=== PATIENT | female | born 1960 | race Caucasian/White ===

== ENCOUNTER 2016-12-19 18:27 | Inpatient (IN) | payer OTHER, MEDICARE ==
[~2016-12-19] VITALS: Ht 170.2 cm; Wt 77.1 kg
[~2016-12-19 18:27] MED LIST: ARIP15TA3 PO; BUPR150T15 PO; CRESTOR10 MG PO; DICL75TA PO; DULO60CA6 PO; GINK60CA7 PO; HYDR-2758 PO; IBUP200C9 PO; LAMO150T3 PO; OMEG300C PO; OMEP40CA5 PO; OXYC-327 PO; RABE20TA18 PO
[2016-12-19] MEDS ORDERED: IV NORMAL SALINE 1000ML BAG 1,000 ML IV ONE ×2 (19:00→21:00)
[2016-12-19 19:04] LABS: BASO # 0.1 x10^3/uL (0.0-0.2); BASO % 1 % (0-3); EOS % 0 % (0-3); HEMOGLOBIN 17.1 g/dL (12.0-15.5); LYMPH # 1.6 x10^3/uL (1.0-4.8); LYMPH % 8 % (24-48); MEAN CORPUSCULAR HEMOGLOBIN 32 pg (25-35); MEAN CORPUSCULAR HGB CONC 34 g/dL (31-37); MEAN CORPUSCULAR VOLUME 94 fL (79-100); MONO % 6 % (0-9); NEUT % 86 % (31-73); PLATELET COUNT 287 x10^3/uL (140-400); RED BLOOD COUNT 5.43 x10^6/uL (3.50-5.40); RED CELL DISTRIBUTION WIDTH 14.2 % (11.5-14.5); WHITE BLOOD COUNT 19.8 x10^3/uL (4.0-11.0)
[2016-12-19] MEDS: HYDROmorphone 2 MG/ML VIAL IV PRN (19:07)
[2016-12-19 19:15] LABS: BILIRUBIN,URINE NEGATIVE (NEG); GLUCOSE,URINE 100 mg/dL (NEG); NITRITE,URINE NEGATIVE (NEG); PROTEIN,URINE 100 mg/dL (NEG-TRACE); UROBILINOGEN,URINE 0.2 mg/dL (0.2 mg/dL)
[2016-12-19] MEDS ORDERED: ONDANSETRON PF 4 MG/2 ML VIAL. IV ONE (19:15)
--- NOTE | 2016-12-19 19:19 | PHYS DOC ---
Past Medical History Past Medical History: Cancer, Diabetes-Type II, Other Additional Past Medical Histor: left breast ca Past Surgical History: Cholecystectomy, Hysterectomy, Other Additional Past Surgical Histo: L mastectomy Alcohol Use: Rarely Drug Use: None Adult General Chief Complaint Chief Complaint: ABDOMINAL PAIN HPI HPI 56-year-old female presenting the emergency department today with epigastric abdominal pain for the past 48 hours. She has had 2 episodes of vomiting associated with this. She describes her vomitus is stomach contents. It is not bilious or bloody. She reports having hard stools over the past few days. She describes the pain is moderate to severe intermittent and without alleviating factors. It is nonradiating. She denies fevers or chills. Review of systems is negative for chest pain diarrhea shortness of breath fevers chills. All other review of systems is negative unless otherwise noted in history of present illness. Pertinent physical exam findings: Abdomen is soft and mildly tender generally without a focus. Negative McBurney's point. Negative Hyde sign. Otherwise unremarkable. ED course: 48-year-old female presenting to the emergency department with epigastric abdominal pain. Vital signs showed mild tachycardia likely secondary to pain. Otherwise her blood pressure was elevated as well. Blood work obtained along with CT of the abdomen pelvis. IV fluids and nausea medication were given. Pain medication given as well. Potassium came back low at 2.9. I did not have a previous EKG to compare to. EKG reviewed shows left bundle branch pattern unable to assess for EKG changes given no previous. I give the patient IV potassium and oral potassium and admitted her for telemetry monitoring. CT abdomen pelvis showed no acute pathology. Blood work showed leukocytosis. Nonspecific test. The patient was then admitted to Dr. Chi for further evaluation workup and care. Review of Systems Review of Systems SEE ABOVE. Current Medications Current Medications Current Medications Medications (Trade) Dose Ordered Sig/Julieta Start Time Stop Time Status Last Admin Dose Admin Hydromorphone HCl (Dilaudid) 0.5 mg PRN Q1HR PRN 12/19/16 19:00 12/19/16 19:07 0.5 MG Info (Do NOT chart on this entry -- for MONITORING) 1 each PRN DAILY PRN 12/19/16 20:00 12/21/16 19:59 Iohexol (Omnipaque 300 Mg/ml) 75 ml 1X ONCE 12/19/16 20:30 12/19/16 20:31 DC 12/19/16 20:20 75 ML Morphine Sulfate 2 mg PRN Q2HR PRN 12/19/16 21:00 12/20/16 20:59 Ondansetron HCl (Zofran) 4 mg PRN Q8HRS PRN 12/19/16 21:00 12/20/16 20:59 Potassium Chloride 100 ml @ 100 mls/hr Q1H 12/19/16 20:00 12/19/16 21:59 12/19/16 20:30 100 MLS/HR Sodium Chloride 1,000 ml @ 100 mls/hr 1X ONCE 12/19/16 21:00 12/20/16 06:59 12/19/16 20:48 100 MLS/HR Allergies Allergies Allergies Coded Allergies Type Severity Reaction Last Updated Verified Sulfa (Sulfonamide Antibiotics) Allergy Intermediate Hives 12/19/16 Yes adhesive Allergy Intermediate itch 07/02/14 Yes Physical Exam Physical Exam Constitutional: Well developed, well nourished, no acute distress, non-toxic appearance. [] HENT: Normocephalic, atraumatic, bilateral external ears normal, oropharynx moist, no oral exudates, nose normal. [] Eyes: PERRLA, EOMI, conjunctiva normal, no discharge. [] Neck: Normal range of motion, no tenderness, supple, no stridor. [] Cardiovascular:Heart rate regular rhythm, no murmur [] Lungs & Thorax: Bilateral breath sounds clear to auscultation [] Abdomen: see above Skin: Warm, dry, no erythema, no rash. [] Back: No tenderness, no CVA tenderness. [] Extremities: No tenderness, no cyanosis, no clubbing, ROM intact, no edema. [] Neurologic: Alert and oriented X 3, normal motor function, normal sensory function, no focal deficits noted. [] Psychologic: Affect normal, judgement normal, mood normal. [] Current Patient Data Vital Signs Vital Signs Date Time Temp Pulse Resp B/P (MAP) Pulse Ox O2 Delivery O2 Flow Rate FiO2 12/19/16 20:56 80 19 127/73 (91) 98 Nasal Cannula 2.0 12/19/16 18:44 97.9 97.9 Lab Values Laboratory Tests Test 12/19/16 18:46 12/19/16 18:53 12/19/16 19:00 White Blood Count 19.8 x10^3/uL (4.0-11.0) H Red Blood Count 5.43 x10^6/uL (3.50-5.40) H Hemoglobin 17.1 g/dL (12.0-15.5) H Hematocrit 51.0 % (36.0-47.0) H Mean Corpuscular Volume 94 fL (79-100) Mean Corpuscular Hemoglobin 32 pg (25-35) Mean Corpuscular Hemoglobin Concent 34 g/dL (31-37) Red Cell Distribution Width 14.2 % (11.5-14.5) Platelet Count 287 x10^3/uL (140-400) Neutrophils (%) (Auto) 86 % (31-73) H Lymphocytes (%) (Auto) 8 % (24-48) L Monocytes (%) (Auto) 6 % (0-9) Eosinophils (%) (Auto) 0 % (0-3) Basophils (%) (Auto) 1 % (0-3) Neutrophils # (Auto) 16.9 x10^3uL (1.8-7.7) H Lymphocytes # (Auto) 1.6 x10^3/uL (1.0-4.8) Monocytes # (Auto) 1.1 x10^3/uL (0.0-1.1) Eosinophils # (Auto) 0.0 x10^3/uL (0.0-0.7) Basophils # (Auto) 0.1 x10^3/uL (0.0-0.2) Segmented Neutrophils % 83 % (35-66) H Band Neutrophils % 2 % (0-9) Lymphocytes % 7 % (24-48) L Monocytes % 7 % (0-10) Basophils % 1 % (0-3) Toxic Granulation Slight Platelet Estimate Adequate (ADEQUATE) Sodium Level 136 mmol/L (136-145) Potassium Level 2.9 mmol/L (3.5-5.1) *L Chloride Level 96 mmol/L (98-107) L Carbon Dioxide Level 24 mmol/L (21-32) Anion Gap 16 (6-14) H Blood Urea Nitrogen 10 mg/dL (7-20) Creatinine 0.7 mg/dL (0.6-1.0) Estimated GFR (Cockcroft-Gault) 85.9 BUN/Creatinine Ratio 14 (6-20) Glucose Level 188 mg/dL (70-99) H Calcium Level 11.6 mg/dL (8.5-10.1) H Total Bilirubin 0.8 mg/dL (0.2-1.0) Aspartate Amino Transferase (AST) 35 U/L (15-37) Alanine Aminotransferase (ALT) 38 U/L (14-59) Alkaline Phosphatase 156 U/L (46-116) H Total Protein 8.9 g/dL (6.4-8.2) H Albumin 4.7 g/dL (3.4-5.0) Albumin/Globulin Ratio 1.1 (1.0-1.7) Lipase 102 U/L (73-393) Urine Collection Type Unknown Urine Color Straw Urine Clarity Clear Urine pH 8.0 Urine Specific Elmo 1.010 Urine Protein 100 mg/dL (NEG-TRACE) Urine Glucose (UA) 100 mg/dL (NEG) Urine Ketones (Stick) Negative mg/dL (NEG) Urine Blood Negative (NEG) Urine Nitrite Negative (NEG) Urine Bilirubin Negative (NEG) Urine Urobilinogen Dipstick 0.2 mg/dL (0.2 mg/dL) Urine Leukocyte Esterase Negative (NEG) Urine RBC 1-2 /HPF (0-2) Urine WBC 0 /HPF (0-4) Urine Squamous Epithelial Cells Few /LPF Urine Bacteria 0 /HPF (0-FEW) Urine Mucus Slight /LPF Urine Opiates Screen Neg (NEG) Urine Methadone Screen Neg (NEG) Urine Barbiturates Neg (NEG) Urine Phencyclidine Screen Neg (NEG) Urine Amphetamine/Methamphetamine Neg (NEG) Urine Benzodiazepines Screen Neg (NEG) Urine Cocaine Screen Neg (NEG) Urine Cannabinoids Screen Pos (NEG) Urine Ethyl Alcohol Neg (NEG) Laboratory Tests 12/19/16 18:46 Laboratory Tests 12/19/16 18:46 EKG EKG EKG shows left bundle branch block. Sinus rhythm with mild tachycardia. Otherwise unremarkable. [] Radiology/Procedures Radiology/Procedures [] Course & Med Decision Making Course & Med Decision Making Pertinent Labs and Imaging studies reviewed. (See chart for details) [] Dragon Disclaimer Dragon Disclaimer This electronic medical record was generated, in whole or in part, using a voice recognition dictation system. Departure Departure Impression: Primary Impression: Epigastric abdominal pain Additional Impressions: Hypokalemia Leukocytosis Referrals: RUTH NOVA MD (PCP) Patient Instructions: Abdominal Pain Additional Instructions: Thank you for allowing us to participate in your care today. Followup with your primary care physician in 3 days if your symptoms do not improve. Call your Primary Doctor tomorrow and inform them of your visit today. If you do not have a primary care provider you can ask for a list of our primary care providers. Return to the emergency department you have any new or concerning findings. This should be evaluated by the primary care physician and any necessary consulting services for continued management within a few days after discharge. Return to emergency room if you have any new or concerning symptoms including but not limited to fever, chills, nausea, vomiting, intractable pain, any new rashes, chest pain, shortness of air, uncontrolled bleeding, difficulty breathing, and/or vision loss. Problem Qualifiers SREEKANTH GARCIA MD Dec 19, 2016 19:19
[2016-12-19 19:21] LABS: BACTERIA,URINE 0 /HPF (0-FEW); SQUAMOUS EPITHELIAL CELL,UR FEW /LPF; WBC,URINE 0 /HPF (0-4)
[2016-12-19 19:26] LABS: BARBITURATES NEG (NEG); BENZODIAZEPINES NEG (NEG); CANNABINOIDS POS (NEG); COCAINE NEG (NEG); METHADONE NEG (NEG); OPIATES NEG (NEG); PHENCYCLIDINE NEG (NEG)
[2016-12-19 19:26] LABS: ALBUMIN 4.7 g/dL (3.4-5.0); ALBUMIN/GLOBULIN RATIO 1.1 (1.0-1.7); CALCIUM 11.6 mg/dL (8.5-10.1); CREATININE 0.7 mg/dL (0.6-1.0); GFR 85.9; TOTAL BILIRUBIN 0.8 mg/dL (0.2-1.0); TOTAL PROTEIN 8.9 g/dL (6.4-8.2)
[2016-12-19 19:29] LABS: % BASOS 1 % (0-3)
[2016-12-19 19:30] LABS: PLT ESTIMATE ADEQUATE (ADEQUATE); TOXIC GRANULATION SLIGHT
[2016-12-19 19:34] LABS: POTASSIUM 2.9 mmol/L (3.5-5.1)
[2016-12-19] MEDS ORDERED: CONTRAST GIVEN MC PRN (20:00)
[2016-12-19] MEDS ORDERED: IOHEXOL 300 MG/ML 75 ML VIAL IV ONE (20:30)
[2016-12-19] MEDS: POTASSIUM CHLORIDE 10MEQ 100 ML IV SCH ×2 (20:30→21:44)
--- NOTE | 2016-12-19 20:42 | RAD ---
CT scan of the abdomen and pelvis with contrast 12/19/2016 CLINICAL HISTORY: Abdominal pain with elevated white blood count. TECHNIQUE: After the intravenous administration 75 cc Omnipaque 300, contiguous, 5 mm axial sections were obtained through the abdomen and pelvis. FINDINGS: Images through the lung bases demonstrate minimal dependent subsegmental atelectasis bilaterally. The liver, spleen, pancreas, adrenal glands and left kidney are within normal limits. A 7 mm rounded low-attenuation lesion is seen involving the lower pole of the right kidney. This likely represents a cyst. Mild to moderate scattered atherosclerotic plaque formation seen within the abdominal aorta. The abdominal aorta tapers normally. Surgical clips within the gallbladder fossa consistent with cholecystectomy. No free fluid or free air is seen within the abdomen. There is no evidence of bowel obstruction. The appendix is not visualized. No inflammatory changes are seen surrounding the cecum. Images through the pelvis demonstrates the urinary bladder distended with urine. The patient appears to be post hysterectomy. No adnexal mass is seen. No free fluid is noted. Degenerative changes are seen involving the lumbar spine and both hips. IMPRESSION: No acute abnormality is seen. Electronically signed by: Theodore Dias MD (12/19/2016 8:39 PM)
[2016-12-19] MEDS ORDERED: ONDANSETRON PF 4 MG/2 ML VIAL. IV PRN (21:00)
[2016-12-19 23:00] VITALS: BP 137/79
[2016-12-19] MEDS ORDERED: DULO30CA2 PO (23:07)
[2016-12-19] MEDS ORDERED: ARIP10TA9 PO (23:07)
[2016-12-19] MEDS ORDERED: LAMO200T PO (23:09)
[2016-12-19] MEDS ORDERED: ARIP20TA10 PO (23:09)
[2016-12-19] MEDS: MORPHINE SULFATE 2 MG/ML DISP.SYRIN. IV PRN (23:27)
--- NOTE | 2016-12-20 01:06 | ACF ---
Admission Forms Criteria ABDOMINAL PAIN Clinical Indications for Admission to Inpatient Care (Place 'X' for any and all applicable criteria): Admission is indicated for ANY ONE of the following(1)(2)(3)(4)(5): [X]I. Inpatient admission required rather than observation care (Also use Abdominal Pain: Observation Care, as appropriate) because of ANY ONE of the following: [X]a) Severe pain requiring acute inpatient management [ ]b) Identification of etiology/finding that requires inpatient care (eg, aortic dissection, free air) [ ]c) Absent bowel sounds with complete ileus(6) [ ]d) Suspected toxic megacolon [ ]e) Severe electrolyte abnormalities requiring inpatient care [ ]f) High fever or infection requiring inpatient admission as indicated by ANY ONE of following(7)(8): [ ] i) Appropriate outpatient or observational care antimicrobial treatment unavailable, not effective, or not feasible [ ] ii) Documented bacteremia [ ] iii) Temperature > 104.9 degrees F (oral) [ ] iv) T >103.1 F (oral) or < 96.8 F(rectal) that does not respond to all emergency treatment measures [ ]g) Signs of intestinal obstruction [B] [ ]h) Hemodynamic instability [ ]i) IV fluid to replace significant ongoing losses (greater than 3 L/m2 per day) (12)(13) [ ]j) Percutaneous or open drainage (eg, abscess, biliary tract ) procedures [ ]k) Parenteral nutrition regimen that must be implemented on inpatient basis [ ]l) Other condition,treatment or monitoring requiring inpatient admission. [ ]II. Peritoneal signs present [ ]III. Surgery needed that cannot be performed on an ambulatory basis. [ ]IV. Evaluation requires patient to not eat or drink for extended period ( eg, more than 24 hours). [ ]V. Contraindications and/or Inappropriate clinical situations for Observational Care in patients with abdominal pain, when ANY ONE of the following is required: [ ]a) Thorough evaluation is required to prevent catastrophic events due to delays in diagnosing (e.g.Mesenteric ischemia) 1,3 [ ]b) Patient with severe pathology or with chronic symptoms unlikely to improve in the ED stay (3) [ ]. General contraindications and/or Inappropriate clinical situations for Observational Care in patients with abdominal pain, when ANY ONE of the following is required: [ ]a) Prediction of prolongation of LOS based on ANY ONE of the following may be considered as a contraindication for observational care 2, 3, 4, 5, 6, 7, 8, 9, 10, 11 [ ]i) Age > 65 yrs. [ ]ii) Patient arriving by ambulance [ ]iii) Patient with high acuity [ ]iv) Patient requiring vital sign monitoring [ ]v) Patient on IV medication [ ]b) Systolic blood pressures 180mmHg 3,12 [ ]c) Patient with altered mental status including delirium and other alteration of consciousness, (3) [ ]d) Patient whose discharge disposition will be to a correction home or rehabilitation home should not be managed in Emergency Department Observation Unit. CMS rule requires 3 days hospital stay before such placement.3,13 [ ]e) Patient with failure to thrive due to broad array of etiologies 3,16,17 [ ]f) Inability to ambulate 3,14 Extended stay beyond goal length of stay may be needed for(2)(3): [ ]a) Persistent abdominal pain with suspected intra-abdominal process [ ]b) Diagnosed condition requiring continued stay (e.g., pancreatitis, complicated diverticulitis) [ ]c) Surgery (e.g., colectomy) The original [facility] content created by [employer] has been revised. The portions of the content which have been revised are identified through the use of italic text or in bold, and [facility] has neither reviewed nor approved the modified material.All other unmodified content is copyright [employer]. Please see references footnoted in the original [facility] edition 2016 Admission Criteria Met?: Yes PAULINA CARRINGTON Dec 20, 2016 01:06
[2016-12-20] MEDS: MORPHINE SULFATE 2 MG/ML DISP.SYRIN. IV PRN ×6 (01:59→23:44)
[2016-12-20 03:06] VITALS: BP 176/102
[2016-12-20 05:03] LABS: BASO # 0.2 x10^3/uL (0.0-0.2); BASO % 1 % (0-3); EOS % 0 % (0-3); HEMATOCRIT 48.9 % (36.0-47.0); HEMOGLOBIN 16.2 g/dL (12.0-15.5); LYMPH # 2.4 x10^3/uL (1.0-4.8); LYMPH % 10 % (24-48); MEAN CORPUSCULAR HEMOGLOBIN 31 pg (25-35); MEAN CORPUSCULAR HGB CONC 33 g/dL (31-37); MEAN CORPUSCULAR VOLUME 94 fL (79-100); MONO % 11 % (0-9); NEUT % 78 % (31-73); PLATELET COUNT 268 x10^3/uL (140-400); RED BLOOD COUNT 5.18 x10^6/uL (3.50-5.40); RED CELL DISTRIBUTION WIDTH 14.3 % (11.5-14.5); WHITE BLOOD COUNT 24.5 x10^3/uL (4.0-11.0)
[2016-12-20 05:37] LABS: CALCIUM 10.5 mg/dL (8.5-10.1); CREATININE 0.5 mg/dL (0.6-1.0); GFR 126.7; POTASSIUM 3.5 mmol/L (3.5-5.1)
[2016-12-20 07:00] VITALS: BP 166/108
[2016-12-20] MEDS: PANTOPRAZOLE 40 MG TABLET.DR. PO SCH (09:08)
[2016-12-20] MEDS: POTASSIUM CHLORIDE 40 MEQ in IV 1/2 NORMAL SALINE 1,000 ML IV SCH ×2 (10:27→19:59)
--- NOTE | 2016-12-20 10:46 | PDOC2 ---
GI CONSULT Reason For Consult: Probable gastritis HPI: HPI: 56 y/o female who reports intermittent periumbilical pain for 5-6 days, more constant for 2 days. Induced vomiting, unsure if pain relief. H/o constipation improved w/ Miralax PRN, but has been out of town and not taking. Has been stooling w/ straining. Takes hydrocodone PRN for arthritis, also Excedrin. H/o GERD not completely controlled w/ Aciphex BID. EGD and colonoscopy w/ Dr. Eduardo in 07/2016: EGD w/ mild reflux (confirmed pathologically ), mild gastritis (no H. pylori), normal duodenum (no sprue), internal hemorrhoids, and excessive looping in the descending colon. CT as below, unrevealing. PMH: PMH: breast cancer s/p rad/chemo and left mastectomy, DM, GERD, fibromyalgia, depression, HLD, ANNE-MARIE, OA, hysterectomy, , cholecystectomy FH: Family History: Cancer (breast, colon), DM, Hypertension Social History: Smoke: Quit ALCOHOL: rare Drugs: Marijuana ROS: GEN: Denies fevers, chills, sweats HEENT: Denies blurred vision, sore throat CV: Denies chest pain RESP: Denies shortness of air, cough GI: Per HPI : Denies hematuria, dysuria ENDO: Denies weight changes NEURO: Denies confusion, dizziness MSK: +arthritis SKIN: Denies jaundice, pruritus Vitals: Vitals: Vital Signs Date Time Temp Pulse Resp B/P (MAP) Pulse Ox O2 Delivery O2 Flow Rate FiO2 12/20/16 09:45 Nasal Cannula 2.0 12/20/16 07:00 98.9 99 20 166/108 (127) 96 98.9 Labs: Labs: Laboratory Tests Test 12/19/16 18:46 12/19/16 18:53 12/19/16 19:00 12/20/16 04:50 White Blood Count 19.8 x10^3/uL (4.0-11.0) 24.5 x10^3/uL (4.0-11.0) Red Blood Count 5.43 x10^6/uL (3.50-5.40) 5.18 x10^6/uL (3.50-5.40) Hemoglobin 17.1 g/dL (12.0-15.5) 16.2 g/dL (12.0-15.5) Hematocrit 51.0 % (36.0-47.0) 48.9 % (36.0-47.0) Mean Corpuscular Volume 94 fL (79-100) 94 fL (79-100) Mean Corpuscular Hemoglobin 32 pg (25-35) 31 pg (25-35) Mean Corpuscular Hemoglobin Concent 34 g/dL (31-37) 33 g/dL (31-37) Red Cell Distribution Width 14.2 % (11.5-14.5) 14.3 % (11.5-14.5) Platelet Count 287 x10^3/uL (140-400) 268 x10^3/uL (140-400) Neutrophils (%) (Auto) 86 % (31-73) 78 % (31-73) Lymphocytes (%) (Auto) 8 % (24-48) 10 % (24-48) Monocytes (%) (Auto) 6 % (0-9) 11 % (0-9) Eosinophils (%) (Auto) 0 % (0-3) 0 % (0-3) Basophils (%) (Auto) 1 % (0-3) 1 % (0-3) Neutrophils # (Auto) 16.9 x10^3uL (1.8-7.7) 19.2 x10^3uL (1.8-7.7) Lymphocytes # (Auto) 1.6 x10^3/uL (1.0-4.8) 2.4 x10^3/uL (1.0-4.8) Monocytes # (Auto) 1.1 x10^3/uL (0.0-1.1) 2.7 x10^3/uL (0.0-1.1) Eosinophils # (Auto) 0.0 x10^3/uL (0.0-0.7) 0.0 x10^3/uL (0.0-0.7) Basophils # (Auto) 0.1 x10^3/uL (0.0-0.2) 0.2 x10^3/uL (0.0-0.2) Segmented Neutrophils % 83 % (35-66) Band Neutrophils % 2 % (0-9) Lymphocytes % 7 % (24-48) Monocytes % 7 % (0-10) Basophils % 1 % (0-3) Toxic Granulation Slight Platelet Estimate Adequate (ADEQUATE) Sodium Level 136 mmol/L (136-145) 140 mmol/L (136-145) Potassium Level 2.9 mmol/L (3.5-5.1) 3.5 mmol/L (3.5-5.1) Chloride Level 96 mmol/L (98-107) 102 mmol/L (98-107) Carbon Dioxide Level 24 mmol/L (21-32) 28 mmol/L (21-32) Anion Gap 16 (6-14) 10 (6-14) Blood Urea Nitrogen 10 mg/dL (7-20) 8 mg/dL (7-20) Creatinine 0.7 mg/dL (0.6-1.0) 0.5 mg/dL (0.6-1.0) Estimated GFR (Cockcroft-Gault) 85.9 126.7 BUN/Creatinine Ratio 14 (6-20) Glucose Level 188 mg/dL (70-99) 142 mg/dL (70-99) Calcium Level 11.6 mg/dL (8.5-10.1) 10.5 mg/dL (8.5-10.1) Total Bilirubin 0.8 mg/dL (0.2-1.0) Aspartate Amino Transf (AST/SGOT) 35 U/L (15-37) Alanine Aminotransferase (ALT/SGPT) 38 U/L (14-59) Alkaline Phosphatase 156 U/L (46-116) Total Protein 8.9 g/dL (6.4-8.2) Albumin 4.7 g/dL (3.4-5.0) Albumin/Globulin Ratio 1.1 (1.0-1.7) Lipase 102 U/L (73-393) Urine Collection Type Unknown Urine Color Straw Urine Clarity Clear Urine pH 8.0 Urine Specific Leland 1.010 Urine Protein 100 mg/dL (NEG-TRACE) Urine Glucose (UA) 100 mg/dL (NEG) Urine Ketones (Stick) Negative mg/dL (NEG) Urine Blood Negative (NEG) Urine Nitrite Negative (NEG) Urine Bilirubin Negative (NEG) Urine Urobilinogen Dipstick 0.2 mg/dL (0.2 mg/dL) Urine Leukocyte Esterase Negative (NEG) Urine RBC 1-2 /HPF (0-2) Urine WBC 0 /HPF (0-4) Urine Squamous Epithelial Cells Few /LPF Urine Bacteria 0 /HPF (0-FEW) Urine Mucus Slight /LPF Urine Opiates Screen Neg (NEG) Urine Methadone Screen Neg (NEG) Urine Barbiturates Neg (NEG) Urine Phencyclidine Screen Neg (NEG) Urine Amphetamine/Methamphetamine Neg (NEG) Urine Benzodiazepines Screen Neg (NEG) Urine Cocaine Screen Neg (NEG) Urine Cannabinoids Screen Pos (NEG) Urine Ethyl Alcohol Neg (NEG) Allergies: Coded Allergies: Sulfa (Sulfonamide Antibiotics) (Verified Allergy, Intermediate, Hives, ) adhesive (Verified Allergy, Intermediate, itch, 07/02/14) Medications: Current Medications Medications (Trade) Dose Ordered Sig/Julieta Route PRN Reason Start Time Stop Time Status Last Admin Dose Admin Hydromorphone HCl (Dilaudid) 0.5 mg PRN Q1HR PRN IV SEVERE PAIN 12/19/16 19:00 12/19/16 19:07 Ondansetron HCl (Zofran) 4 mg 1X ONCE IV 12/19/16 19:15 12/19/16 19:16 DC 12/19/16 19:06 Sodium Chloride 1,000 ml @ 1,000 mls/hr 1X ONCE IV 12/19/16 19:00 12/19/16 19:59 DC 12/19/16 19:07 Potassium Chloride 100 ml @ 100 mls/hr Q1H IV 12/19/16 20:00 12/19/16 21:59 DC 12/19/16 21:44 Iohexol (Omnipaque 300 Mg/ml) 75 ml 1X ONCE IV 12/19/16 20:30 12/19/16 20:31 DC 12/19/16 20:20 Sodium Chloride 1,000 ml @ 100 mls/hr 1X ONCE IV 12/19/16 21:00 12/20/16 06:59 DC 12/19/16 20:48 Ondansetron HCl (Zofran) 4 mg PRN Q8HRS PRN IV NAUSEA/VOMITING 12/19/16 21:00 12/20/16 20:59 12/19/16 23:31 Morphine Sulfate 2 mg PRN Q2HR PRN IV SEVERE PAIN 12/19/16 21:00 12/20/16 20:59 12/20/16 09:10 Pantoprazole Sodium (Protonix) 40 mg DAILYAC PO 12/20/16 09:30 12/20/16 09:08 Potassium Chloride 40 meq/ Sodium Chloride 1,020 ml @ 125 mls/hr Q8H10M IV 12/20/16 09:30 12/20/16 10:27 Imaging: Imaging: CT A/P w/ IV contrast IMPRESSION: No acute abnormality is seen. PE: GEN: NAD HEENT: Atraumatic, PERRL LUNGS: CTAB HEART: tachy ABD: NABS, S/ND, periumbilical soreness EXTREMITY: No edema SKIN: No rashes, no jaundice NEURO/PSYCH: A & O 3 A/P: A/P: Periumbilical pain -onset 5-6 days ago, no precipitating events -at first intermittent, worse w/ eating, now constant -CT unremarkable Constipation -intermittent, takes Miralax PRN -has been straining -colonoscopy 07/2016 GERD -breakthrough symptoms despite Aciphex BID -last EGD 07/2016 -Excedrin use QD Leukocytosis, hypokalemia -- D/w Dr. Rahman. Try Amitiza for ?opioid-induced constipation and check GES. Consider CTA r/o mesenteric ischemia and/or SBS later. AYAKA NOGUEIRA Dec 20, 2016 10:46
[2016-12-20 10:50] VITALS: BP 154/105
[2016-12-20] MEDS: POLYETHYLENE GLYCOL 3350 17 GM PACKET. PO SCH (12:06)
[2016-12-20] MEDS: HYDROmorphone 2 MG/ML VIAL IV PRN (14:51)
[2016-12-20 15:00] VITALS: BP 171/108
[2016-12-20] MEDS: LUBIPROSTONE 8 MCG CAPSULE PO SCH (16:59)
[2016-12-20 19:00] VITALS: BP 113/78
[2016-12-20] MEDS ORDERED: ONDANSETRON PF 4 MG/2 ML VIAL. IV PRN (19:45)
--- NOTE | 2016-12-20 21:50 | HP ---
ADMIT DATE: CHIEF COMPLAINT AND HISTORY OF PRESENT ILLNESS: This is a 56-year-old white female, who is well known to me with followup in the office. The patient was seen in the Emergency Room on the evening of admission with severe abdominal pain. This was primarily epigastric in nature, which has been going on for 4 days prior to this and was primarily worse with eating. This was suggestive of gastritis or gastric ulcer, but it got unbearable on the evening of admission. She had a negative CT of abdomen and pelvis, found to be hypokalemic with a potassium of 2.9. She had a left bundle-branch block on her EKG and was admitted for the hypokalemia as well as further workup of the abdominal pain. PAST MEDICAL HISTORY: Remarkable for prior left breast cancer with prior mastectomy that is more of a remote history. She has had a prior cholecystectomy and hysterectomy. Has adult-onset diabetes. MEDICATIONS: Brought with the patient, listed on the computer, and have been addressed. ALLERGIES: SHE IS ALLERGIC TO SULFA AND ADHESIVES. SOCIAL HISTORY: She is a smoker, recreationally drinks, and does not abuse drugs. FAMILY HISTORY: Noncontributory. REVIEW OF SYSTEMS: As mentioned above. Denies ____ hematemesis, melena, hematochezia etc. PHYSICAL EXAMINATION: GENERAL: She is a well-developed and well-nourished white female, in no acute distress. VITAL SIGNS: Stable. She is afebrile. HEAD, EYES, EARS, NOSE, AND THROAT: Unremarkable. NECK: Supple without bruit or thyromegaly. CHEST: Clear to auscultation and percussion. HEART: Regular rate and rhythm without S3, S4, or murmur. ABDOMEN: Reveals marked epigastric tenderness. EXTREMITIES: Without cyanosis, clubbing, or edema. NEUROLOGIC: She is intact. IMPRESSION: 1. Epigastric pain, likely again related to gastritis or gastric ulcer by history. 2. Hypokalemia. 3. Other problems listed as above. PLAN: The patient has been admitted. Potassium will be replaced. PPI has been started. GI has been consulted, and the patient will be monitored, managed, and treated appropriately. RUTH NOVA MD DR: DENG/kely JOB#: [id number] / [id number]
[2016-12-20 23:00] VITALS: BP 175/106
[2016-12-21] MEDS: HYDROmorphone 2 MG/ML VIAL IV PRN (01:19)
[2016-12-21 03:00] VITALS: BP 100/67
[2016-12-21] MEDS: POTASSIUM CHLORIDE 40 MEQ in IV 1/2 NORMAL SALINE 1,000 ML IV SCH ×3 (04:18→17:30)
[2016-12-21] MEDS: MORPHINE SULFATE 2 MG/ML DISP.SYRIN. IV PRN ×2 (04:21→06:39)
[2016-12-21 07:00] VITALS: BP 146/78
[2016-12-21 07:04] LABS: BASO # 0.1 x10^3/uL (0.0-0.2); BASO % 1 % (0-3); EOS % 0 % (0-3); HEMATOCRIT 49.5 % (36.0-47.0); HEMOGLOBIN 16.1 g/dL (12.0-15.5); LYMPH # 3.1 x10^3/uL (1.0-4.8); LYMPH % 17 % (24-48); MEAN CORPUSCULAR HEMOGLOBIN 31 pg (25-35); MEAN CORPUSCULAR HGB CONC 33 g/dL (31-37); MEAN CORPUSCULAR VOLUME 97 fL (79-100); MONO % 13 % (0-9); NEUT % 69 % (31-73); PLATELET COUNT 269 x10^3/uL (140-400); RED BLOOD COUNT 5.12 x10^6/uL (3.50-5.40); RED CELL DISTRIBUTION WIDTH 14.4 % (11.5-14.5); WHITE BLOOD COUNT 17.9 x10^3/uL (4.0-11.0)
[2016-12-21 07:11] LABS: CALCIUM 9.7 mg/dL (8.5-10.1); CREATININE 0.5 mg/dL (0.6-1.0); GFR 126.7; POTASSIUM 3.9 mmol/L (3.5-5.1)
--- NOTE | 2016-12-21 08:33 | PDOC ---
GENERAL General: vss and afebrile. awake and alert and very uncomfortable. will ask GI what could have for pain till GET completed. K+ up to 3.9 and wbc decreasing. otherwise same. Problems: VITAL SIGNS Vital Signs: Vital Signs Date Time Temp Pulse Resp B/P (MAP) Pulse Ox O2 Delivery O2 Flow Rate FiO2 12/21/16 06:39 16 95 Nasal Cannula 2.0 12/21/16 03:00 98.5 96 100/67 (78) 98.5 I & O I & O Intake and Output 12/21/16 07:00 Intake Total 2280 ml Output Total 500 ml Balance 1780 ml Intake Oral 240 ml IV Total 2040 ml Output Urine Total 500 ml # Voids 4 ALLERGIES Allergies: Allergies Coded Allergies Type Severity Reaction Last Updated Verified Sulfa (Sulfonamide Antibiotics) Allergy Intermediate Hives 12/19/16 Yes adhesive Allergy Intermediate itch 07/02/14 Yes MEDS Medications: Current Medications Medications (Trade) Dose Ordered Sig/Julieta Start Time Stop Time Status Last Admin Dose Admin Hydromorphone HCl (Dilaudid) 0.5 mg PRN Q1HR PRN 12/19/16 19:00 12/21/16 01:19 DC 12/21/16 01:19 0.5 MG Info (Do NOT chart on this entry -- for MONITORING) 1 each PRN DAILY PRN 12/19/16 20:00 12/21/16 19:59 Iohexol (Omnipaque 300 Mg/ml) 75 ml 1X ONCE 12/19/16 20:30 12/19/16 20:31 DC 12/19/16 20:20 75 ML Lubiprostone (Amitiza) 8 mcg BIDWMEALS 12/20/16 17:00 12/20/16 16:59 8 MCG Morphine Sulfate 2 mg PRN Q2HR PRN 12/20/16 19:45 12/21/16 06:39 2 MG Ondansetron HCl (Zofran) 4 mg PRN Q6HRS PRN 12/20/16 19:45 Pantoprazole Sodium (Protonix) 40 mg DAILYAC 12/20/16 09:30 12/20/16 09:08 40 MG Polyethylene Glycol (miraLAX PACKET) 17 gm DAILY 12/20/16 12:00 12/20/16 12:06 17 GM Potassium Chloride 40 meq/ Sodium Chloride 1,020 ml @ 125 mls/hr Q8H10M 12/20/16 09:30 12/21/16 04:18 125 MLS/HR Potassium Chloride 100 ml @ 100 mls/hr Q1H 12/19/16 20:00 12/19/16 21:59 DC 12/19/16 21:44 100 MLS/HR Sodium Chloride 1,000 ml @ 100 mls/hr 1X ONCE 12/19/16 21:00 12/20/16 06:59 DC 12/19/16 20:48 100 MLS/HR LAB Lab: Laboratory Tests Test 12/21/16 05:15 White Blood Count 17.9 x10^3/uL (4.0-11.0) Red Blood Count 5.12 x10^6/uL (3.50-5.40) Hemoglobin 16.1 g/dL (12.0-15.5) Hematocrit 49.5 % (36.0-47.0) Mean Corpuscular Volume 97 fL (79-100) Mean Corpuscular Hemoglobin 31 pg (25-35) Mean Corpuscular Hemoglobin Concent 33 g/dL (31-37) Red Cell Distribution Width 14.4 % (11.5-14.5) Platelet Count 269 x10^3/uL (140-400) Neutrophils (%) (Auto) 69 % (31-73) Lymphocytes (%) (Auto) 17 % (24-48) Monocytes (%) (Auto) 13 % (0-9) Eosinophils (%) (Auto) 0 % (0-3) Basophils (%) (Auto) 1 % (0-3) Neutrophils # (Auto) 12.3 x10^3uL (1.8-7.7) Lymphocytes # (Auto) 3.1 x10^3/uL (1.0-4.8) Monocytes # (Auto) 2.4 x10^3/uL (0.0-1.1) Eosinophils # (Auto) 0.1 x10^3/uL (0.0-0.7) Basophils # (Auto) 0.1 x10^3/uL (0.0-0.2) Sodium Level 141 mmol/L (136-145) Potassium Level 3.9 mmol/L (3.5-5.1) Chloride Level 105 mmol/L (98-107) Carbon Dioxide Level 26 mmol/L (21-32) Anion Gap 10 (6-14) Blood Urea Nitrogen 8 mg/dL (7-20) Creatinine 0.5 mg/dL (0.6-1.0) Estimated GFR (Cockcroft-Gault) 126.7 Glucose Level 118 mg/dL (70-99) Calcium Level 9.7 mg/dL (8.5-10.1) RUTH NOVA MD Dec 21, 2016 08:33
[2016-12-21] MEDS: fentaNYL PF VIAL 100 MCG/2 ML VIAL IV PRN ×5 (10:06→22:20)
[2016-12-21 11:00] VITALS: BP 173/117
--- NOTE | 2016-12-21 13:58 | PDOC ---
Subjective: Subjective: Wants to drink. Still has pain. No BM. Objective: Objective: Per RN - ongoing pain. Vital Signs: Vital Signs Date Time Temp Pulse Resp B/P (MAP) Pulse Ox O2 Delivery O2 Flow Rate FiO2 12/21/16 12:54 96 Room Air 12/21/16 11:30 2.0 12/21/16 07:00 98.6 72 20 146/78 (100) 98.6 Labs: Laboratory Tests Test 12/21/16 05:15 White Blood Count 17.9 x10^3/uL Red Blood Count 5.12 x10^6/uL Hemoglobin 16.1 g/dL Hematocrit 49.5 % Mean Corpuscular Volume 97 fL Mean Corpuscular Hemoglobin 31 pg Mean Corpuscular Hemoglobin Concent 33 g/dL Red Cell Distribution Width 14.4 % Platelet Count 269 x10^3/uL Neutrophils (%) (Auto) 69 % Lymphocytes (%) (Auto) 17 % Monocytes (%) (Auto) 13 % Eosinophils (%) (Auto) 0 % Basophils (%) (Auto) 1 % Neutrophils # (Auto) 12.3 x10^3uL Lymphocytes # (Auto) 3.1 x10^3/uL Monocytes # (Auto) 2.4 x10^3/uL Eosinophils # (Auto) 0.1 x10^3/uL Basophils # (Auto) 0.1 x10^3/uL Sodium Level 141 mmol/L Potassium Level 3.9 mmol/L Chloride Level 105 mmol/L Carbon Dioxide Level 26 mmol/L Anion Gap 10 Blood Urea Nitrogen 8 mg/dL Creatinine 0.5 mg/dL Estimated GFR (Cockcroft-Gault) 126.7 Glucose Level 118 mg/dL Calcium Level 9.7 mg/dL Imaging: GES 12/21/16 PENDING PE: GEN: NAD LUNGS: CTAB HEART: RRR ABD: BS quiet, periumbilical pain NEURO/PSYCH: A & O 3 A/P: Periumbilical pain -CT unremarkable but note mild to moderate scattered atherosclerotic plaque in abd aorta -GES report pending - images look okay to me Constipation -persists despite Miralax + Amitiza 8mcg BID -colonoscopy 07/2016 w/ excessive looping GERD -on Aciphex BID, also Excedrin QD -last EGD 07/2016 Leukocytosis -- Resume clears. Pain continues. Hasn't had many doses of Amitiza/Miralax but asks for enema - will order. If GES normal, ?CTA next - will d/w Dr. Rahman. AYAKA NOGUEIRA Dec 21, 2016 13:58
--- NOTE | 2016-12-21 13:59 | RAD ---
Examination: Gastric Emptying Scintigraphy: Radiopharmaceutical: 2.0 mCi Tc-99m sulfur colloid mixed with solid meal History: Abdominal pain, nausea, vomiting. Findings: A routine solid-phase gastric emptying scintigraphy examination was performed. Anterior abdominal images were obtained at after ingestion of the standardized radiolabeled solid meal. Time/activity closer performed. The gastric emptying is 49% in 60 minutes with a T half of 64 minutes. Impression: Normal gastric emptying.
[2016-12-21] MEDS ORDERED: SODIUM PHOSPHATES 19/7GM 133 ML ENEMA. PR ONE (14:00)
[2016-12-21] MEDS: POLYETHYLENE GLYCOL 3350 17 GM PACKET. PO SCH (14:07)
[2016-12-21] MEDS: LUBIPROSTONE 8 MCG CAPSULE PO SCH ×2 (14:07→16:42)
[2016-12-21] MEDS: PANTOPRAZOLE 40 MG TABLET.DR. PO SCH ×2 (14:08→16:42)
[2016-12-21 15:00] VITALS: BP 110/66
[2016-12-21 19:25] VITALS: BP 94/57
[2016-12-21 23:25] VITALS: BP 142/94
[2016-12-22] MEDS: fentaNYL PF VIAL 100 MCG/2 ML VIAL IV PRN ×3 (00:38→06:05)
[2016-12-22] MEDS: POTASSIUM CHLORIDE 40 MEQ in IV 1/2 NORMAL SALINE 1,000 ML IV SCH ×2 (02:03→13:49)
[2016-12-22 03:00] VITALS: BP 140/91
[2016-12-22 07:00] VITALS: BP 177/102
[2016-12-22] MEDS: MORPHINE SULFATE 2 MG/ML DISP.SYRIN. IV PRN ×7 (08:09→22:48)
[2016-12-22] MEDS ORDERED: IOHEXOL 350 MG/ML 100 ML VIAL. IV ONE (09:15)
[2016-12-22] MEDS ORDERED: CONTRAST GIVEN MC PRN (09:15)
[2016-12-22] MEDS: PANTOPRAZOLE 40 MG TABLET.DR. PO SCH ×2 (10:09→18:11)
[2016-12-22] MEDS: LUBIPROSTONE 8 MCG CAPSULE PO SCH ×2 (10:09→18:11)
[2016-12-22] MEDS: POLYETHYLENE GLYCOL 3350 17 GM PACKET. PO SCH (10:10)
[2016-12-22 10:44] VITALS: BP 173/102
--- NOTE | 2016-12-22 13:30 | RAD ---
CTA of the abdomen and pelvis with contrast, 12/22/2016: History: Abdominal pain, mesenteric ischemia Multidetector CT imaging was performed following an IV bolus injection of iodinated contrast material. Multiplanar reconstructions were then produced as well as 3-D volume rendered reconstructions of the aorta and its major branches. There are mild scattered atherosclerotic plaques in the abdominal aorta, iliac and common femoral arteries. There is no evidence of high-grade stenosis or aneurysm. The origins of the celiac and superior mesenteric arteries from the aortic arch are widely patent. There are single bilateral renal arteries with only mild calcific plaquing at the left renal artery origin. A small patent inferior mesenteric artery is identified. Since the study of 12/19/2016, a large area of abnormal density has developed in the right upper quadrant centered in the region of the gallbladder fossa and second portion of the duodenum, extending inferiorly in the anterior pararenal space. This material is of mixed low and high density suggesting a component of hemorrhage. It surrounds the second portion of the duodenum and abuts the pancreatic head. It also abuts the hepatic flexure of the colon. The common duct in the pancreatic head is unremarkable. The pancreatic body and tail show no abnormality. No definite free air is seen in the retroperitoneum. The bowel loops are not dilated. Proximal gastric mural thickening is probably due to lack of distention. A component of gastritis cannot be excluded. No free air is identified in the abdomen or pelvis. There is a trace amount of free fluid in the right paracolic gutter and pelvis. IMPRESSION: 1. Mild aortoiliac atherosclerosis. 2. No evidence of celiac or superior mesenteric artery stenosis. 3. New large area of abnormal density in the right upper quadrant centered in the proximal duodenal and subhepatic region, most compatible with hemorrhage, of uncertain origin. Has there been recent intervention in this region? Complex fluid secondary to focal pancreatitis or a biloma are less likely possibilities. Note: The findings were called to the patient's nurse on the floor at 1:25 PM on 12/22/2016. PQRS Compliance Statement: One or more of the following individualized dose reduction techniques were utilized for this examination: 1. Automated exposure control 2. Adjustment of the mA and/or kV according to patient size 3. Use of iterative reconstruction technique
--- NOTE | 2016-12-22 13:48 | PDOC ---
Subjective: Subjective: Feels better after shower but still has pain. Worse after eating. Only passed small amount of stool after enema yesterday. Objective: Vital Signs: Vital Signs Date Time Temp Pulse Resp B/P (MAP) Pulse Ox O2 Delivery O2 Flow Rate FiO2 12/22/16 11:54 98 Room Air 2.0 12/22/16 10:44 97.9 97 20 173/102 (125) 97.9 Imaging: CTA A/P 12/22/16 IMPRESSION: 1. Mild aortoiliac atherosclerosis. 2. No evidence of celiac or superior mesenteric artery stenosis. 3. New large area of abnormal density in the right upper quadrant centered in the proximal duodenal and subhepatic region, most compatible with hemorrhage, of uncertain origin. Has there been recent intervention in this region? Complex fluid secondary to focal pancreatitis or a biloma are less likely possibilities. PE: GEN: NAD, up to chair LUNGS: CTAB HEART: RRR ABD: epigastric to RUQ discomfort NEURO/PSYCH: A & O 3 A/P: Periumbilical pain -CT unremarkable except atherosclerotic plaque -GES WNL -CTA as above Constipation -persists despite Miralax + Amitiza 8mcg BID + Fleet's enema -colonoscopy 07/2016 w/ excessive looping GERD -on Aciphex BID, also Excedrin QD -last EGD 07/2016 Leukocytosis -- Reviewed w/ Dr. Rahman. MRI liver today. Called radiology - order for MRI abd w/ and w/o. AYAKA NOGUEIRA Dec 22, 2016 13:48
[2016-12-22 15:00] VITALS: BP 195/113
--- NOTE | 2016-12-22 15:25 | PDOC ---
GENERAL General: vss and afebrile. awake and alert and ongoing abdominal pain. GET ok. for cta abdomen today per GI. plans to follow. hypokalemia corrected. Problems: VITAL SIGNS Vital Signs: Vital Signs Date Time Temp Pulse Resp B/P (MAP) Pulse Ox O2 Delivery O2 Flow Rate FiO2 12/22/16 14:42 98 Room Air 2.0 12/22/16 10:44 97.9 97 20 173/102 (125) 97.9 I & O I & O Intake and Output 12/22/16 07:00 Intake Total 1060 ml Balance 1060 ml Intake Oral 1060 ml # Voids 7 ALLERGIES Allergies: Allergies Coded Allergies Type Severity Reaction Last Updated Verified Sulfa (Sulfonamide Antibiotics) Allergy Intermediate Hives 12/19/16 Yes adhesive Allergy Intermediate itch 07/02/14 Yes MEDS Medications: Current Medications Medications (Trade) Dose Ordered Sig/Julieta Start Time Stop Time Status Last Admin Dose Admin Fentanyl Citrate (Fentanyl 2ml Vial) 50 mcg PRN Q2HR PRN 12/21/16 08:45 12/22/16 06:05 50 MCG Hydromorphone HCl (Dilaudid) 0.5 mg PRN Q1HR PRN 12/19/16 19:00 12/21/16 01:19 DC 12/21/16 01:19 0.5 MG Info (Do NOT chart on this entry -- for MONITORING) 1 each PRN DAILY PRN 12/22/16 09:15 12/24/16 09:14 Iohexol (Omnipaque 300 Mg/ml) 75 ml 1X ONCE 12/19/16 20:30 12/19/16 20:31 DC 12/19/16 20:20 75 ML Iohexol (Omnipaque 350 Mg/ml) 90 ml 1X ONCE 12/22/16 09:15 12/22/16 09:16 DC 12/22/16 09:28 90 ML Lorazepam (Ativan) 1 mg 1X ONCE 12/22/16 15:15 12/22/16 15:16 DC Lubiprostone (Amitiza) 8 mcg BIDWMEALS 12/20/16 17:00 12/22/16 10:09 8 MCG Morphine Sulfate 2 mg PRN Q2HR PRN 12/20/16 19:45 12/22/16 13:49 2 MG Ondansetron HCl (Zofran) 4 mg PRN Q6HRS PRN 12/20/16 19:45 Pantoprazole Sodium (Protonix) 40 mg BIDAC 12/21/16 16:30 12/22/16 10:09 40 MG Polyethylene Glycol (miraLAX PACKET) 17 gm DAILY 12/20/16 12:00 12/22/16 10:10 17 GM Potassium Chloride 40 meq/ Sodium Chloride 1,020 ml @ 125 mls/hr Q8H10M 12/20/16 09:30 12/22/16 13:49 125 MLS/HR Potassium Chloride 100 ml @ 100 mls/hr Q1H 12/19/16 20:00 12/19/16 21:59 DC 12/19/16 21:44 100 MLS/HR Sodium Monofluorophosphate (Fleet Adult) 133 ml 1X ONCE 12/21/16 14:00 12/21/16 14:01 DC 12/21/16 14:07 133 ML Sodium Chloride 1,000 ml @ 100 mls/hr 1X ONCE 12/19/16 21:00 12/20/16 06:59 DC 12/19/16 20:48 100 MLS/HR RUTH NOVA MD Dec 22, 2016 15:25
--- NOTE | 2016-12-22 17:43 | PDOC ---
SURGICAL PROGRESS NOTE Subjective 56 yo F with RUQ pain CT c/w hematoma agree with MRI consider angio Thanks for consult! [id number] Vital Signs Vital Signs Date Time Temp Pulse Resp B/P (MAP) Pulse Ox O2 Delivery O2 Flow Rate FiO2 12/22/16 15:00 97.9 97 20 195/113 (140) 99 Room Air 97.9 12/22/16 14:42 2.0 I&O Intake and Output 12/22/16 07:00 Intake Total 1060 ml Balance 1060 ml Intake Oral 1060 ml # Voids 7 Labs Laboratory Tests Test 12/21/16 05:15 White Blood Count 17.9 x10^3/uL (4.0-11.0) Red Blood Count 5.12 x10^6/uL (3.50-5.40) Hemoglobin 16.1 g/dL (12.0-15.5) Hematocrit 49.5 % (36.0-47.0) Mean Corpuscular Volume 97 fL (79-100) Mean Corpuscular Hemoglobin 31 pg (25-35) Mean Corpuscular Hemoglobin Concent 33 g/dL (31-37) Red Cell Distribution Width 14.4 % (11.5-14.5) Platelet Count 269 x10^3/uL (140-400) Neutrophils (%) (Auto) 69 % (31-73) Lymphocytes (%) (Auto) 17 % (24-48) Monocytes (%) (Auto) 13 % (0-9) Eosinophils (%) (Auto) 0 % (0-3) Basophils (%) (Auto) 1 % (0-3) Neutrophils # (Auto) 12.3 x10^3uL (1.8-7.7) Lymphocytes # (Auto) 3.1 x10^3/uL (1.0-4.8) Monocytes # (Auto) 2.4 x10^3/uL (0.0-1.1) Eosinophils # (Auto) 0.1 x10^3/uL (0.0-0.7) Basophils # (Auto) 0.1 x10^3/uL (0.0-0.2) Sodium Level 141 mmol/L (136-145) Potassium Level 3.9 mmol/L (3.5-5.1) Chloride Level 105 mmol/L (98-107) Carbon Dioxide Level 26 mmol/L (21-32) Anion Gap 10 (6-14) Blood Urea Nitrogen 8 mg/dL (7-20) Creatinine 0.5 mg/dL (0.6-1.0) Estimated GFR (Cockcroft-Gault) 126.7 Glucose Level 118 mg/dL (70-99) Calcium Level 9.7 mg/dL (8.5-10.1) Problem List Problems Medical Problems: (1) Epigastric abdominal pain Status: Acute (2) Hypokalemia Status: Acute (3) Leukocytosis Status: Acute Problems: DAMI HAMLIN MD Dec 22, 2016 17:43
[2016-12-22] MEDS ORDERED: GADOBUTROL 7.5 MMOL/7.5 ML VIAL IV ONE (18:45)
[2016-12-22 19:00] VITALS: BP 90/73
[2016-12-22 23:00] VITALS: BP 117/83
[2016-12-23] MEDS: MORPHINE SULFATE 2 MG/ML DISP.SYRIN. IV PRN ×6 (01:15→21:39)
[2016-12-23] MEDS: POTASSIUM CHLORIDE 40 MEQ in IV 1/2 NORMAL SALINE 1,000 ML IV SCH ×4 (01:17→19:10)
[2016-12-23 03:00] VITALS: BP 107/71
[2016-12-23 03:50] LABS: BASO # 0.1 x10^3/uL (0.0-0.2); BASO % 1 % (0-3); EOS % 2 % (0-3); HEMATOCRIT 33.9 % (36.0-47.0); HEMOGLOBIN 11.5 g/dL (12.0-15.5); LYMPH # 3.4 x10^3/uL (1.0-4.8); LYMPH % 28 % (24-48); MEAN CORPUSCULAR HEMOGLOBIN 32 pg (25-35); MEAN CORPUSCULAR HGB CONC 34 g/dL (31-37); MEAN CORPUSCULAR VOLUME 94 fL (79-100); MONO % 12 % (0-9); NEUT % 57 % (31-73); PLATELET COUNT 204 x10^3/uL (140-400); RED BLOOD COUNT 3.62 x10^6/uL (3.50-5.40); RED CELL DISTRIBUTION WIDTH 13.7 % (11.5-14.5); WHITE BLOOD COUNT 12.4 x10^3/uL (4.0-11.0)
[2016-12-23 04:17] LABS: ALBUMIN 2.9 g/dL (3.4-5.0); ALBUMIN/GLOBULIN RATIO 0.9 (1.0-1.7); CREATININE 0.4 mg/dL (0.6-1.0); GFR 163.9; POTASSIUM 3.8 mmol/L (3.5-5.1); TOTAL BILIRUBIN 0.5 mg/dL (0.2-1.0)
[2016-12-23 07:00] VITALS: BP 125/91
[2016-12-23] MEDS: PANTOPRAZOLE 40 MG TABLET.DR. PO SCH ×2 (07:30→16:23)
[2016-12-23] MEDS: POLYETHYLENE GLYCOL 3350 17 GM PACKET. PO SCH (07:49)
[2016-12-23] MEDS: LUBIPROSTONE 8 MCG CAPSULE PO SCH ×2 (07:49→16:23)
--- NOTE | 2016-12-23 08:58 | RAD ---
MR of the abdomen with gadolinium, 12/22/2016: History: Abnormal right upper quadrant opacity on CT, abdominal pain Imaging was performed in axial and coronal planes utilizing a variety of imaging sequences including T2 weighted, fat suppressed T2 weighted and opposed phase gradient echo sequences. Fat suppressed T1 weighted dynamic images were also obtained following IV injection of 7.5 cc of the Gadavist contrast agent. The study is correlated with the CT exam of earlier in the day. No hepatic mass is identified. The gallbladder is surgically absent. There is a heterogeneous process of mixed signal intensities in the right upper quadrant centered in the subhepatic region and surrounding the proximal duodenum, as also delineated on the earlier CT exam. No postcontrast enhancement is seen within this process. The appearance again suggests hemorrhage. This process appears to be unchanged in size since earlier in the day. No underlying duodenal or pancreatic mass is seen. The bile ducts are unremarkable for the postcholecystectomy state. The pancreatic duct is unremarkable. The spleen shows no abnormality. There is a small cyst posteriorly in the right kidney. The kidneys are otherwise unremarkable. IMPRESSION: Unchanged heterogeneous right subhepatic process most compatible with hemorrhage, of uncertain origin.
--- NOTE | 2016-12-23 09:54 | PDOC ---
Subjective: Subjective: Pain "not bad" right now. Asks for ice chips and pain meds. Objective: Vital Signs: Vital Signs Date Time Temp Pulse Resp B/P (MAP) Pulse Ox O2 Delivery O2 Flow Rate FiO2 12/23/16 09:42 20 99 Room Air 12/23/16 07:00 97.7 87 125/91 (102) 97.7 12/23/16 05:18 2.0 Labs: Laboratory Tests Test 12/23/16 03:22 12/23/16 08:40 White Blood Count 12.4 x10^3/uL Red Blood Count 3.62 x10^6/uL Hemoglobin 11.5 g/dL Hematocrit 33.9 % Mean Corpuscular Volume 94 fL Mean Corpuscular Hemoglobin 32 pg Mean Corpuscular Hemoglobin Concent 34 g/dL Red Cell Distribution Width 13.7 % Platelet Count 204 x10^3/uL Neutrophils (%) (Auto) 57 % Lymphocytes (%) (Auto) 28 % Monocytes (%) (Auto) 12 % Eosinophils (%) (Auto) 2 % Basophils (%) (Auto) 1 % Neutrophils # (Auto) 7.0 x10^3uL Lymphocytes # (Auto) 3.4 x10^3/uL Monocytes # (Auto) 1.5 x10^3/uL Eosinophils # (Auto) 0.3 x10^3/uL Basophils # (Auto) 0.1 x10^3/uL Sodium Level 140 mmol/L Potassium Level 3.8 mmol/L Chloride Level 106 mmol/L Carbon Dioxide Level 26 mmol/L Anion Gap 8 Blood Urea Nitrogen 6 mg/dL Creatinine 0.4 mg/dL Estimated GFR (Cockcroft-Gault) 163.9 BUN/Creatinine Ratio 15 Glucose Level 106 mg/dL Calcium Level 9.0 mg/dL Total Bilirubin 0.5 mg/dL Aspartate Amino Transf (AST/SGOT) 23 U/L Alanine Aminotransferase (ALT/SGPT) 22 U/L Alkaline Phosphatase 92 U/L Total Protein 6.0 g/dL Albumin 2.9 g/dL Albumin/Globulin Ratio 0.9 Prothrombin Time 13.0 SEC Prothromb Time International Ratio 1.0 Imaging: MRI 12/22/16 IMPRESSION: Unchanged heterogeneous right subhepatic process most compatible with hemorrhage, of uncertain origin. PE: GEN: NAD LUNGS: CTAB anteriorly HEART: RRR ABD: RUQ/epigastric tenderness NEURO/PSYCH: drowsy A/P: Upper abd pain -CT unremarkable except atherosclerotic plaque -GES WNL -CTA w/ new RUQ density c/w hemorrhage -MRI as above Constipation -persists despite Miralax + Amitiza 8mcg BID + Fleet's enema -colonoscopy 07/2016 w/ excessive looping GERD -on Aciphex BID, also Excedrin QD -last EGD 07/2016 Leukocytosis - improved -- Reviewed w/ Dr. Rahman. EGD this afternoon. Keep NPO. D/w RN, called to GI lab. AYAKA NOGUEIRA Dec 23, 2016 09:54
--- NOTE | 2016-12-23 10:25 | PDOC ---
MAGNOLIA RICE FINANCIAL DEVELOPER 12/23/16 1025: SURGICAL PROGRESS NOTE Subjective epigastric ruq pain-mild right now nausea at times Vital Signs Vital Signs Date Time Temp Pulse Resp B/P (MAP) Pulse Ox O2 Delivery O2 Flow Rate FiO2 12/23/16 09:42 20 99 Room Air 12/23/16 07:00 97.7 87 125/91 (102) 97.7 12/23/16 05:18 2.0 I&O Intake and Output 12/23/16 07:00 Intake Total 1050 ml Output Total 300 ml Balance 750 ml Intake Oral 1050 ml Output Urine Total 300 ml # Voids 8 General: Alert, Oriented X3, Cooperative, No acute distress Abdomen: Soft, Other (epigastric,RUQ pain ) Labs Laboratory Tests Test 12/23/16 03:22 12/23/16 08:40 White Blood Count 12.4 x10^3/uL (4.0-11.0) Red Blood Count 3.62 x10^6/uL (3.50-5.40) Hemoglobin 11.5 g/dL (12.0-15.5) Hematocrit 33.9 % (36.0-47.0) Mean Corpuscular Volume 94 fL (79-100) Mean Corpuscular Hemoglobin 32 pg (25-35) Mean Corpuscular Hemoglobin Concent 34 g/dL (31-37) Red Cell Distribution Width 13.7 % (11.5-14.5) Platelet Count 204 x10^3/uL (140-400) Neutrophils (%) (Auto) 57 % (31-73) Lymphocytes (%) (Auto) 28 % (24-48) Monocytes (%) (Auto) 12 % (0-9) Eosinophils (%) (Auto) 2 % (0-3) Basophils (%) (Auto) 1 % (0-3) Neutrophils # (Auto) 7.0 x10^3uL (1.8-7.7) Lymphocytes # (Auto) 3.4 x10^3/uL (1.0-4.8) Monocytes # (Auto) 1.5 x10^3/uL (0.0-1.1) Eosinophils # (Auto) 0.3 x10^3/uL (0.0-0.7) Basophils # (Auto) 0.1 x10^3/uL (0.0-0.2) Sodium Level 140 mmol/L (136-145) Potassium Level 3.8 mmol/L (3.5-5.1) Chloride Level 106 mmol/L (98-107) Carbon Dioxide Level 26 mmol/L (21-32) Anion Gap 8 (6-14) Blood Urea Nitrogen 6 mg/dL (7-20) Creatinine 0.4 mg/dL (0.6-1.0) Estimated GFR (Cockcroft-Gault) 163.9 BUN/Creatinine Ratio 15 (6-20) Glucose Level 106 mg/dL (70-99) Calcium Level 9.0 mg/dL (8.5-10.1) Total Bilirubin 0.5 mg/dL (0.2-1.0) Aspartate Amino Transf (AST/SGOT) 23 U/L (15-37) Alanine Aminotransferase (ALT/SGPT) 22 U/L (14-59) Alkaline Phosphatase 92 U/L (46-116) Total Protein 6.0 g/dL (6.4-8.2) Albumin 2.9 g/dL (3.4-5.0) Albumin/Globulin Ratio 0.9 (1.0-1.7) Prothrombin Time 13.0 SEC (11.7-14.0) Prothromb Time International Ratio 1.0 (0.8-1.1) Laboratory Tests Test 12/23/16 03:22 12/23/16 08:40 White Blood Count 12.4 x10^3/uL (4.0-11.0) Red Blood Count 3.62 x10^6/uL (3.50-5.40) Hemoglobin 11.5 g/dL (12.0-15.5) Hematocrit 33.9 % (36.0-47.0) Mean Corpuscular Volume 94 fL (79-100) Mean Corpuscular Hemoglobin 32 pg (25-35) Mean Corpuscular Hemoglobin Concent 34 g/dL (31-37) Red Cell Distribution Width 13.7 % (11.5-14.5) Platelet Count 204 x10^3/uL (140-400) Neutrophils (%) (Auto) 57 % (31-73) Lymphocytes (%) (Auto) 28 % (24-48) Monocytes (%) (Auto) 12 % (0-9) Eosinophils (%) (Auto) 2 % (0-3) Basophils (%) (Auto) 1 % (0-3) Neutrophils # (Auto) 7.0 x10^3uL (1.8-7.7) Lymphocytes # (Auto) 3.4 x10^3/uL (1.0-4.8) Monocytes # (Auto) 1.5 x10^3/uL (0.0-1.1) Eosinophils # (Auto) 0.3 x10^3/uL (0.0-0.7) Basophils # (Auto) 0.1 x10^3/uL (0.0-0.2) Sodium Level 140 mmol/L (136-145) Potassium Level 3.8 mmol/L (3.5-5.1) Chloride Level 106 mmol/L (98-107) Carbon Dioxide Level 26 mmol/L (21-32) Anion Gap 8 (6-14) Blood Urea Nitrogen 6 mg/dL (7-20) Creatinine 0.4 mg/dL (0.6-1.0) Estimated GFR (Cockcroft-Gault) 163.9 BUN/Creatinine Ratio 15 (6-20) Glucose Level 106 mg/dL (70-99) Calcium Level 9.0 mg/dL (8.5-10.1) Total Bilirubin 0.5 mg/dL (0.2-1.0) Aspartate Amino Transf (AST/SGOT) 23 U/L (15-37) Alanine Aminotransferase (ALT/SGPT) 22 U/L (14-59) Alkaline Phosphatase 92 U/L (46-116) Total Protein 6.0 g/dL (6.4-8.2) Albumin 2.9 g/dL (3.4-5.0) Albumin/Globulin Ratio 0.9 (1.0-1.7) Prothrombin Time 13.0 SEC (11.7-14.0) Prothromb Time International Ratio 1.0 (0.8-1.1) Problem List Problems Medical Problems: (1) Epigastric abdominal pain Status: Acute (2) Hypokalemia Status: Acute (3) Leukocytosis Status: Acute Assessment/Plan hematoma, hemorrhage plans for EGD today IR consulted to consider angio Problems: DAMI HAMLIN MD 12/23/16 1134: SURGICAL PROGRESS NOTE Assessment/Plan Pt seen and examined. Agree with Ms. Rice's note Pt feels minimally better MRI c/w hematoma d/w IR, no vessel to obviously embolize agree with W/u per GI including EGD Problems: MAGNOLIA RICE APRN Dec 23, 2016 10:25 DAMI HAMLIN MD Dec 23, 2016 11:34
[2016-12-23 11:00] VITALS: BP 148/83
[2016-12-23] MEDS ORDERED: PROPOFOL 20 ML IV ONE (12:14)
[2016-12-23] MEDS ORDERED: LIDOCAINE 2% PF Vial for OR 5 ML VIAL. ONE (12:14)
--- NOTE | 2016-12-23 12:49 | PDOC4 ---
Operative Note Operative Note EGD Meds propofol per anesthesia Pre-op dx acute blood loss anemia/abnl imaging studies Post-op dx non-erosive gastritis no visible hematoma/ulcer/mass Plan await surgery/ir input regarding aspiration/evacuation of fluid collection/ hematoma versus angiography SHEKHAR SWANSON MD Dec 23, 2016 12:49
[2016-12-23] MEDS: fentaNYL PF VIAL 100 MCG/2 ML VIAL IV PRN (13:48)
[2016-12-23 15:05] VITALS: BP 167/110
--- NOTE | 2016-12-23 17:41 | CONS ---
DATE OF CONSULTATION: 12/22/2016 REFERRING PHYSICIANS: Dr. Ruth Gordon, Dr. Sreekanth Garcia, Dr. Otis Max, and Dr. Shekhar Rahman. Thank you for the consult. CHIEF COMPLAINT: Right upper quadrant abdominal pain. DIAGNOSIS: Right upper quadrant hematoma. HISTORY OF PRESENT ILLNESS: This is a 56-year-old female who has had some periumbilical right-sided abdominal pain for the last few days, which has gotten worse through the past few days. She has had some constipation prior to this and had been straining with stools, history of reflux treated with PPI, and an EGD and colonoscopy in July of this year. She was admitted to the hospital for evaluation. Initial CT scan was unrevealing. However, a CT scan earlier today demonstrated gallbladder fossa and hematoma concerning for ongoing bleeding. She was seen in her hospital room. She appears to be completely stable. She is afebrile. Vital signs are within normal limits. She does have the pain and otherwise reports some mild nausea. ALLERGIES: SHE HAS AN ALLERGY TO SULFA. MEDICATIONS: Home medications include Abilify, aripiprazole, Cymbalta, pain medicine, Lamictal, and Crestor. PAST MEDICAL AND SURGICAL HISTORY: Left mastectomy and drain placement for breast cancer by Dr. Jcae Rangel at [facility] several years ago, previous hysterectomy, cholecystectomy was performed by Dr. Delong in 2013, diabetes, anxiety, and depression. SOCIAL HISTORY: Quit tobacco recently. FAMILY HISTORY: Noncontributory. REVIEW OF SYSTEMS: All systems were reviewed and are negative except for HPI. PHYSICAL EXAMINATION: GENERAL: Well-developed, well-nourished, female in no obvious distress. She is afebrile. VITAL SIGNS: Within normal limits. HEENT: Normocephalic, atraumatic, anicteric sclerae. Extraocular motions are intact. Oropharynx is clear. No mucosal lesions. Mucosa is moist. NECK: Supple. Trachea is midline. LUNGS: Bilateral chest excursion. No chest wall tenderness to palpation. ABDOMEN: Soft, nondistended. There is mild tenderness to palpation of right upper quadrant. No areas of ecchymosis or other abnormality, well-healed surgical scars. EXTREMITIES: No clubbing, cyanosis, or edema. LABORATORY DATA: Yesterday demonstrated white blood cell count 17.9, hemoglobin 16.1. Potassium had been low on presentation. Alkaline phosphatase had been elevated at 156. Bilirubin is normal. Calcium had been significantly elevated on presentation at 11.6. Toxicology was positive for cannabinoids. CT scan of her abdomen and pelvis demonstrates mild atherosclerosis. No evidence of mesenteric artery stenosis. New large area of an abnormal density in the right upper quadrant, gallbladder fossa concerning for hemorrhage, complex fluids secondary to focal pancreatitis are possibilities. Gastric emptying test was unremarkable. Previous CT on 12/19/2016 had been unremarkable. IMPRESSION AND RECOMMENDATIONS: A 56-year-old female with right upper quadrant fluid collection and possible hematoma. I agree with the liver MRI. I would also consider angiogram of this area as well. I will follow along for possible intervention. Thank you for allowing me participation in the care of this pleasant patient. DAMI HAMLIN MD DR: CHAZ/kely JOB#: [id number] / [id number] ecc APPL, RUTH GARCIA, SREEKANTH RAHMAN, SHEKHAR MAX, OTIS AYALA
[2016-12-23 19:00] VITALS: BP 146/88
--- NOTE | 2016-12-23 21:18 | PDOC ---
GENERAL General: blood pressures variable. feels better this am. MRI with hemorrhage as was seen on ct but no indication as to why. egd without abnormalities. Hb has dropped precipitously to 11.5 since last cbc. will follow cbc and await surgical and GI suggestions as to management. Problems: VITAL SIGNS Vital Signs: Vital Signs Date Time Temp Pulse Resp B/P (MAP) Pulse Ox O2 Delivery O2 Flow Rate FiO2 12/23/16 19:40 Room Air 12/23/16 19:29 16 98 12/23/16 19:00 98.7 109 146/88 (107) 98.7 12/23/16 12:18 2.0 I & O I & O Intake and Output 12/23/16 07:00 Intake Total 1050 ml Output Total 300 ml Balance 750 ml Intake Oral 1050 ml Output Urine Total 300 ml # Voids 8 ALLERGIES Allergies: Allergies Coded Allergies Type Severity Reaction Last Updated Verified Sulfa (Sulfonamide Antibiotics) Allergy Intermediate Hives 12/23/16 Yes adhesive Allergy Intermediate itch 12/23/16 Yes MEDS Medications: Current Medications Medications (Trade) Dose Ordered Sig/Julieta Start Time Stop Time Status Last Admin Dose Admin Fentanyl Citrate (Fentanyl 2ml Vial) 50 mcg PRN Q2HR PRN 12/21/16 08:45 12/23/16 13:48 50 MCG Gadobutrol (Gadavist) 7.5 mmol 1X ONCE 12/22/16 18:45 12/22/16 18:46 DC Hydromorphone HCl (Dilaudid) 0.5 mg PRN Q1HR PRN 12/19/16 19:00 12/21/16 01:19 DC 12/21/16 01:19 0.5 MG Info (Do NOT chart on this entry -- for MONITORING) 1 each PRN DAILY PRN 12/22/16 09:15 12/24/16 09:14 Iohexol (Omnipaque 300 Mg/ml) 75 ml 1X ONCE 12/19/16 20:30 12/19/16 20:31 DC 12/19/16 20:20 75 ML Iohexol (Omnipaque 350 Mg/ml) 90 ml 1X ONCE 12/22/16 09:15 12/22/16 09:16 DC 12/22/16 09:28 90 ML Lidocaine HCl (Lidocaine Pf 2% Vial) 5 ml STK-MED ONCE 12/23/16 12:14 12/23/16 12:15 DC Lorazepam (Ativan) 1 mg 1X ONCE 12/22/16 15:15 12/22/16 15:16 DC 12/22/16 18:47 1 MG Lubiprostone (Amitiza) 8 mcg BIDWMEALS 12/20/16 17:00 12/23/16 16:23 8 MCG Morphine Sulfate 2 mg PRN Q2HR PRN 12/20/16 19:45 12/23/16 19:29 2 MG Ondansetron HCl (Zofran) 4 mg PRN Q6HRS PRN 12/20/16 19:45 Pantoprazole Sodium (Protonix) 40 mg BIDAC 12/21/16 16:30 12/23/16 16:23 40 MG Polyethylene Glycol (miraLAX PACKET) 17 gm DAILY 12/20/16 12:00 12/22/16 10:10 17 GM Potassium Chloride 40 meq/ Sodium Chloride 1,020 ml @ 125 mls/hr Q8H10M 12/20/16 09:30 12/23/16 13:48 125 MLS/HR Potassium Chloride 100 ml @ 100 mls/hr Q1H 12/19/16 20:00 12/19/16 21:59 DC 12/19/16 21:44 100 MLS/HR Propofol 20 ml @ As Directed STK-MED ONCE 12/23/16 12:14 12/23/16 12:15 DC Sodium Monofluorophosphate (Fleet Adult) 133 ml 1X ONCE 12/21/16 14:00 12/21/16 14:01 DC 12/21/16 14:07 133 ML Sodium Chloride 1,000 ml @ 100 mls/hr 1X ONCE 12/19/16 21:00 12/20/16 06:59 DC 12/19/16 20:48 100 MLS/HR LAB Lab: Laboratory Tests Test 12/23/16 03:22 12/23/16 08:40 White Blood Count 12.4 x10^3/uL (4.0-11.0) Red Blood Count 3.62 x10^6/uL (3.50-5.40) Hemoglobin 11.5 g/dL (12.0-15.5) Hematocrit 33.9 % (36.0-47.0) Mean Corpuscular Volume 94 fL (79-100) Mean Corpuscular Hemoglobin 32 pg (25-35) Mean Corpuscular Hemoglobin Concent 34 g/dL (31-37) Red Cell Distribution Width 13.7 % (11.5-14.5) Platelet Count 204 x10^3/uL (140-400) Neutrophils (%) (Auto) 57 % (31-73) Lymphocytes (%) (Auto) 28 % (24-48) Monocytes (%) (Auto) 12 % (0-9) Eosinophils (%) (Auto) 2 % (0-3) Basophils (%) (Auto) 1 % (0-3) Neutrophils # (Auto) 7.0 x10^3uL (1.8-7.7) Lymphocytes # (Auto) 3.4 x10^3/uL (1.0-4.8) Monocytes # (Auto) 1.5 x10^3/uL (0.0-1.1) Eosinophils # (Auto) 0.3 x10^3/uL (0.0-0.7) Basophils # (Auto) 0.1 x10^3/uL (0.0-0.2) Sodium Level 140 mmol/L (136-145) Potassium Level 3.8 mmol/L (3.5-5.1) Chloride Level 106 mmol/L (98-107) Carbon Dioxide Level 26 mmol/L (21-32) Anion Gap 8 (6-14) Blood Urea Nitrogen 6 mg/dL (7-20) Creatinine 0.4 mg/dL (0.6-1.0) Estimated GFR (Cockcroft-Gault) 163.9 BUN/Creatinine Ratio 15 (6-20) Glucose Level 106 mg/dL (70-99) Calcium Level 9.0 mg/dL (8.5-10.1) Total Bilirubin 0.5 mg/dL (0.2-1.0) Aspartate Amino Transf (AST/SGOT) 23 U/L (15-37) Alanine Aminotransferase (ALT/SGPT) 22 U/L (14-59) Alkaline Phosphatase 92 U/L (46-116) Total Protein 6.0 g/dL (6.4-8.2) Albumin 2.9 g/dL (3.4-5.0) Albumin/Globulin Ratio 0.9 (1.0-1.7) Prothrombin Time 13.0 SEC (11.7-14.0) Prothromb Time International Ratio 1.0 (0.8-1.1) RUTH NOVA MD Dec 23, 2016 21:18
[2016-12-23 22:50] VITALS: BP 142/99
[2016-12-24] MEDS: MORPHINE SULFATE 2 MG/ML DISP.SYRIN. IV PRN ×3 (01:37→06:42)
[2016-12-24] MEDS: POTASSIUM CHLORIDE 40 MEQ in IV 1/2 NORMAL SALINE 1,000 ML IV SCH (01:37)
[2016-12-24 02:39] VITALS: BP 133/89
[2016-12-24 05:46] LABS: BASO # 0.1 x10^3/uL (0.0-0.2); BASO % 1 % (0-3); EOS % 1 % (0-3); HEMATOCRIT 40.2 % (36.0-47.0); HEMOGLOBIN 13.7 g/dL (12.0-15.5); LYMPH # 2.4 x10^3/uL (1.0-4.8); LYMPH % 16 % (24-48); MEAN CORPUSCULAR HEMOGLOBIN 32 pg (25-35); MEAN CORPUSCULAR HGB CONC 34 g/dL (31-37); MEAN CORPUSCULAR VOLUME 94 fL (79-100); MONO % 8 % (0-9); NEUT % 74 % (31-73); PLATELET COUNT 222 x10^3/uL (140-400); RED BLOOD COUNT 4.29 x10^6/uL (3.50-5.40); RED CELL DISTRIBUTION WIDTH 13.7 % (11.5-14.5); WHITE BLOOD COUNT 14.8 x10^3/uL (4.0-11.0)
[2016-12-24 07:00] VITALS: BP 109/67
--- NOTE | 2016-12-24 07:28 | PDOC ---
Provider Note Provider Note IR Note: Asked to consider angio with possible embolization---thank you. Karina is 56 YO female with large RUQ hematoma, of uncertain etiology. Afebrile with VSS. Pain relatively mild now. Hematoma stable in size over 10 hrs between CTA and MRI. No active bleeding seen at CTA. Hgb 13.7. INR 1.0. Plts 222. CTA is more sensitive than catheter angiography for detection of active bleeding. Therefore I would defer arteriogram for now. Should the patient demonstrate clinical signs of recurrent bleeding, then recommend repeat CTA--- if bleeding vessel is demonstrated, then angio/embo could be performed, with a specific target vessel in mind. Thanks again---call for questions. ANNA WILL MD Dec 24, 2016 07:28
[2016-12-24] MEDS: PANTOPRAZOLE 40 MG TABLET.DR. PO SCH (07:32)
[2016-12-24] MEDS: LUBIPROSTONE 8 MCG CAPSULE PO SCH (08:50)
[2016-12-24] MEDS: POLYETHYLENE GLYCOL 3350 17 GM PACKET. PO SCH (08:50)
--- NOTE | 2016-12-24 08:53 | PDOC ---
GENERAL General: see discharge summary. Problems: VITAL SIGNS Vital Signs: Vital Signs Date Time Temp Pulse Resp B/P (MAP) Pulse Ox O2 Delivery O2 Flow Rate FiO2 12/24/16 07:12 16 94 Room Air 12/24/16 07:00 97.9 90 109/67 (81) 97.9 12/23/16 12:18 2.0 I & O I & O Intake and Output 12/24/16 07:00 Intake Total 1940 ml Balance 1940 ml Intake Oral 1940 ml # Voids 3 ALLERGIES Allergies: Allergies Coded Allergies Type Severity Reaction Last Updated Verified Sulfa (Sulfonamide Antibiotics) Allergy Intermediate Hives 12/23/16 Yes adhesive Allergy Intermediate itch 12/23/16 Yes MEDS Medications: Current Medications Medications (Trade) Dose Ordered Sig/Julieta Start Time Stop Time Status Last Admin Dose Admin Fentanyl Citrate (Fentanyl 2ml Vial) 50 mcg PRN Q2HR PRN 12/21/16 08:45 12/23/16 13:48 50 MCG Gadobutrol (Gadavist) 7.5 mmol 1X ONCE 12/22/16 18:45 12/22/16 18:46 DC Hydromorphone HCl (Dilaudid) 0.5 mg PRN Q1HR PRN 12/19/16 19:00 12/21/16 01:19 DC 12/21/16 01:19 0.5 MG Info (Do NOT chart on this entry -- for MONITORING) 1 each PRN DAILY PRN 12/22/16 09:15 12/24/16 09:14 Iohexol (Omnipaque 300 Mg/ml) 75 ml 1X ONCE 12/19/16 20:30 12/19/16 20:31 DC 12/19/16 20:20 75 ML Iohexol (Omnipaque 350 Mg/ml) 90 ml 1X ONCE 12/22/16 09:15 12/22/16 09:16 DC 12/22/16 09:28 90 ML Lidocaine HCl (Lidocaine Pf 2% Vial) 5 ml STK-MED ONCE 12/23/16 12:14 12/23/16 12:15 DC Lorazepam (Ativan) 1 mg 1X ONCE 12/22/16 15:15 12/22/16 15:16 DC 12/22/16 18:47 1 MG Lubiprostone (Amitiza) 8 mcg BIDWMEALS 12/20/16 17:00 12/24/16 08:50 8 MCG Morphine Sulfate 2 mg PRN Q2HR PRN 12/20/16 19:45 12/24/16 06:42 2 MG Ondansetron HCl (Zofran) 4 mg PRN Q6HRS PRN 12/20/16 19:45 Pantoprazole Sodium (Protonix) 40 mg BIDAC 12/21/16 16:30 12/24/16 07:32 40 MG Polyethylene Glycol (miraLAX PACKET) 17 gm DAILY 12/20/16 12:00 12/24/16 08:50 17 GM Potassium Chloride 40 meq/ Sodium Chloride 1,020 ml @ 125 mls/hr Q8H10M 12/20/16 09:30 12/24/16 01:37 125 MLS/HR Potassium Chloride 100 ml @ 100 mls/hr Q1H 12/19/16 20:00 12/19/16 21:59 DC 12/19/16 21:44 100 MLS/HR Propofol 20 ml @ As Directed STK-MED ONCE 12/23/16 12:14 12/23/16 12:15 DC Sodium Monofluorophosphate (Fleet Adult) 133 ml 1X ONCE 12/21/16 14:00 12/21/16 14:01 DC 12/21/16 14:07 133 ML Sodium Chloride 1,000 ml @ 100 mls/hr 1X ONCE 12/19/16 21:00 12/20/16 06:59 DC 12/19/16 20:48 100 MLS/HR LAB Lab: Laboratory Tests Test 12/24/16 01:33 12/24/16 05:00 Glucose (Fingerstick) 87 mg/dL (70-99) White Blood Count 14.8 x10^3/uL (4.0-11.0) Red Blood Count 4.29 x10^6/uL (3.50-5.40) Hemoglobin 13.7 g/dL (12.0-15.5) Hematocrit 40.2 % (36.0-47.0) Mean Corpuscular Volume 94 fL (79-100) Mean Corpuscular Hemoglobin 32 pg (25-35) Mean Corpuscular Hemoglobin Concent 34 g/dL (31-37) Red Cell Distribution Width 13.7 % (11.5-14.5) Platelet Count 222 x10^3/uL (140-400) Neutrophils (%) (Auto) 74 % (31-73) Lymphocytes (%) (Auto) 16 % (24-48) Monocytes (%) (Auto) 8 % (0-9) Eosinophils (%) (Auto) 1 % (0-3) Basophils (%) (Auto) 1 % (0-3) Neutrophils # (Auto) 10.9 x10^3uL (1.8-7.7) Lymphocytes # (Auto) 2.4 x10^3/uL (1.0-4.8) Monocytes # (Auto) 1.2 x10^3/uL (0.0-1.1) Eosinophils # (Auto) 0.2 x10^3/uL (0.0-0.7) Basophils # (Auto) 0.1 x10^3/uL (0.0-0.2) RUTH NOVA MD Dec 24, 2016 08:53
--- NOTE | 2016-12-24 09:16 | PDOC ---
SURGICAL PROGRESS NOTE Subjective tolerating regular diet some continued epigastric/umbilical pain no stools Vital Signs Vital Signs Date Time Temp Pulse Resp B/P (MAP) Pulse Ox O2 Delivery O2 Flow Rate FiO2 12/24/16 07:12 16 94 Room Air 12/24/16 07:00 97.9 90 109/67 (81) 97.9 12/23/16 12:18 2.0 I&O Intake and Output 12/24/16 06:59 Intake Total 1940 ml Balance 1940 ml Intake Oral 1940 ml # Voids 3 General: Alert, Oriented X3, Cooperative, No acute distress Abdomen: Soft, Other (epigastric, umbilical tenderness ) Labs Laboratory Tests Test 12/23/16 03:22 12/23/16 08:40 12/24/16 01:33 12/24/16 05:00 White Blood Count 12.4 x10^3/uL (4.0-11.0) 14.8 x10^3/uL (4.0-11.0) Red Blood Count 3.62 x10^6/uL (3.50-5.40) 4.29 x10^6/uL (3.50-5.40) Hemoglobin 11.5 g/dL (12.0-15.5) 13.7 g/dL (12.0-15.5) Hematocrit 33.9 % (36.0-47.0) 40.2 % (36.0-47.0) Mean Corpuscular Volume 94 fL (79-100) 94 fL (79-100) Mean Corpuscular Hemoglobin 32 pg (25-35) 32 pg (25-35) Mean Corpuscular Hemoglobin Concent 34 g/dL (31-37) 34 g/dL (31-37) Red Cell Distribution Width 13.7 % (11.5-14.5) 13.7 % (11.5-14.5) Platelet Count 204 x10^3/uL (140-400) 222 x10^3/uL (140-400) Neutrophils (%) (Auto) 57 % (31-73) 74 % (31-73) Lymphocytes (%) (Auto) 28 % (24-48) 16 % (24-48) Monocytes (%) (Auto) 12 % (0-9) 8 % (0-9) Eosinophils (%) (Auto) 2 % (0-3) 1 % (0-3) Basophils (%) (Auto) 1 % (0-3) 1 % (0-3) Neutrophils # (Auto) 7.0 x10^3uL (1.8-7.7) 10.9 x10^3uL (1.8-7.7) Lymphocytes # (Auto) 3.4 x10^3/uL (1.0-4.8) 2.4 x10^3/uL (1.0-4.8) Monocytes # (Auto) 1.5 x10^3/uL (0.0-1.1) 1.2 x10^3/uL (0.0-1.1) Eosinophils # (Auto) 0.3 x10^3/uL (0.0-0.7) 0.2 x10^3/uL (0.0-0.7) Basophils # (Auto) 0.1 x10^3/uL (0.0-0.2) 0.1 x10^3/uL (0.0-0.2) Sodium Level 140 mmol/L (136-145) Potassium Level 3.8 mmol/L (3.5-5.1) Chloride Level 106 mmol/L (98-107) Carbon Dioxide Level 26 mmol/L (21-32) Anion Gap 8 (6-14) Blood Urea Nitrogen 6 mg/dL (7-20) Creatinine 0.4 mg/dL (0.6-1.0) Estimated GFR (Cockcroft-Gault) 163.9 BUN/Creatinine Ratio 15 (6-20) Glucose Level 106 mg/dL (70-99) Calcium Level 9.0 mg/dL (8.5-10.1) Total Bilirubin 0.5 mg/dL (0.2-1.0) Aspartate Amino Transf (AST/SGOT) 23 U/L (15-37) Alanine Aminotransferase (ALT/SGPT) 22 U/L (14-59) Alkaline Phosphatase 92 U/L (46-116) Total Protein 6.0 g/dL (6.4-8.2) Albumin 2.9 g/dL (3.4-5.0) Albumin/Globulin Ratio 0.9 (1.0-1.7) Prothrombin Time 13.0 SEC (11.7-14.0) Prothromb Time International Ratio 1.0 (0.8-1.1) Glucose (Fingerstick) 87 mg/dL (70-99) Laboratory Tests Test 12/24/16 01:33 12/24/16 05:00 Glucose (Fingerstick) 87 mg/dL (70-99) White Blood Count 14.8 x10^3/uL (4.0-11.0) Red Blood Count 4.29 x10^6/uL (3.50-5.40) Hemoglobin 13.7 g/dL (12.0-15.5) Hematocrit 40.2 % (36.0-47.0) Mean Corpuscular Volume 94 fL (79-100) Mean Corpuscular Hemoglobin 32 pg (25-35) Mean Corpuscular Hemoglobin Concent 34 g/dL (31-37) Red Cell Distribution Width 13.7 % (11.5-14.5) Platelet Count 222 x10^3/uL (140-400) Neutrophils (%) (Auto) 74 % (31-73) Lymphocytes (%) (Auto) 16 % (24-48) Monocytes (%) (Auto) 8 % (0-9) Eosinophils (%) (Auto) 1 % (0-3) Basophils (%) (Auto) 1 % (0-3) Neutrophils # (Auto) 10.9 x10^3uL (1.8-7.7) Lymphocytes # (Auto) 2.4 x10^3/uL (1.0-4.8) Monocytes # (Auto) 1.2 x10^3/uL (0.0-1.1) Eosinophils # (Auto) 0.2 x10^3/uL (0.0-0.7) Basophils # (Auto) 0.1 x10^3/uL (0.0-0.2) Problem List Problems Medical Problems: (1) Epigastric abdominal pain Status: Acute (2) Hypokalemia Status: Acute (3) Leukocytosis Status: Acute Assessment/Plan hgb 13.7 today IR note reviewed will review with Dr Delong, however no surgical plans at this time Problems: MAGNOLIA RIEC APRN Dec 24, 2016 09:16
== END 2016-12-24 10:53 | disposition home or self-care (01) | DRG 392 ==
LOC: ER 18:27 → 5 SOUTH 21:00 → OBSVTOIN 12-20 17:17
PROVIDERS: ADMIT Family Medicine; ATTEND Family Medicine
PROC: 0DJ08ZZ Inspection of Upper Intestinal Tract, Via Natural or Artificial Opening Endoscopic (ICD-10-PCS; principal; 2016-12-23 14:00)
DX: K29.70 Gastritis, unspecified, without bleeding (principal); K59.03 Drug induced constipation; T40.2X5A Adverse effect of other opioids, initial encounter; F41.9 Anxiety disorder, unspecified; Z85.3 Personal history of malignant neoplasm of breast; Z90.12 Acquired absence of left breast and nipple; E11.9 Type 2 diabetes mellitus without complications; E78.5 Hyperlipidemia, unspecified; E87.6 Hypokalemia; F17.200 Nicotine dependence, unspecified, uncomplicated; F32.9 Major depressive disorder, single episode, unspecified; G47.33 Obstructive sleep apnea (adult) (pediatric); I70.8 Atherosclerosis of other arteries; K21.9 Gastro-esophageal reflux disease without esophagitis; M19.90 Unspecified osteoarthritis, unspecified site; M79.7 Fibromyalgia; Z80.3 Family history of malignant neoplasm of breast; Z82.49 Family history of ischemic heart disease and other diseases of the circulatory system; Z83.3 Family history of diabetes mellitus; Z90.10 Acquired absence of unspecified breast and nipple; Z90.49 Acquired absence of other specified parts of digestive tract; Z90.710 Acquired absence of both cervix and uterus; Z88.2 Allergy status to sulfonamides
CPT/HCPCS: 36415; 74174; 74177; 74183; 78264; 80048; 80053; 81001; 82962; 83690; 85007; 85027; 85610; A9541; G0378; G0379; G0481; J1170; J2060; J2270; J2405; J2704; J3010; J3480; J7030; Q9967

== ENCOUNTER 2017-04-04 14:19 | Inpatient (IN) | payer OTHER, MEDICARE ==
[~2017-04-04] VITALS: Ht 170.2 cm; Wt 74.0 kg
[~2017-04-04 14:19] MED LIST changes: +ARIP10TA9 PO; +ARIP20TA10 PO; +DULO30CA2 PO; +GINK30CA PO; -GINK60CA7 PO; +LAMO200T2 PO
[2017-04-04] MEDS ORDERED: HEPARIN for ARTERIAL LINE 0 ML ONE (15:10)
[2017-04-04] MEDS ORDERED: LIDOCAINE 2% 20 ML VIAL. ONE (15:10)
[2017-04-04] MEDS ORDERED: ASPIRIN 325 MG TABLET PO ONE (15:15)
[2017-04-04] MEDS ORDERED: ONDANSETRON PF 4 MG/2 ML VIAL. IV ONE ×3 (15:15→23:00)
[2017-04-04 15:16] LABS: CALCIUM 10.4 mg/dL (8.5-10.1); CREATININE 0.6 mg/dL (0.6-1.0); GFR 102.7; POTASSIUM 3.7 mmol/L (3.5-5.1)
[2017-04-04 15:22] LABS: ALBUMIN 4.4 g/dL (3.4-5.0); ALBUMIN/GLOBULIN RATIO 1.1 (1.0-1.7); TOTAL BILIRUBIN 0.5 mg/dL (0.2-1.0); TOTAL PROTEIN 8.3 g/dL (6.4-8.2)
[2017-04-04 15:25] LABS: BASO # 0.2 x10^3/uL (0.0-0.2); BASO % 1 % (0-3); EOS % 0 % (0-3); HEMATOCRIT 46.1 % (36.0-47.0); HEMOGLOBIN 15.6 g/dL (12.0-15.5); LYMPH % 10 % (24-48); MEAN CORPUSCULAR HEMOGLOBIN 30 pg (25-35); MEAN CORPUSCULAR HGB CONC 34 g/dL (31-37); MEAN CORPUSCULAR VOLUME 88 fL (79-100); MONO % 3 % (0-9); NEUT % 85 % (31-73); PLATELET COUNT 336 x10^3/uL (140-400); RED BLOOD COUNT 5.22 x10^6/uL (3.50-5.40); WHITE BLOOD COUNT 19.9 x10^3/uL (4.0-11.0)
[2017-04-04] MEDS: MORPHINE SULFATE 4 MG/ML DISP.SYRIN. IV/SQ PRN ×4 (15:28→18:46)
--- NOTE | 2017-04-04 15:29 | PHYS DOC ---
Past Medical History Past Medical History: Cancer, Diabetes-Type II, Other Additional Past Medical Histor: left breast ca Past Surgical History: Cholecystectomy, Hysterectomy, Other Additional Past Surgical Histo: L mastectomy Additional Information: 1 ppd Alcohol Use: Occasionally Drug Use: Marijuana Adult General Chief Complaint Chief Complaint: ABDOMINAL PAIN HPI HPI Patient is a 56 year old female who presents with abdominal pain. Patient reports onset of pain about 6 hours ago this morning. She states pain is epigastric, associated with nausea. Denies fevers or chills, vomiting, hematemesis, diarrhea, constipation, hematochezia or melena, dysuria or hematuria. Denies chest pain or shortness of breath. She had previous history of similar pain and no cause was identified. She denies history of CAD or cardiac stents. She has diabetes and is a current everyday smoker. Denies history of hypertension. History of , cholecystectomy, hysterectomy. PCP is Dr. Gordon. Review of Systems Review of Systems Constitutional: Denies fever or chills Eyes: Denies change in visual acuity HENT: Denies nasal congestion or sore throat Respiratory: Denies cough or shortness of breath Cardiovascular: Denies chest pain or edema GI: Reports abdominal pain, nausea, denies vomiting, bloody stools or diarrhea : Denies dysuria or hematuria Musculoskeletal: Denies back pain or joint pain Integument: Denies rash or skin lesions Neurologic: Denies headache, focal weakness or sensory changes Current Medications Current Medications Current Medications Medications (Trade) Dose Ordered Sig/Julieta Start Time Stop Time Status Last Admin Dose Admin Aspirin (Gentry Aspirin) 325 mg 1X ONCE 04/04/17 15:15 04/04/17 15:16 DC 04/04/17 15:30 325 MG Heparin Sodium/ Sodium Chloride 0 ml @ As Directed STK-MED ONCE 04/04/17 15:10 04/04/17 15:11 DC Hydralazine HCl (Apresoline) 10 mg PRN Q4HRS PRN 04/04/17 17:15 Info (Do NOT chart on this entry -- for MONITORING) 1 each PRN DAILY PRN 04/04/17 15:30 04/06/17 15:29 Iohexol (Omnipaque 300 Mg/ml) 75 ml 1X ONCE 04/04/17 15:30 04/04/17 15:31 DC 04/04/17 15:39 75 ML Lidocaine HCl 20 ml STK-MED ONCE 04/04/17 15:10 04/04/17 15:11 DC Morphine Sulfate 4 mg PRN Q15MIN PRN 04/04/17 15:15 04/05/17 15:14 04/04/17 16:35 4 MG Ondansetron HCl (Zofran) 4 mg 1X ONCE 04/04/17 15:15 04/04/17 15:16 DC 04/04/17 15:27 4 MG Sodium Chloride 1,000 ml @ 2,190 mls/hr Q28M 04/04/17 17:11 04/04/17 18:11 04/04/17 17:49 2,190 MLS/HR Allergies Allergies Allergies Coded Allergies Type Severity Reaction Last Updated Verified Sulfa (Sulfonamide Antibiotics) Allergy Intermediate Hives 12/23/16 Yes adhesive Allergy Intermediate itch 12/23/16 Yes Physical Exam Physical Exam Constitutional: Well developed, well nourished, appears to be in pain, non- toxic appearance. HENT: Normocephalic, atraumatic, bilateral external ears normal, oropharynx moist, nose normal. Eyes: PERRLA, EOMI, conjunctiva normal, no discharge. Neck: supple, no stridor. Cardiovascular: RRR, no murmurs, no edema. Lungs & Thorax: LCTAB, no wheezing, no respiratory distress. no reproducible tenderness with palpation over anterior chest wall. Abdomen: soft, epigastric tenderness with rebound tenderness & guarding, no masses or pulsatile masses, nondistended. Skin: Warm, dry, no erythema, no rash. Back: No CVA tenderness. Extremities: No tenderness, no edema. distal pulses palpable in bilateral lower extremities. Neurologic: Alert and oriented X 3, no focal deficits noted. Psychologic: Affect normal, judgement normal, mood normal. Current Patient Data Vital Signs Vital Signs Date Time Temp Pulse Resp B/P (MAP) Pulse Ox O2 Delivery O2 Flow Rate FiO2 04/04/17 17:51 108 24 193/106 (135) 89 Nasal Cannula 2.0 04/04/17 14:40 97.5 97.5 Lab Values Laboratory Tests Test 04/04/17 15:00 White Blood Count 19.9 x10^3/uL (4.0-11.0) H Red Blood Count 5.22 x10^6/uL (3.50-5.40) Hemoglobin 15.6 g/dL (12.0-15.5) H Hematocrit 46.1 % (36.0-47.0) Mean Corpuscular Volume 88 fL (79-100) Mean Corpuscular Hemoglobin 30 pg (25-35) Mean Corpuscular Hemoglobin Concent 34 g/dL (31-37) Red Cell Distribution Width 15.0 % (11.5-14.5) H Platelet Count 336 x10^3/uL (140-400) Neutrophils (%) (Auto) 85 % (31-73) H Lymphocytes (%) (Auto) 10 % (24-48) L Monocytes (%) (Auto) 3 % (0-9) Eosinophils (%) (Auto) 0 % (0-3) Basophils (%) (Auto) 1 % (0-3) Neutrophils # (Auto) 17.0 x10^3uL (1.8-7.7) H Lymphocytes # (Auto) 2.0 x10^3/uL (1.0-4.8) Monocytes # (Auto) 0.7 x10^3/uL (0.0-1.1) Eosinophils # (Auto) 0.0 x10^3/uL (0.0-0.7) Basophils # (Auto) 0.2 x10^3/uL (0.0-0.2) Platelet Estimate Pending Sodium Level 133 mmol/L (136-145) L Potassium Level 3.7 mmol/L (3.5-5.1) Chloride Level 97 mmol/L (98-107) L Carbon Dioxide Level 21 mmol/L (21-32) Anion Gap 15 (6-14) H Blood Urea Nitrogen 7 mg/dL (7-20) Creatinine 0.6 mg/dL (0.6-1.0) Estimated GFR (Cockcroft-Gault) 102.7 BUN/Creatinine Ratio 12 (6-20) Glucose Level 170 mg/dL (70-99) H Calcium Level 10.4 mg/dL (8.5-10.1) H Total Bilirubin 0.5 mg/dL (0.2-1.0) Aspartate Amino Transferase (AST) 24 U/L (15-37) Alanine Aminotransferase (ALT) 25 U/L (14-59) Alkaline Phosphatase 167 U/L (46-116) H Troponin I Quantitative 0.031 ng/mL (0.000-0.055) Total Protein 8.3 g/dL (6.4-8.2) H Albumin 4.4 g/dL (3.4-5.0) Albumin/Globulin Ratio 1.1 (1.0-1.7) Lipase 124 U/L (73-393) Laboratory Tests 04/04/17 15:00 Laboratory Tests 04/04/17 15:00 EKG EKG interpreted by me: NSR rate 89, LBBB which appears to be new, LVH, no ectopy.[] Radiology/Procedures Radiology/Procedures PROCEDURE: CT ABD PELV W/ IV CONTRST ONLY CT of the abdomen and pelvis with contrast, 04/04/2017: History: Lower abdominal pain with nausea and vomiting Multidetector CT imaging was performed following an IV bolus injection of iodinated contrast material. No oral contrast material was administered for this exam. The gallbladder is surgically absent. Mild prominence of the common bile duct is compatible with the postcholecystectomy state. No hepatic abnormality is seen. The pancreas is unremarkable. The spleen is of normal size. There is a small low-density lesion in the posterior aspect of the right kidney compatible with a cyst. The kidneys are otherwise unremarkable. There are moderate scattered aortoiliac calcific plaques. No abdominal or pelvic adenopathy is seen. The uterus is surgically absent. The bowel loops are not dilated. The appendix is not visualized. No pericecal inflammatory change is evident. No free air or significant free fluid is evident in the abdomen or pelvis. IMPRESSION: No acute abdominal or pelvic abnormality is detected. PQRS Compliance Statement: One or more of the following individualized dose reduction techniques were utilized for this examination: 1. Automated exposure control 2. Adjustment of the mA and/or kV according to patient size 3. Use of iterative reconstruction technique DICTATED and SIGNED BY: JESSIE WATTERS MD DATE: 04/04/171629 [] Course & Med Decision Making Course & Med Decision Making Pertinent Labs and Imaging studies reviewed. (See chart for details) The patient visits with abdominal pain. EKG was concerning for new left bundle branch block with abdominal pain in a diabetic female. Paged as STEMI. Dr. Hood quickly came to the bedside to evaluate the patient, canceled STEMI activation. Recommends managing her blood pressure and they will follow along. Gave pain medication, fluids, antiemetics. Obtained labs, EKG, CT of the abdomen and pelvis. No acute finding was identified to explain her symptoms but she continued to have pain, mild tachycardia, leukocytosis. We'll obtain blood cultures and lactic acid, administered fluids per sepsis protocol, continue to manage pain. UA pending at time of admission, anticipate she may have UTI but will hold off antibiotics until we have a result. Will notify Dr. Gordon. Recommended admission to the hospital for further evaluation and treatment. She agrees with plan of care. Discussed with Dr. Gordon agrees to admit to inpatient status. Consults to Dr. Hood of cardiology & Dr. Rahman of GI. The patient is admitted in stable condition. [] Dragon Disclaimer Dragon Disclaimer This electronic medical record was generated, in whole or in part, using a voice recognition dictation system. Departure Departure Impression: Primary Impression: Abdominal pain Additional Impressions: Left bundle branch block Accelerated hypertension Systemic inflammatory response syndrome Disposition: ADMITTED INPATIENT Admitting Physician: Shaheed Gordon Condition: GUARDED Problem Qualifiers JOHNNA ARCE MD Apr 04, 2017 15:29
[2017-04-04] MEDS ORDERED: IOHEXOL 300 MG/ML 75 ML VIAL IV ONE (15:30)
[2017-04-04] MEDS ORDERED: CONTRAST GIVEN MC PRN (15:30)
--- NOTE | 2017-04-04 15:36 | EKG ---
[facility] [address] [place] [address] Test Date: 2017-04-04 Test Time: 14:54:26 Pat Name: LEYLA GONSALES Department: Room: Gender: F Dial Marker: : 1960 Requested By: ARTIE ASCENCIO Order Number: [id number] Reading MD: Arthur Hood Measurements Intervals [place] Rate: 89 P: -57 [place]: 122 QRS: -22 QRSD: 144 T: 114 QT: 404 QTc: 493 Interpretive Statements SR LBBB Electronically Signed On 04-26-2017 14:30:44 CDT by Arthur Hood
--- NOTE | 2017-04-04 16:42 | RAD ---
CT of the abdomen and pelvis with contrast, 04/04/2017: History: Lower abdominal pain with nausea and vomiting Multidetector CT imaging was performed following an IV bolus injection of iodinated contrast material. No oral contrast material was administered for this exam. The gallbladder is surgically absent. Mild prominence of the common bile duct is compatible with the postcholecystectomy state. No hepatic abnormality is seen. The pancreas is unremarkable. The spleen is of normal size. There is a small low-density lesion in the posterior aspect of the right kidney compatible with a cyst. The kidneys are otherwise unremarkable. There are moderate scattered aortoiliac calcific plaques. No abdominal or pelvic adenopathy is seen. The uterus is surgically absent. The bowel loops are not dilated. The appendix is not visualized. No pericecal inflammatory change is evident. No free air or significant free fluid is evident in the abdomen or pelvis. IMPRESSION: No acute abdominal or pelvic abnormality is detected. PQRS Compliance Statement: One or more of the following individualized dose reduction techniques were utilized for this examination: 1. Automated exposure control 2. Adjustment of the mA and/or kV according to patient size 3. Use of iterative reconstruction technique
[2017-04-04] MEDS ORDERED: hydrALAZINE 20 MG/ML VIAL. IVP PRN (17:15)
[2017-04-04] MEDS: IV NORMAL SALINE 1000ML BAG 1,000 ML IV SCH ×4 (17:39→19:25)
[2017-04-04] MEDS ORDERED: ONDANSETRON PF 4 MG/2 ML VIAL. IV PRN (18:00)
[2017-04-04 18:27] LABS: BILIRUBIN,URINE NEGATIVE (NEG); GLUCOSE,URINE 100 mg/dL (NEG); NITRITE,URINE NEGATIVE (NEG); PROTEIN,URINE >=300 mg/dL (NEG-TRACE); UROBILINOGEN,URINE 0.2 mg/dL (0.2 mg/dL)
[2017-04-04 18:48] LABS: BACTERIA,URINE 0 /HPF (0-FEW); RBC,URINE 0 /HPF (0-2); SQUAMOUS EPITHELIAL CELL,UR OCC /LPF; WBC,URINE OCC /HPF (0-4)
[2017-04-04 20:24] LABS: % BASOS 2 % (0-3); PLT ESTIMATE ADEQUATE (ADEQUATE)
[2017-04-04] MEDS: MORPHINE SULFATE 4 MG/ML DISP.SYRIN. IV PRN ×2 (21:25→23:33)
[2017-04-04] MEDS ORDERED: AZITHROMYCIN 500 MG in IV NORMAL SALINE 250ML 250 ML IV ONE (21:30)
[2017-04-04 21:50] VITALS: BP 118/60
[2017-04-04 23:22] VITALS: BP 113/64
[2017-04-05] VITALS (17 sets, daily range): BP systolic 90–160; BP diastolic 54–115
[2017-04-05] MEDS: IV NORMAL SALINE 1000ML BAG 1,000 ML IV SCH ×2 (03:52→09:53)
[2017-04-05] MEDS ORDERED: INFLUENZA VAX SCREEN BY RX. MC PRN (05:00)
[2017-04-05 06:20] LABS: BASO # 0.1 x10^3/uL (0.0-0.2); BASO % 1 % (0-3); EOS % 0 % (0-3); HEMATOCRIT 43.7 % (36.0-47.0); HEMOGLOBIN 14.5 g/dL (12.0-15.5); LYMPH # 2.9 x10^3/uL (1.0-4.8); LYMPH % 19 % (24-48); MEAN CORPUSCULAR HEMOGLOBIN 29 pg (25-35); MEAN CORPUSCULAR HGB CONC 33 g/dL (31-37); MEAN CORPUSCULAR VOLUME 89 fL (79-100); MONO % 10 % (0-9); NEUT % 71 % (31-73); PLATELET COUNT 295 x10^3/uL (140-400); RED BLOOD COUNT 4.93 x10^6/uL (3.50-5.40); RED CELL DISTRIBUTION WIDTH 15.2 % (11.5-14.5); WHITE BLOOD COUNT 15.3 x10^3/uL (4.0-11.0)
[2017-04-05 06:42] LABS: CREATININE 0.4 mg/dL (0.6-1.0); GFR 163.9; POTASSIUM 3.4 mmol/L (3.5-5.1)
--- NOTE | 2017-04-05 07:35 | RAD ---
Portable chest, 04/04/2017: History: Abdominal pain, elevated white blood cell count Comparison is made to a study from 09/01/2001 and. The heart size is normal. There appears to be minimal parenchymal scarring. No pulmonary consolidation is seen. There is no evidence of pleural fluid. IMPRESSION: No acute cardiopulmonary abnormality is detected.
--- NOTE | 2017-04-05 08:32 | EKG ---
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
[2017-04-05] MEDS ORDERED: HYDROcodone/APAP 5/325MG 1 TAB TABLET PO PRN (08:45)
[2017-04-05] MEDS ORDERED: ARIPIPRAZOLE 20 MG PO SCH (09:00)
[2017-04-05] MEDS ORDERED: FLU VACC QS2017-18 (36MOS+)/PF 0.5 ML SYRINGE. VAX IM ONE (09:00)
[2017-04-05 09:23] LABS: MAGNESIUM 1.7 mg/dL (1.8-2.4)
[2017-04-05 09:39] LABS: CHOLESTEROL/HDL RATIO 3.9
--- NOTE | 2017-04-05 09:42 | PDOC2 ---
ADILENE NEWSOME MATERIALS INSPECTOR 04/05/17 0942: CARDIAC CONSULT DATE OF CONSULT Date of Consult DATE: 04/05/17 TIME: 09:05 REASON FOR CONSULT Reason for Consult: LBBB, HTN REFERRING PHYSICIAN Referring Physician: Helena SOURCE Source: Chart review, Patient HISTORY OF PRESENT ILLNESS HISTORY OF PRESENT ILLNESS This is a pleasant 56 yo female admitted for complains of abdominal pain. She has significant w/u in 12/2016 per GI. Pt reports today of abdominal pain with nausea but no vomiting in the last week. Positive for indigestion and positive for HEADLEY. Denies CP but has occasional palpitations. Denies any dizziness or any arm or jaw pain. Newly diagnosed DM2, positive for tobaccoism, HLP and new HTN. PAST MEDICAL HISTORY Cardiovascular: Hyperlipidemia, Other (LBBB) Pulmonary: No pertinent hx CENTRAL NERVOUS SYSTEM: Periperal neuropathy GI: GERD, Irritable bowel disease Heme/Onc: Cancer (breast >20 yrs ago with chemo) Hepatobiliary: Other (liver lesion) Psych: Anxiety, Bipolar, Depression Musculoskeletal: Osteoarthritis Rheumatologic: No pertinent hx Infectious disease: No pertinent hx ENT: No pertinent hx Renal/: No pertinent hx Endocrine: Diabetes (2) Dermatology: No pertinent hx PAST SURGICAL HISTORY Past Surgical History: Cholecystectomy, , Hysterectomy, Other (breast reconstruction; lumpectomy) FAMILY HISTORY Family History noncontributory to CV SOCIAL HISTORY Smoke: <1 pack per day (>30 yrs) ALCOHOL: occassional Drugs: Marijuana Lives: with Family CURRENT MEDICATIONS CURRENT MEDICATIONS Current Medications Medications (Trade) Dose Ordered Sig/Julieta Route PRN Reason Start Time Stop Time Status Last Admin Dose Admin Aspirin (Gentry Aspirin) 325 mg 1X ONCE PO 04/04/17 15:15 04/04/17 15:16 DC 04/04/17 15:30 Ondansetron HCl (Zofran) 4 mg 1X ONCE IV 04/04/17 15:15 04/04/17 15:16 DC 04/04/17 15:27 Morphine Sulfate 4 mg PRN Q15MIN PRN IV/SQ PAIN GREATER THAN 3/10 04/04/17 15:15 04/05/17 15:14 04/04/17 18:46 Iohexol (Omnipaque 300 Mg/ml) 75 ml 1X ONCE IV 04/04/17 15:30 04/04/17 15:31 DC 04/04/17 15:39 Hydralazine HCl (Apresoline) 10 mg PRN Q4HRS PRN IVP ELEVATED BP, SEE COMMENTS 04/04/17 17:15 04/04/17 17:55 Sodium Chloride 1,000 ml @ 2,190 mls/hr Q28M IV 04/04/17 17:11 04/04/17 18:14 DC 04/04/17 17:49 Morphine Sulfate 2 mg PRN Q2HR PRN IV PAIN 04/04/17 18:00 04/05/17 17:59 04/04/17 23:33 Sodium Chloride 1,000 ml @ 125 mls/hr Q8H IV 04/04/17 17:53 04/05/17 17:52 04/05/17 03:52 Ondansetron HCl (Zofran) 4 mg 1X ONCE IV 04/04/17 19:00 04/04/17 19:02 DC 04/04/17 19:25 Ceftriaxone Sodium 50 ml @ 100 mls/hr 1X ONCE IV 04/04/17 21:30 04/04/17 21:59 DC 04/04/17 22:56 Azithromycin 500 mg/Sodium Chloride 250 ml @ 250 mls/hr 1X ONCE IV 04/04/17 21:30 04/04/17 22:29 DC 04/04/17 22:56 Ondansetron HCl (Zofran) 4 mg 1X ONCE IV 04/04/17 23:00 04/04/17 23:01 DC 04/04/17 22:59 ALLERGIES ALLERGIES: Coded Allergies: Sulfa (Sulfonamide Antibiotics) (Verified Allergy, Intermediate, Hives, ) adhesive (Verified Allergy, Intermediate, itch, 12/23/16) ROS Review of System 14 point ROS evaluated with pertinent positives noted per HPI ALLERGY AND IMMUNOLOGY: No: Post Nasal Drip PHYSICAL EXAM General: Alert, Oriented X3, Cooperative, No acute distress HEENT: Atraumatic, Mucous membr. moist/pink Lungs: Other (diminished bases) Heart: Regular rate (SR/ST LBBB), Normal S1, Normal S2, Other (3/6 systolic murmur to LLS border; S3) Abdomen: Other (diffuse abd tenderness) Extremities: No cyanosis, No edema Skin: No breakdown, No significant lesion Neuro: Normal speech, Sensation intact Psych/Mental Status: Mental status NL, Mood NL MUSCULOSKELETAL: Osteoarthritic changes both hands VITALS VITALS Vital Signs Date Time Temp Pulse Resp B/P (MAP) Pulse Ox O2 Delivery O2 Flow Rate FiO2 04/05/17 02:45 98.6 106 22 130/72 (91) 97 Nasal Cannula 1.0 98.6 LABS Lab: Laboratory Tests Test 04/04/17 15:00 04/04/17 15:54 04/04/17 18:15 04/04/17 23:55 White Blood Count 19.9 x10^3/uL (4.0-11.0) Red Blood Count 5.22 x10^6/uL (3.50-5.40) Hemoglobin 15.6 g/dL (12.0-15.5) Hematocrit 46.1 % (36.0-47.0) Mean Corpuscular Volume 88 fL (79-100) Mean Corpuscular Hemoglobin 30 pg (25-35) Mean Corpuscular Hemoglobin Concent 34 g/dL (31-37) Red Cell Distribution Width 15.0 % (11.5-14.5) Platelet Count 336 x10^3/uL (140-400) Neutrophils (%) (Auto) 85 % (31-73) Lymphocytes (%) (Auto) 10 % (24-48) Monocytes (%) (Auto) 3 % (0-9) Eosinophils (%) (Auto) 0 % (0-3) Basophils (%) (Auto) 1 % (0-3) Neutrophils # (Auto) 17.0 x10^3uL (1.8-7.7) Lymphocytes # (Auto) 2.0 x10^3/uL (1.0-4.8) Monocytes # (Auto) 0.7 x10^3/uL (0.0-1.1) Eosinophils # (Auto) 0.0 x10^3/uL (0.0-0.7) Basophils # (Auto) 0.2 x10^3/uL (0.0-0.2) Segmented Neutrophils % 78 % (35-66) Lymphocytes % 17 % (24-48) Monocytes % 3 % (0-10) Basophils % 2 % (0-3) Platelet Estimate Adequate (ADEQUATE) Sodium Level 133 mmol/L (136-145) Potassium Level 3.7 mmol/L (3.5-5.1) Chloride Level 97 mmol/L (98-107) Carbon Dioxide Level 21 mmol/L (21-32) Anion Gap 15 (6-14) Blood Urea Nitrogen 7 mg/dL (7-20) Creatinine 0.6 mg/dL (0.6-1.0) Estimated GFR (Cockcroft-Gault) 102.7 BUN/Creatinine Ratio 12 (6-20) Glucose Level 170 mg/dL (70-99) Calcium Level 10.4 mg/dL (8.5-10.1) Total Bilirubin 0.5 mg/dL (0.2-1.0) Aspartate Amino Transf (AST/SGOT) 24 U/L (15-37) Alanine Aminotransferase (ALT/SGPT) 25 U/L (14-59) Alkaline Phosphatase 167 U/L (46-116) Troponin I Quantitative 0.031 ng/mL (0.000-0.055) 1.163 ng/mL (0.000-0.055) Total Protein 8.3 g/dL (6.4-8.2) Albumin 4.4 g/dL (3.4-5.0) Albumin/Globulin Ratio 1.1 (1.0-1.7) Lipase 124 U/L (73-393) Urine Color Yellow Urine Clarity Clear Urine pH 7.0 Urine Specific [place] >=1.030 Urine Protein >=300 mg/dL (NEG-TRACE) Urine Glucose (UA) 100 mg/dL (NEG) Urine Ketones (Stick) 40 mg/dL (NEG) Urine Blood Trace (NEG) Urine Nitrite Negative (NEG) Urine Bilirubin Negative (NEG) Urine Urobilinogen Dipstick 0.2 mg/dL (0.2 mg/dL) Urine Leukocyte Esterase Negative (NEG) Urine RBC 0 /HPF (0-2) Urine WBC Occ /HPF (0-4) Urine Squamous Epithelial Cells Occ /LPF Urine Bacteria 0 /HPF (0-FEW) Urine Hyaline Casts Occasional /HPF Urine Mucus Slight /LPF Lactic Acid Level 1.8 mmol/L (0.4-2.0) 1.5 mmol/L (0.4-2.0) Test 04/05/17 05:53 04/05/17 06:00 04/05/17 08:06 Troponin I Quantitative 1.072 ng/mL (0.000-0.055) White Blood Count 15.3 x10^3/uL (4.0-11.0) Red Blood Count 4.93 x10^6/uL (3.50-5.40) Hemoglobin 14.5 g/dL (12.0-15.5) Hematocrit 43.7 % (36.0-47.0) Mean Corpuscular Volume 89 fL (79-100) Mean Corpuscular Hemoglobin 29 pg (25-35) Mean Corpuscular Hemoglobin Concent 33 g/dL (31-37) Red Cell Distribution Width 15.2 % (11.5-14.5) Platelet Count 295 x10^3/uL (140-400) Neutrophils (%) (Auto) 71 % (31-73) Lymphocytes (%) (Auto) 19 % (24-48) Monocytes (%) (Auto) 10 % (0-9) Eosinophils (%) (Auto) 0 % (0-3) Basophils (%) (Auto) 1 % (0-3) Neutrophils # (Auto) 10.8 x10^3uL (1.8-7.7) Lymphocytes # (Auto) 2.9 x10^3/uL (1.0-4.8) Monocytes # (Auto) 1.5 x10^3/uL (0.0-1.1) Eosinophils # (Auto) 0.0 x10^3/uL (0.0-0.7) Basophils # (Auto) 0.1 x10^3/uL (0.0-0.2) Sodium Level 140 mmol/L (136-145) Potassium Level 3.4 mmol/L (3.5-5.1) Chloride Level 106 mmol/L (98-107) Carbon Dioxide Level 25 mmol/L (21-32) Anion Gap 9 (6-14) Blood Urea Nitrogen 6 mg/dL (7-20) Creatinine 0.4 mg/dL (0.6-1.0) Estimated GFR (Cockcroft-Gault) 163.9 Glucose Level 105 mg/dL (70-99) Calcium Level 9.0 mg/dL (8.5-10.1) Glucose (Fingerstick) 121 mg/dL (70-99) ASSESSMENT/PLAN ASSESSMENT/PLAN 1. Abdominal pain: GI following 2. NSTEMI: Troponin peaked at 1.1 with chronic LBBB, initially noted on 12/2016, no cardiac w/u at that time. 3. Accelerated HTN: newly diagnosed. Better now. Off cardene 4. HLP 5. Tobaccoism 6. DM2: unmedicated 7. PAD aortoiliac atherosclerosis via past CTA. No claudication symptoms. 8. Marijuana use Recommendations 1. TTE, Mg, lipid panel 2. Abdominal pain possible atypical presentation of ischemic process with associated nausea and HEADLEY. Discussed risks and benefits of LHC and agreeable to proceed. 3. Previous liver lesion possible hematoma on 12/2016 but none noted on f/u CT this time. Discussed with GI. 4. Continue with secondary prevention. 5. Smoking cessation and abstinence to marijuana 6. Replace K, ASA. Will reeval BP regimen needs after LHC. Labetalol PRN Problems: GABE MARSHALL MD 04/05/17 1710: CARDIAC CONSULT ALLERGIES ALLERGIES: Coded Allergies: Sulfa (Sulfonamide Antibiotics) (Verified Allergy, Intermediate, Hives, ) adhesive (Verified Allergy, Intermediate, itch, 12/23/16) ASSESSMENT/PLAN ASSESSMENT/PLAN Late entry for 04/04/2017. Pt. seen and examined. Agree with above NPnote. LHC did not show significant disease. Supportive care. Problems: ADILENE NEWSOME APRN Apr 05, 2017 09:42 GABE MARSHALL MD Apr 05, 2017 17:10
[2017-04-05] MEDS: METOCLOPRAMIDE HCL 10 MG/2 ML VIAL. IV PRN (09:43)
[2017-04-05] MEDS: MORPHINE SULFATE 4 MG/ML DISP.SYRIN. IV PRN ×3 (09:44→20:47)
[2017-04-05] MEDS ORDERED: LABETALOL 20 MG/4 ML DISP.SYRIN. IVP PRN (09:45)
[2017-04-05] MEDS ORDERED: HEPARIN 25,000UTS/500ML PREMIX 500 ML IV PRN ×2 (10:00→10:30)
[2017-04-05] MEDS ORDERED: HEPARIN for IV BOLUS 10,000 UNIT/10 ML VIAL. IV PRN ×2 (10:00→10:30)
[2017-04-05] MEDS ORDERED: IOHEXOL 300 MG/ML 100ML VIAL. ONE (10:14)
[2017-04-05] MEDS ORDERED: LIDOCAINE 2% 20 ML VIAL. ONE (10:14)
[2017-04-05] MEDS ORDERED: HEPARIN for ARTERIAL LINE 1,500 ML ONE (10:14)
[2017-04-05] MEDS ORDERED: MAGNESIUM SULFATE 2GM 50 ML IV ONE (10:30)
--- NOTE | 2017-04-05 10:54 | CARD ---
APPROVED REPORT EXAM: Two-dimensional and M-mode echocardiogram with Doppler and color Doppler. Other Information Quality : Good INDICATION Left Bundle Branch Block, Elevated Troponin 2D DIMENSIONS RVDd3.0 (2.9-3.5cm)Left Atrium(2D)3.2 (1.6-4.0cm) IVSd1.3 (0.7-1.1cm)Aortic Root(2D)2.9 (2.0-3.7cm) LVDd4.0 (3.9-5.9cm)LVOT Diameter1.8 (1.8-2.4cm) PWd1.2 (0.7-1.1cm)LVDs2.9 (2.5-4.0cm) FS (%) 27.8 %SV38.7 ml LVEF(%)54.4 (>50%) Aortic Valve AoV Peak Misael.151.6cm/sAoV VTI22.2cm AO Peak GR.9.2mmHgLVOT VTI 24.62cm AO Mean GR.5mmHgAVA (VTI)2.90cm2 AI P 1/2 Xhtb816vf Mitral Valve MV E Wogqhtrx442.1cm/sMV DECEL ZXDC565iq MV A Kumzxpuh902.4cm/sE/A Ratio0.9 TDI Lateral E' P. V10.04cm/sMedial E' P. V6.89cm/s E/Lateral E'10.6E/Medial E'15.4 Tricuspid Valve TR P. Tledgpbg657rh/sRAP XHFZUOBM8slBu TR Peak Gr.56lbIgDDFP56dcZl Pulmonary Vein S1 Ejtttaeo96.4cm/sS2 Gxwjmkbt02.11cm/s D2 Ergyfgmf01.1cm/s LEFT VENTRICLE The left ventricle is normal size. There is mild concentric left ventricular hypertrophy. Left ventri cathy systolic function is mildly reduced. LVEF 40-45%. There is moderate hypokinesis in the inferosept al and inferior dawkins. The abdirahman-septal motion is consistent with conduction defect. Transmitral Dop pler flow pattern is Grade I-abnormal relaxation pattern. RIGHT VENTRICLE The right ventricle is normal size. The right ventricular systolic function is normal. ATRIA The left atrium size is normal. The right atrium size is normal. The interatrial septum is intact wit h no evidence for an atrial septal defect or patent foramen ovale as noted on 2-D or Doppler imaging. AORTIC VALVE The aortic valve is calcified but opens well. Doppler and Color Flow revealed mild aortic regurgitati on. There is no significant aortic valvular stenosis. MITRAL VALVE The mitral valve is calcified but opens well. There is no evidence of mitral valve prolapse. There is no mitral valve stenosis. Doppler and Color-flow revealed trace mitral regurgitation. TRICUSPID VALVE The tricuspid valve is normal in structure and function. Doppler and Color Flow revealed trace tricus pid regurgitation. The PA pressure was estimated at 36 mmHg. There is no tricuspid valve stenosis. PULMONIC VALVE Doppler and Color Flow revealed no pulmonic valvular regurgitation. There is no pulmonic valvular irina nosis. GREAT VESSELS The aortic root is normal in size. The ascending aorta is normal in size. The IVC is normal in size a nd collapses >50% with inspiration. PERICARDIAL EFFUSION There is no evidence of significant pericardial effusion. Critical Notification Critical Value: No <Conclusion> There is moderate hypokinesis in the inferoseptal and inferior dawkins. The abdirahman-septal motion is con sistent with conduction defect. Doppler and Color Flow revealed mild aortic regurgitation. Left ventricle systolic function is mildly reduced. LVEF 40-45%.
--- NOTE | 2017-04-05 11:14 | PDOC2 ---
GI CONSULT Reason For Consult: Abd pain HPI: HPI: 56 y/o female previously evaluated by GI in 12/2016. At that time had periumbilical pain w/ vomiting. Initial CT was unrevealing, follow-up CTA showed large area of abnormal density in the RUQ c/w hemorrhage of uncertain origin, confirmed w/ MR abd. Underwent EGD showing non-erosive gastritis w/o ulcer, hematoma, or mass. Surgery and IR followed; arteriogram was discussed but not pursued. Additional GI history: EGD and colonoscopy w/ Dr. Eduardo 07/2016: mild reflux (confirmed w/ path), mild gastritis (no H. pylori), normal duodenum (no sprue), internal hemorrhoids, excessive loping in descending colon. Normal GES this year. On Aciphex BID for GERD. Intermittent constipation improved w/ Miralax PRN. S/p cholecystectomy. Fibromyalgia w/ PRN use of hydrocodone and Excedrin but does use marijuana daily for pain. On this occasion admitted w/ similar periumbilical pain which began 04/03/17 w/o precipitating events. Hasn't had pain like this since discharged in December. Associated w/ nausea. Last BM was normal yesterday. Some SOA and anxiety. No vomiting/hematemesis, hematochezia, melena. This time noted w/ LBBB and elevated troponin w/ elevated BP. CT A/P unrevealing. PMH: PMH: breast cancer s/p radiation/chemo and left mastectomy, DM, GERD, fibromyalgia, depression, HLD, ANNE-MARIE, OA, hysterectomy, , cholecystectomy FH: Family History: Cancer (breast, colon), DM, Hypertension Social History: Smoke: <1 pack per day (>30 yrs) ALCOHOL: occassional Drugs: Marijuana (daily) ROS: GEN: Denies fevers, chills, sweats HEENT: Denies blurred vision, sore throat CV: +palpitations RESP: +SOA GI: Per HPI : Denies hematuria, dysuria ENDO: Denies weight changes NEURO: Denies confusion, dizziness MSK: +fibromyalgia SKIN: Denies jaundice, pruritus Vitals: Vitals: Vital Signs Date Time Temp Pulse Resp B/P (MAP) Pulse Ox O2 Delivery O2 Flow Rate FiO2 04/05/17 10:14 16 93 1.0 04/05/17 09:44 Room Air 04/05/17 07:00 97.9 100 144/99 (114) 97.9 Labs: Labs: Laboratory Tests Test 04/04/17 15:00 04/04/17 15:54 04/04/17 18:15 04/04/17 23:55 White Blood Count 19.9 x10^3/uL (4.0-11.0) Red Blood Count 5.22 x10^6/uL (3.50-5.40) Hemoglobin 15.6 g/dL (12.0-15.5) Hematocrit 46.1 % (36.0-47.0) Mean Corpuscular Volume 88 fL (79-100) Mean Corpuscular Hemoglobin 30 pg (25-35) Mean Corpuscular Hemoglobin Concent 34 g/dL (31-37) Red Cell Distribution Width 15.0 % (11.5-14.5) Platelet Count 336 x10^3/uL (140-400) Neutrophils (%) (Auto) 85 % (31-73) Lymphocytes (%) (Auto) 10 % (24-48) Monocytes (%) (Auto) 3 % (0-9) Eosinophils (%) (Auto) 0 % (0-3) Basophils (%) (Auto) 1 % (0-3) Neutrophils # (Auto) 17.0 x10^3uL (1.8-7.7) Lymphocytes # (Auto) 2.0 x10^3/uL (1.0-4.8) Monocytes # (Auto) 0.7 x10^3/uL (0.0-1.1) Eosinophils # (Auto) 0.0 x10^3/uL (0.0-0.7) Basophils # (Auto) 0.2 x10^3/uL (0.0-0.2) Segmented Neutrophils % 78 % (35-66) Lymphocytes % 17 % (24-48) Monocytes % 3 % (0-10) Basophils % 2 % (0-3) Platelet Estimate Adequate (ADEQUATE) Sodium Level 133 mmol/L (136-145) Potassium Level 3.7 mmol/L (3.5-5.1) Chloride Level 97 mmol/L (98-107) Carbon Dioxide Level 21 mmol/L (21-32) Anion Gap 15 (6-14) Blood Urea Nitrogen 7 mg/dL (7-20) Creatinine 0.6 mg/dL (0.6-1.0) Estimated GFR (Cockcroft-Gault) 102.7 BUN/Creatinine Ratio 12 (6-20) Glucose Level 170 mg/dL (70-99) Calcium Level 10.4 mg/dL (8.5-10.1) Total Bilirubin 0.5 mg/dL (0.2-1.0) Aspartate Amino Transf (AST/SGOT) 24 U/L (15-37) Alanine Aminotransferase (ALT/SGPT) 25 U/L (14-59) Alkaline Phosphatase 167 U/L (46-116) Troponin I Quantitative 0.031 ng/mL (0.000-0.055) 1.163 ng/mL (0.000-0.055) Total Protein 8.3 g/dL (6.4-8.2) Albumin 4.4 g/dL (3.4-5.0) Albumin/Globulin Ratio 1.1 (1.0-1.7) Lipase 124 U/L (73-393) Urine Color Yellow Urine Clarity Clear Urine pH 7.0 Urine Specific [place] >=1.030 Urine Protein >=300 mg/dL (NEG-TRACE) Urine Glucose (UA) 100 mg/dL (NEG) Urine Ketones (Stick) 40 mg/dL (NEG) Urine Blood Trace (NEG) Urine Nitrite Negative (NEG) Urine Bilirubin Negative (NEG) Urine Urobilinogen Dipstick 0.2 mg/dL (0.2 mg/dL) Urine Leukocyte Esterase Negative (NEG) Urine RBC 0 /HPF (0-2) Urine WBC Occ /HPF (0-4) Urine Squamous Epithelial Cells Occ /LPF Urine Bacteria 0 /HPF (0-FEW) Urine Hyaline Casts Occasional /HPF Urine Mucus Slight /LPF Lactic Acid Level 1.8 mmol/L (0.4-2.0) 1.5 mmol/L (0.4-2.0) Test 04/05/17 05:53 04/05/17 06:00 04/05/17 08:06 Magnesium Level 1.7 mg/dL (1.8-2.4) Troponin I Quantitative 1.072 ng/mL (0.000-0.055) Triglycerides Level 105 mg/dL (0-150) Cholesterol Level 186 mg/dL (0-200) LDL Cholesterol, Calculated 117 mg/dL (0-100) VLDL Cholesterol, Calculated 21 mg/dL (0-40) Non-HDL Cholesterol Calculated 138 mg/dL (0-129) HDL Cholesterol 48 mg/dL (40-60) Cholesterol/HDL Ratio 3.9 White Blood Count 15.3 x10^3/uL (4.0-11.0) Red Blood Count 4.93 x10^6/uL (3.50-5.40) Hemoglobin 14.5 g/dL (12.0-15.5) Hematocrit 43.7 % (36.0-47.0) Mean Corpuscular Volume 89 fL (79-100) Mean Corpuscular Hemoglobin 29 pg (25-35) Mean Corpuscular Hemoglobin Concent 33 g/dL (31-37) Red Cell Distribution Width 15.2 % (11.5-14.5) Platelet Count 295 x10^3/uL (140-400) Neutrophils (%) (Auto) 71 % (31-73) Lymphocytes (%) (Auto) 19 % (24-48) Monocytes (%) (Auto) 10 % (0-9) Eosinophils (%) (Auto) 0 % (0-3) Basophils (%) (Auto) 1 % (0-3) Neutrophils # (Auto) 10.8 x10^3uL (1.8-7.7) Lymphocytes # (Auto) 2.9 x10^3/uL (1.0-4.8) Monocytes # (Auto) 1.5 x10^3/uL (0.0-1.1) Eosinophils # (Auto) 0.0 x10^3/uL (0.0-0.7) Basophils # (Auto) 0.1 x10^3/uL (0.0-0.2) Sodium Level 140 mmol/L (136-145) Potassium Level 3.4 mmol/L (3.5-5.1) Chloride Level 106 mmol/L (98-107) Carbon Dioxide Level 25 mmol/L (21-32) Anion Gap 9 (6-14) Blood Urea Nitrogen 6 mg/dL (7-20) Creatinine 0.4 mg/dL (0.6-1.0) Estimated GFR (Cockcroft-Gault) 163.9 Glucose Level 105 mg/dL (70-99) Calcium Level 9.0 mg/dL (8.5-10.1) Glucose (Fingerstick) 121 mg/dL (70-99) Allergies: Coded Allergies: Sulfa (Sulfonamide Antibiotics) (Verified Allergy, Intermediate, Hives, ) adhesive (Verified Allergy, Intermediate, itch, 12/23/16) Medications: Current Medications Medications (Trade) Dose Ordered Sig/Julieta Route PRN Reason Start Time Stop Time Status Last Admin Dose Admin Aspirin (Gentry Aspirin) 325 mg 1X ONCE PO 04/04/17 15:15 04/04/17 15:16 DC 04/04/17 15:30 Ondansetron HCl (Zofran) 4 mg 1X ONCE IV 04/04/17 15:15 04/04/17 15:16 DC 04/04/17 15:27 Morphine Sulfate 4 mg PRN Q15MIN PRN IV/SQ PAIN GREATER THAN 3/10 04/04/17 15:15 04/05/17 10:27 DC 04/04/17 18:46 Iohexol (Omnipaque 300 Mg/ml) 75 ml 1X ONCE IV 04/04/17 15:30 04/04/17 15:31 DC 04/04/17 15:39 Hydralazine HCl (Apresoline) 10 mg PRN Q4HRS PRN IVP ELEVATED BP, SEE COMMENTS 04/04/17 17:15 04/04/17 17:55 Sodium Chloride 1,000 ml @ 2,190 mls/hr Q28M IV 04/04/17 17:11 04/04/17 18:14 DC 04/04/17 17:49 Morphine Sulfate 2 mg PRN Q2HR PRN IV PAIN 04/04/17 18:00 04/05/17 10:27 DC 04/05/17 09:44 Sodium Chloride 1,000 ml @ 125 mls/hr Q8H IV 04/04/17 17:53 04/05/17 17:52 04/05/17 03:52 Ondansetron HCl (Zofran) 4 mg 1X ONCE IV 04/04/17 19:00 04/04/17 19:02 DC 04/04/17 19:25 Ceftriaxone Sodium 50 ml @ 100 mls/hr 1X ONCE IV 04/04/17 21:30 04/04/17 21:59 DC 04/04/17 22:56 Azithromycin 500 mg/Sodium Chloride 250 ml @ 250 mls/hr 1X ONCE IV 04/04/17 21:30 04/04/17 22:29 DC 04/04/17 22:56 Ondansetron HCl (Zofran) 4 mg 1X ONCE IV 04/04/17 23:00 04/04/17 23:01 DC 04/04/17 22:59 Metoclopramide HCl (Reglan) 10 mg PRN Q6HRS PRN IV NAUSEA/VOMITING 04/05/17 01:00 04/05/17 09:43 Heparin Sodium/ Dextrose 500 ml @ 0 mls/hr CONT PRN IV SEE I/O RECORD 04/05/17 10:00 04/05/17 10:20 Heparin Sodium (Porcine) (Heparin Sodium) 1,850 unit PRN Q6HRS PRN IV FOR UFH LEVEL LESS THAN 0.2 04/05/17 10:00 04/05/17 10:17 Imaging: Imaging: CT A/P The gallbladder is surgically absent. Mild prominence of the common bile duct is compatible with the postcholecystectomy state. No hepatic abnormality is seen. The pancreas is unremarkable. The spleen is of normal size. There is a small low-density lesion in the posterior aspect of the right kidney compatible with a cyst. The kidneys are otherwise unremarkable. There are moderate scattered aortoiliac calcific plaques. No abdominal or pelvic adenopathy is seen. The uterus is surgically absent. The bowel loops are not dilated. The appendix is not visualized. No pericecal inflammatory change is evident. No free air or significant free fluid is evident in the abdomen or pelvis. IMPRESSION: No acute abdominal or pelvic abnormality is detected. CXR IMPRESSION: No acute cardiopulmonary abnormality is detected. PE: GEN: looks uncomfortable HEENT: Atraumatic, PERRL LUNGS: clear HEART: tachycardic ABD: BS+, quite tender - periumbilical area to RUQ EXTREMITY: No edema SKIN: No rashes, no jaundice NEURO/PSYCH: A & O 3 A/P: A/P: Abd pain, nausea -recurrent, previous workup in December revealed RUQ hematoma w/o clear etiology -EGDs and colonoscopy this year, normal GES, s/p cholecystectomy -GERD on PPI BID, constipation controlled w/ Miralax PRN NSTEMI, HTN -per cardiology -- D/w Dr. Rahman. Continue per cardiology. Will ask hematology to see consider h/o RUQ hematoma in December (?need for anti- platelet therapy) - no suggestion of this on CT this admission. AYAKA NOGUEIRA Apr 05, 2017 11:14
[2017-04-05] MEDS ORDERED: MIDAZOLAM HCL/PF 2 MG/2 ML VIAL. ONE (11:38)
[2017-04-05] MEDS ORDERED: fentaNYL PF VIAL 100 MCG/2 ML VIAL ONE (11:38)
[2017-04-05] MEDS ORDERED: NITROGLYCERIN 200 MCG/2 ML SYRINGE FOR CATH/VASC LAB. ONE (11:48)
[2017-04-05] MEDS ORDERED: VERAPAMIL 5 MG/2 ML VIAL. ONE (11:48)
--- NOTE | 2017-04-05 11:51 | PDOC ---
MODERATE SEDATION ASSESSMENT RISKS/ALTERNATIVES Risks/Alternatives Risks and alternatives of this type of sedation and procedure discussed with: RISK/ALTERNATIVES: Patient H & P ON CHART H & P H & P on chart and reviewed for co-morbid conditions and appropriate labs. H&P ON CHART: Yes STATUS PREG STATUS ASSESSED: N/A MEDS/ALLERGIES REVIEWED Meds/Allergies Reviewed Medications and Allergies including time and route of recently administered narcotics and sedatives. MEDS/ALLERGIES REVIEWED: Yes ASA RATING ASA RATING: III AIRWAY ASSESSMENT Airway Assessment Airway patency, oral function limitations, presence of caps, crowns, dentures, partials, and ability to extend neck assessed. AIRWAY ASSESSMENT: Yes MALLAMPATI SCORE MALLAMPATI SCORE: II PRE-SEDATION ASSESSMENT PRE-SEDATION ASSESSMENT: Yes GABE MARSHALL MD Apr 05, 2017 11:51
[2017-04-05] MEDS ORDERED: fentaNYL PF VIAL 100 MCG/2 ML VIAL IV ONE (12:15)
[2017-04-05] MEDS ORDERED: LIDOCAINE 2% 20 ML VIAL. IJ ONE (12:15)
[2017-04-05] MEDS ORDERED: IOHEXOL 300 MG/ML 100ML VIAL. IART ONE (12:15)
[2017-04-05] MEDS ORDERED: MIDAZOLAM HCL/PF 2 MG/2 ML VIAL. IV ONE (12:15)
[2017-04-05] MEDS ORDERED: NITROGLYCERIN 200 MCG/2 ML SYRINGE FOR CATH/VASC LAB. IART ONE (12:15)
[2017-04-05] MEDS ORDERED: ONDANSETRON PF 4 MG/2 ML VIAL. IV ONE (12:15)
[2017-04-05] MEDS ORDERED: VERAPAMIL 5 MG/2 ML VIAL. IART ONE (12:15)
[2017-04-05] MEDS ORDERED: HEPARIN for IV BOLUS 10,000 UNIT/10 ML VIAL. IART ONE (12:15)
--- NOTE | 2017-04-05 13:10 | PDOC2 ---
CONSULT Date of Consult Date of Consult DATE: 04/05/17 TIME: 13:03 Reason for Consult Reason for Consult: previous hematoma, RUQ Pain Referring Physician Referring Physician: Dr Rahman Identification/Chief Complaint Chief Complaint abdominal pain Problems: Source Source: Chart review, Patient History of Present Illness Reason for Visit: Pt seen in December for a finding of RUQ hematoma, unknown etiology, which resolved without intervention. She underwent a cholecystectomy in [address] Delong. Returned with RUQ pain. Associated nausea. Noted to have LLB, elevated troponin on admission Ct did not show any re-demonstration of hematoma Past Medical History Cardiovascular: Hyperlipidemia, Other (LBBB) Pulmonary: No pertinent hx CENTRAL NERVOUS SYSTEM: Periperal neuropathy GI: GERD, Irritable bowel disease Heme/Onc: Cancer (breast >20 yrs ago with chemo) Hepatobiliary: Other (liver lesion) Psych: Anxiety, Bipolar, Depression Musculoskeletal: Osteoarthritis Rheumatologic: No pertinent hx Infectious disease: No pertinent hx ENT: No pertinent hx Renal/: No pertinent hx Endocrine: Diabetes (2) Dermatology: No pertinent hx Past Surgical History Past Surgical History: Cholecystectomy, , Hysterectomy, Other (breast reconstruction; lumpectomy) Family History Family History: Other Social History <1 pack per day (>30 yrs) ALCOHOL: occassional Drugs: Marijuana (daily) Lives: with Family Current Problem List Problem List Problems Medical Problems: (1) Abdominal pain Status: Acute (2) Accelerated hypertension Status: Acute (3) Left bundle branch block Status: Acute (4) Systemic inflammatory response syndrome Status: Acute Current Medications Current Medications Current Medications Heparin Sodium/ Sodium Chloride 0 ml @ As Directed STK-MED ONCE .ROUTE ; Start 04/04/17 at 15:10; Stop 04/04/17 at 15:11; Status DC Lidocaine HCl 20 ml STK-MED ONCE .ROUTE ; Start 04/04/17 at 15:10; Stop at 15:11; Status DC Aspirin ([place] Aspirin) 325 mg 1X ONCE PO Last administered on 04/04/17 15:30 ; Start 04/04/17 at 15:15; Stop 04/04/17 at 15:16; Status DC Ondansetron HCl (Zofran) 4 mg 1X ONCE IV Last administered on 04/04/17 15:27 ; Start 04/04/17 at 15:15; Stop 04/04/17 at 15:16; Status DC Morphine Sulfate 4 mg PRN Q15MIN PRN IV/SQ PAIN GREATER THAN 3/10 Last administered on 04/04/17 18:46; Start 04/04/17 at 15:15; Stop 04/05/17 at 10:27 ; Status DC Iohexol (Omnipaque 300 Mg/ml) 75 ml 1X ONCE IV Last administered on 04/04/17 15:39; Start 04/04/17 at 15:30; Stop 04/04/17 at 15:31; Status DC Info (Do NOT chart on this entry -- for MONITORING) 1 each PRN DAILY PRN MC SEE COMMENTS; Start 04/04/17 at 15:30; Stop 04/06/17 at 15:29 Hydralazine HCl (Apresoline) 10 mg PRN Q4HRS PRN IVP ELEVATED BP, SEE COMMENTS Last administered on 04/04/17 17:55; Start 04/04/17 at 17:15 Sodium Chloride 1,000 ml @ 2,190 mls/hr Q28M IV Last administered on 17:49; Start 04/04/17 at 17:11; Stop 04/04/17 at 18:14; Status DC Ondansetron HCl (Zofran) 4 mg PRN Q8HRS PRN IV NAUSEA/VOMITING; Start 04/04/17 at 18:00; Stop 04/05/17 at 17:59 Morphine Sulfate 2 mg PRN Q2HR PRN IV PAIN Last administered on 04/05/17 09:44 ; Start 04/04/17 at 18:00; Stop 04/05/17 at 10:27; Status DC Sodium Chloride 1,000 ml @ 125 mls/hr Q8H IV Last administered on 04/05/17 03 :52; Start 04/04/17 at 17:53; Stop 04/05/17 at 17:52 Nicardipine HCl 50 mg/Sodium Chloride 270 ml @ 0 mls/hr CONT PRN IV SEE I/O RECORD; Start 04/04/17 at 19:00 Ondansetron HCl (Zofran) 4 mg 1X ONCE IV Last administered on 04/04/17 19:25 ; Start 04/04/17 at 19:00; Stop 04/04/17 at 19:02; Status DC Ceftriaxone Sodium 50 ml @ 100 mls/hr 1X ONCE IV Last administered on 22:56; Start 04/04/17 at 21:30; Stop 04/04/17 at 21:59; Status DC Azithromycin 500 mg/Sodium Chloride 250 ml @ 250 mls/hr 1X ONCE IV Last administered on 04/04/17 22:56; Start 04/04/17 at 21:30; Stop 04/04/17 at 22:29 ; Status DC Ondansetron HCl (Zofran) 4 mg 1X ONCE IV Last administered on 04/04/17 22:59 ; Start 04/04/17 at 23:00; Stop 04/04/17 at 23:01; Status DC Ondansetron HCl (Zofran) 4 mg PRN Q4HRS PRN IV NAUSEA/VOMITING; Start 04/04/17 at 22:30 Morphine Sulfate 4 mg PRN Q2HR PRN IV SEVERE PAIN; Start 04/05/17 at 00:45 Metoclopramide HCl (Reglan) 10 mg PRN Q6HRS PRN IV NAUSEA/VOMITING Last administered on 04/05/17 09:43; Start 04/05/17 at 01:00 Influenza Virus Vaccine Quadrival (Fluarix Quad [id number] Syringe) 0.5 ml ONCE ONCE VAX IM ; Start 04/05/17 at 09:00; Stop 04/05/17 at 09:01; Status DC Info (Do NOT chart on this placeholder) 1 each PRN 1X PRN MC SEE COMMENTS; Start 04/05/17 at 05:00; Status UNV Duloxetine HCl (Cymbalta) 120 mg DAILY PO ; Start 04/05/17 at 09:00 Acetaminophen/ Hydrocodone Bitart (Lortab 5/325) 1 tab PRN Q6HRS PRN PO PAIN; Start 04/05/17 at 08:45 Non-Formulary Medication 20 mg BID PO ; Start 04/05/17 at 09:00; Stop 04/05/17 at 09:22; Status DC Aripiprazole (Abilify) 10 mg QHS PO ; Start 04/05/17 at 21:00 Lamotrigine (LaMICtal) 300 mg QHS PO ; Start 04/05/17 at 21:00 Non-Formulary Medication 2 tab HS PO ; Start 04/05/17 at 21:00; Stop 04/05/17 at 21:00; Status DC Fish Oil (Fish Oil) 1,000 mg BID PO ; Start 04/05/17 at 10:00 Atorvastatin Calcium (Lipitor) 40 mg QHS PO ; Start 04/05/17 at 21:00; Stop 04/05/17 at 21:00; Status DC Labetalol HCl (Normodyne) 20 mg PRN Q2HR PRN IVP HYPERTENSION, SEE COMMENTS; Start 04/05/17 at 09:45 Heparin Sodium/ Dextrose 500 ml @ 0 mls/hr CONT PRN IV SEE I/O RECORD Last administered on 04/05/17t 10:20; Start 04/05/17 at 10:00 Heparin Sodium (Porcine) (Heparin Sodium) 1,850 unit PRN Q6HRS PRN IV FOR UFH LEVEL LESS THAN 0.2 Last administered on 04/05/17t 10:17; Start 04/05/17 at 10: 00 Heparin Sodium/ Sodium Chloride 1,500 ml @ As Directed STK-MED ONCE .ROUTE ; Start 04/05/17 at 10:14; Stop 04/05/17 at 10:15; Status DC Lidocaine HCl 20 ml STK-MED ONCE .ROUTE ; Start 04/05/17 at 10:14; Stop at 10:15; Status DC Iohexol (Omnipaque 300 Mg/ml) 100 ml STK-MED ONCE .ROUTE ; Start 04/05/17 at 10: 14; Stop 04/05/17 at 10:15; Status DC Heparin Sodium/ Dextrose 500 ml @ 0 mls/hr CONT PRN IV SEE I/O RECORD; Start 04/05/17 at 10:30; Status UNV Heparin Sodium (Porcine) (Heparin Sodium) 1,850 unit PRN Q6HRS PRN IV FOR UFH LEVEL LESS THAN 0.2; Start 04/05/17 at 10:30; Status UNV Magnesium Sulfate/ Dextrose 50 ml @ 25 mls/hr 1X ONCE IV ; Start 04/05/17 at 10 :30; Stop 04/05/17 at 12:29; Status DC Atorvastatin Calcium (Lipitor) 40 mg QHS PO ; Start 04/05/17 at 21:00 Famotidine (Pepcid) 20 mg BID IVP ; Start 04/05/17 at 11:00 Fentanyl Citrate (Fentanyl 2ml Vial) 100 mcg STK-MED ONCE .ROUTE ; Start at 11:38; Stop 04/05/17 at 11:39; Status DC Midazolam HCl (Versed) 2 mg STK-MED ONCE .ROUTE ; Start 04/05/17 at 11:38; Stop 04/05/17 at 11:39; Status DC Verapamil HCl (Verapamil) 5 mg STK-MED ONCE .ROUTE ; Start 04/05/17 at 11:48; Stop 04/05/17 at 11:49; Status DC Nitroglycerin (Nitroglycerin) 200 mcg STK-MED ONCE .ROUTE ; Start 04/05/17 at 11 :48; Stop 04/05/17 at 11:49; Status DC Nitroglycerin (Nitroglycerin) 200 mcg 1X ONCE IART Last administered on 12:16; Start 04/05/17 at 12:15; Stop 04/05/17 at 12:16; Status DC Verapamil HCl (Verapamil) 2.5 mg 1X ONCE IART Last administered on 04/05/17 12:19; Start 04/05/17 at 12:15; Stop 04/05/17 at 12:16; Status DC Heparin Sodium (Porcine) (Heparin Sodium) 2,500 unit 1X ONCE IART Last administered on 04/05/17 12:19; Start 04/05/17 at 12:15; Stop 04/05/17 at 12:16 ; Status DC Heparin Sodium/ Sodium Chloride 1,000 unit 1X ONCE IART Last administered on 04/05/17 12:16; Start 04/05/17 at 12:15; Stop 04/05/17 at 12:16; Status DC Midazolam HCl (Versed) 2 mg 1X ONCE IV Last administered on 04/05/17 12:17; Start 04/05/17 at 12:15; Stop 04/05/17 at 12:16; Status DC Fentanyl Citrate (Fentanyl 2ml Vial) 50 mcg 1X ONCE IV Last administered on 12:18; Start 04/05/17 at 12:15; Stop 04/05/17 at 12:16; Status DC Iohexol (Omnipaque 300 Mg/ml) 130 ml 1X ONCE IART Last administered on 12:18; Start 04/05/17 at 12:15; Stop 04/05/17 at 12:16; Status DC Lidocaine HCl 2 ml 1X ONCE IJ Last administered on 04/05/17 12:16; Start 04/05/17 at 12:15; Stop 04/05/17 at 12:16; Status DC Ondansetron HCl (Zofran) 4 mg 1X ONCE IV Last administered on 04/05/17 12:18 ; Start 04/05/17 at 12:15; Stop 04/05/17 at 12:16; Status DC Active Scripts Active Reported Aripiprazole 20 Mg Tablet 20 Mg PO BID Lamotrigine 200 Mg Tablet 300 Mg PO HS Abilify (Aripiprazole) 10 Mg Tablet 10 Mg PO DAILY Cymbalta (Duloxetine Hcl) 30 Mg Capsule.dr 120 Mg PO DAILY Hydrocodone-Apap 5-325 (Hydrocodone Bit/Acetaminophen) 1 Each Tablet 1 Tab PO PRN Q6HRS PRN Fish Oil ([place]-3 Fatty Acids) 300 Mg Capsule 0 PO BID Lamictal (Lamotrigine) 150 Mg Tablet 2 Tab PO HS Crestor (Rosuvastatin Calcium) 10 Mg Tablet 10 Mg PO HS Allergies Allergies: Coded Allergies: Sulfa (Sulfonamide Antibiotics) (Verified Allergy, Intermediate, Hives, ) adhesive (Verified Allergy, Intermediate, itch, 12/23/16) ROS General: No: Chills, Other (fevers) PSYCHOLOGICAL ROS: YES: Anxiety, No: Depression Eyes: No Blurry vision, No Loss of vision HEENT: No: Heacaches, Sore Throat Hematological and Lymphatic: YES: Bleeding Problems, No: Blood Clots Respiratory: YES: Shortness of breath, No: Cough Cardiovascular: yes Palpitations, No Chest Pain Gastrointestinal: Yes Other (see hpi) Genitourinary: No Dysuria, No Retention Musculoskeletal: Yes Joint Pain, Yes Muscle Pain Neurological: No Impaired Coord/balance, No Numbness/Tingling Skin: No Pruritus, No Rash Physical Exam General: Alert, Oriented X3, Cooperative, No acute distress HEENT: PERRLA, Mucous membr. moist/pink Lungs: Clear to auscultation, Normal air movement Heart: Regular rate, Normal S1, Normal S2, No murmurs Abdomen: Soft, Other (mild tenderness to RUQ, no guarding or rebound ) Extremities: No clubbing, No cyanosis Skin: No rashes, No breakdown Neuro: Normal speech, Sensation intact Psych/Mental Status: Mental status NL, Mood NL MUSCULOSKELETAL: No deformity, No swelling Vitals VITALS Vital Signs Date Time Temp Pulse Resp B/P (MAP) Pulse Ox O2 Delivery O2 Flow Rate FiO2 04/05/17 12:20 86 14 95 Nasal Cannula 2.0 04/05/17 11:00 98.5 124/91 (102) 98.5 Labs Labs Laboratory Tests Test 04/04/17 15:00 04/04/17 15:54 04/04/17 18:15 04/04/17 23:55 White Blood Count 19.9 x10^3/uL (4.0-11.0) Red Blood Count 5.22 x10^6/uL (3.50-5.40) Hemoglobin 15.6 g/dL (12.0-15.5) Hematocrit 46.1 % (36.0-47.0) Mean Corpuscular Volume 88 fL (79-100) Mean Corpuscular Hemoglobin 30 pg (25-35) Mean Corpuscular Hemoglobin Concent 34 g/dL (31-37) Red Cell Distribution Width 15.0 % (11.5-14.5) Platelet Count 336 x10^3/uL (140-400) Neutrophils (%) (Auto) 85 % (31-73) Lymphocytes (%) (Auto) 10 % (24-48) Monocytes (%) (Auto) 3 % (0-9) Eosinophils (%) (Auto) 0 % (0-3) Basophils (%) (Auto) 1 % (0-3) Neutrophils # (Auto) 17.0 x10^3uL (1.8-7.7) Lymphocytes # (Auto) 2.0 x10^3/uL (1.0-4.8) Monocytes # (Auto) 0.7 x10^3/uL (0.0-1.1) Eosinophils # (Auto) 0.0 x10^3/uL (0.0-0.7) Basophils # (Auto) 0.2 x10^3/uL (0.0-0.2) Segmented Neutrophils % 78 % (35-66) Lymphocytes % 17 % (24-48) Monocytes % 3 % (0-10) Basophils % 2 % (0-3) Platelet Estimate Adequate (ADEQUATE) Sodium Level 133 mmol/L (136-145) Potassium Level 3.7 mmol/L (3.5-5.1) Chloride Level 97 mmol/L (98-107) Carbon Dioxide Level 21 mmol/L (21-32) Anion Gap 15 (6-14) Blood Urea Nitrogen 7 mg/dL (7-20) Creatinine 0.6 mg/dL (0.6-1.0) Estimated GFR (Cockcroft-Gault) 102.7 BUN/Creatinine Ratio 12 (6-20) Glucose Level 170 mg/dL (70-99) Calcium Level 10.4 mg/dL (8.5-10.1) Total Bilirubin 0.5 mg/dL (0.2-1.0) Aspartate Amino Transf (AST/SGOT) 24 U/L (15-37) Alanine Aminotransferase (ALT/SGPT) 25 U/L (14-59) Alkaline Phosphatase 167 U/L (46-116) Troponin I Quantitative 0.031 ng/mL (0.000-0.055) 1.163 ng/mL (0.000-0.055) Total Protein 8.3 g/dL (6.4-8.2) Albumin 4.4 g/dL (3.4-5.0) Albumin/Globulin Ratio 1.1 (1.0-1.7) Lipase 124 U/L (73-393) Urine Color Yellow Urine Clarity Clear Urine pH 7.0 Urine Specific [place] >=1.030 Urine Protein >=300 mg/dL (NEG-TRACE) Urine Glucose (UA) 100 mg/dL (NEG) Urine Ketones (Stick) 40 mg/dL (NEG) Urine Blood Trace (NEG) Urine Nitrite Negative (NEG) Urine Bilirubin Negative (NEG) Urine Urobilinogen Dipstick 0.2 mg/dL (0.2 mg/dL) Urine Leukocyte Esterase Negative (NEG) Urine RBC 0 /HPF (0-2) Urine WBC Occ /HPF (0-4) Urine Squamous Epithelial Cells Occ /LPF Urine Bacteria 0 /HPF (0-FEW) Urine Hyaline Casts Occasional /HPF Urine Mucus Slight /LPF Lactic Acid Level 1.8 mmol/L (0.4-2.0) 1.5 mmol/L (0.4-2.0) Test 04/05/17 05:53 04/05/17 06:00 04/05/17 08:06 04/05/17 11:05 Magnesium Level 1.7 mg/dL (1.8-2.4) Troponin I Quantitative 1.072 ng/mL (0.000-0.055) Triglycerides Level 105 mg/dL (0-150) Cholesterol Level 186 mg/dL (0-200) LDL Cholesterol, Calculated 117 mg/dL (0-100) VLDL Cholesterol, Calculated 21 mg/dL (0-40) Non-HDL Cholesterol Calculated 138 mg/dL (0-129) HDL Cholesterol 48 mg/dL (40-60) Cholesterol/HDL Ratio 3.9 White Blood Count 15.3 x10^3/uL (4.0-11.0) Red Blood Count 4.93 x10^6/uL (3.50-5.40) Hemoglobin 14.5 g/dL (12.0-15.5) Hematocrit 43.7 % (36.0-47.0) Mean Corpuscular Volume 89 fL (79-100) Mean Corpuscular Hemoglobin 29 pg (25-35) Mean Corpuscular Hemoglobin Concent 33 g/dL (31-37) Red Cell Distribution Width 15.2 % (11.5-14.5) Platelet Count 295 x10^3/uL (140-400) Neutrophils (%) (Auto) 71 % (31-73) Lymphocytes (%) (Auto) 19 % (24-48) Monocytes (%) (Auto) 10 % (0-9) Eosinophils (%) (Auto) 0 % (0-3) Basophils (%) (Auto) 1 % (0-3) Neutrophils # (Auto) 10.8 x10^3uL (1.8-7.7) Lymphocytes # (Auto) 2.9 x10^3/uL (1.0-4.8) Monocytes # (Auto) 1.5 x10^3/uL (0.0-1.1) Eosinophils # (Auto) 0.0 x10^3/uL (0.0-0.7) Basophils # (Auto) 0.1 x10^3/uL (0.0-0.2) Sodium Level 140 mmol/L (136-145) Potassium Level 3.4 mmol/L (3.5-5.1) Chloride Level 106 mmol/L (98-107) Carbon Dioxide Level 25 mmol/L (21-32) Anion Gap 9 (6-14) Blood Urea Nitrogen 6 mg/dL (7-20) Creatinine 0.4 mg/dL (0.6-1.0) Estimated GFR (Cockcroft-Gault) 163.9 Glucose Level 105 mg/dL (70-99) Calcium Level 9.0 mg/dL (8.5-10.1) Glucose (Fingerstick) 121 mg/dL (70-99) 131 mg/dL (70-99) Laboratory Tests Test 04/04/17 15:00 04/04/17 15:54 04/04/17 18:15 04/04/17 23:55 White Blood Count 19.9 x10^3/uL (4.0-11.0) Red Blood Count 5.22 x10^6/uL (3.50-5.40) Hemoglobin 15.6 g/dL (12.0-15.5) Hematocrit 46.1 % (36.0-47.0) Mean Corpuscular Volume 88 fL (79-100) Mean Corpuscular Hemoglobin 30 pg (25-35) Mean Corpuscular Hemoglobin Concent 34 g/dL (31-37) Red Cell Distribution Width 15.0 % (11.5-14.5) Platelet Count 336 x10^3/uL (140-400) Neutrophils (%) (Auto) 85 % (31-73) Lymphocytes (%) (Auto) 10 % (24-48) Monocytes (%) (Auto) 3 % (0-9) Eosinophils (%) (Auto) 0 % (0-3) Basophils (%) (Auto) 1 % (0-3) Neutrophils # (Auto) 17.0 x10^3uL (1.8-7.7) Lymphocytes # (Auto) 2.0 x10^3/uL (1.0-4.8) Monocytes # (Auto) 0.7 x10^3/uL (0.0-1.1) Eosinophils # (Auto) 0.0 x10^3/uL (0.0-0.7) Basophils # (Auto) 0.2 x10^3/uL (0.0-0.2) Segmented Neutrophils % 78 % (35-66) Lymphocytes % 17 % (24-48) Monocytes % 3 % (0-10) Basophils % 2 % (0-3) Platelet Estimate Adequate (ADEQUATE) Sodium Level 133 mmol/L (136-145) Potassium Level 3.7 mmol/L (3.5-5.1) Chloride Level 97 mmol/L (98-107) Carbon Dioxide Level 21 mmol/L (21-32) Anion Gap 15 (6-14) Blood Urea Nitrogen 7 mg/dL (7-20) Creatinine 0.6 mg/dL (0.6-1.0) Estimated GFR (Cockcroft-Gault) 102.7 BUN/Creatinine Ratio 12 (6-20) Glucose Level 170 mg/dL (70-99) Calcium Level 10.4 mg/dL (8.5-10.1) Total Bilirubin 0.5 mg/dL (0.2-1.0) Aspartate Amino Transf (AST/SGOT) 24 U/L (15-37) Alanine Aminotransferase (ALT/SGPT) 25 U/L (14-59) Alkaline Phosphatase 167 U/L (46-116) Troponin I Quantitative 0.031 ng/mL (0.000-0.055) 1.163 ng/mL (0.000-0.055) Total Protein 8.3 g/dL (6.4-8.2) Albumin 4.4 g/dL (3.4-5.0) Albumin/Globulin Ratio 1.1 (1.0-1.7) Lipase 124 U/L (73-393) Urine Color Yellow Urine Clarity Clear Urine pH 7.0 Urine Specific [place] >=1.030 Urine Protein >=300 mg/dL (NEG-TRACE) Urine Glucose (UA) 100 mg/dL (NEG) Urine Ketones (Stick) 40 mg/dL (NEG) Urine Blood Trace (NEG) Urine Nitrite Negative (NEG) Urine Bilirubin Negative (NEG) Urine Urobilinogen Dipstick 0.2 mg/dL (0.2 mg/dL) Urine Leukocyte Esterase Negative (NEG) Urine RBC 0 /HPF (0-2) Urine WBC Occ /HPF (0-4) Urine Squamous Epithelial Cells Occ /LPF Urine Bacteria 0 /HPF (0-FEW) Urine Hyaline Casts Occasional /HPF Urine Mucus Slight /LPF Lactic Acid Level 1.8 mmol/L (0.4-2.0) 1.5 mmol/L (0.4-2.0) Test 04/05/17 05:53 04/05/17 06:00 04/05/17 08:06 04/05/17 11:05 Magnesium Level 1.7 mg/dL (1.8-2.4) Troponin I Quantitative 1.072 ng/mL (0.000-0.055) Triglycerides Level 105 mg/dL (0-150) Cholesterol Level 186 mg/dL (0-200) LDL Cholesterol, Calculated 117 mg/dL (0-100) VLDL Cholesterol, Calculated 21 mg/dL (0-40) Non-HDL Cholesterol Calculated 138 mg/dL (0-129) HDL Cholesterol 48 mg/dL (40-60) Cholesterol/HDL Ratio 3.9 White Blood Count 15.3 x10^3/uL (4.0-11.0) Red Blood Count 4.93 x10^6/uL (3.50-5.40) Hemoglobin 14.5 g/dL (12.0-15.5) Hematocrit 43.7 % (36.0-47.0) Mean Corpuscular Volume 89 fL (79-100) Mean Corpuscular Hemoglobin 29 pg (25-35) Mean Corpuscular Hemoglobin Concent 33 g/dL (31-37) Red Cell Distribution Width 15.2 % (11.5-14.5) Platelet Count 295 x10^3/uL (140-400) Neutrophils (%) (Auto) 71 % (31-73) Lymphocytes (%) (Auto) 19 % (24-48) Monocytes (%) (Auto) 10 % (0-9) Eosinophils (%) (Auto) 0 % (0-3) Basophils (%) (Auto) 1 % (0-3) Neutrophils # (Auto) 10.8 x10^3uL (1.8-7.7) Lymphocytes # (Auto) 2.9 x10^3/uL (1.0-4.8) Monocytes # (Auto) 1.5 x10^3/uL (0.0-1.1) Eosinophils # (Auto) 0.0 x10^3/uL (0.0-0.7) Basophils # (Auto) 0.1 x10^3/uL (0.0-0.2) Sodium Level 140 mmol/L (136-145) Potassium Level 3.4 mmol/L (3.5-5.1) Chloride Level 106 mmol/L (98-107) Carbon Dioxide Level 25 mmol/L (21-32) Anion Gap 9 (6-14) Blood Urea Nitrogen 6 mg/dL (7-20) Creatinine 0.4 mg/dL (0.6-1.0) Estimated GFR (Cockcroft-Gault) 163.9 Glucose Level 105 mg/dL (70-99) Calcium Level 9.0 mg/dL (8.5-10.1) Glucose (Fingerstick) 121 mg/dL (70-99) 131 mg/dL (70-99) Assessment/Plan Assessment/Plan RUQ pain, previous RUQ hematoma--no signs of reoccurrence elevated troponin, LLB--cardiology following has a consult pending to heme No surgical needs, will review with MAGNOLIA Hernandez APRN Apr 05, 2017 13:10
[2017-04-05] MEDS: ONDANSETRON PF 4 MG/2 ML VIAL. IV PRN ×2 (13:23→20:47)
[2017-04-05] MEDS: FAMOTIDINE 20 MG/2 ML VIAL IVP SCH ×2 (13:23→20:47)
[2017-04-05] MEDS: OMEGA-3 FATTY ACIDS/FISH OIL 1,000 MG CAPSULE. PO SCH ×2 (13:33→21:00)
[2017-04-05] MEDS: DULoxetine HCL 30 MG CAPSULE.DR PO SCH (13:33)
--- NOTE | 2017-04-05 13:41 | CARD ---
APPROVED REPORT Procedure(s) performed: Right transradial approach Left Heart Catheterization, Coronary angiography, Left ventriculography Aortogram Moderate Sedation: 26 Minutes HISTORY : The patient is a 56 year-old female with a history of . INDICATION The indication(s) include : unstable angina , non-STEMI , abnormal ECG, arrhythmia. PROCEDURE NARRATIVE The patient was brought electively to the cardiac catheterization lab. A timeout was performed confi rming the patient's name, date of , procedure, and site of procedure. All necessary personnel w ere wearing the appropriate protective equipment and radiation monitor devices. After explaining the risks and benefits of the procedure and alternatives, informed consent was obtained. (See nursing no norberto for medications administered). The right wrist was sterilely prepped and draped in the usual fas hion. The right wrist was infiltrated with 1 mL of 2% lidocaine for subcutaneous anesthesia. A 6 Fr ench Terumo glide sheath was inserted into the right radial artery without difficulty. Right and lef t coronary angiography was performed using a 6Fr TIG 4.0 catheter. Left ventricular end diastolic pr essure was obtained with a pigtail catheter and pullback was performed after left ventriculography. Finally, an aortogram was performed. All catheter exchanges and advancements were performed over a gu idewire. At case completion the right radial sheath was removed and a Terumo radial band was applied with 13 ml of air. The patient tolerated the procedure well and there were no immediate complicatio ns. HEMODYNAMICS: LVEDP 18 mm Hg No gradient on LV to aortic pullback. LEFT VENTRICULOGRAM: EF 55% Anterobasal: Normal. Anterolateral: Normal Apical: Normal Diaphragmatic: Normal Posterobasal: Normal *No significant mitral regurgitation. AORTOGRAM: Dilated ascending aorta and root without significant aortic insufficiency. CORONARY ANGIOGRAPHY: LM is a very short caliber vessel as there are near separate ostial of the LAD and LCx. Within the li mitations of the study, no clear ostial stenosis is noted. LAD is a large caliber vessel with an ostial eccentric 20% stenosis. There is a proximal 40% stenosis . The remainder of the vessel has mild luminal irregularities. D1 is a moderate caliber vessel with normal angiographic apeparance. LCx is a moderate to large caliber dominant vessel with a mid 30% stenosis. OM1 is a moderate caliber vessel with normal angiographic appearance. LPL1 is a moderate caliber vessel with mild luminal irregularities. LPDA is a moderate caliber vessel with normal angiographic appearance. RCA is a small caliber non-dominant vessel with a mid 50% stenosis at the origin of a small acute mar ginal branch. Conclusion 1. No evidence of significant coronary artery disease to account for elevated biomarkers. 2. Normal LV function. EF >55% 3. Mild dilated ascending aorta, consider dedicated CT scan on an outpt basis if persistent chest david n. Recommendations Aggressive Medical Therapy
[2017-04-05] MEDS: PANTOPRAZOLE 40 MG TABLET.DR. PO SCH (17:06)
--- NOTE | 2017-04-05 17:37 | PDOC ---
Provider Note Provider Note Hem-Onc consult: 1. h/o hematoma - unlikely to have a bleeding disorder based on history. I will von willebrand factor. 2. Leukocytosis-eval for myeloproliferative disorder See dictation [id number] MARAH FAJARDO MD Apr 05, 2017 17:37
--- NOTE | 2017-04-05 20:42 | PDOC ---
GENERAL General: see H&P. Problems: VITAL SIGNS Vital Signs: Vital Signs Date Time Temp Pulse Resp B/P (MAP) Pulse Ox O2 Delivery O2 Flow Rate FiO2 04/05/17 18:00 Room Air 04/05/17 16:45 92 160/106 (124) 96 04/05/17 15:00 98.4 20 98.4 04/05/17 13:53 2.0 I & O I & O Intake and Output 04/06/17 07:00 Intake Total 950 ml Output Total 700 ml Balance 250 ml Intake Oral 550 ml IV Total 400 ml Output Urine Total 700 ml ALLERGIES Allergies: Allergies Coded Allergies Type Severity Reaction Last Updated Verified Sulfa (Sulfonamide Antibiotics) Allergy Intermediate Hives 12/23/16 Yes adhesive Allergy Intermediate itch 12/23/16 Yes MEDS Medications: Current Medications Medications (Trade) Dose Ordered Sig/Julieta Start Time Stop Time Status Last Admin Dose Admin Acetaminophen/ Hydrocodone Bitart (Lortab 5/325) 1 tab PRN Q6HRS PRN 04/05/17 08:45 04/05/17 17:06 1 TAB Aripiprazole (Abilify) 10 mg QHS 04/05/17 21:00 Aspirin (Gentry Aspirin) 325 mg 1X ONCE 04/04/17 15:15 04/04/17 15:16 DC 04/04/17 15:30 325 MG Atorvastatin Calcium (Lipitor) 40 mg QHS 04/05/17 21:00 Azithromycin 500 mg/Sodium Chloride 250 ml @ 250 mls/hr 1X ONCE 04/04/17 21:30 04/04/17 22:29 DC 04/04/17 22:56 250 MLS/HR Ceftriaxone Sodium 50 ml @ 100 mls/hr 1X ONCE 04/04/17 21:30 04/04/17 21:59 DC 04/04/17 22:56 100 MLS/HR Duloxetine HCl (Cymbalta) 120 mg DAILY 04/05/17 09:00 Famotidine (Pepcid) 20 mg BID 04/05/17 11:00 04/05/17 13:23 20 MG Fentanyl Citrate (Fentanyl 2ml Vial) 50 mcg 1X ONCE 04/05/17 12:15 04/05/17 12:16 DC 04/05/17 12:18 50 MCG Fish Oil (Fish Oil) 1,000 mg BID 04/05/17 10:00 Heparin Sodium (Porcine) (Heparin Sodium) 2,500 unit 1X ONCE 04/05/17 12:15 04/05/17 12:16 DC 04/05/17 12:19 2,500 UNIT Heparin Sodium/ Dextrose 500 ml @ 0 mls/hr CONT PRN 04/05/17 10:30 UNV Heparin Sodium/ Sodium Chloride 1,000 unit 1X ONCE 04/05/17 12:15 04/05/17 12:16 DC 04/05/17 12:16 1,000 UNIT Hydralazine HCl (Apresoline) 10 mg PRN Q4HRS PRN 04/04/17 17:15 04/04/17 17:55 10 MG Influenza Virus Vaccine Quadrival (Fluarix Quad [id number] Syringe) 0.5 ml ONCE ONCE 04/05/17 09:00 04/05/17 09:01 DC Info (Do NOT chart on this entry -- for MONITORING) 1 each PRN DAILY PRN 04/04/17 15:30 04/06/17 15:29 Info (Do NOT chart on this placeholder) 1 each PRN 1X PRN 04/05/17 05:00 UNV Iohexol (Omnipaque 300 Mg/ml) 130 ml 1X ONCE 04/05/17 12:15 04/05/17 12:16 DC 04/05/17 12:18 130 ML Labetalol HCl (Normodyne) 20 mg PRN Q2HR PRN 04/05/17 09:45 Lamotrigine (LaMICtal) 300 mg QHS 04/05/17 21:00 Lidocaine HCl 2 ml 1X ONCE 04/05/17 12:15 04/05/17 12:16 DC 04/05/17 12:16 2 ML Magnesium Sulfate/ Dextrose 50 ml @ 25 mls/hr 1X ONCE 04/05/17 10:30 04/05/17 12:29 DC 04/05/17 13:34 25 MLS/HR Metoclopramide HCl (Reglan) 10 mg PRN Q6HRS PRN 04/05/17 01:00 04/05/17 09:43 10 MG Midazolam HCl (Versed) 2 mg 1X ONCE 04/05/17 12:15 04/05/17 12:16 DC 04/05/17 12:17 2 MG Morphine Sulfate 4 mg PRN Q2HR PRN 04/05/17 00:45 04/05/17 13:23 4 MG Nicardipine HCl 50 mg/Sodium Chloride 270 ml @ 0 mls/hr CONT PRN 04/04/17 19:00 Nitroglycerin (Nitroglycerin) 200 mcg 1X ONCE 04/05/17 12:15 04/05/17 12:16 DC 04/05/17 12:16 200 MCG Non-Formulary Medication 2 tab HS 04/05/17 21:00 04/05/17 21:00 DC Ondansetron HCl (Zofran) 4 mg 1X ONCE 04/05/17 12:15 04/05/17 12:16 DC 04/05/17 12:18 4 MG Pantoprazole Sodium (Protonix) 40 mg BIDAC 04/05/17 16:30 04/05/17 17:06 40 MG Sodium Chloride 1,000 ml @ 125 mls/hr Q8H 04/04/17 17:53 04/05/17 17:52 DC 04/05/17 03:52 125 MLS/HR Verapamil HCl (Verapamil) 2.5 mg 1X ONCE 04/05/17 12:15 04/05/17 12:16 DC 04/05/17 12:19 2.5 MG LAB Lab: Laboratory Tests Test 04/04/17 23:55 04/05/17 05:53 04/05/17 06:00 04/05/17 08:06 Lactic Acid Level 1.5 mmol/L (0.4-2.0) Troponin I Quantitative 1.163 ng/mL (0.000-0.055) 1.072 ng/mL (0.000-0.055) Magnesium Level 1.7 mg/dL (1.8-2.4) Triglycerides Level 105 mg/dL (0-150) Cholesterol Level 186 mg/dL (0-200) LDL Cholesterol, Calculated 117 mg/dL (0-100) VLDL Cholesterol, Calculated 21 mg/dL (0-40) Non-HDL Cholesterol Calculated 138 mg/dL (0-129) HDL Cholesterol 48 mg/dL (40-60) Cholesterol/HDL Ratio 3.9 White Blood Count 15.3 x10^3/uL (4.0-11.0) Red Blood Count 4.93 x10^6/uL (3.50-5.40) Hemoglobin 14.5 g/dL (12.0-15.5) Hematocrit 43.7 % (36.0-47.0) Mean Corpuscular Volume 89 fL (79-100) Mean Corpuscular Hemoglobin 29 pg (25-35) Mean Corpuscular Hemoglobin Concent 33 g/dL (31-37) Red Cell Distribution Width 15.2 % (11.5-14.5) Platelet Count 295 x10^3/uL (140-400) Neutrophils (%) (Auto) 71 % (31-73) Lymphocytes (%) (Auto) 19 % (24-48) Monocytes (%) (Auto) 10 % (0-9) Eosinophils (%) (Auto) 0 % (0-3) Basophils (%) (Auto) 1 % (0-3) Neutrophils # (Auto) 10.8 x10^3uL (1.8-7.7) Lymphocytes # (Auto) 2.9 x10^3/uL (1.0-4.8) Monocytes # (Auto) 1.5 x10^3/uL (0.0-1.1) Eosinophils # (Auto) 0.0 x10^3/uL (0.0-0.7) Basophils # (Auto) 0.1 x10^3/uL (0.0-0.2) Sodium Level 140 mmol/L (136-145) Potassium Level 3.4 mmol/L (3.5-5.1) Chloride Level 106 mmol/L (98-107) Carbon Dioxide Level 25 mmol/L (21-32) Anion Gap 9 (6-14) Blood Urea Nitrogen 6 mg/dL (7-20) Creatinine 0.4 mg/dL (0.6-1.0) Estimated GFR (Cockcroft-Gault) 163.9 Glucose Level 105 mg/dL (70-99) Calcium Level 9.0 mg/dL (8.5-10.1) Glucose (Fingerstick) 121 mg/dL (70-99) Test 04/05/17 11:05 04/05/17 16:13 Glucose (Fingerstick) 131 mg/dL (70-99) 118 mg/dL (70-99) RUTH NOVA MD Apr 05, 2017 20:42
[2017-04-05] MEDS ORDERED: ATORVASTATIN CALCIUM 40 MG TABLET. PO SCH (21:00)
[2017-04-05] MEDS ORDERED: LAMOTRIGINE PO SCH (21:00)
[2017-04-05] MEDS: ATORVASTATIN CALCIUM 40 MG TABLET. PO SCH (22:05)
[2017-04-05] MEDS: ARIPiprazole 5 MG TABLET PO SCH (22:05)
[2017-04-05] MEDS: lamoTRIgine 100 MG TABLET. PO SCH (22:05)
--- NOTE | 2017-04-05 23:15 | CONS ---
DATE OF CONSULTATION: 04/05/2017 REQUESTING PHYSICIAN: Ruth Godron MD. REASON FOR CONSULTATION: Evaluate for bleeding disorder in a patient with spontaneous abdominal hematoma. HISTORY OF PRESENT ILLNESS: The patient is a 56-year-old female who was admitted to [facility] in 12/2016 for right upper quadrant hematoma of unknown etiology, which resolved without any intervention. She had a CT scan of the abdomen and pelvis on 12/19/2016, which did not reveal any acute abnormality. CT angiogram of the abdomen and pelvis on 12/22/2016 revealed right upper quadrant abnormal density most compatible with hemorrhage. She had an MRI of the abdomen on 12/22/2016 which revealed right subhepatic density compatible with hemorrhage. She was admitted to [facility] on 04/04/2017 for complaints of abdominal pain. It was an acute onset of abdominal pain, mostly in the epigastric region with associated nausea. No fevers or chills. No hematemesis, melena, hematochezia. No hemoptysis or hematuria. No chest pain, no shortness of breath. She underwent a CT scan of the abdomen and pelvis on 04/04/2017 that did not reveal any acute abdominal or pelvic abnormality. I was asked to see the patient for evaluation for a possible hematologic disorder because of the history of spontaneous hemorrhage in 12/2016. PAST MEDICAL HISTORY: Breast cancer, status post left mastectomy, radiation and chemotherapy at the age of 28 in 1994. Diabetes mellitus, GERD, fibromyalgia, depression, hyperlipidemia, obstructive sleep apnea, osteoarthritis, hysterectomy with unilateral oophorectomy per patient, section x 3, cholecystectomy in 2013. FAMILY HISTORY: Positive for breast cancer and stomach cancer, diabetes, and hypertension. SOCIAL HISTORY: She smokes less than 1 pack of cigarettes per day. She drinks alcohol occasionally, but no heavy use. She also uses marijuana. REVIEW OF SYSTEMS: A 12-point review of system was performed. Pertinent positives are mentioned in the history of present illness. Rest of the system review is negative. PHYSICAL EXAMINATION: GENERAL APPEARANCE: The patient is a 56-year-old female who is in no acute cardiorespiratory distress. VITAL SIGNS: Blood pressure 141/108, temperature 98.4. HEENT: Head atraumatic, normocephalic. Eyes: No icterus. NECK: Supple. CHEST: Bilaterally symmetrical. HEART: S1, S2 normal. ABDOMEN: Soft, mild tenderness. No hepatosplenomegaly. CENTRAL NERVOUS SYSTEM: No focal neurological deficits. LYMPHATICS: No lymphadenopathy. SKIN: No rashes. PSYCHOLOGIC: Mood and affect are appropriate. MUSCULOSKELETAL: No joint effusions. LABORATORY DATA: WBC of 15.3, hemoglobin 14.5, platelet count 295, neutrophils 10.8. Sodium 140, potassium 3.4, creatinine 0.4, calcium 9.0. Review of the prior records indicates that her PT and INR were normal on 12/23/2016 at the time of the hematoma. Her platelet counts were also normal. IMPRESSION AND PLAN: 1. Hematoma in the right upper quadrant, diagnosed in 12/2016. This was a spontaneous hematoma without any history of intervention or trauma. Her PT, INR and platelet counts were all normal. She has had a history of multiple surgeries in the past with no evidence of bleeding. She also has had a dental extraction in the past with no bleeding events. There is no history of the nosebleeds or gum bleeding. No history of hematemesis, melena, or hematochezia. No hemoptysis or hematuria. Hence based on her history, it is unlikely that she has a primary bleeding disorder. However, since the etiology of the spontaneous hematoma was unclear, I will go ahead and screen for von Willebrand disease. I discussed in detail with the patient and she understands and agrees with the plan. 2. Breast cancer at the age of 28. There is also a family history of breast cancer. There is no clinical evidence of recurrence. I have advised genetic consultation at [facility] [place] to evaluate for genetic mutations. 3. Abdominal pain. Appreciate GI and surgical consultation. 4. Leukocytosis, likely reactive. Review of the old records indicates that she has chronic leukocytosis since 06/2014. At this point, she does not have any active infections and despite that she has persistent leukocytosis. In 06/2014, her WBC count was 20.8. On 12/20/2016, it was 24.5. On 04/04/2017, it is 19.9. The leukocytosis in December can be attributable to history of hematoma; however, the persistent chronic leukocytosis would need further investigation. The differential counting reveals elevated neutrophils and elevated monocytes. There is also evidence of 2% bands and 3% atypical lymphocytes. With these abnormal findings, I would recommend a bone marrow aspiration and biopsy to further evaluate if she has a primary bone marrow disorder. MARAH FAJARDO MD DR: DIYA/kely JOB#: [id number] / [id number] RUTH Umana MDD
--- NOTE | 2017-04-06 00:07 | HP ---
ADMIT DATE: 04/04/2017 CHIEF COMPLAINT AND HISTORY OF PRESENT ILLNESS: This 56-year-old white female who is well known to me from followup in the office. She presented to Emergency Room with abdominal pain, starting on the morning of admission. It was described as primarily epigastric in nature and constant with occasional spasms and cramping that made it much worse at those times. There was some nausea with it, however no vomiting. She denied fevers, chills, sweats, change in bowel, hematemesis, hematochezia, melena or any changes in her urine. She denied any chest discomfort with it or any breathing difficulties. She feels like it is similar to admission last year for subhepatic fluid collection, felt to be consistent with spontaneous hemorrhage and hematoma that has since resolved and CT scanning on admission shows no acute abnormalities in the abdomen. She was found in addition to have an elevated troponin in the Emergency Room of 1, was admitted to the hospital with cardiac as well as GI and surgical consultation. PAST MEDICAL HISTORY: Remarkable for diabetes type 2. She has a history of breast cancer that is remote, being over 20 years ago. PAST SURGICAL HISTORY: Cholecystectomy, left mastectomy, hysterectomy and . SOCIAL HISTORY: She is a smoker 1 pack per day. Uses marijuana. Rarely drinks. . Lives at home with her . Does not abuse any other substances. FAMILY HISTORY: Noncontributory. REVIEW OF SYSTEMS: That is mentioned above. MEDICATIONS: Brought with the patient, listed on the computer and have been addressed. ALLERGIES: SHE IS ALLERGIC TO SULFA AND ADHESIVES. PHYSICAL EXAMINATION: GENERAL: She is well-developed and well-nourished white female who is uncomfortable. VITAL SIGNS: Stable. She is afebrile. Blood pressures are initially quite high, but likely associated with severe pain. HEAD, EYES, EARS, NOSE AND THROAT: Unremarkable. There is no icterus. NECK: Supple without bruit or thyromegaly. CHEST: Clear to auscultation and percussion. ABDOMEN: Soft with epigastric tenderness. No rebound present. No organomegaly or masses appreciated. EXTREMITIES: Without cyanosis, clubbing or edema. NEUROLOGIC: She is intact. LABORATORY DATA: Initial lab is remarkable for leukocytosis with left shift with white count of 19,900. Her blood sugar is 170. Initial EKG shows normal sinus rate with left bundle branch block, which appears to be new. CAT scanning of the abdomen and pelvis showed no significant processes. IMPRESSION: 1. Abdominal pain with history as noted above. 2. Elevated troponin. 3. Left bundle branch block. 4. Accelerated hypertension. 5. Leukocytosis. PLAN: The patient has been admitted. Multiple consultations have been done as noted above. Pain will be controlled. The patient has been given single dose of Rocephin and Zithromax. The patient will be monitored, managed and treated appropriately. RUTH NOVA MD DR: DENG/kely JOB#: [id number] / [id number]
[2017-04-06] MEDS: MORPHINE SULFATE 4 MG/ML DISP.SYRIN. IV PRN ×6 (01:51→19:56)
[2017-04-06] MEDS: ONDANSETRON PF 4 MG/2 ML VIAL. IV PRN ×2 (01:51→19:56)
[2017-04-06 02:51] VITALS: BP 114/58
[2017-04-06] MEDS: METOCLOPRAMIDE HCL 10 MG/2 ML VIAL. IV PRN ×2 (04:33→21:43)
[2017-04-06 06:53] LABS: BASO # 0.2 x10^3/uL (0.0-0.2); BASO % 1 % (0-3); EOS % 1 % (0-3); HEMOGLOBIN 13.8 g/dL (12.0-15.5); LYMPH # 3.2 x10^3/uL (1.0-4.8); LYMPH % 23 % (24-48); MEAN CORPUSCULAR HEMOGLOBIN 29 pg (25-35); MEAN CORPUSCULAR HGB CONC 32 g/dL (31-37); MEAN CORPUSCULAR VOLUME 90 fL (79-100); MONO % 12 % (0-9); NEUT % 63 % (31-73); PLATELET COUNT 273 x10^3/uL (140-400); RED BLOOD COUNT 4.77 x10^6/uL (3.50-5.40); RED CELL DISTRIBUTION WIDTH 15.1 % (11.5-14.5); WHITE BLOOD COUNT 13.9 x10^3/uL (4.0-11.0)
[2017-04-06 07:00] VITALS: BP 134/79
[2017-04-06] MEDS: PANTOPRAZOLE 40 MG TABLET.DR. PO SCH ×2 (07:30→17:33)
[2017-04-06] MEDS: FAMOTIDINE 20 MG/2 ML VIAL IVP SCH ×2 (08:12→21:43)
--- NOTE | 2017-04-06 08:25 | PDOC ---
GENERAL General: vss and afebrile. blood pressure high and times and low at times, likely related to pain which is ongoing with upper abdominal pain on exam continuing. chest clear and heart regular. wbc decreasing. heart cath negative. not sure what causing abdominal pain. small bowel series today. otherwise same. Problems: VITAL SIGNS Vital Signs: Vital Signs Date Time Temp Pulse Resp B/P (MAP) Pulse Ox O2 Delivery O2 Flow Rate FiO2 04/06/17 08:11 100 Nasal Cannula 04/06/17 05:03 20 04/06/17 02:51 98.6 80 114/58 (76) 98.6 04/05/17 20:00 2.0 ALLERGIES Allergies: Allergies Coded Allergies Type Severity Reaction Last Updated Verified Sulfa (Sulfonamide Antibiotics) Allergy Intermediate Hives 12/23/16 Yes adhesive Allergy Intermediate itch 12/23/16 Yes MEDS Medications: Current Medications Medications (Trade) Dose Ordered Sig/Julieta Start Time Stop Time Status Last Admin Dose Admin Acetaminophen/ Hydrocodone Bitart (Lortab 5/325) 1 tab PRN Q6HRS PRN 04/05/17 08:45 04/05/17 17:06 1 TAB Aripiprazole (Abilify) 10 mg QHS 04/05/17 21:00 04/05/17 22:05 10 MG Aspirin (Gentry Aspirin) 325 mg 1X ONCE 04/04/17 15:15 04/04/17 15:16 DC 04/04/17 15:30 325 MG Atorvastatin Calcium (Lipitor) 40 mg QHS 04/05/17 21:00 04/05/17 22:05 40 MG Azithromycin 500 mg/Sodium Chloride 250 ml @ 250 mls/hr 1X ONCE 04/04/17 21:30 04/04/17 22:29 DC 04/04/17 22:56 250 MLS/HR Ceftriaxone Sodium 50 ml @ 100 mls/hr 1X ONCE 04/04/17 21:30 04/04/17 21:59 DC 04/04/17 22:56 100 MLS/HR Duloxetine HCl (Cymbalta) 120 mg DAILY 04/05/17 09:00 Famotidine (Pepcid) 20 mg BID 04/05/17 11:00 04/06/17 08:12 20 MG Fentanyl Citrate (Fentanyl 2ml Vial) 50 mcg 1X ONCE 04/05/17 12:15 04/05/17 12:16 DC 04/05/17 12:18 50 MCG Fish Oil (Fish Oil) 1,000 mg BID 04/05/17 10:00 Heparin Sodium (Porcine) (Heparin Sodium) 2,500 unit 1X ONCE 04/05/17 12:15 04/05/17 12:16 DC 04/05/17 12:19 2,500 UNIT Heparin Sodium/ Dextrose 500 ml @ 0 mls/hr CONT PRN 04/05/17 10:30 UNV Heparin Sodium/ Sodium Chloride 1,000 unit 1X ONCE 04/05/17 12:15 04/05/17 12:16 DC 04/05/17 12:16 1,000 UNIT Hydralazine HCl (Apresoline) 10 mg PRN Q4HRS PRN 04/04/17 17:15 04/04/17 17:55 10 MG Influenza Virus Vaccine Quadrival (Fluarix Quad [id number] Syringe) 0.5 ml ONCE ONCE 04/05/17 09:00 04/05/17 09:01 DC Info (Do NOT chart on this entry -- for MONITORING) 1 each PRN DAILY PRN 04/04/17 15:30 04/06/17 15:29 Info (Do NOT chart on this placeholder) 1 each PRN 1X PRN 04/05/17 05:00 UNV Iohexol (Omnipaque 300 Mg/ml) 130 ml 1X ONCE 04/05/17 12:15 04/05/17 12:16 DC 04/05/17 12:18 130 ML Labetalol HCl (Normodyne) 20 mg PRN Q2HR PRN 04/05/17 09:45 Lamotrigine (LaMICtal) 300 mg QHS 04/05/17 21:00 04/05/17 22:05 300 MG Lidocaine HCl 2 ml 1X ONCE 04/05/17 12:15 04/05/17 12:16 DC 04/05/17 12:16 2 ML Magnesium Sulfate/ Dextrose 50 ml @ 25 mls/hr 1X ONCE 04/05/17 10:30 04/05/17 12:29 DC 04/05/17 13:34 25 MLS/HR Metoclopramide HCl (Reglan) 10 mg PRN Q6HRS PRN 04/05/17 01:00 04/06/17 04:33 10 MG Midazolam HCl (Versed) 2 mg 1X ONCE 04/05/17 12:15 04/05/17 12:16 DC 04/05/17 12:17 2 MG Morphine Sulfate 4 mg PRN Q2HR PRN 04/05/17 00:45 04/06/17 08:11 4 MG Nicardipine HCl 50 mg/Sodium Chloride 270 ml @ 0 mls/hr CONT PRN 04/04/17 19:00 Nitroglycerin (Nitroglycerin) 200 mcg 1X ONCE 04/05/17 12:15 04/05/17 12:16 DC 04/05/17 12:16 200 MCG Non-Formulary Medication 2 tab HS 04/05/17 21:00 04/05/17 21:00 DC Ondansetron HCl (Zofran) 4 mg 1X ONCE 04/05/17 12:15 04/05/17 12:16 DC 04/05/17 12:18 4 MG Pantoprazole Sodium (Protonix) 40 mg BIDAC 04/05/17 16:30 04/05/17 17:06 40 MG Sodium Chloride 1,000 ml @ 125 mls/hr Q8H 04/04/17 17:53 04/05/17 17:52 DC 04/05/17 03:52 125 MLS/HR Verapamil HCl (Verapamil) 2.5 mg 1X ONCE 04/05/17 12:15 04/05/17 12:16 DC 04/05/17 12:19 2.5 MG LAB Lab: Laboratory Tests Test 04/05/17 11:05 04/05/17 16:13 04/05/17 20:52 04/06/17 05:40 Glucose (Fingerstick) 131 mg/dL (70-99) 118 mg/dL (70-99) 139 mg/dL (70-99) White Blood Count 13.9 x10^3/uL (4.0-11.0) Red Blood Count 4.77 x10^6/uL (3.50-5.40) Hemoglobin 13.8 g/dL (12.0-15.5) Hematocrit 43.0 % (36.0-47.0) Mean Corpuscular Volume 90 fL (79-100) Mean Corpuscular Hemoglobin 29 pg (25-35) Mean Corpuscular Hemoglobin Concent 32 g/dL (31-37) Red Cell Distribution Width 15.1 % (11.5-14.5) Platelet Count 273 x10^3/uL (140-400) Neutrophils (%) (Auto) 63 % (31-73) Lymphocytes (%) (Auto) 23 % (24-48) Monocytes (%) (Auto) 12 % (0-9) Eosinophils (%) (Auto) 1 % (0-3) Basophils (%) (Auto) 1 % (0-3) Neutrophils # (Auto) 8.8 x10^3uL (1.8-7.7) Lymphocytes # (Auto) 3.2 x10^3/uL (1.0-4.8) Monocytes # (Auto) 1.6 x10^3/uL (0.0-1.1) Eosinophils # (Auto) 0.1 x10^3/uL (0.0-0.7) Basophils # (Auto) 0.2 x10^3/uL (0.0-0.2) Prothrombin Time 13.0 SEC (11.7-14.0) Prothromb Time International Ratio 1.0 (0.8-1.1) Activated Partial Thromboplast Time 30 SEC (24-38) RUTH NOVA MD Apr 06, 2017 08:25
[2017-04-06] MEDS ORDERED: LIDOCAINE 1% / SOD BICARB 8.4% 20 ML VIAL. IJ ONE (08:44)
[2017-04-06] MEDS: OMEGA-3 FATTY ACIDS/FISH OIL 1,000 MG CAPSULE. PO SCH ×2 (09:00→21:00)
[2017-04-06] MEDS: DULoxetine HCL 30 MG CAPSULE.DR PO SCH (09:00)
[2017-04-06] MEDS ORDERED: BARIUM SULFATE 60% 355 ML SUSP PO ONE (09:30)
--- NOTE | 2017-04-06 09:43 | PDOC ---
PROGRESS NOTES Subjective Subjective HPI - h/o hematoma ROS - has abd pain Objective Objective Vital Signs Date Time Temp Pulse Resp B/P (MAP) Pulse Ox O2 Delivery O2 Flow Rate FiO2 04/06/17 08:11 100 Nasal Cannula 04/06/17 07:00 97.9 88 18 134/79 (97) 0.5 97.9 Physical Exam Heart: Normal S1, Normal S2 General: Alert, Oriented X3 Lungs: Clear to auscultation Neuro: Normal speech Psych/Mental Status: Mental status NL Assessment Assessment Problems Medical Problems: (1) Abdominal pain Status: Acute (2) Accelerated hypertension Status: Acute (3) Left bundle branch block Status: Acute (4) Systemic inflammatory response syndrome Status: Acute IMPRESSION AND PLAN: 1. Hematoma in the right upper quadrant, diagnosed in 12/2016. This was a spontaneous hematoma without any history of intervention or trauma. Her PT, INR and platelet counts were all normal. She has had a history of multiple surgeries in the past with no evidence of bleeding. She also has had a dental extraction in the past with no bleeding events. There is no history of the nosebleeds or gum bleeding. No history of hematemesis, melena, or hematochezia. No hemoptysis or hematuria. Hence based on her history, it is unlikely that she has a primary bleeding disorder. However, since the etiology of the spontaneous hematoma was unclear, I will go ahead and screen for von Willebrand disease. I d/w RN 2. Breast cancer at the age of 28. There is also a family history of breast cancer. There is no clinical evidence of recurrence. I have advised genetic consultation at [facility] to evaluate for genetic mutations. 3. Abdominal pain. Appreciate GI and surgical consultation. 4. Leukocytosis, likely reactive. Review of the old records indicates that she has chronic leukocytosis since 06/2014. At this point, she does not have any active infections and despite that she has persistent leukocytosis. In 06/2014, her WBC count was 20.8. On 12/20/2016, it was 24.5. On 04/04/2017, it is 19.9. The leukocytosis in December can be attributable to history of hematoma; I will defer bone marrow aspiration and biopsy as WBC improved to 13.9 on 04/06/17 Comment Review of Relevant I have reviewed the following items rena (where applicable) has been applied. Labs Laboratory Tests Test 04/04/17 15:00 04/04/17 15:54 04/04/17 18:15 04/04/17 23:55 White Blood Count 19.9 x10^3/uL (4.0-11.0) Red Blood Count 5.22 x10^6/uL (3.50-5.40) Hemoglobin 15.6 g/dL (12.0-15.5) Hematocrit 46.1 % (36.0-47.0) Mean Corpuscular Volume 88 fL (79-100) Mean Corpuscular Hemoglobin 30 pg (25-35) Mean Corpuscular Hemoglobin Concent 34 g/dL (31-37) Red Cell Distribution Width 15.0 % (11.5-14.5) Platelet Count 336 x10^3/uL (140-400) Neutrophils (%) (Auto) 85 % (31-73) Lymphocytes (%) (Auto) 10 % (24-48) Monocytes (%) (Auto) 3 % (0-9) Eosinophils (%) (Auto) 0 % (0-3) Basophils (%) (Auto) 1 % (0-3) Neutrophils # (Auto) 17.0 x10^3uL (1.8-7.7) Lymphocytes # (Auto) 2.0 x10^3/uL (1.0-4.8) Monocytes # (Auto) 0.7 x10^3/uL (0.0-1.1) Eosinophils # (Auto) 0.0 x10^3/uL (0.0-0.7) Basophils # (Auto) 0.2 x10^3/uL (0.0-0.2) Segmented Neutrophils % 78 % (35-66) Lymphocytes % 17 % (24-48) Monocytes % 3 % (0-10) Basophils % 2 % (0-3) Platelet Estimate Adequate (ADEQUATE) Sodium Level 133 mmol/L (136-145) Potassium Level 3.7 mmol/L (3.5-5.1) Chloride Level 97 mmol/L (98-107) Carbon Dioxide Level 21 mmol/L (21-32) Anion Gap 15 (6-14) Blood Urea Nitrogen 7 mg/dL (7-20) Creatinine 0.6 mg/dL (0.6-1.0) Estimated GFR (Cockcroft-Gault) 102.7 BUN/Creatinine Ratio 12 (6-20) Glucose Level 170 mg/dL (70-99) Calcium Level 10.4 mg/dL (8.5-10.1) Total Bilirubin 0.5 mg/dL (0.2-1.0) Aspartate Amino Transf (AST/SGOT) 24 U/L (15-37) Alanine Aminotransferase (ALT/SGPT) 25 U/L (14-59) Alkaline Phosphatase 167 U/L (46-116) Troponin I Quantitative 0.031 ng/mL (0.000-0.055) 1.163 ng/mL (0.000-0.055) Total Protein 8.3 g/dL (6.4-8.2) Albumin 4.4 g/dL (3.4-5.0) Albumin/Globulin Ratio 1.1 (1.0-1.7) Lipase 124 U/L (73-393) Urine Color Yellow Urine Clarity Clear Urine pH 7.0 Urine Specific [place] >=1.030 Urine Protein >=300 mg/dL (NEG-TRACE) Urine Glucose (UA) 100 mg/dL (NEG) Urine Ketones (Stick) 40 mg/dL (NEG) Urine Blood Trace (NEG) Urine Nitrite Negative (NEG) Urine Bilirubin Negative (NEG) Urine Urobilinogen Dipstick 0.2 mg/dL (0.2 mg/dL) Urine Leukocyte Esterase Negative (NEG) Urine RBC 0 /HPF (0-2) Urine WBC Occ /HPF (0-4) Urine Squamous Epithelial Cells Occ /LPF Urine Bacteria 0 /HPF (0-FEW) Urine Hyaline Casts Occasional /HPF Urine Mucus Slight /LPF Lactic Acid Level 1.8 mmol/L (0.4-2.0) 1.5 mmol/L (0.4-2.0) Test 04/05/17 05:53 04/05/17 06:00 04/05/17 08:06 04/05/17 11:05 Magnesium Level 1.7 mg/dL (1.8-2.4) Troponin I Quantitative 1.072 ng/mL (0.000-0.055) Triglycerides Level 105 mg/dL (0-150) Cholesterol Level 186 mg/dL (0-200) LDL Cholesterol, Calculated 117 mg/dL (0-100) VLDL Cholesterol, Calculated 21 mg/dL (0-40) Non-HDL Cholesterol Calculated 138 mg/dL (0-129) HDL Cholesterol 48 mg/dL (40-60) Cholesterol/HDL Ratio 3.9 White Blood Count 15.3 x10^3/uL (4.0-11.0) Red Blood Count 4.93 x10^6/uL (3.50-5.40) Hemoglobin 14.5 g/dL (12.0-15.5) Hematocrit 43.7 % (36.0-47.0) Mean Corpuscular Volume 89 fL (79-100) Mean Corpuscular Hemoglobin 29 pg (25-35) Mean Corpuscular Hemoglobin Concent 33 g/dL (31-37) Red Cell Distribution Width 15.2 % (11.5-14.5) Platelet Count 295 x10^3/uL (140-400) Neutrophils (%) (Auto) 71 % (31-73) Lymphocytes (%) (Auto) 19 % (24-48) Monocytes (%) (Auto) 10 % (0-9) Eosinophils (%) (Auto) 0 % (0-3) Basophils (%) (Auto) 1 % (0-3) Neutrophils # (Auto) 10.8 x10^3uL (1.8-7.7) Lymphocytes # (Auto) 2.9 x10^3/uL (1.0-4.8) Monocytes # (Auto) 1.5 x10^3/uL (0.0-1.1) Eosinophils # (Auto) 0.0 x10^3/uL (0.0-0.7) Basophils # (Auto) 0.1 x10^3/uL (0.0-0.2) Sodium Level 140 mmol/L (136-145) Potassium Level 3.4 mmol/L (3.5-5.1) Chloride Level 106 mmol/L (98-107) Carbon Dioxide Level 25 mmol/L (21-32) Anion Gap 9 (6-14) Blood Urea Nitrogen 6 mg/dL (7-20) Creatinine 0.4 mg/dL (0.6-1.0) Estimated GFR (Cockcroft-Gault) 163.9 Glucose Level 105 mg/dL (70-99) Hemoglobin A1c 5.7 % (4.8-5.6) Calcium Level 9.0 mg/dL (8.5-10.1) Glucose (Fingerstick) 121 mg/dL (70-99) 131 mg/dL (70-99) Test 04/05/17 16:13 04/05/17 20:52 04/06/17 05:40 04/06/17 08:06 Glucose (Fingerstick) 118 mg/dL (70-99) 139 mg/dL (70-99) 106 mg/dL (70-99) White Blood Count 13.9 x10^3/uL (4.0-11.0) Red Blood Count 4.77 x10^6/uL (3.50-5.40) Hemoglobin 13.8 g/dL (12.0-15.5) Hematocrit 43.0 % (36.0-47.0) Mean Corpuscular Volume 90 fL (79-100) Mean Corpuscular Hemoglobin 29 pg (25-35) Mean Corpuscular Hemoglobin Concent 32 g/dL (31-37) Red Cell Distribution Width 15.1 % (11.5-14.5) Platelet Count 273 x10^3/uL (140-400) Neutrophils (%) (Auto) 63 % (31-73) Lymphocytes (%) (Auto) 23 % (24-48) Monocytes (%) (Auto) 12 % (0-9) Eosinophils (%) (Auto) 1 % (0-3) Basophils (%) (Auto) 1 % (0-3) Neutrophils # (Auto) 8.8 x10^3uL (1.8-7.7) Lymphocytes # (Auto) 3.2 x10^3/uL (1.0-4.8) Monocytes # (Auto) 1.6 x10^3/uL (0.0-1.1) Eosinophils # (Auto) 0.1 x10^3/uL (0.0-0.7) Basophils # (Auto) 0.2 x10^3/uL (0.0-0.2) Prothrombin Time 13.0 SEC (11.7-14.0) Prothromb Time International Ratio 1.0 (0.8-1.1) Activated Partial Thromboplast Time 30 SEC (24-38) Laboratory Tests Test 04/05/17 11:05 04/05/17 16:13 04/05/17 20:52 04/06/17 05:40 Glucose (Fingerstick) 131 mg/dL (70-99) 118 mg/dL (70-99) 139 mg/dL (70-99) White Blood Count 13.9 x10^3/uL (4.0-11.0) Red Blood Count 4.77 x10^6/uL (3.50-5.40) Hemoglobin 13.8 g/dL (12.0-15.5) Hematocrit 43.0 % (36.0-47.0) Mean Corpuscular Volume 90 fL (79-100) Mean Corpuscular Hemoglobin 29 pg (25-35) Mean Corpuscular Hemoglobin Concent 32 g/dL (31-37) Red Cell Distribution Width 15.1 % (11.5-14.5) Platelet Count 273 x10^3/uL (140-400) Neutrophils (%) (Auto) 63 % (31-73) Lymphocytes (%) (Auto) 23 % (24-48) Monocytes (%) (Auto) 12 % (0-9) Eosinophils (%) (Auto) 1 % (0-3) Basophils (%) (Auto) 1 % (0-3) Neutrophils # (Auto) 8.8 x10^3uL (1.8-7.7) Lymphocytes # (Auto) 3.2 x10^3/uL (1.0-4.8) Monocytes # (Auto) 1.6 x10^3/uL (0.0-1.1) Eosinophils # (Auto) 0.1 x10^3/uL (0.0-0.7) Basophils # (Auto) 0.2 x10^3/uL (0.0-0.2) Prothrombin Time 13.0 SEC (11.7-14.0) Prothromb Time International Ratio 1.0 (0.8-1.1) Activated Partial Thromboplast Time 30 SEC (24-38) Test 04/06/17 08:06 Glucose (Fingerstick) 106 mg/dL (70-99) Microbiology 04/04/17 Blood Culture - Preliminary, Resulted NO GROWTH AFTER 1 DAY Medications Current Medications Heparin Sodium/ Sodium Chloride 0 ml @ As Directed STK-MED ONCE .ROUTE ; Start 04/04/17 at 15:10; Stop 04/04/17 at 15:11; Status DC Lidocaine HCl 20 ml STK-MED ONCE .ROUTE ; Start 04/04/17 at 15:10; Stop at 15:11; Status DC Aspirin ([place] Aspirin) 325 mg 1X ONCE PO Last administered on 04/04/17 15:30 ; Start 04/04/17 at 15:15; Stop 04/04/17 at 15:16; Status DC Ondansetron HCl (Zofran) 4 mg 1X ONCE IV Last administered on 04/04/17 15:27 ; Start 04/04/17 at 15:15; Stop 04/04/17 at 15:16; Status DC Morphine Sulfate 4 mg PRN Q15MIN PRN IV/SQ PAIN GREATER THAN 3/10 Last administered on 04/04/17 18:46; Start 04/04/17 at 15:15; Stop 04/05/17 at 10:27 ; Status DC Iohexol (Omnipaque 300 Mg/ml) 75 ml 1X ONCE IV Last administered on 04/04/17 15:39; Start 04/04/17 at 15:30; Stop 04/04/17 at 15:31; Status DC Info (Do NOT chart on this entry -- for MONITORING) 1 each PRN DAILY PRN MC SEE COMMENTS; Start 04/04/17 at 15:30; Stop 04/06/17 at 15:29 Hydralazine HCl (Apresoline) 10 mg PRN Q4HRS PRN IVP ELEVATED BP, SEE COMMENTS Last administered on 04/04/17 17:55; Start 04/04/17 at 17:15 Sodium Chloride 1,000 ml @ 2,190 mls/hr Q28M IV Last administered on 17:49; Start 04/04/17 at 17:11; Stop 04/04/17 at 18:14; Status DC Ondansetron HCl (Zofran) 4 mg PRN Q8HRS PRN IV NAUSEA/VOMITING; Start 04/04/17 at 18:00; Stop 04/05/17 at 16:06; Status DC Morphine Sulfate 2 mg PRN Q2HR PRN IV PAIN Last administered on 04/05/17 09:44 ; Start 04/04/17 at 18:00; Stop 04/05/17 at 10:27; Status DC Sodium Chloride 1,000 ml @ 125 mls/hr Q8H IV Last administered on 04/05/17 03 :52; Start 04/04/17 at 17:53; Stop 04/05/17 at 17:52; Status DC Nicardipine HCl 50 mg/Sodium Chloride 270 ml @ 0 mls/hr CONT PRN IV SEE I/O RECORD; Start 04/04/17 at 19:00 Ondansetron HCl (Zofran) 4 mg 1X ONCE IV Last administered on 04/04/17 19:25 ; Start 04/04/17 at 19:00; Stop 04/04/17 at 19:02; Status DC Ceftriaxone Sodium 50 ml @ 100 mls/hr 1X ONCE IV Last administered on 22:56; Start 04/04/17 at 21:30; Stop 04/04/17 at 21:59; Status DC Azithromycin 500 mg/Sodium Chloride 250 ml @ 250 mls/hr 1X ONCE IV Last administered on 04/04/17 22:56; Start 04/04/17 at 21:30; Stop 04/04/17 at 22:29 ; Status DC Ondansetron HCl (Zofran) 4 mg 1X ONCE IV Last administered on 04/04/17 22:59 ; Start 04/04/17 at 23:00; Stop 04/04/17 at 23:01; Status DC Ondansetron HCl (Zofran) 4 mg PRN Q4HRS PRN IV NAUSEA/VOMITING Last administered on 04/06/17 01:51; Start 04/04/17 at 22:30 Morphine Sulfate 4 mg PRN Q2HR PRN IV SEVERE PAIN Last administered on 08:11; Start 04/05/17 at 00:45 Metoclopramide HCl (Reglan) 10 mg PRN Q6HRS PRN IV NAUSEA/VOMITING Last administered on 04/06/17 04:33; Start 04/05/17 at 01:00 Influenza Virus Vaccine Quadrival (Fluarix Quad [id number] Syringe) 0.5 ml ONCE ONCE VAX IM ; Start 04/05/17 at 09:00; Stop 04/05/17 at 09:01; Status DC Info (Do NOT chart on this placeholder) 1 each PRN 1X PRN MC SEE COMMENTS; Start 04/05/17 at 05:00; Status UNV Duloxetine HCl (Cymbalta) 120 mg DAILY PO ; Start 04/05/17 at 09:00 Acetaminophen/ Hydrocodone Bitart (Lortab 5/325) 1 tab PRN Q6HRS PRN PO PAIN Last administered on 04/05/17 17:06; Start 04/05/17 at 08:45 Non-Formulary Medication 20 mg BID PO ; Start 04/05/17 at 09:00; Stop 04/05/17 at 09:22; Status DC Aripiprazole (Abilify) 10 mg QHS PO Last administered on 04/05/17 22:05; Start 04/05/17 at 21:00 Lamotrigine (LaMICtal) 300 mg QHS PO Last administered on 04/05/17 22:05; Start 04/05/17 at 21:00 Non-Formulary Medication 2 tab HS PO ; Start 04/05/17 at 21:00; Stop 04/05/17 at 21:00; Status DC Fish Oil (Fish Oil) 1,000 mg BID PO ; Start 04/05/17 at 10:00 Atorvastatin Calcium (Lipitor) 40 mg QHS PO ; Start 04/05/17 at 21:00; Stop 04/05/17 at 21:00; Status DC Labetalol HCl (Normodyne) 20 mg PRN Q2HR PRN IVP HYPERTENSION, SEE COMMENTS; Start 04/05/17 at 09:45 Heparin Sodium/ Dextrose 500 ml @ 0 mls/hr CONT PRN IV SEE I/O RECORD Last administered on 04/05/17 10:20; Start 04/05/17 at 10:00 Heparin Sodium (Porcine) (Heparin Sodium) 1,850 unit PRN Q6HRS PRN IV FOR UFH LEVEL LESS THAN 0.2 Last administered on 04/05/17 10:17; Start 04/05/17 at 10: 00 Heparin Sodium/ Sodium Chloride 1,500 ml @ As Directed STK-MED ONCE .ROUTE ; Start 04/05/17 at 10:14; Stop 04/05/17 at 10:15; Status DC Lidocaine HCl 20 ml STK-MED ONCE .ROUTE ; Start 04/05/17 at 10:14; Stop at 10:15; Status DC Iohexol (Omnipaque 300 Mg/ml) 100 ml STK-MED ONCE .ROUTE ; Start 04/05/17 at 10: 14; Stop 04/05/17 at 10:15; Status DC Heparin Sodium/ Dextrose 500 ml @ 0 mls/hr CONT PRN IV SEE I/O RECORD; Start 04/05/17 at 10:30; Status UNV Heparin Sodium (Porcine) (Heparin Sodium) 1,850 unit PRN Q6HRS PRN IV FOR UFH LEVEL LESS THAN 0.2; Start 04/05/17 at 10:30; Status UNV Magnesium Sulfate/ Dextrose 50 ml @ 25 mls/hr 1X ONCE IV Last administered on 04/05/17 13:34; Start 04/05/17 at 10:30; Stop 04/05/17 at 12:29; Status DC Atorvastatin Calcium (Lipitor) 40 mg QHS PO Last administered on 04/05/17 22: 05; Start 04/05/17 at 21:00 Famotidine (Pepcid) 20 mg BID IVP Last administered on 04/06/17 08:12; Start 04/05/17 at 11:00 Fentanyl Citrate (Fentanyl 2ml Vial) 100 mcg STK-MED ONCE .ROUTE ; Start at 11:38; Stop 04/05/17 at 11:39; Status DC Midazolam HCl (Versed) 2 mg STK-MED ONCE .ROUTE ; Start 04/05/17 at 11:38; Stop 04/05/17 at 11:39; Status DC Verapamil HCl (Verapamil) 5 mg STK-MED ONCE .ROUTE ; Start 04/05/17 at 11:48; Stop 04/05/17 at 11:49; Status DC Nitroglycerin (Nitroglycerin) 200 mcg STK-MED ONCE .ROUTE ; Start 04/05/17 at 11 :48; Stop 04/05/17 at 11:49; Status DC Nitroglycerin (Nitroglycerin) 200 mcg 1X ONCE IART Last administered on 12:16; Start 04/05/17 at 12:15; Stop 04/05/17 at 12:16; Status DC Verapamil HCl (Verapamil) 2.5 mg 1X ONCE IART Last administered on 04/05/17 12:19; Start 04/05/17 at 12:15; Stop 04/05/17 at 12:16; Status DC Heparin Sodium (Porcine) (Heparin Sodium) 2,500 unit 1X ONCE IART Last administered on 04/05/17 12:19; Start 04/05/17 at 12:15; Stop 04/05/17 at 12:16 ; Status DC Heparin Sodium/ Sodium Chloride 1,000 unit 1X ONCE IART Last administered on 04/05/17 12:16; Start 04/05/17 at 12:15; Stop 04/05/17 at 12:16; Status DC Midazolam HCl (Versed) 2 mg 1X ONCE IV Last administered on 04/05/17 12:17; Start 04/05/17 at 12:15; Stop 04/05/17 at 12:16; Status DC Fentanyl Citrate (Fentanyl 2ml Vial) 50 mcg 1X ONCE IV Last administered on 12:18; Start 04/05/17 at 12:15; Stop 04/05/17 at 12:16; Status DC Iohexol (Omnipaque 300 Mg/ml) 130 ml 1X ONCE IART Last administered on 12:18; Start 04/05/17 at 12:15; Stop 04/05/17 at 12:16; Status DC Lidocaine HCl 2 ml 1X ONCE IJ Last administered on 04/05/17 12:16; Start 04/05/17 at 12:15; Stop 04/05/17 at 12:16; Status DC Ondansetron HCl (Zofran) 4 mg 1X ONCE IV Last administered on 04/05/17 12:18 ; Start 04/05/17 at 12:15; Stop 04/05/17 at 12:16; Status DC Pantoprazole Sodium (Protonix) 40 mg BIDAC PO Last administered on 04/05/17 17 :06; Start 04/05/17 at 16:30 Lidocaine/Sodium Bicarbonate (Buffered Lidocaine 1%) 20 ml STK-MED ONCE IJ ; Start 04/06/17 at 08:44; Stop 04/06/17 at 08:45; Status DC Barium Sulfate (Liquid E-Z Paque) 710 ml 1X ONCE PO ; Start 04/06/17 at 09:30; Stop 04/06/17 at 09:31; Status DC Active Scripts Active Reported Aripiprazole 20 Mg Tablet 20 Mg PO BID Lamotrigine 200 Mg Tablet 300 Mg PO HS Abilify (Aripiprazole) 10 Mg Tablet 10 Mg PO DAILY Cymbalta (Duloxetine Hcl) 30 Mg Capsule.dr 120 Mg PO DAILY Hydrocodone-Apap 5-325 (Hydrocodone Bit/Acetaminophen) 1 Each Tablet 1 Tab PO PRN Q6HRS PRN Fish Oil ([place]-3 Fatty Acids) 300 Mg Capsule 0 PO BID Lamictal (Lamotrigine) 150 Mg Tablet 2 Tab PO HS Crestor (Rosuvastatin Calcium) 10 Mg Tablet 10 Mg PO HS Vitals/I & O Vital Sign - Last 24 Hours 04/05/17 04/05/17 04/05/17 04/05/17 09:44 10:14 11:00 12:18 Temp 98.5 98.5 Pulse 102 Resp 16 20 18 B/P (MAP) 124/91 (102) Pulse Ox 93 92 95 O2 Delivery Room Air Room Air Nasal Cannula O2 Flow Rate 1.0 2.0 04/05/17 04/05/17 04/05/17 04/05/17 12:19 12:20 12:45 13:00 Pulse 84 86 85 89 Resp 14 B/P (MAP) 104/71 (82) 98/54 (69) Pulse Ox 95 93 96 O2 Delivery Nasal Cannula Room Air Room Air O2 Flow Rate 2.0 04/05/17 04/05/17 04/05/17 04/05/17 13:15 13:23 13:30 13:45 Pulse 96 109 101 B/P (MAP) 142/100 (114) 132/61 (84) 141/107 (118) Pulse Ox 96 95 93 92 O2 Delivery Room Air Room Air Room Air Room Air 04/05/17 04/05/17 04/05/17 04/05/17 13:53 14:15 14:45 15:00 Temp 98.4 98.4 Pulse 104 106 102 Resp 20 B/P (MAP) 149/104 (119) 136/101 (113) 141/108 (119) Pulse Ox 90 91 89 90 O2 Delivery Nasal Cannula Room Air Room Air Room Air O2 Flow Rate 2.0 04/05/17 04/05/17 04/05/17 04/05/17 16:00 16:45 17:06 18:00 Pulse 81 92 B/P (MAP) 90/61 (71) 160/106 (124) Pulse Ox 94 96 O2 Delivery Room Air Room Air Room Air Room Air 04/05/17 04/05/17 04/05/17 04/05/17 19:25 20:00 20:47 23:15 Temp 98.4 98.5 98.4 98.5 Pulse 108 100 Resp 20 20 20 B/P (MAP) 153/115 (128) 138/85 (102) Pulse Ox 93 94 O2 Delivery Room Air Nasal Cannula Room Air O2 Flow Rate 2.0 04/06/17 04/06/17 04/06/17 04/06/17 01:51 02:51 04:33 05:03 Temp 98.6 98.6 Pulse 80 Resp 20 20 22 20 B/P (MAP) 114/58 (76) Pulse Ox 100 O2 Delivery Room Air 04/06/17 04/06/17 07:00 08:11 Temp 97.9 97.9 Pulse 88 Resp 18 B/P (MAP) 134/79 (97) Pulse Ox 95 100 O2 Delivery Nasal Cannula Nasal Cannula O2 Flow Rate 0.5 MARAH FAJARDO MD Apr 06, 2017 09:43
--- NOTE | 2017-04-06 10:53 | PDOC ---
Objective: Objective: Out of room for SBS. Per RN - abd pain, had morphine, trying to drink water. Vital Signs: Vital Signs Date Time Temp Pulse Resp B/P (MAP) Pulse Ox O2 Delivery O2 Flow Rate FiO2 04/06/17 08:11 100 Nasal Cannula 04/06/17 08:00 2.0 04/06/17 07:00 97.9 88 18 134/79 (97) 97.9 Labs: Laboratory Tests Test 04/05/17 11:05 04/05/17 16:13 04/05/17 20:52 04/06/17 08:06 Glucose (Fingerstick) 131 mg/dL (70-99) 118 mg/dL (70-99) 139 mg/dL (70-99) 106 mg/dL (70-99) Imaging: SBS 04/06/17 PENDING Cardiac cath 04/05/17 Conclusion 1. No evidence of significant coronary artery disease to account for elevated biomarkers. 2. Normal LV function. EF >55% 3. Mild dilated ascending aorta, consider dedicated CT scan on an outpt basis if persistent chest pain. Recommendations Aggressive Medical Therapy PE: no exam A/P: Recurrent abd pain, nausea -EGDs and colonoscopy this year, normal GES, s/p cholecystectomy -GERD on PPI BID, constipation controlled w/ Miralax PRN -cardiac cath as above, medical therapy H/o RUQ hematoma (12/2016 on CTA and MRI- no evidence on CT this admission) -Dr. Kraft following, checking von Willebrand factor, holding on bone marrow biopsy w/ improving leukocytosis -- Out of room, will follow-up on SBS. SARA-AYAKA OLIVERA Apr 06, 2017 10:53
--- NOTE | 2017-04-06 14:27 | PDOC ---
CARDIO Progress Notes Date and Time Date of Service 04/06/2017 Time of Evaluation 1400 Subjective Subjective: No Chest Pain, No shortness of breath, No Palpitations, Other ( complians abdominal pain) Vitals Vitals Vital Signs Date Time Temp Pulse Resp B/P (MAP) Pulse Ox O2 Delivery O2 Flow Rate FiO2 04/06/17 14:00 100 Nasal Cannula 04/06/17 08:00 2.0 04/06/17 07:00 97.9 88 18 134/79 (97) 97.9 Weight Weight [ ] Laboratory Labs Laboratory Tests Test 04/05/17 16:13 04/05/17 20:52 04/06/17 05:40 04/06/17 08:06 Glucose (Fingerstick) 118 mg/dL (70-99) 139 mg/dL (70-99) 106 mg/dL (70-99) White Blood Count 13.9 x10^3/uL (4.0-11.0) Red Blood Count 4.77 x10^6/uL (3.50-5.40) Hemoglobin 13.8 g/dL (12.0-15.5) Hematocrit 43.0 % (36.0-47.0) Mean Corpuscular Volume 90 fL (79-100) Mean Corpuscular Hemoglobin 29 pg (25-35) Mean Corpuscular Hemoglobin Concent 32 g/dL (31-37) Red Cell Distribution Width 15.1 % (11.5-14.5) Platelet Count 273 x10^3/uL (140-400) Neutrophils (%) (Auto) 63 % (31-73) Lymphocytes (%) (Auto) 23 % (24-48) Monocytes (%) (Auto) 12 % (0-9) Eosinophils (%) (Auto) 1 % (0-3) Basophils (%) (Auto) 1 % (0-3) Neutrophils # (Auto) 8.8 x10^3uL (1.8-7.7) Lymphocytes # (Auto) 3.2 x10^3/uL (1.0-4.8) Monocytes # (Auto) 1.6 x10^3/uL (0.0-1.1) Eosinophils # (Auto) 0.1 x10^3/uL (0.0-0.7) Basophils # (Auto) 0.2 x10^3/uL (0.0-0.2) Prothrombin Time 13.0 SEC (11.7-14.0) Prothromb Time International Ratio 1.0 (0.8-1.1) Activated Partial Thromboplast Time 30 SEC (24-38) Microbiology Micro Microbiology 04/04/17 Blood Culture - Preliminary, Resulted NO GROWTH AFTER 1 DAY Physical Exam HEENT: Neck Supple W Full Motion Chest: Symmetric LUNGS: Clear to Auscultation Heart: S1S2, RRR (sinus tach) Abdomen: Soft N/T Extremities: No Calf Tenderness Neurology: alert, oriented, follow commands Other Exams right wrist arteriotomy site intact, no redness, neurovascular status intact. Assessment Assessment 1. Abdominal pain: GI following with prior liver hematoma of uncertain etiology. General surgery and Hemonc also following. 2. NSTEMI: S/P LHC noted with nonobstructive CAD. No definitive evidence of coronary culprits. Likely demand mediated with noted uncontrolled HTN 3. Accelerated HTN: New. BP better with current regimen 4. Chronic LBBB: presently HR at 110-120 sinus tach likely reactive to abdominal pain post small bowel series 5. Tobaccoism 6. DM2: pre DM level A1C at 5.7 7. PAD aortoiliac atherosclerosis via past CTA. No claudication symptoms. 8. Marijuana use 9. HLP 10. Mild dilated ascending aorta: monitor as outpt. Recommendations 1. Continue with secondary prevention measures once PO allowed. 2. If no objection at this time per other consultants, she would need to be on ECASA. 3. EF 40-45% but LHC showed better EF of 55%. Start on low dose toprol XL. Recommend starting on lisinopril tomorrow if BP trends are adequate. 4. Encourage smoking cessation and abstinence to marijuana 5. F/U in office in 4 weeks. ADILENE NEWSOME ELECTROMECHANICAL TECHNICIAN Apr 06, 2017 14:27
[2017-04-06 15:00] VITALS: BP 154/96
[2017-04-06 15:00] LABS: CALCIUM 9.3 mg/dL (8.5-10.1); CREATININE 0.5 mg/dL (0.6-1.0); GFR 126.7; MAGNESIUM 1.9 mg/dL (1.8-2.4); POTASSIUM 3.4 mmol/L (3.5-5.1)
[2017-04-06] MEDS: METOPROLOL SUCC 24HR ER 25 MG TAB.ER.24H. PO SCH (15:12)
[2017-04-06] MEDS ORDERED: POTASSIUM CHLORIDE 20 MEQ TABLET.ER. PO ONE (16:00)
[2017-04-06] MEDS ORDERED: MAGNESIUM SULFATE 2GM 50 ML IV ONE (16:00)
--- NOTE | 2017-04-06 17:02 | RAD ---
Small bowel follow-through Indication: Recurrent abdominal pain. Technique: Small bowel follow-through with thin barium with 1.2 minutes of fluoroscopy time. Comparison: None Findings: The spot images demonstrate no evidence of bowel obstruction. Right upper quadrant clips noted suggesting cholecystectomy. Stomach show no filling defects. Significantly delayed transit time was seen to the colon. Terminal ileum is visualized and show no evidence of stricture. Impression: 1. No bowel obstruction. No evidence of stricture or fistula. 2. Significantly prolonged transit time to the colon.
[2017-04-06 19:35] VITALS: BP 160/104
[2017-04-06] MEDS: ARIPiprazole 5 MG TABLET PO SCH (22:28)
[2017-04-06] MEDS: lamoTRIgine 100 MG TABLET. PO SCH (22:29)
[2017-04-06] MEDS: ATORVASTATIN CALCIUM 40 MG TABLET. PO SCH (22:29)
[2017-04-06] MEDS: IV NORMAL SALINE 1000ML BAG 1,000 ML IV SCH (22:29)
[2017-04-06 23:35] VITALS: BP 147/84
[2017-04-07] VITALS (7 sets, daily range): BP systolic 89–163; BP diastolic 55–92
[2017-04-07] MEDS: ONDANSETRON PF 4 MG/2 ML VIAL. IV PRN ×2 (04:20→09:08)
[2017-04-07] MEDS: MORPHINE SULFATE 4 MG/ML DISP.SYRIN. IV PRN ×5 (04:21→19:17)
[2017-04-07] MEDS: IV NORMAL SALINE 1000ML BAG 1,000 ML IV SCH ×2 (06:00→15:26)
[2017-04-07 06:16] LABS: BASO # 0.2 x10^3/uL (0.0-0.2); BASO % 1 % (0-3); EOS % 1 % (0-3); HEMATOCRIT 41.9 % (36.0-47.0); HEMOGLOBIN 13.4 g/dL (12.0-15.5); LYMPH # 2.5 x10^3/uL (1.0-4.8); LYMPH % 17 % (24-48); MEAN CORPUSCULAR HEMOGLOBIN 29 pg (25-35); MEAN CORPUSCULAR HGB CONC 32 g/dL (31-37); MEAN CORPUSCULAR VOLUME 90 fL (79-100); MONO % 12 % (0-9); NEUT % 68 % (31-73); PLATELET COUNT 265 x10^3/uL (140-400); RED BLOOD COUNT 4.66 x10^6/uL (3.50-5.40); RED CELL DISTRIBUTION WIDTH 15.6 % (11.5-14.5); WHITE BLOOD COUNT 14.7 x10^3/uL (4.0-11.0)
[2017-04-07] MEDS: PANTOPRAZOLE 40 MG TABLET.DR. PO SCH ×2 (07:30→16:30)
[2017-04-07] MEDS: OMEGA-3 FATTY ACIDS/FISH OIL 1,000 MG CAPSULE. PO SCH ×2 (09:00→20:43)
[2017-04-07] MEDS: DULoxetine HCL 30 MG CAPSULE.DR PO SCH (09:00)
[2017-04-07] MEDS: METOPROLOL SUCC 24HR ER 25 MG TAB.ER.24H. PO SCH (09:00)
[2017-04-07] MEDS: FAMOTIDINE 20 MG/2 ML VIAL IVP SCH ×2 (09:07→20:43)
--- NOTE | 2017-04-07 09:11 | PDOC ---
PROGRESS NOTES Subjective Subjective c/c - f/u of h/o hematoma, no recurrence Objective Objective Vital Signs Date Time Temp Pulse Resp B/P (MAP) Pulse Ox O2 Delivery O2 Flow Rate FiO2 04/07/17 07:00 98.7 78 19 132/77 (95) 97 Room Air 98.7 04/07/17 03:35 1.0 Intake and Output 04/08/17 07:00 Output Total 600 ml Balance -600 ml Output Urine Total 600 ml Physical Exam General: Alert, No acute distress Psych/Mental Status: Mental status NL Assessment Assessment Problems Medical Problems: (1) Abdominal pain Status: Acute (2) Accelerated hypertension Status: Acute (3) Left bundle branch block Status: Acute (4) Systemic inflammatory response syndrome Status: Acute IMPRESSION AND PLAN: 1. Hematoma in the right upper quadrant, diagnosed in 12/2016. This was a spontaneous hematoma without any history of intervention or trauma. Her PT, INR and platelet counts were all normal. She has had a history of multiple surgeries in the past with no evidence of bleeding. She also has had a dental extraction in the past with no bleeding events. There is no history of the nosebleeds or gum bleeding. No history of hematemesis, melena, or hematochezia. No hemoptysis or hematuria. Hence based on her history, it is unlikely that she has a primary bleeding disorder. However, since the etiology of the spontaneous hematoma was unclear, I ordered screening for von Willebrand disease. Results pending. I d/w RN. I d/w DR Gordon. 2. Breast cancer at the age of 28. There is also a family history of breast cancer. There is no clinical evidence of recurrence. I have advised genetic consultation at [facility] to evaluate for genetic mutations. 3. Abdominal pain. Appreciate GI and surgical consultation. 4. Leukocytosis, likely reactive. Review of the old records indicates that she has chronic leukocytosis since 06/2014. At this point, she does not have any active infections and despite that she has persistent leukocytosis. In 06/2014, her WBC count was 20.8. On 12/20/2016, it was 24.5. On 04/04/2017, it is 19.9. The leukocytosis in December can be attributable to history of hematoma; I will defer bone marrow aspiration and biopsy as WBC improved to 13.9 on 04/06/17. Worse at 14.7 on 04/07/17. Plan bone marrow bx if WBC worsens to >16. Comment Review of Relevant I have reviewed the following items rena (where applicable) has been applied. Labs Laboratory Tests Test 04/05/17 11:05 04/05/17 16:13 04/05/17 20:52 04/06/17 05:40 Glucose (Fingerstick) 131 mg/dL (70-99) 118 mg/dL (70-99) 139 mg/dL (70-99) White Blood Count 13.9 x10^3/uL (4.0-11.0) Red Blood Count 4.77 x10^6/uL (3.50-5.40) Hemoglobin 13.8 g/dL (12.0-15.5) Hematocrit 43.0 % (36.0-47.0) Mean Corpuscular Volume 90 fL (79-100) Mean Corpuscular Hemoglobin 29 pg (25-35) Mean Corpuscular Hemoglobin Concent 32 g/dL (31-37) Red Cell Distribution Width 15.1 % (11.5-14.5) Platelet Count 273 x10^3/uL (140-400) Neutrophils (%) (Auto) 63 % (31-73) Lymphocytes (%) (Auto) 23 % (24-48) Monocytes (%) (Auto) 12 % (0-9) Eosinophils (%) (Auto) 1 % (0-3) Basophils (%) (Auto) 1 % (0-3) Neutrophils # (Auto) 8.8 x10^3uL (1.8-7.7) Lymphocytes # (Auto) 3.2 x10^3/uL (1.0-4.8) Monocytes # (Auto) 1.6 x10^3/uL (0.0-1.1) Eosinophils # (Auto) 0.1 x10^3/uL (0.0-0.7) Basophils # (Auto) 0.2 x10^3/uL (0.0-0.2) Prothrombin Time 13.0 SEC (11.7-14.0) Prothromb Time International Ratio 1.0 (0.8-1.1) Activated Partial Thromboplast Time 30 SEC (24-38) Sodium Level 140 mmol/L (136-145) Potassium Level 3.4 mmol/L (3.5-5.1) Chloride Level 104 mmol/L (98-107) Carbon Dioxide Level 26 mmol/L (21-32) Anion Gap 10 (6-14) Blood Urea Nitrogen 4 mg/dL (7-20) Creatinine 0.5 mg/dL (0.6-1.0) Estimated GFR (Cockcroft-Gault) 126.7 Glucose Level 128 mg/dL (70-99) Calcium Level 9.3 mg/dL (8.5-10.1) Magnesium Level 1.9 mg/dL (1.8-2.4) Test 04/06/17 08:06 04/06/17 16:29 04/06/17 21:06 04/07/17 05:40 Glucose (Fingerstick) 106 mg/dL (70-99) 122 mg/dL (70-99) 110 mg/dL (70-99) White Blood Count 14.7 x10^3/uL (4.0-11.0) Red Blood Count 4.66 x10^6/uL (3.50-5.40) Hemoglobin 13.4 g/dL (12.0-15.5) Hematocrit 41.9 % (36.0-47.0) Mean Corpuscular Volume 90 fL (79-100) Mean Corpuscular Hemoglobin 29 pg (25-35) Mean Corpuscular Hemoglobin Concent 32 g/dL (31-37) Red Cell Distribution Width 15.6 % (11.5-14.5) Platelet Count 265 x10^3/uL (140-400) Neutrophils (%) (Auto) 68 % (31-73) Lymphocytes (%) (Auto) 17 % (24-48) Monocytes (%) (Auto) 12 % (0-9) Eosinophils (%) (Auto) 1 % (0-3) Basophils (%) (Auto) 1 % (0-3) Neutrophils # (Auto) 10.0 x10^3uL (1.8-7.7) Lymphocytes # (Auto) 2.5 x10^3/uL (1.0-4.8) Monocytes # (Auto) 1.8 x10^3/uL (0.0-1.1) Eosinophils # (Auto) 0.2 x10^3/uL (0.0-0.7) Basophils # (Auto) 0.2 x10^3/uL (0.0-0.2) Test 04/07/17 08:04 Glucose (Fingerstick) 112 mg/dL (70-99) Laboratory Tests Test 04/06/17 16:29 04/06/17 21:06 04/07/17 05:40 04/07/17 08:04 Glucose (Fingerstick) 122 mg/dL (70-99) 110 mg/dL (70-99) 112 mg/dL (70-99) White Blood Count 14.7 x10^3/uL (4.0-11.0) Red Blood Count 4.66 x10^6/uL (3.50-5.40) Hemoglobin 13.4 g/dL (12.0-15.5) Hematocrit 41.9 % (36.0-47.0) Mean Corpuscular Volume 90 fL (79-100) Mean Corpuscular Hemoglobin 29 pg (25-35) Mean Corpuscular Hemoglobin Concent 32 g/dL (31-37) Red Cell Distribution Width 15.6 % (11.5-14.5) Platelet Count 265 x10^3/uL (140-400) Neutrophils (%) (Auto) 68 % (31-73) Lymphocytes (%) (Auto) 17 % (24-48) Monocytes (%) (Auto) 12 % (0-9) Eosinophils (%) (Auto) 1 % (0-3) Basophils (%) (Auto) 1 % (0-3) Neutrophils # (Auto) 10.0 x10^3uL (1.8-7.7) Lymphocytes # (Auto) 2.5 x10^3/uL (1.0-4.8) Monocytes # (Auto) 1.8 x10^3/uL (0.0-1.1) Eosinophils # (Auto) 0.2 x10^3/uL (0.0-0.7) Basophils # (Auto) 0.2 x10^3/uL (0.0-0.2) Microbiology 04/04/17 Blood Culture - Preliminary, Resulted NO GROWTH AFTER 2 DAYS Medications Current Medications Heparin Sodium/ Sodium Chloride 0 ml @ As Directed STK-MED ONCE .ROUTE ; Start 04/04/17 at 15:10; Stop 04/04/17 at 15:11; Status DC Lidocaine HCl 20 ml STK-MED ONCE .ROUTE ; Start 04/04/17 at 15:10; Stop at 15:11; Status DC Aspirin (Gentry Aspirin) 325 mg 1X ONCE PO Last administered on 04/04/17 15:30 ; Start 04/04/17 at 15:15; Stop 04/04/17 at 15:16; Status DC Ondansetron HCl (Zofran) 4 mg 1X ONCE IV Last administered on 04/04/17 15:27 ; Start 04/04/17 at 15:15; Stop 04/04/17 at 15:16; Status DC Morphine Sulfate 4 mg PRN Q15MIN PRN IV/SQ PAIN GREATER THAN 3/10 Last administered on 04/04/17 18:46; Start 04/04/17 at 15:15; Stop 04/05/17 at 10:27 ; Status DC Iohexol (Omnipaque 300 Mg/ml) 75 ml 1X ONCE IV Last administered on 04/04/17 15:39; Start 04/04/17 at 15:30; Stop 04/04/17 at 15:31; Status DC Info (Do NOT chart on this entry -- for MONITORING) 1 each PRN DAILY PRN MC SEE COMMENTS; Start 04/04/17 at 15:30; Stop 04/06/17 at 15:29; Status DC Hydralazine HCl (Apresoline) 10 mg PRN Q4HRS PRN IVP ELEVATED BP, SEE COMMENTS Last administered on 04/04/17 17:55; Start 04/04/17 at 17:15 Sodium Chloride 1,000 ml @ 2,190 mls/hr Q28M IV Last administered on 17:49; Start 04/04/17 at 17:11; Stop 04/04/17 at 18:14; Status DC Ondansetron HCl (Zofran) 4 mg PRN Q8HRS PRN IV NAUSEA/VOMITING; Start 04/04/17 at 18:00; Stop 04/05/17 at 16:06; Status DC Morphine Sulfate 2 mg PRN Q2HR PRN IV PAIN Last administered on 04/05/17 09:44 ; Start 04/04/17 at 18:00; Stop 04/05/17 at 10:27; Status DC Sodium Chloride 1,000 ml @ 125 mls/hr Q8H IV Last administered on 04/05/17 03 :52; Start 04/04/17 at 17:53; Stop 04/05/17 at 17:52; Status DC Nicardipine HCl 50 mg/Sodium Chloride 270 ml @ 0 mls/hr CONT PRN IV SEE I/O RECORD; Start 04/04/17 at 19:00 Ondansetron HCl (Zofran) 4 mg 1X ONCE IV Last administered on 04/04/17 19:25 ; Start 04/04/17 at 19:00; Stop 04/04/17 at 19:02; Status DC Ceftriaxone Sodium 50 ml @ 100 mls/hr 1X ONCE IV Last administered on 22:56; Start 04/04/17 at 21:30; Stop 04/04/17 at 21:59; Status DC Azithromycin 500 mg/Sodium Chloride 250 ml @ 250 mls/hr 1X ONCE IV Last administered on 04/04/17 22:56; Start 04/04/17 at 21:30; Stop 04/04/17 at 22:29 ; Status DC Ondansetron HCl (Zofran) 4 mg 1X ONCE IV Last administered on 04/04/17 22:59 ; Start 04/04/17 at 23:00; Stop 04/04/17 at 23:01; Status DC Ondansetron HCl (Zofran) 4 mg PRN Q4HRS PRN IV NAUSEA/VOMITING Last administered on 04/07/17 04:20; Start 04/04/17 at 22:30 Morphine Sulfate 4 mg PRN Q2HR PRN IV SEVERE PAIN Last administered on 04:21; Start 04/05/17 at 00:45 Metoclopramide HCl (Reglan) 10 mg PRN Q6HRS PRN IV NAUSEA/VOMITING Last administered on 04/06/17 21:43; Start 04/05/17 at 01:00 Influenza Virus Vaccine Quadrival (Fluarix Quad [id number] Syringe) 0.5 ml ONCE ONCE VAX IM ; Start 04/05/17 at 09:00; Stop 04/05/17 at 09:01; Status DC Info (Do NOT chart on this placeholder) 1 each PRN 1X PRN MC SEE COMMENTS; Start 04/05/17 at 05:00; Status UNV Duloxetine HCl (Cymbalta) 120 mg DAILY PO ; Start 04/05/17 at 09:00 Acetaminophen/ Hydrocodone Bitart (Lortab 5/325) 1 tab PRN Q6HRS PRN PO PAIN Last administered on 04/05/17 17:06; Start 04/05/17 at 08:45 Non-Formulary Medication 20 mg BID PO ; Start 04/05/17 at 09:00; Stop 04/05/17 at 09:22; Status DC Aripiprazole (Abilify) 10 mg QHS PO Last administered on 04/06/17 22:28; Start 04/05/17 at 21:00 Lamotrigine (LaMICtal) 300 mg QHS PO Last administered on 04/06/17 22:29; Start 04/05/17 at 21:00 Non-Formulary Medication 2 tab HS PO ; Start 04/05/17 at 21:00; Stop 04/05/17 at 21:00; Status DC Fish Oil (Fish Oil) 1,000 mg BID PO ; Start 04/05/17 at 10:00 Atorvastatin Calcium (Lipitor) 40 mg QHS PO ; Start 04/05/17 at 21:00; Stop 04/05/17 at 21:00; Status DC Labetalol HCl (Normodyne) 20 mg PRN Q2HR PRN IVP HYPERTENSION, SEE COMMENTS; Start 04/05/17 at 09:45 Heparin Sodium/ Dextrose 500 ml @ 0 mls/hr CONT PRN IV SEE I/O RECORD Last administered on 04/05/17 10:20; Start 04/05/17 at 10:00; Stop 04/06/17 at 10:27 ; Status DC Heparin Sodium (Porcine) (Heparin Sodium) 1,850 unit PRN Q6HRS PRN IV FOR UFH LEVEL LESS THAN 0.2 Last administered on 04/05/17 10:17; Start 04/05/17 at 10: 00; Stop 04/06/17 at 10:27; Status DC Heparin Sodium/ Sodium Chloride 1,500 ml @ As Directed STK-MED ONCE .ROUTE ; Start 04/05/17 at 10:14; Stop 04/05/17 at 10:15; Status DC Lidocaine HCl 20 ml STK-MED ONCE .ROUTE ; Start 04/05/17 at 10:14; Stop at 10:15; Status DC Iohexol (Omnipaque 300 Mg/ml) 100 ml STK-MED ONCE .ROUTE ; Start 04/05/17 at 10: 14; Stop 04/05/17 at 10:15; Status DC Heparin Sodium/ Dextrose 500 ml @ 0 mls/hr CONT PRN IV SEE I/O RECORD; Start 04/05/17 at 10:30; Status UNV Heparin Sodium (Porcine) (Heparin Sodium) 1,850 unit PRN Q6HRS PRN IV FOR UFH LEVEL LESS THAN 0.2; Start 04/05/17 at 10:30; Status UNV Magnesium Sulfate/ Dextrose 50 ml @ 25 mls/hr 1X ONCE IV Last administered on 04/05/17 13:34; Start 04/05/17 at 10:30; Stop 04/05/17 at 12:29; Status DC Atorvastatin Calcium (Lipitor) 40 mg QHS PO Last administered on 04/06/17 22: 29; Start 04/05/17 at 21:00 Famotidine (Pepcid) 20 mg BID IVP Last administered on 04/06/17 21:43; Start 04/05/17 at 11:00 Fentanyl Citrate (Fentanyl 2ml Vial) 100 mcg STK-MED ONCE .ROUTE ; Start at 11:38; Stop 04/05/17 at 11:39; Status DC Midazolam HCl (Versed) 2 mg STK-MED ONCE .ROUTE ; Start 04/05/17 at 11:38; Stop 04/05/17 at 11:39; Status DC Verapamil HCl (Verapamil) 5 mg STK-MED ONCE .ROUTE ; Start 04/05/17 at 11:48; Stop 04/05/17 at 11:49; Status DC Nitroglycerin (Nitroglycerin) 200 mcg STK-MED ONCE .ROUTE ; Start 04/05/17 at 11 :48; Stop 04/05/17 at 11:49; Status DC Nitroglycerin (Nitroglycerin) 200 mcg 1X ONCE IART Last administered on 12:16; Start 04/05/17 at 12:15; Stop 04/05/17 at 12:16; Status DC Verapamil HCl (Verapamil) 2.5 mg 1X ONCE IART Last administered on 04/05/17 12:19; Start 04/05/17 at 12:15; Stop 04/05/17 at 12:16; Status DC Heparin Sodium (Porcine) (Heparin Sodium) 2,500 unit 1X ONCE IART Last administered on 04/05/17 12:19; Start 04/05/17 at 12:15; Stop 04/05/17 at 12:16 ; Status DC Heparin Sodium/ Sodium Chloride 1,000 unit 1X ONCE IART Last administered on 04/05/17 12:16; Start 04/05/17 at 12:15; Stop 04/05/17 at 12:16; Status DC Midazolam HCl (Versed) 2 mg 1X ONCE IV Last administered on 04/05/17 12:17; Start 04/05/17 at 12:15; Stop 04/05/17 at 12:16; Status DC Fentanyl Citrate (Fentanyl 2ml Vial) 50 mcg 1X ONCE IV Last administered on 12:18; Start 04/05/17 at 12:15; Stop 04/05/17 at 12:16; Status DC Iohexol (Omnipaque 300 Mg/ml) 130 ml 1X ONCE IART Last administered on 12:18; Start 04/05/17 at 12:15; Stop 04/05/17 at 12:16; Status DC Lidocaine HCl 2 ml 1X ONCE IJ Last administered on 04/05/17 12:16; Start 04/05/17 at 12:15; Stop 04/05/17 at 12:16; Status DC Ondansetron HCl (Zofran) 4 mg 1X ONCE IV Last administered on 04/05/17 12:18 ; Start 04/05/17 at 12:15; Stop 04/05/17 at 12:16; Status DC Pantoprazole Sodium (Protonix) 40 mg BIDAC PO Last administered on 04/06/17 17 :33; Start 04/05/17 at 16:30 Lidocaine/Sodium Bicarbonate (Buffered Lidocaine 1%) 20 ml STK-MED ONCE IJ ; Start 04/06/17 at 08:44; Stop 04/06/17 at 08:45; Status DC Barium Sulfate (Liquid E-Z Paque) 710 ml 1X ONCE PO Last administered on 10:10; Start 04/06/17 at 09:30; Stop 04/06/17 at 09:31; Status DC Metoprolol Succinate (Toprol Xl) 25 mg DAILY PO Last administered on 04/06/17 15:12; Start 04/06/17 at 15:00 Magnesium Sulfate/ Dextrose 50 ml @ 25 mls/hr 1X ONCE IV Last administered on 04/06/17 17:35; Start 04/06/17 at 16:00; Stop 04/06/17 at 17:59; Status DC Potassium Chloride (Klor-Con) 20 meq 1X ONCE PO Last administered on 17:34; Start 04/06/17 at 16:00; Stop 04/06/17 at 16:01; Status DC Sodium Chloride 1,000 ml @ 125 mls/hr Q8H IV Last administered on 04/07/17 06 :00; Start 04/06/17 at 22:30 Aspirin (Ecotrin) 81 mg DAILYWBKFT PO ; Start 04/07/17 at 10:00 Active Scripts Active Reported Aripiprazole 20 Mg Tablet 20 Mg PO BID Lamotrigine 200 Mg Tablet 300 Mg PO HS Abilify (Aripiprazole) 10 Mg Tablet 10 Mg PO DAILY Cymbalta (Duloxetine Hcl) 30 Mg Capsule.dr 120 Mg PO DAILY Hydrocodone-Apap 5-325 (Hydrocodone Bit/Acetaminophen) 1 Each Tablet 1 Tab PO PRN Q6HRS PRN Fish Oil ([place]-3 Fatty Acids) 300 Mg Capsule 0 PO BID Lamictal (Lamotrigine) 150 Mg Tablet 2 Tab PO HS Crestor (Rosuvastatin Calcium) 10 Mg Tablet 10 Mg PO HS Vitals/I & O Vital Sign - Last 24 Hours 04/06/17 04/06/17 04/06/17 04/06/17 14:00 15:00 15:12 17:38 Temp 98.8 98.8 Pulse 105 88 Resp 18 B/P (MAP) 154/96 (115) 134/79 Pulse Ox 100 94 94 O2 Delivery Nasal Cannula Nasal Cannula Nasal Cannula O2 Flow Rate 0.5 0.5 04/06/17 04/06/17 04/06/17 04/06/17 18:21 19:35 19:56 20:00 Temp 98.0 98.0 Pulse 84 Resp 18 20 B/P (MAP) 160/104 (122) Pulse Ox 94 96 O2 Delivery Nasal Cannula Room Air Room Air O2 Flow Rate 0.5 04/06/17 04/07/17 04/07/17 04/07/17 23:35 03:35 04:21 04:51 Temp 98.2 98.0 98.2 98.0 Pulse 81 69 Resp 16 18 22 22 B/P (MAP) 147/84 (105) 111/65 (80) Pulse Ox 97 98 O2 Delivery Room Air Nasal Cannula O2 Flow Rate 1.0 04/07/17 07:00 Temp 98.7 98.7 Pulse 78 Resp 19 B/P (MAP) 132/77 (95) Pulse Ox 97 O2 Delivery Room Air Intake and Output 04/07/17 04/07/17 04/08/17 15:00 23:00 07:00 Output Total 600 ml Balance -600 ml MARAH FAJARDO MD Apr 07, 2017 09:11
[2017-04-07] MEDS: ASPIRIN ENTERIC COATED 81 MG TABLET.DR. PO SCH (10:00)
--- NOTE | 2017-04-07 12:57 | PDOC ---
Subjective: Subjective: Without morphine pain 01/10. N/v and pain w/ clears but wants scrambled eggs and grape juice. Coffee sounds good too. Same symptoms as last time - nothing really helped but she was discharged and symptoms eventually resolved. Agreeable to second opinion at as outpt. Objective: Objective: D/w RN - ongoing pain, needing morphine. Emesis w/ clears. Vital Signs: Vital Signs Date Time Temp Pulse Resp B/P (MAP) Pulse Ox O2 Delivery O2 Flow Rate FiO2 04/07/17 12:35 96 Nasal Cannula 04/07/17 11: 98.8 73 18 107/57 (74) 98.8 04/07/17 10:38 2.0 Labs: Laboratory Tests Test 04/06/17 16:29 04/06/17 21:06 04/07/17 05:40 04/07/17 08:04 Glucose (Fingerstick) 122 mg/dL 110 mg/dL 112 mg/dL White Blood Count 14.7 x10^3/uL Red Blood Count 4.66 x10^6/uL Hemoglobin 13.4 g/dL Hematocrit 41.9 % Mean Corpuscular Volume 90 fL Mean Corpuscular Hemoglobin 29 pg Mean Corpuscular Hemoglobin Concent 32 g/dL Red Cell Distribution Width 15.6 % Platelet Count 265 x10^3/uL Neutrophils (%) (Auto) 68 % Lymphocytes (%) (Auto) 17 % Monocytes (%) (Auto) 12 % Eosinophils (%) (Auto) 1 % Basophils (%) (Auto) 1 % Neutrophils # (Auto) 10.0 x10^3uL Lymphocytes # (Auto) 2.5 x10^3/uL Monocytes # (Auto) 1.8 x10^3/uL Eosinophils # (Auto) 0.2 x10^3/uL Basophils # (Auto) 0.2 x10^3/uL Test 04/07/17 11:54 Glucose (Fingerstick) 112 mg/dL Imaging: SBFT 04/06/17 Impression: 1. No bowel obstruction. No evidence of stricture or fistula. 2. Significantly prolonged transit time to the colon. PE: GEN: NAD LUNGS: clear HEART: RRR ABD: BS+, periumbilical tenderness NEURO/PSYCH: A & O 3 A/P: Recurrent abd pain, n/v -EGDs and colonoscopy this year, normal GES, s/p cholecystectomy -GERD on PPI BID, constipation controlled w/ Miralax PRN -s/p cardiac cath, medical therapy -SBS as above, prolonged transit time w/o obstruction H/o RUQ hematoma (12/2016 on CTA and MRI- no evidence on CT this admission) -Dr. Kraft following, checking von Willebrand factor, possible bone marrow biopsy w/ leukocytosis -- She wants to try eating more - scrambled eggs. D/w RN. Manjula to [facility]. Has had extensive GI workup - will check for any additional GI recommendations w / Dr. Rahman. AYAKA NOGUEIRA Apr 07, 2017 12:57
--- NOTE | 2017-04-07 15:02 | PDOC ---
GENERAL General: vss and afebrile. puke bucket in tow as I am seeing. continued epigastric tenderness. chest clear and heart regular. help GI appreciated. ongoing use morphine for pain. small bowel series reported as normal. continue same. Problems: VITAL SIGNS Vital Signs: Vital Signs Date Time Temp Pulse Resp B/P (MAP) Pulse Ox O2 Delivery O2 Flow Rate FiO2 04/07/17 13:36 96 Nasal Cannula 2.0 04/07/17 11:17 98.8 73 18 107/57 (74) 98.8 I & O I & O Intake and Output 04/08/17 06:59 Output Total 700 ml Balance -700 ml Output Urine Total 700 ml ALLERGIES Allergies: Allergies Coded Allergies Type Severity Reaction Last Updated Verified Sulfa (Sulfonamide Antibiotics) Allergy Intermediate Hives 12/23/16 Yes adhesive Allergy Intermediate itch 12/23/16 Yes MEDS Medications: Current Medications Medications (Trade) Dose Ordered Sig/Julieta Start Time Stop Time Status Last Admin Dose Admin Acetaminophen/ Hydrocodone Bitart (Lortab 5/325) 1 tab PRN Q6HRS PRN 04/05/17 08:45 04/05/17 17:06 1 TAB Aripiprazole (Abilify) 10 mg QHS 04/05/17 21:00 04/06/17 22:28 10 MG Aspirin (Gentry Aspirin) 325 mg 1X ONCE 04/04/17 15:15 04/04/17 15:16 DC 04/04/17 15:30 325 MG Aspirin (Ecotrin) 81 mg DAILYWBKFT 04/07/17 10:00 Atorvastatin Calcium (Lipitor) 40 mg QHS 04/05/17 21:00 04/06/17 22:29 40 MG Azithromycin 500 mg/Sodium Chloride 250 ml @ 250 mls/hr 1X ONCE 04/04/17 21:30 04/04/17 22:29 DC 04/04/17 22:56 250 MLS/HR Barium Sulfate (Liquid E-Z Paque) 710 ml 1X ONCE 04/06/17 09:30 04/06/17 09:31 DC 04/06/17 10:10 710 ML Ceftriaxone Sodium 50 ml @ 100 mls/hr 1X ONCE 04/04/17 21:30 04/04/17 21:59 DC 04/04/17 22:56 100 MLS/HR Duloxetine HCl (Cymbalta) 120 mg DAILY 04/05/17 09:00 Famotidine (Pepcid) 20 mg BID 04/05/17 11:00 04/07/17 09:07 20 MG Fentanyl Citrate (Fentanyl 2ml Vial) 50 mcg 1X ONCE 04/05/17 12:15 04/05/17 12:16 DC 04/05/17 12:18 50 MCG Fish Oil (Fish Oil) 1,000 mg BID 04/05/17 10:00 Heparin Sodium (Porcine) (Heparin Sodium) 2,500 unit 1X ONCE 04/05/17 12:15 04/05/17 12:16 DC 04/05/17 12:19 2,500 UNIT Heparin Sodium/ Dextrose 500 ml @ 0 mls/hr CONT PRN 04/05/17 10:30 UNV Heparin Sodium/ Sodium Chloride 1,000 unit 1X ONCE 04/05/17 12:15 04/05/17 12:16 DC 04/05/17 12:16 1,000 UNIT Hydralazine HCl (Apresoline) 10 mg PRN Q4HRS PRN 04/04/17 17:15 04/04/17 17:55 10 MG Influenza Virus Vaccine Quadrival (Fluarix Quad [id number] Syringe) 0.5 ml ONCE ONCE 04/05/17 09:00 04/05/17 09:01 DC Info (Do NOT chart on this entry -- for MONITORING) 1 each PRN DAILY PRN 04/04/17 15:30 04/06/17 15:29 DC Info (Do NOT chart on this placeholder) 1 each PRN 1X PRN 04/05/17 05:00 UNV Iohexol (Omnipaque 300 Mg/ml) 130 ml 1X ONCE 04/05/17 12:15 04/05/17 12:16 DC 04/05/17 12:18 130 ML Labetalol HCl (Normodyne) 20 mg PRN Q2HR PRN 04/05/17 09:45 Lamotrigine (LaMICtal) 300 mg QHS 04/05/17 21:00 04/06/17 22:29 300 MG Lidocaine HCl 2 ml 1X ONCE 04/05/17 12:15 04/05/17 12:16 DC 04/05/17 12:16 2 ML Lidocaine/Sodium Bicarbonate (Buffered Lidocaine 1%) 20 ml STK-MED ONCE 04/06/17 08:44 04/06/17 08:45 DC Magnesium Sulfate/ Dextrose 50 ml @ 25 mls/hr 1X ONCE 04/06/17 16:00 04/06/17 17:59 DC 04/06/17 17:35 25 MLS/HR Metoclopramide HCl (Reglan) 10 mg PRN Q6HRS PRN 04/05/17 01:00 04/06/17 21:43 10 MG Metoprolol Succinate (Toprol Xl) 25 mg DAILY 04/06/17 15:00 04/06/17 15:12 25 MG Midazolam HCl (Versed) 2 mg 1X ONCE 04/05/17 12:15 04/05/17 12:16 DC 04/05/17 12:17 2 MG Morphine Sulfate 4 mg PRN Q2HR PRN 04/05/17 00:45 04/07/17 12:35 4 MG Nicardipine HCl 50 mg/Sodium Chloride 270 ml @ 0 mls/hr CONT PRN 04/04/17 19:00 Nitroglycerin (Nitroglycerin) 200 mcg 1X ONCE 04/05/17 12:15 04/05/17 12:16 DC 04/05/17 12:16 200 MCG Non-Formulary Medication 2 tab HS 04/05/17 21:00 04/05/17 21:00 DC Ondansetron HCl (Zofran) 4 mg 1X ONCE 04/05/17 12:15 04/05/17 12:16 DC 04/05/17 12:18 4 MG Pantoprazole Sodium (Protonix) 40 mg BIDAC 04/05/17 16:30 04/06/17 17:33 40 MG Potassium Chloride (Klor-Con) 20 meq 1X ONCE 04/06/17 16:00 04/06/17 16:01 DC 04/06/17 17:34 20 MEQ Sodium Chloride 1,000 ml @ 125 mls/hr Q8H 04/06/17 22:30 04/07/17 06:00 125 MLS/HR Verapamil HCl (Verapamil) 2.5 mg 1X ONCE 04/05/17 12:15 04/05/17 12:16 DC 04/05/17 12:19 2.5 MG LAB Lab: Laboratory Tests Test 04/06/17 16:29 04/06/17 21:06 04/07/17 05:40 04/07/17 08:04 Glucose (Fingerstick) 122 mg/dL (70-99) 110 mg/dL (70-99) 112 mg/dL (70-99) White Blood Count 14.7 x10^3/uL (4.0-11.0) Red Blood Count 4.66 x10^6/uL (3.50-5.40) Hemoglobin 13.4 g/dL (12.0-15.5) Hematocrit 41.9 % (36.0-47.0) Mean Corpuscular Volume 90 fL (79-100) Mean Corpuscular Hemoglobin 29 pg (25-35) Mean Corpuscular Hemoglobin Concent 32 g/dL (31-37) Red Cell Distribution Width 15.6 % (11.5-14.5) Platelet Count 265 x10^3/uL (140-400) Neutrophils (%) (Auto) 68 % (31-73) Lymphocytes (%) (Auto) 17 % (24-48) Monocytes (%) (Auto) 12 % (0-9) Eosinophils (%) (Auto) 1 % (0-3) Basophils (%) (Auto) 1 % (0-3) Neutrophils # (Auto) 10.0 x10^3uL (1.8-7.7) Lymphocytes # (Auto) 2.5 x10^3/uL (1.0-4.8) Monocytes # (Auto) 1.8 x10^3/uL (0.0-1.1) Eosinophils # (Auto) 0.2 x10^3/uL (0.0-0.7) Basophils # (Auto) 0.2 x10^3/uL (0.0-0.2) Test 04/07/17 11:54 Glucose (Fingerstick) 112 mg/dL (70-99) RUTH NOVA MD Apr 07, 2017 15:02
[2017-04-07] MEDS: ATORVASTATIN CALCIUM 40 MG TABLET. PO SCH (20:43)
[2017-04-07] MEDS: lamoTRIgine 100 MG TABLET. PO SCH (20:43)
[2017-04-07] MEDS: ARIPiprazole 5 MG TABLET PO SCH (20:43)
[2017-04-08] MEDS: IV NORMAL SALINE 1000ML BAG 1,000 ML IV SCH ×2 (00:12→07:45)
[2017-04-08] MEDS: MORPHINE SULFATE 4 MG/ML DISP.SYRIN. IV PRN (02:25)
[2017-04-08 03:35] VITALS: BP 140/77
[2017-04-08 05:43] LABS: HEMATOCRIT 43.1 % (36.0-47.0); HEMOGLOBIN 14.2 g/dL (12.0-15.5); RED BLOOD COUNT 4.8 x10^6/uL (3.50-5.40); RED CELL DISTRIBUTION WIDTH 15.1 % (11.5-14.5); WHITE BLOOD COUNT 10.1 x10^3/uL (4.0-11.0)
[2017-04-08 07:00] VITALS: BP 124/77
[2017-04-08] MEDS: PANTOPRAZOLE 40 MG TABLET.DR. PO SCH (07:45)
[2017-04-08] MEDS: OMEGA-3 FATTY ACIDS/FISH OIL 1,000 MG CAPSULE. PO SCH (07:46)
[2017-04-08] MEDS: FAMOTIDINE 20 MG/2 ML VIAL IVP SCH (09:00)
[2017-04-08] MEDS: DULoxetine HCL 30 MG CAPSULE.DR PO SCH (09:11)
[2017-04-08] MEDS: ASPIRIN ENTERIC COATED 81 MG TABLET.DR. PO SCH (09:11)
[2017-04-08 09:13] VITALS: BP 151/86
[2017-04-08] MEDS: METOPROLOL SUCC 24HR ER 25 MG TAB.ER.24H. PO SCH (09:13)
[2017-04-08] MEDS ORDERED: DOCUSATE SODIUM 100 MG CAPSULE. PO PRN (10:15)
[2017-04-08] MEDS ORDERED: ATOR40TA PO (10:33)
[2017-04-08] MEDS ORDERED: ASPI-482 PO (10:34)
[2017-04-08] MEDS ORDERED: RABE20TA18 PO (10:34)
[2017-04-08] MEDS ORDERED: METO-239 PO (10:35)
--- NOTE | 2017-04-08 10:55 | PDOC ---
Subjective: Subjective: Feeling better - less pain, about 2/10. No n/v, tolerating PO. Wants to DC. Objective: Objective: Note surgical consult - has see Dr. Rider in the past, Faye also saw her earlier this week. Per RN - pt not interested in surgery. Vital Signs: Vital Signs Date Time Temp Pulse Resp B/P (MAP) Pulse Ox O2 Delivery O2 Flow Rate FiO2 04/08/17 09:13 84 151/86 04/08/17 08:00 Room Air 04/08/17 07:00 98.1 16 92 1.5 98.1 Labs: Laboratory Tests Test 04/07/17 11:54 04/07/17 16:56 04/07/17 20:52 04/08/17 05:00 Glucose (Fingerstick) 112 mg/dL 85 mg/dL 159 mg/dL White Blood Count 10.1 x10^3/uL Red Blood Count 4.80 x10^6/uL Hemoglobin 14.2 g/dL Hematocrit 43.1 % Mean Corpuscular Volume 90 fL Mean Corpuscular Hemoglobin 30 pg Mean Corpuscular Hemoglobin Concent 33 g/dL Red Cell Distribution Width 15.1 % Platelet Count 261 x10^3/uL Test 04/08/17 07:20 Glucose (Fingerstick) 103 mg/dL PE: GEN: NAD LUNGS: clear HEART: RRR ABD: much less tender NEURO/PSYCH: A & O 3 A/P: Recurrent abd pain, n/v - better -EGDs and colonoscopy this year, normal GES, s/p cholecystectomy -GERD on PPI BID, constipation controlled w/ Miralax PRN -s/p cardiac cath, medical therapy -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 Kraft following, checking von Willebrand factor, considered bone marrow biopsy w/ leukocytosis (but has resolved) -- Improved. She would like to pursue second opinion @ [facility] - our office will make referral. DC per primary. D/w LLOYD. AYAKA NOGUEIRA Apr 08, 2017 10:55
[2017-04-08] MEDS ORDERED: DIPHTH,PERTUSS(ACELL),TET TOX 0.5 ML DISP.SYRIN. VAX IM ONE (11:00)
--- NOTE | 2017-04-08 11:02 | PDOC ---
PROGRESS NOTES Subjective Subjective c/c - f/u of leukocytosis and h/o hematoma Objective Objective Vital Signs Date Time Temp Pulse Resp B/P (MAP) Pulse Ox O2 Delivery O2 Flow Rate FiO2 04/08/17 09:13 84 151/86 04/08/17 08:00 Room Air 04/08/17 07:00 98.1 16 92 1.5 98.1 Physical Exam Heart: Normal S1, Normal S2 General: Alert, Oriented X3 Lungs: Clear to auscultation Neuro: Normal speech Psych/Mental Status: Mental status NL Assessment Assessment Problems Medical Problems: (1) Abdominal pain Status: Acute (2) Accelerated hypertension Status: Acute (3) Left bundle branch block Status: Acute (4) Systemic inflammatory response syndrome Status: Acute IMPRESSION AND PLAN: 1. Hematoma in the right upper quadrant, diagnosed in 12/2016. This was a spontaneous hematoma without any history of intervention or trauma. Her PT, INR and platelet counts were all normal. She has had a history of multiple surgeries in the past with no evidence of bleeding. She also has had a dental extraction in the past with no bleeding events. There is no history of the nosebleeds or gum bleeding. No history of hematemesis, melena, or hematochezia. No hemoptysis or hematuria. Hence based on her history, it is unlikely that she has a primary bleeding disorder. However, since the etiology of the spontaneous hematoma was unclear, I ordered screening for von Willebrand disease. Results pending. I d/w LLOYD. I d/w DR Gordon. 2. Breast cancer at the age of 28. There is also a family history of breast cancer. There is no clinical evidence of recurrence. I have advised genetic consultation at [facility] to evaluate for genetic mutations. 3. Abdominal pain. Appreciate GI and surgical consultation. 4. Leukocytosis, likely reactive. Review of the old records indicates that she has chronic leukocytosis since 06/2014. At this point, she does not have any active infections and despite that she has persistent leukocytosis. In 06/2014, her WBC count was 20.8. On 12/20/2016, it was 24.5. On 04/04/2017, it is 19.9. The leukocytosis in December can be attributable to history of hematoma; I will defer bone marrow aspiration and biopsy as WBC improved to 13.9 on 04/06/17. Worse at 14.7 on 04/07/17. WBC normal 10.1 on 04/08/17. Plan bone marrow bx if WBC worsens to >16. Comment Review of Relevant I have reviewed the following items rena (where applicable) has been applied. Labs Laboratory Tests Test 04/06/17 16:29 04/06/17 21:06 04/07/17 05:40 04/07/17 08:04 Glucose (Fingerstick) 122 mg/dL (70-99) 110 mg/dL (70-99) 112 mg/dL (70-99) White Blood Count 14.7 x10^3/uL (4.0-11.0) Red Blood Count 4.66 x10^6/uL (3.50-5.40) Hemoglobin 13.4 g/dL (12.0-15.5) Hematocrit 41.9 % (36.0-47.0) Mean Corpuscular Volume 90 fL (79-100) Mean Corpuscular Hemoglobin 29 pg (25-35) Mean Corpuscular Hemoglobin Concent 32 g/dL (31-37) Red Cell Distribution Width 15.6 % (11.5-14.5) Platelet Count 265 x10^3/uL (140-400) Neutrophils (%) (Auto) 68 % (31-73) Lymphocytes (%) (Auto) 17 % (24-48) Monocytes (%) (Auto) 12 % (0-9) Eosinophils (%) (Auto) 1 % (0-3) Basophils (%) (Auto) 1 % (0-3) Neutrophils # (Auto) 10.0 x10^3uL (1.8-7.7) Lymphocytes # (Auto) 2.5 x10^3/uL (1.0-4.8) Monocytes # (Auto) 1.8 x10^3/uL (0.0-1.1) Eosinophils # (Auto) 0.2 x10^3/uL (0.0-0.7) Basophils # (Auto) 0.2 x10^3/uL (0.0-0.2) Test 04/07/17 11:54 04/07/17 16:56 04/07/17 20:52 04/08/17 05:00 Glucose (Fingerstick) 112 mg/dL (70-99) 85 mg/dL (70-99) 159 mg/dL (70-99) White Blood Count 10.1 x10^3/uL (4.0-11.0) Red Blood Count 4.80 x10^6/uL (3.50-5.40) Hemoglobin 14.2 g/dL (12.0-15.5) Hematocrit 43.1 % (36.0-47.0) Mean Corpuscular Volume 90 fL (79-100) Mean Corpuscular Hemoglobin 30 pg (25-35) Mean Corpuscular Hemoglobin Concent 33 g/dL (31-37) Red Cell Distribution Width 15.1 % (11.5-14.5) Platelet Count 261 x10^3/uL (140-400) Test 04/08/17 07:20 Glucose (Fingerstick) 103 mg/dL (70-99) Laboratory Tests Test 04/07/17 11:54 04/07/17 16:56 04/07/17 20:52 04/08/17 05:00 Glucose (Fingerstick) 112 mg/dL (70-99) 85 mg/dL (70-99) 159 mg/dL (70-99) White Blood Count 10.1 x10^3/uL (4.0-11.0) Red Blood Count 4.80 x10^6/uL (3.50-5.40) Hemoglobin 14.2 g/dL (12.0-15.5) Hematocrit 43.1 % (36.0-47.0) Mean Corpuscular Volume 90 fL (79-100) Mean Corpuscular Hemoglobin 30 pg (25-35) Mean Corpuscular Hemoglobin Concent 33 g/dL (31-37) Red Cell Distribution Width 15.1 % (11.5-14.5) Platelet Count 261 x10^3/uL (140-400) Test 04/08/17 07:20 Glucose (Fingerstick) 103 mg/dL (70-99) Microbiology 04/04/17 Blood Culture - Preliminary, Resulted NO GROWTH AFTER 3 DAYS Medications Current Medications Heparin Sodium/ Sodium Chloride 0 ml @ As Directed STK-MED ONCE .ROUTE ; Start 04/04/17 at 15:10; Stop 04/04/17 at 15:11; Status DC Lidocaine HCl 20 ml STK-MED ONCE .ROUTE ; Start 04/04/17 at 15:10; Stop at 15:11; Status DC Aspirin (Gentry Aspirin) 325 mg 1X ONCE PO Last administered on 04/04/17 15:30 ; Start 04/04/17 at 15:15; Stop 04/04/17 at 15:16; Status DC Ondansetron HCl (Zofran) 4 mg 1X ONCE IV Last administered on 04/04/17 15:27 ; Start 04/04/17 at 15:15; Stop 04/04/17 at 15:16; Status DC Morphine Sulfate 4 mg PRN Q15MIN PRN IV/SQ PAIN GREATER THAN 3/10 Last administered on 04/04/17 18:46; Start 04/04/17 at 15:15; Stop 04/05/17 at 10:27 ; Status DC Iohexol (Omnipaque 300 Mg/ml) 75 ml 1X ONCE IV Last administered on 04/04/17 15:39; Start 04/04/17 at 15:30; Stop 04/04/17 at 15:31; Status DC Info (Do NOT chart on this entry -- for MONITORING) 1 each PRN DAILY PRN MC SEE COMMENTS; Start 04/04/17 at 15:30; Stop 04/06/17 at 15:29; Status DC Hydralazine HCl (Apresoline) 10 mg PRN Q4HRS PRN IVP ELEVATED BP, SEE COMMENTS Last administered on 04/04/17 17:55; Start 04/04/17 at 17:15 Sodium Chloride 1,000 ml @ 2,190 mls/hr Q28M IV Last administered on 17:49; Start 04/04/17 at 17:11; Stop 04/04/17 at 18:14; Status DC Ondansetron HCl (Zofran) 4 mg PRN Q8HRS PRN IV NAUSEA/VOMITING; Start 04/04/17 at 18:00; Stop 04/05/17 at 16:06; Status DC Morphine Sulfate 2 mg PRN Q2HR PRN IV PAIN Last administered on 04/05/17 09:44 ; Start 04/04/17 at 18:00; Stop 04/05/17 at 10:27; Status DC Sodium Chloride 1,000 ml @ 125 mls/hr Q8H IV Last administered on 04/05/17 03 :52; Start 04/04/17 at 17:53; Stop 04/05/17 at 17:52; Status DC Nicardipine HCl 50 mg/Sodium Chloride 270 ml @ 0 mls/hr CONT PRN IV SEE I/O RECORD; Start 04/04/17 at 19:00 Ondansetron HCl (Zofran) 4 mg 1X ONCE IV Last administered on 04/04/17 19:25 ; Start 04/04/17 at 19:00; Stop 04/04/17 at 19:02; Status DC Ceftriaxone Sodium 50 ml @ 100 mls/hr 1X ONCE IV Last administered on 22:56; Start 04/04/17 at 21:30; Stop 04/04/17 at 21:59; Status DC Azithromycin 500 mg/Sodium Chloride 250 ml @ 250 mls/hr 1X ONCE IV Last administered on 04/04/17 22:56; Start 04/04/17 at 21:30; Stop 04/04/17 at 22:29 ; Status DC Ondansetron HCl (Zofran) 4 mg 1X ONCE IV Last administered on 04/04/17 22:59 ; Start 04/04/17 at 23:00; Stop 04/04/17 at 23:01; Status DC Ondansetron HCl (Zofran) 4 mg PRN Q4HRS PRN IV NAUSEA/VOMITING Last administered on 04/07/17 09:08; Start 04/04/17 at 22:30 Morphine Sulfate 4 mg PRN Q2HR PRN IV SEVERE PAIN Last administered on 02:25; Start 04/05/17 at 00:45 Metoclopramide HCl (Reglan) 10 mg PRN Q6HRS PRN IV NAUSEA/VOMITING Last administered on 04/06/17 21:43; Start 04/05/17 at 01:00 Influenza Virus Vaccine Quadrival (Fluarix Quad 6090-0864 Syringe) 0.5 ml ONCE ONCE VAX IM ; Start 04/05/17 at 09:00; Stop 04/05/17 at 09:01; Status DC Info (Do NOT chart on this placeholder) 1 each PRN 1X PRN MC SEE COMMENTS; Start 04/05/17 at 05:00; Status UNV Duloxetine HCl (Cymbalta) 120 mg DAILY PO Last administered on 04/08/17 09:11 ; Start 04/05/17 at 09:00 Acetaminophen/ Hydrocodone Bitart (Lortab 5/325) 1 tab PRN Q6HRS PRN PO PAIN Last administered on 04/05/17 17:06; Start 04/05/17 at 08:45 Non-Formulary Medication 20 mg BID PO ; Start 04/05/17 at 09:00; Stop 04/05/17 at 09:22; Status DC Aripiprazole (Abilify) 10 mg QHS PO Last administered on 04/07/17 20:43; Start 04/05/17 at 21:00 Lamotrigine (LaMICtal) 300 mg QHS PO Last administered on 04/07/17 20:43; Start 04/05/17 at 21:00 Non-Formulary Medication 2 tab HS PO ; Start 04/05/17 at 21:00; Stop 04/05/17 at 21:00; Status DC Fish Oil (Fish Oil) 1,000 mg BID PO ; Start 04/05/17 at 10:00 Atorvastatin Calcium (Lipitor) 40 mg QHS PO ; Start 04/05/17 at 21:00; Stop 04/05/17 at 21:00; Status DC Labetalol HCl (Normodyne) 20 mg PRN Q2HR PRN IVP HYPERTENSION, SEE COMMENTS; Start 04/05/17 at 09:45 Heparin Sodium/ Dextrose 500 ml @ 0 mls/hr CONT PRN IV SEE I/O RECORD Last administered on 04/05/17 10:20; Start 04/05/17 at 10:00; Stop 04/06/17 at 10:27 ; Status DC Heparin Sodium (Porcine) (Heparin Sodium) 1,850 unit PRN Q6HRS PRN IV FOR UFH LEVEL LESS THAN 0.2 Last administered on 04/05/17 10:17; Start 04/05/17 at 10: 00; Stop 04/06/17 at 10:27; Status DC Heparin Sodium/ Sodium Chloride 1,500 ml @ As Directed STK-MED ONCE .ROUTE ; Start 04/05/17 at 10:14; Stop 04/05/17 at 10:15; Status DC Lidocaine HCl 20 ml STK-MED ONCE .ROUTE ; Start 04/05/17 at 10:14; Stop at 10:15; Status DC Iohexol (Omnipaque 300 Mg/ml) 100 ml STK-MED ONCE .ROUTE ; Start 04/05/17 at 10: 14; Stop 04/05/17 at 10:15; Status DC Heparin Sodium/ Dextrose 500 ml @ 0 mls/hr CONT PRN IV SEE I/O RECORD; Start 04/05/17 at 10:30; Status UNV Heparin Sodium (Porcine) (Heparin Sodium) 1,850 unit PRN Q6HRS PRN IV FOR UFH LEVEL LESS THAN 0.2; Start 04/05/17 at 10:30; Status UNV Magnesium Sulfate/ Dextrose 50 ml @ 25 mls/hr 1X ONCE IV Last administered on 04/05/17 13:34; Start 04/05/17 at 10:30; Stop 04/05/17 at 12:29; Status DC Atorvastatin Calcium (Lipitor) 40 mg QHS PO Last administered on 04/07/17 20: 43; Start 04/05/17 at 21:00 Famotidine (Pepcid) 20 mg BID IVP Last administered on 04/07/17 20:43; Start 04/05/17 at 11:00 Fentanyl Citrate (Fentanyl 2ml Vial) 100 mcg STK-MED ONCE .ROUTE ; Start at 11:38; Stop 04/05/17 at 11:39; Status DC Midazolam HCl (Versed) 2 mg STK-MED ONCE .ROUTE ; Start 04/05/17 at 11:38; Stop 04/05/17 at 11:39; Status DC Verapamil HCl (Verapamil) 5 mg STK-MED ONCE .ROUTE ; Start 04/05/17 at 11:48; Stop 04/05/17 at 11:49; Status DC Nitroglycerin (Nitroglycerin) 200 mcg STK-MED ONCE .ROUTE ; Start 04/05/17 at 11 :48; Stop 04/05/17 at 11:49; Status DC Nitroglycerin (Nitroglycerin) 200 mcg 1X ONCE IART Last administered on 12:16; Start 04/05/17 at 12:15; Stop 04/05/17 at 12:16; Status DC Verapamil HCl (Verapamil) 2.5 mg 1X ONCE IART Last administered on 04/05/17 12:19; Start 04/05/17 at 12:15; Stop 04/05/17 at 12:16; Status DC Heparin Sodium (Porcine) (Heparin Sodium) 2,500 unit 1X ONCE IART Last administered on 04/05/17 12:19; Start 04/05/17 at 12:15; Stop 04/05/17 at 12:16 ; Status DC Heparin Sodium/ Sodium Chloride 1,000 unit 1X ONCE IART Last administered on 04/05/17 12:16; Start 04/05/17 at 12:15; Stop 04/05/17 at 12:16; Status DC Midazolam HCl (Versed) 2 mg 1X ONCE IV Last administered on 04/05/17 12:17; Start 04/05/17 at 12:15; Stop 04/05/17 at 12:16; Status DC Fentanyl Citrate (Fentanyl 2ml Vial) 50 mcg 1X ONCE IV Last administered on 12:18; Start 04/05/17 at 12:15; Stop 04/05/17 at 12:16; Status DC Iohexol (Omnipaque 300 Mg/ml) 130 ml 1X ONCE IART Last administered on 12:18; Start 04/05/17 at 12:15; Stop 04/05/17 at 12:16; Status DC Lidocaine HCl 2 ml 1X ONCE IJ Last administered on 04/05/17 12:16; Start 04/05/17 at 12:15; Stop 04/05/17 at 12:16; Status DC Ondansetron HCl (Zofran) 4 mg 1X ONCE IV Last administered on 04/05/17 12:18 ; Start 04/05/17 at 12:15; Stop 04/05/17 at 12:16; Status DC Pantoprazole Sodium (Protonix) 40 mg BIDAC PO Last administered on 04/08/17 07 :45; Start 04/05/17 at 16:30 Lidocaine/Sodium Bicarbonate (Buffered Lidocaine 1%) 20 ml STK-MED ONCE IJ ; Start 04/06/17 at 08:44; Stop 04/06/17 at 08:45; Status DC Barium Sulfate (Liquid E-Z Paque) 710 ml 1X ONCE PO Last administered on 10:10; Start 04/06/17 at 09:30; Stop 04/06/17 at 09:31; Status DC Metoprolol Succinate (Toprol Xl) 25 mg DAILY PO Last administered on 04/08/17 09:13; Start 04/06/17 at 15:00 Magnesium Sulfate/ Dextrose 50 ml @ 25 mls/hr 1X ONCE IV Last administered on 04/06/17 17:35; Start 04/06/17 at 16:00; Stop 04/06/17 at 17:59; Status DC Potassium Chloride (Klor-Con) 20 meq 1X ONCE PO Last administered on 17:34; Start 04/06/17 at 16:00; Stop 04/06/17 at 16:01; Status DC Sodium Chloride 1,000 ml @ 125 mls/hr Q8H IV Last administered on 04/08/17 07 :45; Start 04/06/17 at 22:30 Aspirin (Ecotrin) 81 mg DAILYWBKFT PO Last administered on 04/08/17 09:11; Start 04/07/17 at 10:00 Diphtheria/ Tetanus/Acell Pertussis (Boostrix) 0.5 ml ONCE ONCE VAX IM ; Start 04/08/17 at 11:00; Stop 04/08/17 at 11:00; Status DC Docusate Sodium (Colace) 100 mg PRN DAILY PRN PO CONSTIPATION; Start 04/08/17 at 10:15 Active Scripts Active Reported Metoprolol Succinate ( Xl ) (Metoprolol Succinate) 25 Mg Tab.er.24h 1 Tab PO DAILY Aciphex (Rabeprazole Sodium) 20 Mg Tablet. 1 Tab PO DAILY Aspir 81 (Aspirin) 81 Mg Tablet.dr 1 Tab PO DAILY Lipitor (Atorvastatin Calcium) 40 Mg Tablet 1 Tab PO QHS Abilify (Aripiprazole) 10 Mg Tablet 10 Mg PO DAILY Cymbalta (Duloxetine Hcl) 30 Mg Capsule. 120 Mg PO DAILY Hydrocodone-Apap 5-325 (Hydrocodone Bit/Acetaminophen) 1 Each Tablet 1 Tab PO PRN Q6HRS PRN Lamictal (Lamotrigine) 150 Mg Tablet 2 Tab PO HS Vitals/I & O Vital Sign - Last 24 Hours 04/07/17 04/07/17 04/07/17 04/07/17 11:17 12:35 15:14 16:08 Temp 98.8 98.6 98.8 98.6 Pulse 73 81 Resp 18 20 18 B/P (MAP) 107/57 (74) 101/55 (70) Pulse Ox 96 96 97 O2 Delivery Room Air Nasal Cannula Nasal Cannula Nasal Cannula O2 Flow Rate 1.0 1.0 04/07/17 04/07/17 04/07/17 04/07/17 17:16 19:15 19:17 19:35 Temp 98.6 98.6 Pulse 97 Resp 16 18 B/P (MAP) 163/92 (115) Pulse Ox 97 90 O2 Delivery Nasal Cannula Nasal Cannula Room Air O2 Flow Rate 1.0 2.0 2.0 04/07/17 04/07/17 04/08/17 04/08/17 20:44 23:30 02:25 03:35 Temp 98.3 98.0 98.3 98.0 Pulse 83 84 Resp 16 16 16 17 B/P (MAP) 89/56 (67) 140/77 (98) Pulse Ox 97 96 O2 Delivery Nasal Cannula Nasal Cannula Room Air Nasal Cannula O2 Flow Rate 1.0 1.5 04/08/17 04/08/17 04/08/17 07:00 08:00 09:13 Temp 98.1 98.1 Pulse 75 84 Resp 16 B/P (MAP) 124/77 (93) 151/86 Pulse Ox 92 O2 Delivery Nasal Cannula Room Air O2 Flow Rate 1.5 MARAH FAJARDO MD Apr 08, 2017 11:02
== END 2017-04-08 11:05 | disposition home or self-care (01) | DRG 280 ==
LOC: ER 14:19 → 5 NORTH 17:10 → ED HOLD 21:55 → 2 SOUTH 22:07
PROVIDERS: ADMIT Family Medicine; ATTEND Family Medicine
PROC: 4A023N7 Measurement of Cardiac Sampling and Pressure, Left Heart, Percutaneous Approach (ICD-10-PCS; principal; 2017-04-05)
PROC: B2151ZZ Fluoroscopy of Left Heart using Low Osmolar Contrast (ICD-10-PCS; 2017-04-05)
PROC: B2111ZZ Fluoroscopy of Multiple Coronary Arteries using Low Osmolar Contrast (ICD-10-PCS; 2017-04-05)
PROC: B3101ZZ Fluoroscopy of Thoracic Aorta using Low Osmolar Contrast (ICD-10-PCS; 2017-04-05)
DX: I21.4 Non-ST elevation (NSTEMI) myocardial infarction (principal); J96.00 Acute respiratory failure, unspecified whether with hypoxia or hypercapnia; R65.10 Systemic inflammatory response syndrome (SIRS) of non-infectious origin without acute organ dysfunction; K76.89 Other specified diseases of liver; E11.9 Type 2 diabetes mellitus without complications; I10 Essential (primary) hypertension; I44.7 Left bundle-branch block, unspecified; F32.9 Major depressive disorder, single episode, unspecified; E78.5 Hyperlipidemia, unspecified; F17.210 Nicotine dependence, cigarettes, uncomplicated; F12.90 Cannabis use, unspecified, uncomplicated; F41.9 Anxiety disorder, unspecified; G47.33 Obstructive sleep apnea (adult) (pediatric); I25.10 Atherosclerotic heart disease of native coronary artery without angina pectoris; I25.2 Old myocardial infarction; I70.8 Atherosclerosis of other arteries; I77.819 Aortic ectasia, unspecified site; K21.9 Gastro-esophageal reflux disease without esophagitis; K58.9 Irritable bowel syndrome, unspecified; M79.7 Fibromyalgia; M19.90 Unspecified osteoarthritis, unspecified site; Z80.0 Family history of malignant neoplasm of digestive organs; Z80.3 Family history of malignant neoplasm of breast; Z82.49 Family history of ischemic heart disease and other diseases of the circulatory system; Z83.3 Family history of diabetes mellitus; Z85.3 Personal history of malignant neoplasm of breast; Z90.12 Acquired absence of left breast and nipple; Z90.49 Acquired absence of other specified parts of digestive tract; Z90.710 Acquired absence of both cervix and uterus; Z92.3 Personal history of irradiation; Z88.2 Allergy status to sulfonamides; Z91.048 Other nonmedicinal substance allergy status; Z71.6 Tobacco abuse counseling; Z90.721 Acquired absence of ovaries, unilateral
CPT/HCPCS: 36415; 71010; 74177; 74250; 80048; 80053; 80061; 81001; 82962; 83036; 83605; 83690; 83735; 84484; 85007; 85025; 85027; 85246; 85610; 85730; 87040; 93005; 93306; 93458; 93567; 96374; 96375; 99152; 99153; C1769; C1892; J0360; J0456; J0690; J1644; J2250; J2270; J2405; J2765; J3010; J3490; J7030; J7050; J7060; Q9967; S0028; 99285-25; J2001

== ENCOUNTER → 2018-04-14 | Outpatient (CLI) | payer OTHER, MEDICARE ==
[~2018-04-14] MED LIST changes: +ASPI-482 PO; +ATOR40TA PO; +METO-239 PO
--- NOTE | 2018-04-14 12:57 | KCIC ---
CT CHEST WO CONTRAST Indication: COPD. Cough. Left breast cancer. Exposure: One or more of the following individualized dose reduction techniques were utilized for this examination: 1. Automated exposure control 2. Adjustment of the mA and/or kV according to patient size 3. Use of iterative reconstruction technique. Comparison: None are available. Contrast: None FINDINGS: Vascular structures: Limited exam without contrast. Ectasia of the ascending aorta is mild, measures 4.1 cm. Mild calcification. Lymph nodes:No significant enlargement Thyroid gland:Visualized aspect is unremarkable. Heart: Coronary artery calcifications Esophagus: Mildly distended with air and fluid. No evidence of wall thickening. Pleural spaces: No significant effusion Lungs: There is a pleural-based opacity at the left lung apex, measures 2.4 cm x 1.9 cm. This has an irregular margin. Prominent linear opacities extend from this mass into the left upper lobe. Mild bronchiectasis of the adjacent left upper lobe. Small blebs in the right upper lobe. Faint groundglass opacities at the upper aspect of the right upper lobe. Trachea and central airways: Patent Spine: Mild degenerative spurring. Bones: No destructive process Upper abdomen: Slices obtained through the upper most abdomen are limited by the noncontrast technique. No obvious acute findings. Right breast implant is noted. Impression: 1. There is a pleural-based mass at the left upper lobe, could be of primary or secondary malignant etiology. Unless this has been previously evaluated or worked up, as per Fleischner Society criteria, consider CT chest in 3 months, PET/CT scan or tissue sampling. 2. Mild groundglass opacity at the right upper lobe, could be of inflammatory or infectious etiology. Could also be evaluated with follow-up CT chest study. 3. Mild ectasia of the ascending aorta. Electronically signed by: Otis Poon MD (04/14/2018 12:54 PM) [id number]
== END | disposition home or self-care (01) ==
LOC: KCIC CT 09:23
PROVIDERS: ATTEND Internal Medicine Pulmonary Disease
DX: J44.9 Chronic obstructive pulmonary disease, unspecified (principal); I77.810 Thoracic aortic ectasia; F17.210 Nicotine dependence, cigarettes, uncomplicated; F12.90 Cannabis use, unspecified, uncomplicated; Z85.3 Personal history of malignant neoplasm of breast; Z98.890 Other specified postprocedural states
CPT/HCPCS: 71250

== ENCOUNTER 2018-05-18 14:33 | Emergency (ER) | payer OTHER, MEDICARE ==
[~2018-05-18] VITALS: Ht 170.2 cm; Wt 80.3 kg
[2018-05-18 15:00] LABS: BILIRUBIN,URINE NEGATIVE (NEG); CLARITY,URINE CLEAR; COLOR,URINE YELLOW; NITRITE,URINE NEGATIVE (NEG); PH,URINE 6.5; PROTEIN,URINE >=300 mg/dL (NEG-TRACE); UROBILINOGEN,URINE 0.2 mg/dL (0.2 mg/dL)
[2018-05-18 15:11] LABS: BACTERIA,URINE MODERATE /HPF (0-FEW)
[2018-05-18 15:12] LABS: HYALINE CASTS, URINE FEW /HPF; SQUAMOUS EPITHELIAL CELL,UR MOD /LPF
[2018-05-18] MEDS: MORPHINE SULFATE 10 MG/ML VIAL. IV ONE (15:42)
[2018-05-18] MEDS: ONDANSETRON PF 4 MG/2 ML VIAL. IV ONE (15:42)
[2018-05-18 15:52] LABS: BASO # 0.1 x10^3/uL (0.0-0.2); BASO % 0 % (0-3); EOS % 0 % (0-3); HEMATOCRIT 44.9 % (36.0-47.0); HEMOGLOBIN 14.9 g/dL (12.0-15.5); LYMPH # 2.5 x10^3/uL (1.0-4.8); LYMPH % 12 % (24-48); MEAN CORPUSCULAR HEMOGLOBIN 27 pg (25-35); MEAN CORPUSCULAR HGB CONC 33 g/dL (31-37); MEAN CORPUSCULAR VOLUME 80 fL (79-100); MONO # 2.3 x10^3/uL (0.0-1.1); MONO % 11 % (0-9); NEUT # 15.9 x10^3uL (1.8-7.7); NEUT % 77 % (31-73); PLATELET COUNT 340 x10^3/uL (140-400); RED BLOOD COUNT 5.62 x10^6/uL (3.50-5.40); RED CELL DISTRIBUTION WIDTH 17.2 % (11.5-14.5); WHITE BLOOD COUNT 20.7 x10^3/uL (4.0-11.0)
--- NOTE | 2018-05-18 15:55 | RAD ---
History: Constipation for a few days followed by diarrhea for 2 days. Comparison: Small bowel series April 06, 2017. Findings: AP supine abdomen radiograph. Bowel gas pattern is nonspecific, without evidence of obstruction. Gas is seen within the colon. Impression: Nonspecific bowel gas pattern. Electronically signed by: Otis Moore MD (05/18/2018 3:52 PM) [place] [id number]
[2018-05-18 16:04] LABS: CALCIUM 9.7 mg/dL (8.5-10.1); CREATININE 0.6 mg/dL (0.6-1.0); GFR 102.3; POTASSIUM 3.6 mmol/L (3.5-5.1)
--- NOTE | 2018-05-18 16:09 | PHYS DOC ---
Past Medical History Past Medical History: Cancer, Diabetes-Type II, Other Additional Past Medical Histor: left breast ca Past Surgical History: Cholecystectomy, Hysterectomy, Other Additional Past Surgical Histo: L mastectomy Alcohol Use: Occasionally Drug Use: Marijuana Adult General Chief Complaint Chief Complaint: ABDOMINAL PAIN [facility] HPI Patient is a 57 year old female with a history of diabetes type 2 who presents today complaining of 8 out of 10 right-sided abdominal pain with nausea vomiting and diarrhea that began yesterday. Patient denies any fever. Patient states she's had similar abdominal pain twice before, she states she was worked up including following up with her GI specialist but they could not find any acute cause for her pain. She states she took hydrocodone at home with no relief. She has history of cholecystectomy. Review of Systems Review of Systems Constitutional: Denies fever or chills [] Eyes: Denies change in visual acuity, redness, or eye pain [] HENT: Denies nasal congestion or sore throat [] Respiratory: Denies cough or shortness of breath [] Cardiovascular: No additional information not addressed in HPI [] GI: Reports right-sided abdominal pain with nausea vomiting and diarrhea : Denies dysuria or hematuria [] Musculoskeletal: Denies back pain or joint pain [] Integument: Denies rash or skin lesions [] Neurologic: Denies headache, focal weakness or sensory changes [] All other systems were reviewed and found to be within normal limits, except as documented in this note. Current Medications Current Medications Current Medications Medications (Trade) Dose Ordered Sig/Julieta Start Time Stop Time Status Last Admin Dose Admin Ceftriaxone Sodium 50 ml @ 100 mls/hr 1X ONCE 05/18/18 16:30 05/18/18 16:59 DC 05/18/18 16:30 100 MLS/HR Info (CONTRAST GIVEN -- Rx MONITORING) 1 each PRN DAILY PRN 05/18/18 16:30 05/18/18 17:29 DC Iohexol (Omnipaque 300 Mg/ml) 75 ml 1X ONCE 05/18/18 16:30 05/18/18 16:31 DC 05/18/18 16:19 75 ML Morphine Sulfate (Morphine Sulfate) 5 mg 1X ONCE 05/18/18 15:30 05/18/18 15:31 DC 05/18/18 15:42 5 MG Ondansetron HCl (Zofran) 4 mg 1X ONCE 05/18/18 15:30 05/18/18 15:31 DC 05/18/18 15:42 4 MG Sodium Chloride 1,000 ml @ 1,000 mls/hr 1X ONCE 05/18/18 16:30 05/18/18 17:29 DC 05/18/18 16:30 1,000 MLS/HR Allergies Allergies Allergies Coded Allergies Type Severity Reaction Last Updated Verified Sulfa (Sulfonamide Antibiotics) Allergy Intermediate Hives 12/23/16 Yes adhesive Allergy Intermediate itch 12/23/16 Yes Physical Exam Physical Exam Constitutional: Well developed, well nourished, no acute distress, non-toxic appearance. [] HENT: Normocephalic, atraumatic, bilateral external ears normal, oropharynx moist, no oral exudates, nose normal. [] Eyes: PERRLA, EOMI, conjunctiva normal, no discharge. [] Neck: Normal range of motion, no tenderness, supple, no stridor. [] Cardiovascular:Heart rate regular rhythm, no murmur [] Lungs & Thorax: Bilateral breath sounds clear to auscultation [] Abdomen: Rounded abdomen. Bowel sounds normal, soft, tenderness diffusely on the right mid abdomen and no point tenderness to the right lower abdomen, negative Hyde sign, negative psoas sign, negative obturator sign, no masses, no pulsatile masses. [] Skin: Warm, dry, no erythema, no rash. [] Back: No tenderness, no CVA tenderness. [] Extremities: No tenderness, no cyanosis, no clubbing, ROM intact, no edema. [] Neurologic: Alert and oriented X 3, normal motor function, normal sensory function, no focal deficits noted. [] Psychologic: Affect normal, judgement normal, mood normal. [] Current Patient Data Vital Signs Vital Signs Date Time Temp Pulse Resp B/P (MAP) Pulse Ox O2 Delivery O2 Flow Rate FiO2 05/18/18 17:15 101 20 148/68 (94) 98 Room Air 05/18/18 15:11 99.3 99.3 Lab Values Laboratory Tests Test 05/18/18 14:42 05/18/18 15:44 Urine Collection Type Unknown Urine Color Yellow Urine Clarity Clear Urine pH 6.5 Urine Specific [place] 1.020 Urine Protein >=300 mg/dL (NEG-TRACE) Urine Glucose (UA) 250 mg/dL (NEG) Urine Ketones (Stick) 15 mg/dL (NEG) Urine Blood Moderate (NEG) Urine Nitrite Negative (NEG) Urine Bilirubin Negative (NEG) Urine Urobilinogen Dipstick 0.2 mg/dL (0.2 mg/dL) Urine Leukocyte Esterase Negative (NEG) Urine RBC 1-2 /HPF (0-2) Urine WBC 1-4 /HPF (0-4) Urine Squamous Epithelial Cells Mod /LPF Urine Bacteria Moderate /HPF (0-FEW) Urine Hyaline Casts Few /HPF Urine Opiates Screen Pos (NEG) Urine Methadone Screen Neg (NEG) Urine Barbiturates Neg (NEG) Urine Phencyclidine Screen Neg (NEG) Urine Amphetamine/Methamphetamine Neg (NEG) Urine Benzodiazepines Screen Neg (NEG) Urine Cocaine Screen Neg (NEG) Urine Cannabinoids Screen Pos (NEG) Urine Ethyl Alcohol Neg (NEG) White Blood Count 20.7 x10^3/uL (4.0-11.0) H Red Blood Count 5.62 x10^6/uL (3.50-5.40) H Hemoglobin 14.9 g/dL (12.0-15.5) Hematocrit 44.9 % (36.0-47.0) Mean Corpuscular Volume 80 fL (79-100) Mean Corpuscular Hemoglobin 27 pg (25-35) Mean Corpuscular Hemoglobin Concent 33 g/dL (31-37) Red Cell Distribution Width 17.2 % (11.5-14.5) H Platelet Count 340 x10^3/uL (140-400) Neutrophils (%) (Auto) 77 % (31-73) H Lymphocytes (%) (Auto) 12 % (24-48) L Monocytes (%) (Auto) 11 % (0-9) H Eosinophils (%) (Auto) 0 % (0-3) Basophils (%) (Auto) 0 % (0-3) Neutrophils # (Auto) 15.9 x10^3uL (1.8-7.7) H Lymphocytes # (Auto) 2.5 x10^3/uL (1.0-4.8) Monocytes # (Auto) 2.3 x10^3/uL (0.0-1.1) H Eosinophils # (Auto) 0.0 x10^3/uL (0.0-0.7) Basophils # (Auto) 0.1 x10^3/uL (0.0-0.2) Segmented Neutrophils % 75 % (35-66) H Band Neutrophils % 1 % (0-9) Lymphocytes % 17 % (24-48) L Monocytes % 7 % (0-10) Platelet Estimate Adequate (ADEQUATE) Anisocytosis Slight Sodium Level 131 mmol/L (136-145) L Potassium Level 3.6 mmol/L (3.5-5.1) Chloride Level 94 mmol/L (98-107) L Carbon Dioxide Level 22 mmol/L (21-32) Anion Gap 15 (6-14) H Blood Urea Nitrogen 7 mg/dL (7-20) Creatinine 0.6 mg/dL (0.6-1.0) Estimated GFR (Cockcroft-Gault) 102.3 BUN/Creatinine Ratio 12 (6-20) Glucose Level 165 mg/dL (70-99) H Calcium Level 9.7 mg/dL (8.5-10.1) Total Bilirubin 0.2 mg/dL (0.2-1.0) Aspartate Amino Transferase (AST) 27 U/L (15-37) Alanine Aminotransferase (ALT) 26 U/L (14-59) Alkaline Phosphatase 143 U/L (46-116) H Total Protein 8.5 g/dL (6.4-8.2) H Albumin 4.0 g/dL (3.4-5.0) Albumin/Globulin Ratio 0.9 (1.0-1.7) L Lipase 76 U/L (73-393) Ethyl Alcohol Level < 10 mg/dL (0-10) Laboratory Tests 05/18/18 15:44 Laboratory Tests 05/18/18 15:44 EKG EKG [] Radiology/Procedures Radiology/Procedures []PROCEDURE: CT ABD PELV W/ IV CONTRST ONLY PQRS Compliance statement: One or more of the following individualized dose reduction techniques were utilized for this examination: 1. Automated exposure control. 2. Adjustment of the mA and/or kV according to patient size. 3. Use of iterative reconstruction technique. Indication:ABD PAIN N/V/D INJ 75ML OMNI 300 PREV SENT TECHNIQUE: CT abdomen and pelvis with IV contrast with multiplanar reformats. COMPARISON: 04/04/2017 FINDINGS: Heart is normal in size. No pericardial or pleural effusion. Clear lung bases. Liver, spleen, pancreas, adrenals within normal limits. Status post cholecystectomy. No nephrolithiasis or hydronephrosis. Simple cyst is seen in the right kidney measuring 1.2 no enlarged retroperitoneal or pelvic adenopathy. No free pelvic fluid or ascites. No bowel obstruction. Fluid-filled small bowel loops are seen. No pneumoperitoneum. Urinary bladder is decompressed limiting optimal evaluation. Status post hysterectomy. Appendix is not confidently seen. Diffuse rugal thickening is seen in the stomach. No suspicious bony lesion. IMPRESSION: 1. Nonspecific fluid-filled small bowel loops. Clinically correlate with symptoms of diarrhea. 2. Appendix not visualized. 3. Gastric rugal thickening. Clinically correlate with symptoms of gastritis. Electronically signed by: Tyler Perea DO (05/18/2018 4:37 PM) [id number] DICTATED and SIGNED BY: TYLER PEREA DO DATE: 05/18/18 1631 Course & Med Decision Making Course & Med Decision Making Pertinent Labs and Imaging studies reviewed. (See chart for details) This is a 57-year-old female patient presented to the ED today with right-sided abdominal pain with nausea vomiting and diarrhea that began yesterday. CBC with a WBC of 20.7 and a left shift. CMP with sodium of 131, glucose of 165 anion gap 15. Urine analysis is negative for leukocytes, negative for nitrites. Patient was started on IV fluids. Given pain medicines in the ED. Patient was started on Zosyn in the ED. CT of the abdomen and pelvic- Nonspecific fluid-filled small bowel loops. Clinically correlate with symptoms of diarrhea. Appendix not visualized. Gastric rugal thickening. Clinically correlate with symptoms of gastritis. Patient was offered admission in the hospital, she requested to be discharged. She'll be discharged with Cipro, Flagyl, Zofran, dicyclomine and hydrocodone as needed for pain. Follow-up with GI on Tuesday. Instructed to return to the ED at any point symptoms worsen. Dragon Disclaimer Dragon Disclaimer This electronic medical record was generated, in whole or in part, using a voice recognition dictation system. Departure Departure Impression: Primary Impression: Gastroenteritis Additional Impressions: Gastritis Leukocytosis Disposition: HOME, SELF-CARE Condition: STABLE Referrals: RUTH NOVA MD (PCP) follow up next week SHEKHAR SWANSON MD follow up next week Patient Instructions: Diarrhea, [id number], Leukocytosis, Nausea and Vomiting Additional Instructions: You were evaluated in the emergency room for abdominal pain with vomiting and diarrhea. Please take the prescribed medications as ordered ensure you complete your antibiotics. Push fluids, maintain good hand hygiene. Follow-up with your primary care doctor as well as audio visual collections coordinator next week. Scripts Dicyclomine Hcl (DICYCLOMINE HCL) 20 Mg Tablet 1 TAB PO TID, #30 TAB 1 Refill Prov: BALBINA OLEA APRN 05/18/18 Metronidazole (FLAGYL) 500 Mg Tablet 500 MG PO TID, #30 TAB Prov: BALBINA OLEA APRN 18 Ciprofloxacin Hcl (CIPRO) 500 Mg Tablet 1 TAB PO BID, #14 TAB Prov: BALBINA OLEA APRN 05/18/18 Ondansetron (ZOFRAN ODT) 4 Mg Tab.rapdis 1 TAB SL Q8HRS, #15 TAB Prov: BALBINA OLEA APRN 18 Hydrocodone/Apap 5-325 (NORCO 5-325 TABLET) 1 Each Tablet 1 TAB PO Q6HRS, #20 TAB Prov: BALBINA OLEA APRN 05/18/18 Problem Qualifiers Additional Impressions: Gastritis Gastritis type: unspecified gastritis Chronicity: unspecified Gastritis bleeding: presence of bleeding unspecified Qualified Codes: K29.70 - Gastritis, unspecified, without bleeding Leukocytosis Leukocytosis type: unspecified Qualified Codes: D72.829 - Elevated white blood cell count, unspecified MARTHAREGINABALBINA العراقي May 18, 2018 16:09
[2018-05-18 16:10] LABS: ALBUMIN/GLOBULIN RATIO 0.9 (1.0-1.7); TOTAL BILIRUBIN 0.2 mg/dL (0.2-1.0); TOTAL PROTEIN 8.5 g/dL (6.4-8.2)
[2018-05-18] MEDS: IOHEXOL 300 MG/ML 100ML VIAL. IV ONE (16:19)
[2018-05-18 16:28] LABS: BARBITURATES NEG (NEG); BENZODIAZEPINES NEG (NEG); CANNABINOIDS POS (NEG); COCAINE NEG (NEG); METHADONE NEG (NEG); OPIATES POS (NEG); PHENCYCLIDINE NEG (NEG)
[2018-05-18 16:29] LABS: AMPHETAMINE/METHAMPHETAMINE NEG (NEG)
[2018-05-18] MEDS: IV NORMAL SALINE 1000ML BAG 1,000 ML IV ONE (16:30)
[2018-05-18] MEDS ORDERED: CONTRAST GIVEN. MC PRN (16:30)
--- NOTE | 2018-05-18 16:40 | RAD ---
PQRS Compliance statement: One or more of the following individualized dose reduction techniques were utilized for this examination: 1. Automated exposure control. 2. Adjustment of the mA and/or kV according to patient size. 3. Use of iterative reconstruction technique. Indication:ABD PAIN N/V/D INJ 75ML OMNI 300 PREV SENT TECHNIQUE: CT abdomen and pelvis with IV contrast with multiplanar reformats. COMPARISON: 04/04/2017 FINDINGS: Heart is normal in size. No pericardial or pleural effusion. Clear lung bases. Liver, spleen, pancreas, adrenals within normal limits. Status post cholecystectomy. No nephrolithiasis or hydronephrosis. Simple cyst is seen in the right kidney measuring 1.2 no enlarged retroperitoneal or pelvic adenopathy. No free pelvic fluid or ascites. No bowel obstruction. Fluid-filled small bowel loops are seen. No pneumoperitoneum. Urinary bladder is decompressed limiting optimal evaluation. Status post hysterectomy. Appendix is not confidently seen. Diffuse rugal thickening is seen in the stomach. No suspicious bony lesion. IMPRESSION: 1. Nonspecific fluid-filled small bowel loops. Clinically correlate with symptoms of diarrhea. 2. Appendix not visualized. 3. Gastric rugal thickening. Clinically correlate with symptoms of gastritis. Electronically signed by: Tyler Perea DO (05/18/2018 4:37 PM) [id number]
[2018-05-18 17:03] LABS: % BANDS 1 % (0-9); % LYMPHS 17 % (24-48); % MONOS 7 % (0-10); % SEGS 75 % (35-66); ANISOCYTOSIS SLIGHT; PLT ESTIMATE ADEQUATE (ADEQUATE)
[2018-05-18] MEDS ORDERED: CIPR500T94 PO (17:04)
[2018-05-18] MEDS ORDERED: ONDA4TAB10 SL (17:04)
[2018-05-18] MEDS ORDERED: HYDR-971 PO (17:04)
[2018-05-18] MEDS ORDERED: METR500T PO (17:04)
[2018-05-18] MEDS ORDERED: DICY20TA3 PO (17:04)
[2018-05-18 17:15] VITALS: BP 148/68
== END 2018-05-18 17:22 | disposition home or self-care (01) ==
LOC: ER 14:33
DX: K52.89 Other specified noninfective gastroenteritis and colitis (principal); K29.60 Other gastritis without bleeding; D72.829 Elevated white blood cell count, unspecified; E11.9 Type 2 diabetes mellitus without complications; Z90.49 Acquired absence of other specified parts of digestive tract; Z90.710 Acquired absence of both cervix and uterus; Z90.12 Acquired absence of left breast and nipple; Z88.2 Allergy status to sulfonamides; Z88.8 Allergy status to other drugs, medicaments and biological substances
CPT/HCPCS: 36415; 74018; 74177; 80053; 80307; 81001; 83690; 85007; 85025; 87086; 96365; 96375; 99285; G0480; J0690; J2270; J2405; J7030; Q9967

== ENCOUNTER → 2018-06-21 | Outpatient (CLI) | payer OTHER, MEDICARE ==
[~2018-06-21] MED LIST changes: +CIPR500T94 PO; +DICY20TA3 PO; -HYDR-2758 PO; +HYDR-2761 PO; +HYDR-3164 PO; +METO10TA81 PO; +METR500T PO; +ONDA4TAB10 SL; -OXYC-327 PO; +OXYC1TAB19 PO
--- NOTE | 2018-06-21 14:30 | RAD ---
3 views of the right knee without comparison for posterior knee pain for 2 months, no known injury. FINDINGS: There is no fracture, dislocation, or acute osseous abnormality identified. Joints and soft tissues are grossly unremarkable. No significant degenerative changes. IMPRESSION: 1. No acute osseous abnormality. Electronically signed by: Hardeep Lr MD (06/21/2018 2:26 PM) [id number]
== END | disposition home or self-care (01) ==
LOC: RAD 09:47
PROVIDERS: ATTEND Family Medicine
DX: M25.461 Effusion, right knee (principal)
CPT/HCPCS: 73562

== ENCOUNTER → 2018-07-03 | Outpatient (CLI) | payer OTHER, MEDICARE ==
[2018-06-27 11:00] VITALS: BP 107/78
[~2018-07-03] MED LIST changes: +HYDR-2769 PO; +LAMO150T2 PO; +RALO60TA PO
--- NOTE | 2018-07-03 16:24 | RAD ---
Nuclear medicine Meckel scan 07/03/2018 CLINICAL INDICATION: Intermittent abdominal pain for one and half years. History of cholecystectomy. COMPARISON: Abdominal radiograph 06/26/2018, CT abdomen pelvis 05/18/2015 TECHNIQUE: After the intravenous administration of 10.0 mCi technetium 99m pertechnetate, multiple anterior planar images were obtained every 2 minutes for 28 minutes. FINDINGS: There is physiologic accumulation of radiotracer in the stomach and urinary bladder. There is no additional focus of radiotracer to suggest Meckel's diverticulum. IMPRESSION: No evidence of Meckel's diverticulum. Electronically signed by: Koko Wagoner MD (07/03/2018 4:20 PM) [id number]
== END | disposition home or self-care (01) ==
LOC: NM 09:47
PROVIDERS: ATTEND Family Medicine
DX: R10.84 Generalized abdominal pain (principal); Z90.49 Acquired absence of other specified parts of digestive tract
CPT/HCPCS: 78290; 96374; A9512

== ENCOUNTER 2018-07-18 15:16 | Emergency (ER) | payer OTHER, MEDICARE ==
[~2018-07-18] VITALS: Ht 170.2 cm; Wt 79.4 kg
[2018-07-18] MEDS ORDERED: IV NORMAL SALINE 500ML BAG 500 ML IV ONE (16:00)
[2018-07-18] MEDS ORDERED: DICYCLOMINE 20 MG/2 ML AMPUL. IM ONE (16:00)
[2018-07-18] MEDS ORDERED: fentaNYL PF VIAL 100 MCG/2 ML VIAL IV ONE ×2 (16:00→19:15)
[2018-07-18 16:08] LABS: BILIRUBIN,URINE NEGATIVE (NEG); CLARITY,URINE CLEAR; COLOR,URINE YELLOW; NITRITE,URINE NEGATIVE (NEG); PH,URINE 7.5; PROTEIN,URINE >=300 mg/dL (NEG-TRACE); UROBILINOGEN,URINE 0.2 mg/dL (0.2 mg/dL)
[2018-07-18 16:20] LABS: BACTERIA,URINE FEW /HPF (0-FEW); SQUAMOUS EPITHELIAL CELL,UR MOD /LPF; WBC,URINE OCC /HPF (0-4)
--- NOTE | 2018-07-18 16:36 | EKG ---
[facility] [address] [place] [address] Test Date: 2018-07-18 Test Time: 16:26:35 Pat Name: LEYLA GNOSALES Department: Room: Gender: F Assessment Expert: : 1960 Requested By: PARUL GOMES Order Number: [id number] Reading MD: Arthur Hood MD Measurements Intervals [place] Rate: 98 P: 39 ND: 158 QRS: -16 QRSD: 138 T: 133 QT: 392 QTc: 503 Interpretive Statements SINUS RHYTHM LBBB Electronically Signed On 07-26-2018 10:18:09 ADJUSTMENT CLERK by Arthur Hood MD
--- NOTE | 2018-07-18 17:06 | PHYS DOC ---
Past Medical History Past Medical History: Cancer, Diabetes-Type II, Other Additional Past Medical Histor: left breast ca,CHRONIC ABDOMINAL PAIN Past Surgical History: Cholecystectomy, Hysterectomy, Other Additional Past Surgical Histo: L mastectomy Alcohol Use: Occasionally Drug Use: Marijuana Adult General Chief Complaint Chief Complaint: ABDOMINAL PAIN HPI HPI 58-year-old female presents to ER with complaints of diffuse abdominal pain. She reports she has chronic abdominal pain with multiple ER visits due to exacerbation. Patient reports pain worsened today and she has felt slightly nauseated denies any vomiting or diarrhea. Patient denies fever, urinary symptoms, chest pain, or shortness of air. Patient reports last exacerbation was over . Patient states she is scheduled for a CT abdomen and pelvis tomorrow which was ordered by Dr. Gordon her primary care physician. Patient reports she has been doing Chantix and said today as her last day of smoking. Patient states she also is a marijuana smoker with yesterday be in the last day she reportedly is going to smoke. Patient denies any other illicit drug or alcohol use. Review of Systems Review of Systems Constitutional: Denies fever or chills [] Eyes: Denies change in visual acuity, redness, or eye pain [] HENT: Denies nasal congestion or sore throat [] Respiratory: Denies cough or shortness of breath [] Cardiovascular: Denies CP GI: Denies vomiting, bloody stools or diarrhea. Reports diffuse abd pain with intermittent nausea : Denies dysuria or hematuria [] Musculoskeletal: Denies back pain or joint pain [] Integument: Denies rash or skin lesions [] Neurologic: Denies headache, focal weakness or sensory changes [] Endocrine: Denies polyuria or polydipsia [] All other systems were reviewed and found to be within normal limits, except as documented in this note. Current Medications Current Medications Current Medications Medications (Trade) Dose Ordered Sig/Julieta Start Time Stop Time Status Last Admin Dose Admin Dicyclomine HCl (Bentyl) 20 mg 1X ONCE 07/18/18 16:00 07/18/18 16:02 DC 07/18/18 17:26 20 MG Fentanyl Citrate (Fentanyl 2ml Vial) 50 mcg 1X ONCE 07/18/18 19:15 07/18/18 19:16 DC 07/18/18 19:21 50 MCG Info (CONTRAST GIVEN -- Rx MONITORING) 1 each PRN DAILY PRN 07/18/18 18:15 07/20/18 18:14 Iohexol (Omnipaque 300 Mg/ml) 75 ml 1X ONCE 07/18/18 18:15 07/18/18 18:16 DC 07/18/18 18:27 75 ML Sodium Chloride 500 ml @ 500 mls/hr 1X ONCE 07/18/18 16:00 07/18/18 16:59 DC 07/18/18 16:00 500 MLS/HR Allergies Allergies Allergies Coded Allergies Type Severity Reaction Last Updated Verified Sulfa (Sulfonamide Antibiotics) Allergy Intermediate Hives 12/23/16 Yes adhesive Allergy Intermediate itch 12/23/16 Yes morphine Allergy Mild RASH 06/23/18 Yes Physical Exam Physical Exam Constitutional: Well developed, well nourished, mild distress on initial exam, non-toxic appearance. [] HENT: Normocephalic, atraumatic, mucous membranes pink/dry, no oral exudates, nose normal. [] Eyes: Pupils equal, conjunctiva normal, no discharge. [] Neck: Normal range of motion, no tenderness, supple, no stridor. [] Cardiovascular: Heart rate regular rhythm, no murmur [] Lungs & Thorax: Bilateral breath sounds clear to auscultation. Resp. equal/ nonlabored Abdomen: Bowel sounds normal, soft- no distention or rigidity, she is tenderness in all abdomen with no focal area or rebound tenderness, no masses, no pulsatile masses. [] Skin: Warm, dry, no erythema, no rash. [] Back: No tenderness, no CVA tenderness. [] Extremities: No tenderness, no cyanosis, no clubbing, ROM intact, no edema. [] Neurologic: Alert and oriented X 3, normal motor function, normal sensory function, no focal deficits noted. [] Psychologic: Affect normal, judgement normal, mood normal. [] Current Patient Data Vital Signs Vital Signs Date Time Temp Pulse Resp B/P (MAP) Pulse Ox O2 Delivery O2 Flow Rate FiO2 07/18/18 19:21 16 96 Room Air 07/18/18 16:16 98.1 106 226/117 (153) 98.1 Lab Values Laboratory Tests Test 07/18/18 15:43 07/18/18 17:20 Urine Collection Type Unknown Urine Color Yellow Urine Clarity Clear Urine pH 7.5 Urine Specific [place] 1.015 Urine Protein >=300 mg/dL (NEG-TRACE) Urine Glucose (UA) 100 mg/dL (NEG) Urine Ketones (Stick) 15 mg/dL (NEG) Urine Blood Negative (NEG) Urine Nitrite Negative (NEG) Urine Bilirubin Negative (NEG) Urine Urobilinogen Dipstick 0.2 mg/dL (0.2 mg/dL) Urine Leukocyte Esterase Negative (NEG) Urine RBC 1-2 /HPF (0-2) Urine WBC Occ /HPF (0-4) Urine Squamous Epithelial Cells Mod /LPF Urine Bacteria Few /HPF (0-FEW) Urine Mucus Mod /LPF White Blood Count 13.0 x10^3/uL (4.0-11.0) H Red Blood Count 5.38 x10^6/uL (3.50-5.40) Hemoglobin 14.1 g/dL (12.0-15.5) Hematocrit 42.4 % (36.0-47.0) Mean Corpuscular Volume 79 fL (79-100) Mean Corpuscular Hemoglobin 26 pg (25-35) Mean Corpuscular Hemoglobin Concent 33 g/dL (31-37) Red Cell Distribution Width 17.9 % (11.5-14.5) H Platelet Count 339 x10^3/uL (140-400) Neutrophils (%) (Auto) 84 % (31-73) H Lymphocytes (%) (Auto) 12 % (24-48) L Monocytes (%) (Auto) 4 % (0-9) Eosinophils (%) (Auto) 0 % (0-3) Basophils (%) (Auto) 1 % (0-3) Neutrophils # (Auto) 11.0 x10^3uL (1.8-7.7) H Lymphocytes # (Auto) 1.5 x10^3/uL (1.0-4.8) Monocytes # (Auto) 0.5 x10^3/uL (0.0-1.1) Eosinophils # (Auto) 0.0 x10^3/uL (0.0-0.7) Basophils # (Auto) 0.1 x10^3/uL (0.0-0.2) Sodium Level 135 mmol/L (136-145) L Potassium Level 3.8 mmol/L (3.5-5.1) Chloride Level 98 mmol/L (98-107) Carbon Dioxide Level 25 mmol/L (21-32) Anion Gap 12 (6-14) Blood Urea Nitrogen 6 mg/dL (7-20) L Creatinine 0.5 mg/dL (0.6-1.0) L Estimated GFR (Cockcroft-Gault) 125.9 BUN/Creatinine Ratio 12 (6-20) Glucose Level 160 mg/dL (70-99) H Calcium Level 10.7 mg/dL (8.5-10.1) H Total Bilirubin 0.4 mg/dL (0.2-1.0) Aspartate Amino Transferase (AST) 27 U/L (15-37) Alanine Aminotransferase (ALT) 28 U/L (14-59) Alkaline Phosphatase 153 U/L (46-116) H Troponin I Quantitative 0.019 ng/mL (0.000-0.055) Total Protein 8.0 g/dL (6.4-8.2) Albumin 4.0 g/dL (3.4-5.0) Albumin/Globulin Ratio 1.0 (1.0-1.7) Lipase 69 U/L (73-393) L Laboratory Tests 07/18/18 17:20 Laboratory Tests 07/18/18 17:20 EKG EKG EKG obtained and interpreted by Dr. Flores who compared to previous EKG in pt' s records with similar rhythm Radiology/Procedures Radiology/Procedures PROCEDURE: CT ABD PELV W/ IV CONTRST ONLY PQRS Compliance statement: One or more of the following individualized dose reduction techniques were utilized for this examination: 1. Automated exposure control. 2. Adjustment of the mA and/or kV according to patient size. 3. Use of iterative reconstruction technique. Indication:ABDOMEN PAIN
IV OMNI 300 75 MLS
PREVIOUS TECHNIQUE: CT abdomen and pelvis with IV contrast with multiplanar reformats. COMPARISON: 05/18/2018 FINDINGS: Heart is normal in size. No pericardial or pleural effusion. Clear lung bases. Liver, spleen, pancreas, adrenals within normal limits. Status post cholecystectomy. 1 cm simple cyst in the right kidney. No nephrolithiasis or hydronephrosis. No enlarged retroperitoneal or pelvic adenopathy. No free pelvic fluid or ascites. Status post hysterectomy. No bowel obstruction. Urinary bladder within normal limits. No pneumoperitoneum. No suspicious bony lesion. IMPRESSION: No acute findings. [] Course & Med Decision Making Course & Med Decision Making Pertinent Labs and Imaging studies reviewed. (See chart for details) 1645: There was delay with IV start- 20g started by this provider after 2 attempts- labs were unable to be obtained with this IV start. Will provide IV flds and have lab attempt to obtain blood for tests. 1750: On re-eval. after IV flds/meds patient reports her pain has improved. Patient is nontoxic in appearance and at this time in no visible distress. Patient is requesting to have CT abdomen and pelvis done today while in the ER versus waiting for tomorrow to have it. Test results were discussed with patient WBCs at 13.0 no bands; UA unremarkable and other labs unremarkable when compared to previous lab results. BP 190/106 HR 96. 1755: Report given to Kirsten Smalls APRN who will assume pt's care as CT is pending. 1900- PT advised of normal CT results. Requests another dose of fentanyl. Dragon Disclaimer Dragon Disclaimer This electronic medical record was generated, in whole or in part, using a voice recognition dictation system. Departure Departure Impression: Primary Impression: Chronic abdominal pain Additional Impression: Hypertension Disposition: 01 HOME, SELF-CARE Condition: STABLE Referrals: RUTH GORDON MD (PCP) Patient Instructions: Abdominal Pain (Nonspecific) Additional Instructions: Continue taking your home meds as prescribed. Follow up with Dr. Gordon about your abdominal pain and hypertension tomorrow. Return to the ER if symptoms worsen. Problem Qualifiers Additional Impression: Hypertension Hypertension type: unspecified Qualified Codes: I10 - Essential (primary) hypertension PARUL GOMES APRN Jul 18, 2018 17:05 KIRSTEN SMLALS APRN Jul 18, 2018 19:34
[2018-07-18 17:29] LABS: BASO # 0.1 x10^3/uL (0.0-0.2); BASO % 1 % (0-3); EOS % 0 % (0-3); HEMATOCRIT 42.4 % (36.0-47.0); HEMOGLOBIN 14.1 g/dL (12.0-15.5); LYMPH # 1.5 x10^3/uL (1.0-4.8); LYMPH % 12 % (24-48); MEAN CORPUSCULAR HEMOGLOBIN 26 pg (25-35); MEAN CORPUSCULAR HGB CONC 33 g/dL (31-37); MEAN CORPUSCULAR VOLUME 79 fL (79-100); MONO # 0.5 x10^3/uL (0.0-1.1); MONO % 4 % (0-9); NEUT % 84 % (31-73); PLATELET COUNT 339 x10^3/uL (140-400); RED BLOOD COUNT 5.38 x10^6/uL (3.50-5.40); RED CELL DISTRIBUTION WIDTH 17.9 % (11.5-14.5)
[2018-07-18 17:40] LABS: CALCIUM 10.7 mg/dL (8.5-10.1); CREATININE 0.5 mg/dL (0.6-1.0); GFR 125.9; POTASSIUM 3.8 mmol/L (3.5-5.1)
[2018-07-18 17:46] LABS: TOTAL BILIRUBIN 0.4 mg/dL (0.2-1.0)
[2018-07-18] MEDS ORDERED: CONTRAST GIVEN. MC PRN (18:15)
[2018-07-18] MEDS ORDERED: IOHEXOL 300 MG/ML 100ML VIAL. IV ONE (18:15)
--- NOTE | 2018-07-18 18:53 | RAD ---
PQRS Compliance statement: One or more of the following individualized dose reduction techniques were utilized for this examination: 1. Automated exposure control. 2. Adjustment of the mA and/or kV according to patient size. 3. Use of iterative reconstruction technique. Indication:ABDOMEN PAIN
IV OMNI 300 75 MLS
PREVIOUS TECHNIQUE: CT abdomen and pelvis with IV contrast with multiplanar reformats. COMPARISON: 05/18/2018 FINDINGS: Heart is normal in size. No pericardial or pleural effusion. Clear lung bases. Liver, spleen, pancreas, adrenals within normal limits. Status post cholecystectomy. 1 cm simple cyst in the right kidney. No nephrolithiasis or hydronephrosis. No enlarged retroperitoneal or pelvic adenopathy. No free pelvic fluid or ascites. Status post hysterectomy. No bowel obstruction. Urinary bladder within normal limits. No pneumoperitoneum. No suspicious bony lesion. IMPRESSION: No acute findings. Electronically signed by: Tyler Perea DO (07/18/2018 6:48 PM) [facility]
[2018-07-18 19:30] VITALS: BP 206/115
== END 2018-07-18 19:59 | disposition home or self-care (01) ==
LOC: ER 15:16
DX: G89.29 Other chronic pain (principal); R10.84 Generalized abdominal pain; I10 Essential (primary) hypertension; E11.9 Type 2 diabetes mellitus without complications; Z90.49 Acquired absence of other specified parts of digestive tract; Z90.710 Acquired absence of both cervix and uterus; Z88.2 Allergy status to sulfonamides; Z88.5 Allergy status to narcotic agent; Z88.8 Allergy status to other drugs, medicaments and biological substances
CPT/HCPCS: 36415; 74177; 80053; 81001; 83690; 84484; 85025; 93005; 96372; 96374; 96376; 99284; J0500; J3010; J7040; Q9967

== ENCOUNTER → 2018-08-18 | Outpatient (CLI) | payer OTHER, MEDICARE ==
--- NOTE | 2018-08-18 13:09 | KCIC ---
Examination: CT chest without contrast HISTORY: History of pulmonary infiltrate history of left breast cancer COMPARISON: 04/14/2018 TECHNIQUE: Axial CT images of the chest were performed without contrast. Coronal and sagittal reformats are performed Exposure: One or more of the following individualized dose reduction techniques were utilized for this examination: 1. Automated exposure control 2. Adjustment of the mA and/or kV according to patient size 3. Use of iterative reconstruction technique FINDINGS: The central airways are patent. Heart size grossly appears unremarkable. The ascending aorta measures 3.9 cm in transverse dimension. Diffuse coronary artery calcifications identified. In the left upper lobe of the lung abutting the anterior aspect of the pleura near the apex there is a 2.0 x 2.5 cm soft tissue density similar to prior exam could be a mass or chronic consolidation. Mild lung emphysematous changes identified. Faint groundglass opacities identified in the right apical lungs similar to prior exam. Right breast prosthesis is identified. The visualized noncontrasted liver, spleen, adrenals grossly appears unremarkable. No evidence of lytic bony destructive lesion identified. IMPRESSION: 1. Unchanged left apical lung mass or soft tissue density abutting the pleura. 2. Patchy groundglass airspace opacities identified in the right apical lungs similar to prior exam. 3. Mild ectasia of the ascending aorta. 4. Coronary artery calcifications. 5. Mild lung emphysematous changes Electronically signed by: Baltazar Hollingsworth MD (08/18/2018 1:06 PM) [place] [id number]
== END | disposition home or self-care (01) ==
LOC: KCIC CT 08:39
PROVIDERS: ATTEND Internal Medicine Pulmonary Disease
DX: I77.810 Thoracic aortic ectasia (principal); I25.10 Atherosclerotic heart disease of native coronary artery without angina pectoris; J43.9 Emphysema, unspecified; E11.9 Type 2 diabetes mellitus without complications; Z85.3 Personal history of malignant neoplasm of breast; Z87.891 Personal history of nicotine dependence
CPT/HCPCS: 71250

== ENCOUNTER 2019-05-03 10:20 | Inpatient (IN) | payer BC, MEDICARE ==
[~2019-05-03] VITALS: Ht 170.2 cm; Wt 75.7 kg
[2019-05-03] VITALS (8 sets, daily range): BP systolic 114–147; BP diastolic 52–91
[~2019-05-03 10:20] MED LIST changes: +OMEP40CA45 PO; -OMEP40CA5 PO
[2019-05-03] MEDS: IV NORMAL SALINE 1000ML BAG 1,000 ML IV SCH ×2 (13:10→21:45)
--- NOTE | 2019-05-03 13:16 | PDOC2 ---
GI CONSULT Reason For Consult: possible GI bleed HPI: HPI: 58 y/o female who we have seen in the past. This time directly admitted by Dr. Gordon. Feeling weak w/ SOA and dizziness on exertion for about 1 month. Taking 4 Excedrin a few times daily for hip, shoulder, and back pain, tries to avoid hydrocodone "so I won't be taken off of it." Labs yesterday noted Hgb 6.2 - previously 14.1 in 07/2018. MCV 67, normal BUN and Cr. Denies obvious bleeding including hematemesis, hematochezia, and melena. H/o GERD on Aciphex QD. Denies dysphagia, n/v, diarrhea, constipation, change in appetite, or weight loss. Does have some vague periumbilical discomfort - no change with eating, stooling, or movement. EGD and colonoscopy w/ Dr. Eduardo in 07/2016: mild reflux (confirmed w/ path), mild gastritis (no H. pylori), normal duodenum (no sprue), internal hemorrhoids, excessive looping in descending colon. H/o recurrent abd pain w/ n/v. Normal GES and Meckel's in the past couple years. SBS w/ prolonged transit time - no obstruction. S/p cholecystectomy. At one point considered second opinion at [facility] - not sure this was pursued. H/o RUQ hematoma (von Willebrand factor checked - report unavailable, bone kasey ow biopsy considered). PMH: PMH: breast cancer s/p radiation/chemo and left mastectomy, DM, GERD, fibromyalgia, neuropathy, depression, HLD, ANNE-MARIE< OA, hysterectomy, , cholecystectomy FH: Family History: Cancer (breast, colon), DM, Hypertension Social History: Smoke: <1 pack per day ALCOHOL: occassional Drugs: Marijuana ROS: GEN: Denies fevers, chills, sweats HEENT: Denies blurred vision, sore throat CV: Denies chest pain RESP: +SOA GI: Per HPI : Denies hematuria, dysuria ENDO: Denies weight changes NEURO: +dizziness MSK: +chronic pain SKIN: Denies jaundice, pruritus Vitals: Vitals: Vital Signs Date Time Temp Pulse Resp B/P (MAP) Pulse Ox O2 Delivery O2 Flow Rate FiO2 05/03/19 11:10 98.4 91 20 140/52 (81) 100 Room Air 98.4 Allergies: Coded Allergies: Sulfa (Sulfonamide Antibiotics) (Verified Allergy, Intermediate, Hives, 12/23/16) adhesive (Verified Allergy, Intermediate, itch, 12/23/16) morphine (Verified Allergy, Mild, RASH, 06/23/18) Medications: Current Medications Medications (Trade) Dose Ordered Sig/Julieta Route PRN Reason Start Time Stop Time Status Last Admin Dose Admin Sodium Chloride 1,000 ml @ 100 mls/hr Q10H IV 05/03/19 11:45 05/03/19 13:10 PE: GEN: NAD HEENT: Atraumatic, PERRL LUNGS: CTAB HEART: RRR ABD: NABS, S/ND, periumbilical discomfort EXTREMITY: No edema SKIN: No rashes, no jaundice NEURO/PSYCH: A & O 3 A/P: A/P: Weakness, SOA, dizzines Microcytic anemia GERD - on PPI CRC screen - UTD Hemorrhoids Excedrin use, chronic pain H/o RUQ hematoma - unclear etiology S/p cholecystectomy -- Plans for transfusion - agree. NPO w/ IV PPI for now. Will review w/ Dr. Rahman - ?EGD tomorrow - she would be agreeable. AYAKA NOGUEIRA May 03, 2019 13:16
[2019-05-03] MEDS ORDERED: FLU VAX QS 2019-20 (36MOS+)/PF 0.5 ML SYRINGE. VAX IM ONE (14:00)
[2019-05-03 15:32] LABS: BASO # 0.2 x10^3/uL (0.0-0.2); BASO % 2 % (0-3); EOS # 0.2 x10^3/uL (0.0-0.7); EOS % 3 % (0-3); LYMPH # 2.1 x10^3/uL (1.0-4.8); LYMPH % 27 % (24-48); MEAN CORPUSCULAR HEMOGLOBIN 20 pg (25-35); MEAN CORPUSCULAR HGB CONC 30 g/dL (31-37); MEAN CORPUSCULAR VOLUME 67 fL (79-100); MONO % 13 % (0-9); NEUT # 4.3 x10^3/uL (1.8-7.7); NEUT % 55 % (31-73); PLATELET COUNT 248 x10^3/uL (140-400); RED BLOOD COUNT 2.87 x10^6/uL (3.50-5.40); RED CELL DISTRIBUTION WIDTH 18.6 % (11.5-14.5); WHITE BLOOD COUNT 7.8 x10^3/uL (4.0-11.0)
[2019-05-03 15:37] LABS: HEMOGLOBIN 5.8 g/dL (12.0-15.5)
[2019-05-03 15:38] LABS: HEMATOCRIT 19.3 % (36.0-47.0)
[2019-05-03 15:51] LABS: PLT ESTIMATE ADEQUATE (ADEQUATE)
[2019-05-03 15:52] LABS: ANISOCYTOSIS SLIGHT; HYPOCHROMIA MARKED; MICROCYTOSIS MARKED; POIKILOCYTOSIS SLIGHT
[2019-05-03 15:53] LABS: OVALOCYTES FEW
[2019-05-03 16:14] LABS: ALBUMIN 3.4 g/dL (3.4-5.0); CALCIUM 9.2 mg/dL (8.5-10.1); CREATININE 0.5 mg/dL (0.6-1.0); GFR 125.9; POTASSIUM 3.7 mmol/L (3.5-5.1); TOTAL BILIRUBIN 0.3 mg/dL (0.2-1.0); TOTAL PROTEIN 6.8 g/dL (6.4-8.2)
--- NOTE | 2019-05-03 16:39 | HP ---
ADMIT DATE: CHIEF COMPLAINT AND HISTORY OF PRESENT ILLNESS: This 58-year-old white female is well known to me from followup in the office. The patient was seen the day prior to admission with shortness of breath over the last couple of weeks or so. Hemoglobin was drawn and reported out late evening prior to admission at 6.1. I saw her again on the morning of admission, quite symptomatic, unable to ____ get in my office, soon I elected to admit her for transfusion and further investigation of her anemia. PAST MEDICAL HISTORY: Remarkable for remote history of breast cancer on the left. She has a history of diet-controlled diabetes. PAST SURGICAL HISTORY: She has had prior cholecystectomy, hysterectomy and left mastectomy. MEDICATIONS: Brought with the patient, listed on the computer and have been addressed. ALLERGIES: ____. SOCIAL HISTORY: She does have a history of smoking, does not abuse alcohol or drugs. She is , lives at home with her . FAMILY HISTORY: Noncontributory. REVIEW OF SYSTEMS: As mentioned above. PHYSICAL EXAMINATION: GENERAL: She is well-developed, well-nourished white female, appears somewhat pale. VITAL SIGNS: Stable. She is afebrile. HEAD, EYES, EARS, NOSE AND THROAT: Remarkable for pallor of the conjunctivae. NECK: Supple without bruit or thyromegaly. CHEST: Clear to auscultation and percussion. HEART: Regular rate and rhythm without S3, S4 or murmur. ABDOMEN: Soft, nontender, without hepatosplenomegaly or mass. EXTREMITIES: Without cyanosis, clubbing or edema. NEUROLOGIC: She is intact. IMPRESSION: 1. Symptomatic anemia of uncertain etiology with the patient denying any complaints of blood loss GI or fonseca on review of systems 2. Other problems as listed above. PLAN: The patient has been admitted. She will be monitored on telemetry. IV has been started. She will be typed, crossed and transfused 1 packed red blood cells. GI will be asked to see her and the patient will be monitored, managed and treated appropriately. RUTH NOVA MD DR: DENG/kely JOB#: [id number] / [id number]
[2019-05-03] MEDS: PANTOPRAZOLE IV PUSH 40 MG VIAL. IVP SCH (17:55)
[2019-05-03] MEDS ORDERED: CIPR500T94 PO (22:43)
[2019-05-03] MEDS ORDERED: AMOX1TAB11 PO (22:43)
[2019-05-03] MEDS ORDERED: ASPI-621 PO (22:43)
[2019-05-03] MEDS ORDERED: FEXO1TAB27 PO (22:46)
[2019-05-03] MEDS ORDERED: lamoTRIgine 100 MG TABLET. PO SCH (23:00)
[2019-05-03] MEDS ORDERED: ATORVASTATIN CALCIUM 40 MG TABLET. PO SCH (23:00)
[2019-05-03] MEDS ORDERED: ARIPiprazole 5 MG TABLET PO SCH (23:00)
[2019-05-03] MEDS ORDERED: CELE200C PO (23:01)
--- NOTE | 2019-05-03 23:34 | NUR ---
Transfused first unit of blood without untoward reactions. Pt tolerated the blood transfusion. No discomfort or complaints per pt.
[2019-05-04] VITALS (8 sets, daily range): BP systolic 127–151; BP diastolic 68–102
[2019-05-04 07:00] LABS: FECAL OB PT NEGATIVE (NEG)
[2019-05-04] MEDS ORDERED: IV RINGERS,LACTATED 1000ML 1,000 ML IV SCH (07:00)
[2019-05-04] MEDS: PANTOPRAZOLE IV PUSH 40 MG VIAL. IVP SCH (07:20)
[2019-05-04 07:42] LABS: BASO # 0.2 x10^3/uL (0.0-0.2); BASO % 2 % (0-3); EOS # 0.2 x10^3/uL (0.0-0.7); EOS % 3 % (0-3); HEMATOCRIT 29.8 % (36.0-47.0); HEMOGLOBIN 9.3 g/dL (12.0-15.5); LYMPH # 1.9 x10^3/uL (1.0-4.8); LYMPH % 25 % (24-48); MEAN CORPUSCULAR HEMOGLOBIN 23 pg (25-35); MEAN CORPUSCULAR HGB CONC 31 g/dL (31-37); MEAN CORPUSCULAR VOLUME 73 fL (79-100); MONO # 0.9 x10^3/uL (0.0-1.1); MONO % 12 % (0-9); NEUT # 4.6 x10^3/uL (1.8-7.7); NEUT % 59 % (31-73); PLATELET COUNT 257 x10^3/uL (140-400); RED BLOOD COUNT 4.08 x10^6/uL (3.50-5.40); RED CELL DISTRIBUTION WIDTH 23.2 % (11.5-14.5); WHITE BLOOD COUNT 7.8 x10^3/uL (4.0-11.0)
[2019-05-04] MEDS: IV NORMAL SALINE 1000ML BAG 1,000 ML IV SCH (07:45)
--- NOTE | 2019-05-04 07:47 | PDOC ---
GENERAL General: vss and afebrile. awake and alert and feels some better after transfusion 2 units prbc's. for egd this am. repeat Hb this am pending with Hb 5.8 on adm ission. iron studies consistent with iron deficiency anemia. plans to follow egd. chest clear, heart regular, abdomen benign. VITAL SIGNS/I&O Vital Signs/I&O: Vital Signs Date Time Temp Pulse Resp B/P (MAP) Pulse Ox O2 Delivery O2 Flow Rate FiO2 05/04/19 05:57 99.4 81 16 151/96 (114) Room Air 99.4 05/04/19 00:20 94 I & O 05/03/19 05/03/19 05/04/19 15:00 23:00 07:00 Intake Total 0 ml 450 ml 100 ml Output Total 1000 ml 500 ml Balance 0 ml -550 ml -400 ml ALLERGIES Allergies: Allergies Coded Allergies Type Severity Reaction Last Updated Verified Sulfa (Sulfonamide Antibiotics) Allergy Intermediate Hives 12/23/16 Yes adhesive Allergy Intermediate itch 12/23/16 Yes morphine Allergy Mild RASH 06/23/18 Yes MEDS Medications: Current Medications Medications (Trade) Dose Ordered Sig/Julieta Route PRN Reason Start Time Stop Time Status Last Admin Dose Admin Sodium Chloride 1,000 ml @ 100 mls/hr Q10H IV 05/03/19 11:45 05/03/19 13:10 Pantoprazole Sodium (PROTONIX VIAL for IV PUSH) 40 mg DAILYAC IVP 05/03/19 16:30 05/04/19 07:20 Aripiprazole (Abilify) 10 mg HS PO 05/03/19 23:00 05/04/19 01:15 Atorvastatin Calcium (Lipitor) 40 mg HS PO 05/03/19 23:00 05/04/19 01:15 Lamotrigine (LaMICtal) 300 mg HS PO 05/03/19 23:00 05/04/19 01:15 LAB Lab: Laboratory Tests Test 05/03/19 14:45 05/03/19 23:40 White Blood Count 7.8 x10^3/uL (4.0-11.0) Red Blood Count 2.87 x10^6/uL (3.50-5.40) L Hemoglobin 5.8 g/dL (12.0-15.5) *L Hematocrit 19.3 % (36.0-47.0) *L Mean Corpuscular Volume 67 fL (79-100) L Mean Corpuscular Hemoglobin 20 pg (25-35) L Mean Corpuscular Hemoglobin Concent 30 g/dL (31-37) L Red Cell Distribution Width 18.6 % (11.5-14.5) H Platelet Count 248 x10^3/uL (140-400) Neutrophils (%) (Auto) 55 % (31-73) Lymphocytes (%) (Auto) 27 % (24-48) Monocytes (%) (Auto) 13 % (0-9) H Eosinophils (%) (Auto) 3 % (0-3) Basophils (%) (Auto) 2 % (0-3) Neutrophils # (Auto) 4.3 x10^3/uL (1.8-7.7) Lymphocytes # (Auto) 2.1 x10^3/uL (1.0-4.8) Monocytes # (Auto) 1.0 x10^3/uL (0.0-1.1) Eosinophils # (Auto) 0.2 x10^3/uL (0.0-0.7) Basophils # (Auto) 0.2 x10^3/uL (0.0-0.2) Platelet Estimate Adequate (ADEQUATE) Hypochromasia Marked Poikilocytosis Slight Anisocytosis Slight Microcytosis Marked Ovalocytes Few Sodium Level 144 mmol/L (136-145) Potassium Level 3.7 mmol/L (3.5-5.1) Chloride Level 108 mmol/L (98-107) H Carbon Dioxide Level 27 mmol/L (21-32) Anion Gap 9 (6-14) Blood Urea Nitrogen 6 mg/dL (7-20) L Creatinine 0.5 mg/dL (0.6-1.0) L Estimated GFR (Cockcroft-Gault) 125.9 BUN/Creatinine Ratio 12 (6-20) Glucose Level 88 mg/dL (70-99) Calcium Level 9.2 mg/dL (8.5-10.1) Iron Level 6 ug/dL (50-170) L Total Iron Binding Capacity 494 ug/dL (250-450) H Iron Saturation 1 % (15-34) L Total Bilirubin 0.3 mg/dL (0.2-1.0) Aspartate Amino Transferase (AST) 18 U/L (15-37) Alanine Aminotransferase (ALT) 16 U/L (14-59) Alkaline Phosphatase 111 U/L (46-116) Total Protein 6.8 g/dL (6.4-8.2) Albumin 3.4 g/dL (3.4-5.0) Albumin/Globulin Ratio 1.0 (1.0-1.7) Vitamin B12 Level 466 pg/mL (247-911) Stool Occult Blood Negative (NEG) Laboratory Tests 05/03/19 14:45 Laboratory Tests 05/03/19 14:45 RUTH NOVA MD May 04, 2019 07:47
[2019-05-04] MEDS ORDERED: PSEUDOEPHEDRINE ER 120 MG TABLET.ER. PO SCH (09:00)
[2019-05-04] MEDS ORDERED: PSEUDOEPHEDRINE PO SCH (09:00)
[2019-05-04] MEDS ORDERED: FEXOFENADINE PO SCH (09:00)
[2019-05-04] MEDS ORDERED: RALOXIFENE 60 MG TABLET. PO SCH (09:00)
[2019-05-04] MEDS ORDERED: CIPROFLOXACIN HCL 250 MG TABLET. PO SCH (09:00)
[2019-05-04] MEDS ORDERED: AMOXICILLIN/K CLAV 875/125MG TABLET. PO SCH (09:00)
[2019-05-04] MEDS ORDERED: RABEPRAZOLE SODIUM PO SCH (09:00)
[2019-05-04] MEDS ORDERED: DULoxetine HCL 30 MG CAPSULE.DR PO SCH (09:00)
[2019-05-04] MEDS ORDERED: CETIRIZINE HCL 10 MG TABLET. PO SCH (09:00)
[2019-05-04] MEDS ORDERED: PROPOFOL 20 ML IV ONE (10:27)
[2019-05-04] MEDS ORDERED: LIDOCAINE 2% PF 5 ML VIAL. ONE (10:27)
--- NOTE | 2019-05-04 10:44 | PDOC4 ---
Operative Note Operative Note EGD Meds propofol per anesthesia Pre-op dx acute blood loss anemia/NSAID use post-opp dx non-erosive gastritis Plan advance diet release home if tolerated O/P cbc with possible interval Colonoscopy/capsule endoscopy if anemia persists SHEKHAR SWANSON MD May 04, 2019 10:44
[2019-05-04] MEDS ORDERED: hydrALAZINE 20 MG/ML VIAL. IVP ONE (11:00)
--- NOTE | 2019-05-04 11:14 | NUR ---
Patient requests flu vaccine at time of discharge.
--- NOTE | 2019-05-04 12:01 | NUR ---
SW consulted to assess dc needs. Chart reviewed and discussed with RN. Pt has PMHx Breast CA, hysterectomy and is admitted for GI bleed, anemia. Spoke with pt and pt verbalized she is having stomach pain- (RN notified). Pt lives at home with family and reports no issues with ADL's and does not use assistive devices. Pt denies SW needs at this time. Per RN, Pt had EGD this morning. SW will be available as needed.
--- NOTE | 2019-05-04 15:54 | NUR ---
Wound Care Wound care consult for pig bite to left hand. Pt has several scabs with small open areas from pig bite several days ago. No signs of infection present. Cleansed area and covered with Xeroform and Kerlix gauze, recommend to change every 2-3 days. No other wounds noted on full skin inspection. WC will continue to follow for possible changes.
--- NOTE | 2019-05-04 16:57 | NUR ---
Discharge instructions and belongings reviewed with patient, verbalized understanding. Patient will be escorted out via wheelchair by NA accompanied by her .
== END 2019-05-04 17:25 | disposition home or self-care (01) | DRG 812 ==
LOC: EDBD 10:58 → 6 SOUTH 10:58
PROVIDERS: ADMIT Family Medicine; ATTEND Family Medicine
PROC: 0DJ08ZZ Inspection of Upper Intestinal Tract, Via Natural or Artificial Opening Endoscopic (ICD-10-PCS; 2019-05-04)
PROC: 30233N1 Transfusion of Nonautologous Red Blood Cells into Peripheral Vein, Percutaneous Approach (ICD-10-PCS; principal; 2019-05-04 10:30)
DX: D50.9 Iron deficiency anemia, unspecified (principal); K29.70 Gastritis, unspecified, without bleeding; C50.919 Malignant neoplasm of unspecified site of unspecified female breast; E11.40 Type 2 diabetes mellitus with diabetic neuropathy, unspecified; F17.210 Nicotine dependence, cigarettes, uncomplicated; E78.5 Hyperlipidemia, unspecified; F32.9 Major depressive disorder, single episode, unspecified; G47.33 Obstructive sleep apnea (adult) (pediatric); K21.9 Gastro-esophageal reflux disease without esophagitis; M79.7 Fibromyalgia; Z80.3 Family history of malignant neoplasm of breast; Z82.49 Family history of ischemic heart disease and other diseases of the circulatory system; Z83.3 Family history of diabetes mellitus; Z85.3 Personal history of malignant neoplasm of breast; Z90.12 Acquired absence of left breast and nipple; Z90.49 Acquired absence of other specified parts of digestive tract; Z90.710 Acquired absence of both cervix and uterus; Z92.3 Personal history of irradiation; Z88.2 Allergy status to sulfonamides; Z88.8 Allergy status to other drugs, medicaments and biological substances; Z91.048 Other nonmedicinal substance allergy status
CPT/HCPCS: 36415; 43235; 71046; 80053; 80061; 82274; 82607; 83036; 83540; 83550; 84443; 85025; 85379; 86850; 86900; 86901; 86920; C9113; J2001; J2704; J7030; P9016; G0378

== ENCOUNTER 2019-05-20 15:50 | Inpatient (IN) | payer BC, MEDICARE ==
[~2019-05-20] VITALS: Ht 170.2 cm; Wt 83.9 kg
[~2019-05-20 15:50] MED LIST changes: +AMOX1TAB11 PO; +ASPI-621 PO; +CELE200C PO; +FEXO1TAB27 PO; -LAMO150T2 PO; +LAMO150T4 PO; -LAMO200T2 PO; +LAMO200T6 PO
--- NOTE | 2019-05-20 15:56 | HP ---
ADMIT DATE: CHIEF COMPLAINT AND HISTORY OF PRESENT ILLNESS: The patient is well known to me from followup in the office. The patient was admitted to the hospital back in the last month with symptomatic anemia with a hemoglobin of 6 on presentation, she received blood transfusion as well as had an EGD showing a nonerosive gastritis. Followup in the meantime has shown her hemoglobin on the 4th of this month to be as high as 11. She was back in this week prior to this admission feeling worse again, more weak, more short of breath. Hemoglobin had dropped to 8.4. Since Tuesday she has been unable to get out of bed, has been short of breath, weak. She has absolutely no appetite and was elected to admit her with the drop in hemoglobin and profound weakness for further lab on a more emergent basis with transfusion as needed and GI consultation as whatever is causing her abdominal pain is also causing her anemia. PAST MEDICAL HISTORY: Remarkable for remote history of breast cancer, has a history of diet-controlled diabetes. PAST SURGICAL HISTORY: Remarkable for prior cholecystectomy, hysterectomy, left mastectomy. MEDICATIONS: Brought with the patient, listed on the computer and have been addressed. ALLERGIES: She has no known drug allergies. SOCIAL HISTORY: Does have a smoking history, does not abuse alcohol or drugs. , lives at home with her . FAMILY HISTORY: Noncontributory. REVIEW OF SYSTEMS: As mentioned above. She specifically denies noting any blood with stools that she has been having. PHYSICAL EXAMINATION: GENERAL: She is well-developed, well-nourished white female who appears pale. VITAL SIGNS: Stable. She is afebrile. HEAD, EYES, EARS, NOSE AND THROAT: Unremarkable. NECK: Supple, without adenopathy or thyromegaly. CHEST: Clear to auscultation and percussion. HEART: Regular rate and rhythm without S3, S4 or murmur. ABDOMEN: Soft, nontender, without hepatosplenomegaly or mass. EXTREMITIES: Without cyanosis, clubbing, edema. NEUROLOGIC: She is intact. IMPRESSION: 1. Abdominal pain with suspected GI bleeding ongoing with drop in hemoglobin and profound weakness. 2. Other problems listed above. PLAN: The patient will be admitted. Labs will be checked once again. IV access will be obtained. GI will be consulted. The patient will be monitored, managed and treated appropriately. RUTH NOVA MD DR: Rosie JOB#: [id number] / [id number]
[2019-05-20 16:00] VITALS: BP 112/74
[2019-05-20] MEDS ORDERED: ASA/APAP/CAFFEINE 250/250/65MG TABLET. PO PRN (17:30)
[2019-05-20] MEDS: IV NORMAL SALINE 1000ML BAG 1,000 ML IV SCH (17:50)
[2019-05-20 19:00] VITALS: BP 108/51
[2019-05-20 19:18] LABS: BASO # 0.1 x10^3/uL (0.0-0.2); BASO % 1 % (0-3); EOS # 0.1 x10^3/uL (0.0-0.7); EOS % 1 % (0-3); HEMOGLOBIN 10.1 g/dL (12.0-15.5); LYMPH # 2.6 x10^3/uL (1.0-4.8); LYMPH % 21 % (24-48); MEAN CORPUSCULAR HEMOGLOBIN 23 pg (25-35); MEAN CORPUSCULAR HGB CONC 31 g/dL (31-37); MEAN CORPUSCULAR VOLUME 73 fL (79-100); MONO # 1.6 x10^3/uL (0.0-1.1); MONO % 13 % (0-9); NEUT # 7.7 x10^3/uL (1.8-7.7); NEUT % 64 % (31-73); PLATELET COUNT 589 x10^3/uL (140-400); RED BLOOD COUNT 4.49 x10^6/uL (3.50-5.40); RED CELL DISTRIBUTION WIDTH 26.4 % (11.5-14.5)
[2019-05-20] MEDS: HYDROcodone/APAP 10/325 1 TAB TABLET PO PRN (19:23)
[2019-05-20] MEDS ORDERED: CETIRIZINE HCL 10 MG TABLET. PO PRN (19:30)
[2019-05-20] MEDS ORDERED: PSEUDOEPHEDRINE ER 120 MG TABLET.ER. PO PRN (19:30)
[2019-05-20 19:35] LABS: ALBUMIN 3.4 g/dL (3.4-5.0); ALBUMIN/GLOBULIN RATIO 0.9 (1.0-1.7); CALCIUM 9.4 mg/dL (8.5-10.1); CREATININE 1.2 mg/dL (0.6-1.0); GFR 45.8; POTASSIUM 3.1 mmol/L (3.5-5.1); TOTAL BILIRUBIN 0.3 mg/dL (0.2-1.0)
[2019-05-20 19:45] LABS: PLT ESTIMATE INCREASED (ADEQUATE)
[2019-05-20 19:46] LABS: ANISOCYTOSIS MARKED; HYPOCHROMIA MOD; POLYCHROMASIA SLIGHT
[2019-05-20 19:47] LABS: MICROCYTOSIS SLIGHT; OVALOCYTES OCC
[2019-05-20] MEDS ORDERED: PSEUDOEPHEDRINE ER 120 MG TABLET.ER. PO SCH (21:00)
[2019-05-20] MEDS ORDERED: CETIRIZINE HCL 10 MG TABLET. PO SCH (21:00)
[2019-05-20] MEDS: ARIPiprazole 5 MG TABLET PO SCH (21:16)
[2019-05-20] MEDS: lamoTRIgine 100 MG TABLET. PO SCH (21:17)
[2019-05-20] MEDS: ATORVASTATIN CALCIUM 40 MG TABLET. PO SCH (21:17)
[2019-05-20 23:00] VITALS: BP 101/50
[2019-05-21] VITALS (7 sets, daily range): BP systolic 87–203; BP diastolic 42–113
[2019-05-21] MEDS: HYDROcodone/APAP 10/325 1 TAB TABLET PO PRN ×5 (02:47→21:08)
[2019-05-21] MEDS: IV NORMAL SALINE 1000ML BAG 1,000 ML IV SCH (04:40)
[2019-05-21] MEDS: CELECOXIB 100 MG CAPSULE. PO SCH (07:45)
[2019-05-21] MEDS: PANTOPRAZOLE 40 MG TABLET.DR. PO SCH (07:45)
[2019-05-21] MEDS: POTASSIUM CL 40MEQ IN 0.9%NACL 1,000 ML IV SCH ×2 (08:14→18:30)
[2019-05-21] MEDS: ASPIRIN ENTERIC COATED 81 MG TABLET.DR. PO SCH (09:00)
[2019-05-21] MEDS: DULoxetine HCL 30 MG CAPSULE.DR PO SCH (09:41)
[2019-05-21] MEDS: RALOXIFENE 60 MG TABLET. PO SCH (09:41)
--- NOTE | 2019-05-21 10:07 | PDOC2 ---
GI CONSULT Reason For Consult: Abd pain, anemia HPI: HPI: 58 y/o female who we've seen in the past. Other notes mention SOA w/ decreased appetite and fluctuating Hgb. Reports to me pain from epigastrium to suprapubic region - in a straight line - constant, worse after eating but not after drinking. Started on Tuesday. No precipitating events. Had diarrhea Tuesday. No dysphagia, n/v, hematochezia, or melena. Recently: MELISSA w/o obvious bleeding, heme negative stool, and normal B12. EGD by Dr. Rahman on 05/04/19 w/ non-erosive gastritis. Recs for outpt SBCE and c olonoscopy. In the past: recurrent abd pain w/ n/v. Past workup includes normal GES, Meckel's scan, SBS w/ prolonged transit time (no obstruction). S/p cholecystectomy. No celiac or SMA stenosis on CTA in 2017. Suggested second opinion at [facility] which she did not pursue because pain went away. Additional h/o RUQ hematoma (von Willebrand factor checked - report unavailable, bone marrow biopsy considered). EGD and colonoscopy by Dr. Eduardo in 07/2016: mild reflux (confirmed w/ path), mild gastritis (no H. pylori), normal duodenum (no sprue), internal hemorrhoids, excessive looping in descending colon. H/o GERD on Aciphex QD. Previously taking Excedrin, now hydrocodone for hip, shoulder, and back pain - but chart also shows ASA, Excedrin, and Celebrex. Was taking iron QOD after recent discharge but stopped due to constipation. Currently w/ significantly elevated BP. PMH: PMH: breast cancer s/p rad/chemo and left mastectomy, GERD, DM, fibromyalgia, neuropathy, depression, HLD, ANNE-MARIE< OA, hysterectomy, , cholecystectomy FH: Family History: Cancer (breast, colon), DM, Hypertension Social History: Smoke: <1 pack per day ALCOHOL: occassional Drugs: Marijuana ROS: GEN: Denies fevers, chills, sweats HEENT: Denies blurred vision, sore throat CV: Denies chest pain RESP: Denies shortness of air, cough GI: Per HPI : Denies hematuria, dysuria ENDO: Denies weight changes NEURO: Denies confusion, dizziness MSK: +chronic pain SKIN: Denies jaundice, pruritus Vitals: Vitals: Vital Signs Date Time Temp Pulse Resp B/P (MAP) Pulse Ox O2 Delivery O2 Flow Rate FiO2 05/21/19 09:40 Room Air 05/21/19 07:00 98.0 100 17 202/113 (142) 94 98.0 Labs: Labs: Laboratory Tests Test 05/20/19 19:05 White Blood Count 12.0 x10^3/uL (4.0-11.0) Red Blood Count 4.49 x10^6/uL (3.50-5.40) Hemoglobin 10.1 g/dL (12.0-15.5) Hematocrit 33.0 % (36.0-47.0) Mean Corpuscular Volume 73 fL (79-100) Mean Corpuscular Hemoglobin 23 pg (25-35) Mean Corpuscular Hemoglobin Concent 31 g/dL (31-37) Red Cell Distribution Width 26.4 % (11.5-14.5) Platelet Count 589 x10^3/uL (140-400) Neutrophils (%) (Auto) 64 % (31-73) Lymphocytes (%) (Auto) 21 % (24-48) Monocytes (%) (Auto) 13 % (0-9) Eosinophils (%) (Auto) 1 % (0-3) Basophils (%) (Auto) 1 % (0-3) Neutrophils # (Auto) 7.7 x10^3/uL (1.8-7.7) Lymphocytes # (Auto) 2.6 x10^3/uL (1.0-4.8) Monocytes # (Auto) 1.6 x10^3/uL (0.0-1.1) Eosinophils # (Auto) 0.1 x10^3/uL (0.0-0.7) Basophils # (Auto) 0.1 x10^3/uL (0.0-0.2) Platelet Estimate Increased (ADEQUATE) Polychromasia Slight Hypochromasia Mod Anisocytosis Marked Microcytosis Slight Ovalocytes Occ Sodium Level 136 mmol/L (136-145) Potassium Level 3.1 mmol/L (3.5-5.1) Chloride Level 100 mmol/L (98-107) Carbon Dioxide Level 25 mmol/L (21-32) Anion Gap 11 (6-14) Blood Urea Nitrogen 26 mg/dL (7-20) Creatinine 1.2 mg/dL (0.6-1.0) Estimated GFR (Cockcroft-Gault) 45.8 BUN/Creatinine Ratio 22 (6-20) Glucose Level 132 mg/dL (70-99) Calcium Level 9.4 mg/dL (8.5-10.1) Total Bilirubin 0.3 mg/dL (0.2-1.0) Aspartate Amino Transf (AST/SGOT) 19 U/L (15-37) Alanine Aminotransferase (ALT/SGPT) 15 U/L (14-59) Alkaline Phosphatase 110 U/L (46-116) Total Protein 7.0 g/dL (6.4-8.2) Albumin 3.4 g/dL (3.4-5.0) Albumin/Globulin Ratio 0.9 (1.0-1.7) Allergies: Coded Allergies: Sulfa (Sulfonamide Antibiotics) (Verified Allergy, Intermediate, Hives, 05/04/19) adhesive (Verified Allergy, Intermediate, itch, 05/04/19) morphine (Verified Allergy, Mild, RASH, 05/04/19) Medications: Current Medications Medications (Trade) Dose Ordered Sig/Julieta Route PRN Reason Start Time Stop Time Status Last Admin Dose Admin Sodium Chloride 1,000 ml @ 100 mls/hr Q10H IV 05/20/19 17:15 05/21/19 09:43 DC 05/21/19 04:40 Acetaminophen/ Hydrocodone Bitart (Lortab 10/325) 1 tab PRN Q6HRS PRN PO MODERATE PAIN 05/20/19 17:30 05/21/19 07:54 DC 05/21/19 02:47 Raloxifene HCl (Evista) 60 mg DAILY PO 05/21/19 09:00 05/21/19 09:41 Aripiprazole (Abilify) 10 mg QHS PO 05/20/19 21:00 05/20/19 21:16 Celecoxib (CeleBREX) 200 mg DAILY PO 05/21/19 09:00 05/21/19 07:45 Duloxetine HCl (Cymbalta) 120 mg DAILY PO 05/21/19 09:00 05/21/19 09:41 Lamotrigine (LaMICtal) 300 mg QHS PO 05/20/19 21:00 05/20/19 21:17 Pantoprazole Sodium (Protonix) 40 mg DAILYAC PO 05/21/19 07:30 05/21/19 07:45 Atorvastatin Calcium (Lipitor) 40 mg QHS PO 05/20/19 21:00 05/20/19 21:17 Acetaminophen/ Hydrocodone Bitart (Lortab 10/325) 1 tab PRN Q4HRS PRN PO MODERATE PAIN 05/21/19 08:00 05/21/19 08:12 Potassium Chloride/Sodium Chloride 1,000 ml @ 100 mls/hr Q10H IV 05/21/19 08:00 05/21/19 08:14 PE: GEN: NAD HEENT: Atraumatic, PERRL LUNGS: CTAB HEART: mild tachycardia ABD: NABS, soft, diffuse discomfort - seems worst epigastrium/periumbilical EXTREMITY: No edema SKIN: No rashes, no jaundice NEURO/PSYCH: A & O 3 A/P: A/P: Abd pain, MELISSA - recent EGD unrevealing, recs for outpt colon and SBCE GERD - on PPI CRC screen - UTD S/p cholecystectomy Chronic pain - GI workup as above HTN, JAYLEEN, NSAID use - per primary -- No abd imaging this time - start w/ x-ray. Continue PPI. ?iron transfusion Other per Dr. Rahman. AYAKA NOGUEIRA May 21, 2019 10:07
[2019-05-21] MEDS: cloNIDine HCL 0.1 MG TABLET PO PRN (10:41)
--- NOTE | 2019-05-21 14:44 | PDOC ---
GENERAL General: vss and afebrile. awake and alert. chest clear, heart regular, abdomen with epigastric tenderness this am. Hb 10 which was 8.4 last week and 11.2 couple of weeks ago. ongoing intermittent severe abdominal pain that is associated with bleeding and undefined to date. futher dominguez per GI. will replace K+. VITAL SIGNS/I&O Vital Signs/I&O: Vital Signs Date Time Temp Pulse Resp B/P (MAP) Pulse Ox O2 Delivery O2 Flow Rate FiO2 05/21/19 13:23 95 Room Air 05/21/19 12:09 92 179/90 (119) 05/21/19 10:50 98.3 17 98.3 I & O 05/20/19 05/20/19 05/21/19 15:00 23:00 07:00 Intake Total 300 ml 400 ml Balance 300 ml 400 ml ALLERGIES Allergies: Allergies Coded Allergies Type Severity Reaction Last Updated Verified Sulfa (Sulfonamide Antibiotics) Allergy Intermediate Hives 05/04/19 Yes adhesive Allergy Intermediate itch 05/04/19 Yes morphine Allergy Mild RASH 05/04/19 Yes MEDS Medications: Current Medications Medications (Trade) Dose Ordered Sig/Julieta Route PRN Reason Start Time Stop Time Status Last Admin Dose Admin Sodium Chloride 1,000 ml @ 100 mls/hr Q10H IV 05/20/19 17:15 05/21/19 09:43 DC 05/21/19 04:40 Acetaminophen/ Hydrocodone Bitart (Lortab 10/325) 1 tab PRN Q6HRS PRN PO MODERATE PAIN 05/20/19 17:30 05/21/19 07:54 DC 05/21/19 02:47 Raloxifene HCl (Evista) 60 mg DAILY PO 05/21/19 09:00 05/21/19 09:41 Aripiprazole (Abilify) 10 mg QHS PO 05/20/19 21:00 05/20/19 21:16 Celecoxib (CeleBREX) 200 mg DAILY PO 05/21/19 09:00 05/21/19 07:45 Duloxetine HCl (Cymbalta) 120 mg DAILY PO 05/21/19 09:00 05/21/19 09:41 Lamotrigine (LaMICtal) 300 mg QHS PO 05/20/19 21:00 05/20/19 21:17 Pantoprazole Sodium (Protonix) 40 mg DAILYAC PO 05/21/19 07:30 05/21/19 07:45 Atorvastatin Calcium (Lipitor) 40 mg QHS PO 05/20/19 21:00 05/20/19 21:17 Acetaminophen/ Hydrocodone Bitart (Lortab 10) 1 tab PRN Q4HRS PRN PO MODERATE PAIN 05/21/19 08:00 05/21/19 12:13 Potassium Chloride/Sodium Chloride 1,000 ml @ 100 mls/hr Q10H IV 05/21/19 08:00 05/21/19 08:14 Clonidine HCl (Catapres) 0.1 mg PRN Q6HRS PRN PO HYPERTENSION 05/21/19 10:45 05/21/19 10:41 LAB Lab: Laboratory Tests Test 05/20/19 19:05 White Blood Count 12.0 x10^3/uL (4.0-11.0) H Red Blood Count 4.49 x10^6/uL (3.50-5.40) Hemoglobin 10.1 g/dL (12.0-15.5) L Hematocrit 33.0 % (36.0-47.0) L Mean Corpuscular Volume 73 fL (79-100) L Mean Corpuscular Hemoglobin 23 pg (25-35) L Mean Corpuscular Hemoglobin Concent 31 g/dL (31-37) Red Cell Distribution Width 26.4 % (11.5-14.5) H Platelet Count 589 x10^3/uL (140-400) H Neutrophils (%) (Auto) 64 % (31-73) Lymphocytes (%) (Auto) 21 % (24-48) L Monocytes (%) (Auto) 13 % (0-9) H Eosinophils (%) (Auto) 1 % (0-3) Basophils (%) (Auto) 1 % (0-3) Neutrophils # (Auto) 7.7 x10^3/uL (1.8-7.7) Lymphocytes # (Auto) 2.6 x10^3/uL (1.0-4.8) Monocytes # (Auto) 1.6 x10^3/uL (0.0-1.1) H Eosinophils # (Auto) 0.1 x10^3/uL (0.0-0.7) Basophils # (Auto) 0.1 x10^3/uL (0.0-0.2) Platelet Estimate Increased (ADEQUATE) Polychromasia Slight Hypochromasia Mod Anisocytosis Marked Microcytosis Slight Ovalocytes Occ Sodium Level 136 mmol/L (136-145) Potassium Level 3.1 mmol/L (3.5-5.1) L Chloride Level 100 mmol/L (98-107) Carbon Dioxide Level 25 mmol/L (21-32) Anion Gap 11 (6-14) Blood Urea Nitrogen 26 mg/dL (7-20) H Creatinine 1.2 mg/dL (0.6-1.0) H Estimated GFR (Cockcroft-Gault) 45.8 BUN/Creatinine Ratio 22 (6-20) H Glucose Level 132 mg/dL (70-99) H Calcium Level 9.4 mg/dL (8.5-10.1) Total Bilirubin 0.3 mg/dL (0.2-1.0) Aspartate Amino Transferase (AST) 19 U/L (15-37) Alanine Aminotransferase (ALT) 15 U/L (14-59) Alkaline Phosphatase 110 U/L (46-116) Total Protein 7.0 g/dL (6.4-8.2) Albumin 3.4 g/dL (3.4-5.0) Albumin/Globulin Ratio 0.9 (1.0-1.7) L Laboratory Tests 05/20/19 19:05 Laboratory Tests 05/20/19 19:05 RUTH NOVA MD May 21, 2019 14:44
--- NOTE | 2019-05-21 15:52 | RAD ---
EXAM: Abdomen acute complete. HISTORY: Pain. COMPARISON: 08/18/2018 FINDINGS: A frontal view the chest and frontal upright and supine views of the abdomen are obtained. There is no infiltrate, pleural effusion or pneumothorax. There is hyperinflation due to inspiratory effort or emphysema. There are implanted breast prostheses. There is gas and stool within the colon. There is no evidence of bowel obstruction. There is no free air. There are cholecystectomy clips. IMPRESSION: 1. No acute pulmonary finding. 2. Nonobstructive bowel gas pattern. Electronically signed by: Belkys Fink MD (05/21/2019 3:49 PM) [place] [id number]
--- NOTE | 2019-05-21 16:20 | NUR ---
SW consulted for multiple visits. Chart reviewed and discussed with RN. Pt has PMHx Breast CA, hysterectomy and is admitted for abd pain, anemia. SW had met with pt on previous admission and there were no SW needs indicated. SW Spoke with pt today. Pt lives at home with family and reports no issues with ADL's and does not use assistive devices. Pt reports no issues with Physical mobility at home since last discharge date. Pt states her multiple visits are due to medical conditions. SW discussed if arranging home health might benefit her for diseases management and pt declined skilled home health nursing needs. Pt states she only wants help with house keeping and SW offered to provide private pay agencies that can help but pt declined. SW will be available as needed but pt is declining home health or resources at this time.
[2019-05-21] MEDS: ATORVASTATIN CALCIUM 40 MG TABLET. PO SCH (21:08)
[2019-05-21] MEDS: lamoTRIgine 100 MG TABLET. PO SCH (21:08)
[2019-05-21] MEDS: ARIPiprazole 5 MG TABLET PO SCH (21:08)
[2019-05-22] MEDS: HYDROcodone/APAP 10/325 1 TAB TABLET PO PRN ×5 (01:08→17:54)
[2019-05-22 03:00] VITALS: BP 152/92
[2019-05-22] MEDS: POTASSIUM CL 40MEQ IN 0.9%NACL 1,000 ML IV SCH ×2 (04:50→16:49)
[2019-05-22 07:00] VITALS: BP 140/87
[2019-05-22] MEDS: PANTOPRAZOLE 40 MG TABLET.DR. PO SCH (07:42)
[2019-05-22] MEDS: RALOXIFENE 60 MG TABLET. PO SCH (08:52)
[2019-05-22] MEDS: CELECOXIB 100 MG CAPSULE. PO SCH (08:53)
[2019-05-22] MEDS: ASPIRIN ENTERIC COATED 81 MG TABLET.DR. PO SCH (08:53)
[2019-05-22] MEDS: DULoxetine HCL 30 MG CAPSULE.DR PO SCH (08:53)
--- NOTE | 2019-05-22 09:49 | PDOC ---
Subjective: Subjective: Feels better overall but had recurrence of abd pain after eating breakfast. Has stooled - some "orange" and some normal colored and slimy. Asks to go home. Says Dr. Gordon wants her to have the pill test. Objective: Vital Signs: Vital Signs Date Time Temp Pulse Resp B/P (MAP) Pulse Ox O2 Delivery O2 Flow Rate FiO2 05/22/19 09:19 Room Air 05/22/19 07:00 97.8 84 18 140/87 (104) 95 97.8 Imaging: Abd Doppler PE: GEN: NAD LUNGS: CTAB HEART: RRR ABD: epigastric discomfort to suprapubic region - less than yesterday NEURO/PSYCH: A & O 3 A/P: Post-prandial abd pain, MELISSA GERD Chronic pain -- Abd doppler pending - await results - if unrevealing, okay to DC per GI and follow-up for outpt colonoscopy and SBCE (after cardiology sees). Continue PPI, would also resume PO iron if can tolerate - can use Miralax PRN for constipation. Abd Doppler IMPRESSION: 1. Mildly elevated peak systolic velocities within the proximal superior mesenteric artery and celiac axis, suggesting a clinically significant stenosis. 2. Note is made that the abdominal visceral structures are not formally assessed on this exam. Reviewed this w/ Dr. Rahman who suggests IR and vascular consults. Will update nurse. AYAKA NOGUEIRA May 22, 2019 09:49
[2019-05-22] MEDS ORDERED: FERROUS SULFATE 325 MG TABLET. PO SCH (10:00)
[2019-05-22] MEDS ORDERED: POLYETHYLENE GLYCOL 3350 17 GM PACKET. PO PRN (10:00)
[2019-05-22] MEDS: cloNIDine HCL 0.1 MG TABLET PO PRN (10:23)
[2019-05-22 11:09] VITALS: BP 197/102
[2019-05-22 11:09] LABS: HEMATOCRIT 33.7 % (36.0-47.0); HEMOGLOBIN 10.3 g/dL (12.0-15.5); RED BLOOD COUNT 4.54 x10^6/uL (3.50-5.40); RED CELL DISTRIBUTION WIDTH 26.3 % (11.5-14.5); WHITE BLOOD COUNT 10.3 x10^3/uL (4.0-11.0)
[2019-05-22 11:22] LABS: CALCIUM 9.6 mg/dL (8.5-10.1); CREATININE 0.7 mg/dL (0.6-1.0); GFR 85.4; POTASSIUM 4.2 mmol/L (3.5-5.1)
--- NOTE | 2019-05-22 11:30 | PDOC2 ---
ADILENE NEWSOME PROJECT CONTROL MANAGER 05/22/19 1130: CARDIAC CONSULT DATE OF CONSULT Date of Consult DATE: 05/22/19 TIME: 11:20 REASON FOR CONSULT Reason for Consult: Decreased exercise tolerance REFERRING PHYSICIAN Referring Physician: Vandana SOURCE Source: Chart review, Patient HISTORY OF PRESENT ILLNESS HISTORY OF PRESENT ILLNESS This is a pleasant 58 yo female admitted for complains of weakness and shortness of breath. She is significant for severe anemia last month and was transfused. No noted direct source of her anemia but notable for MELISSA. In the last 1-2 weeks she has been SOA particularly with exertion but no chest pain or palpitations. She does have ANNE-MARIE noted about 10 yrs ago but she does not use any CPAP machine. She also has breast CA remotely and on remission and taking evista. She continues to smoke marijuana. She smokes tobacco and has COPD and does not have any inhalers for it. No fever or chills and no frequent productive coughing. She has been having intermittent left arm pain and has been having gfrequent dizzy spells but no passing out. No recent injury or falls. PAST MEDICAL HISTORY Past Medical History Cardiovascular: Hyperlipidemia, Other (LBBB) Pulmonary: No pertinent hx CENTRAL NERVOUS SYSTEM: Periperal neuropathy GI: GERD, Irritable bowel disease Heme/Onc: Cancer (breast >20 yrs ago with chemo) Hepatobiliary: Other (liver lesion) Psych: Anxiety, Bipolar, Depression Musculoskeletal: Osteoarthritis Rheumatologic: No pertinent hx Infectious disease: No pertinent hx ENT: No pertinent hx Renal/: No pertinent hx Endocrine: Diabetes (2) Dermatology: No pertinent hx PAST SURGICAL HISTORY Past Surgical History Cholecystectomy, , Hysterectomy, Other (breast reconstruction; lumpectomy) FAMILY HISTORY Family History noncontributory to CV SOCIAL HISTORY Smoke: <1 pack per day ALCOHOL: occassional Drugs: Marijuana Lives: Alone CURRENT MEDICATIONS CURRENT MEDICATIONS Current Medications Medications (Trade) Dose Ordered Sig/Julieta Route PRN Reason Start Time Stop Time Status Last Admin Dose Admin Polyethylene Glycol (miraLAX PACKET) 17 gm PRN DAILY PRN PO CONSTIPATION 05/22/19 10:00 05/22/19 10:25 ALLERGIES ALLERGIES: Coded Allergies: Sulfa (Sulfonamide Antibiotics) (Verified Allergy, Intermediate, Hives, 05/04/19) adhesive (Verified Allergy, Intermediate, itch, 05/04/19) morphine (Verified Allergy, Mild, RASH, 05/04/19) ROS Review of System 14 point ROS evaluated with pertinent positives noted per HPI PHYSICAL EXAM General: Alert, Oriented X3, Cooperative, No acute distress HEENT: Atraumatic, Mucous membr. moist/pink Lungs: Clear to auscultation, Normal air movement Heart: Regular rate, Other (distant heart sounds) Abdomen: Soft Extremities: No cyanosis, No edema Skin: No breakdown, No significant lesion Neuro: Normal speech, Sensation intact Psych/Mental Status: Mental status NL, Mood NL MUSCULOSKELETAL: Osteoarthritic changes both hands VITALS/I&O VITALS/I&O: Vital Signs Date Time Temp Pulse Resp B/P (MAP) Pulse Ox O2 Delivery O2 Flow Rate FiO2 05/22/19 11:09 97.8 108 18 197/102 (133) 97 Room Air 97.8 I & O 05/21/19 05/21/19 05/22/19 15:00 23:00 07:00 Intake Total 320 ml 1000 ml Output Total 0 ml Balance 320 ml 1000 ml 0 ml LABS Lab: Laboratory Tests Test 05/22/19 10:50 White Blood Count 10.3 x10^3/uL (4.0-11.0) Red Blood Count 4.54 x10^6/uL (3.50-5.40) Hemoglobin 10.3 g/dL (12.0-15.5) L Hematocrit 33.7 % (36.0-47.0) L Mean Corpuscular Volume 74 fL (79-100) L Mean Corpuscular Hemoglobin 23 pg (25-35) L Mean Corpuscular Hemoglobin Concent 31 g/dL (31-37) Red Cell Distribution Width 26.3 % (11.5-14.5) H Platelet Count 562 x10^3/uL (140-400) H Laboratory Tests 05/22/19 10:50 ECHOCARDIOGRAM ECHOCARDIOGRAM <Conclusion> There is moderate hypokinesis in the inferoseptal and inferior dawkins. The abdirahman-septal motion is consistent with conduction defect. Doppler and Color Flow revealed mild aortic regurgitation. Left ventricle systolic function is mildly reduced. LVEF 40-45%. DATE: 04/05/17 1053 HEART CATH HEART CATH CORONARY ANGIOGRAPHY: LM is a very short caliber vessel as there are near separate ostial of the LAD and LCx. Within the limitations of the study, no clear ostial stenosis is noted. LAD is a large caliber vessel with an ostial eccentric 20% stenosis. There is a proximal 40% stenosis. The remainder of the vessel has mild luminal irregularities. D1 is a moderate caliber vessel with normal angiographic apeparance. LCx is a moderate to large caliber dominant vessel with a mid 30% stenosis. OM1 is a moderate caliber vessel with normal angiographic appearance. LPL1 is a moderate caliber vessel with mild luminal irregularities. LPDA is a moderate caliber vessel with normal angiographic appearance. RCA is a small caliber non-dominant vessel with a mid 50% stenosis at the origin of a small acute marginal branch. Conclusion 1. No evidence of significant coronary artery disease to account for elevated biomarkers. 2. Normal LV function. EF >55% 3. Mild dilated ascending aorta, consider dedicated CT scan on an outpt basis if persistent chest pain. Recommendations Aggressive Medical Therapy DATE: 04/05/17 1340 ASSESSMENT/PLAN ASSESSMENT/PLAN 1. HEADLEY/weakness: multifactorial 2. Dizziness with LA pain 3. Fe def anemia with thrombocytosis 4. Hx of breast CA with Evista 5. Abd pain: vomiting and diarrhea Tuesday. CT pending 6. COPD with tobaccoism 7. Cardiomyopathy: NICM 8. Prerenal azotemia hypokalemia 9. Chronic LBBB: unchanged by comparison. no CP 10. Hx of ANNE-MARIE; no CPAP 11. HTN: labile Recommendations EKG TSH, Mg,m lipids TTE, Carotid doppler r/o subclavian stenosis Will review any BP meds. Further recommendation pending tests. smoking cessation GABE MARSHALL MD 05/22/19 1639: CARDIAC CONSULT ASSESSMENT/PLAN ASSESSMENT/PLAN Patient seen and examined. Agree with above nurse practitioner note. 58-year-old woman mostly present with abdominal pain. Her dyspnea is related to her anemia of unclear etiology workup is ongoing Ejection fraction is within normal limits. She does have peripheral arterial disease with probable left subclavian stenosis. CT scan is pending for ruling out of mesenteric ischemia which is probably less likely. Supportive care from pearly cardiac perspective. Subclavian stenosis can be addressed on an outpatient basis as she's currently asymptomatic. ADILENE NEWSOME APRN May 22, 2019 11:30 GABE MARSHALL MD May 22, 2019 16:39
--- NOTE | 2019-05-22 11:46 | EKG ---
[facility] [address] [place] [address] Test Date: 2019-05-22 Test Time: 11:40:55 Pat Name: LEYLA GONSALES Department: Room: 562 1 Gender: F Project Management Consultant: HAIM : 1960 Requested By: ADILENE NEWSOME Order Number: [id number] Reading MD: Arthur Hood MD Measurements Intervals [place] Rate: 86 P: 31 MA: 142 QRS: -28 QRSD: 138 T: 126 QT: 410 QTc: 494 Interpretive Statements SINUS RHYTHM LBBB Electronically Signed On 05-22-2019 11:53:10 ASSEMBLER SEAT by Arthur Hood MD
--- NOTE | 2019-05-22 13:46 | RAD ---
EXAM: Decker scale and color Doppler abdomen sonogram. HISTORY: Postprandial pain. TECHNIQUE: Decker scale and color Doppler sonographic imaging of the abdominal arteries was performed. COMPARISON: CT dated 07/18/2018. FINDINGS: The aorta is normal in caliber and demonstrates a normal peak systolic velocity of 115 cm/s. There is an elevated peak systolic velocity within the proximal superior mesenteric artery measuring 286 cm/s. There is also mildly elevated peak systolic velocity within the celiac artery, measuring 206 cm/s. There is normal torsional flow within a patent hepatic artery. IMPRESSION: 1. Mildly elevated peak systolic velocities within the proximal superior mesenteric artery and celiac axis, suggesting a clinically significant stenosis. 2. Note is made that the abdominal visceral structures are not formally assessed on this exam. Electronically signed by: Belkys Fink MD (05/22/2019 1:43 PM) [facility]
[2019-05-22] MEDS ORDERED: hydrALAZINE 25 MG TABLET PO SCH (14:00)
[2019-05-22] MEDS ORDERED: CONTRAST GIVEN. MC PRN (14:30)
[2019-05-22] MEDS ORDERED: IOHEXOL 350 MG/ML 100 ML VIAL. IV ONE (14:30)
--- NOTE | 2019-05-22 14:47 | CARD ---
MR#: [id number] Date of Study: 05/22/2019 Ordering Physician: ADILENE NEWSOME, Referring Physician: ADILENE NEWSOME Tech: Rosalina Nelson ROSAS APPROVED REPORT EXAM: Two-dimensional and M-mode echocardiogram with Doppler and color Doppler. Other Information Quality : Good Rhythm : LBBB INDICATION Abnormal ECG Dizziness and Vertigo Cardiomyopathy 2D DIMENSIONS RVDd3.2 (2.9-3.5cm)Left Atrium(2D)3.7 (1.6-4.0cm) IVSd0.8 (0.7-1.1cm)Aortic Root(2D)2.7 (2.0-3.7cm) LVDd4.6 (3.9-5.9cm)LVOT Diameter2.0 (1.8-2.4cm) PWd0.9 (0.7-1.1cm)LVDs3.2 (2.5-4.0cm) FS (%) 31.6 %SV58.6 ml LVEF(%)59.6 (>50%) Aortic Valve AoV Peak Misael.211.9cm/sAoV VTI36.2cm AO Peak GR.18.0mmHgLVOT Peak Misael.177.0cm/s LVOT VTI 31.13cmAO Mean GR.10mmHg DIVINE (VMAX)2.54ix0NTH (VTI)2.74cm2 AI P 1/2 Fpab493yv Mitral Valve MV E Swqghinl98.4cm/sMV DECEL AVOX239ps MV A Jpbwfdkf29.4cm/sMV EZX084kh E/A Ratio0.7MVA (PHT)1.94cm2 TDI E/Lateral E'10.2E/Medial E'14.0 Tricuspid Valve TR P. Qwiqglgq721yi/sRAP ETYTFTBW5xcMl TR Peak Gr.00nzWxNRLA85nuYj Pulmonary Vein S1 Svmkakze81.1cm/sD2 Ixjvwxfd81.5cm/s LEFT VENTRICLE The left ventricle is normal size. There is normal left ventricular wall thickness. The left ventricu lar systolic function is normal. The Ejection Fraction is 55-60%. Septal motion consistent with condu ction abnormality. Transmitral Doppler flow pattern is Grade I-abnormal relaxation pattern. RIGHT VENTRICLE The right ventricle is normal size. The right ventricular systolic function is normal. ATRIA The left atrium size is normal. The right atrium size is normal. The interatrial septum is intact wit h no evidence for an atrial septal defect or patent foramen ovale as noted on 2-D or Doppler imaging. AORTIC VALVE The aortic valve is calcified but opens well. Doppler and Color Flow revealed mild aortic regurgitati on. There is no significant aortic valvular stenosis. MITRAL VALVE The mitral valve is normal in structure and function. Mitral annular calcification is mild. There is no evidence of mitral valve prolapse. There is no mitral valve stenosis. Doppler and Color-flow revea led mild mitral regurgitation. TRICUSPID VALVE The tricuspid valve is normal in structure and function. Doppler and Color Flow revealed trace tricus pid regurgitation. The PA pressure was estimated at 22 mmHg. There is no tricuspid valve stenosis. PULMONIC VALVE The pulmonary valve is normal in structure and function. Doppler and Color Flow revealed mild pulmoni c valvular regurgitation. There is no pulmonic valvular stenosis. GREAT VESSELS The aortic root is normal in size. The ascending aorta is moderately dilated at 3.6 cm. The IVC is no rmal in size and collapses >50% with inspiration. PERICARDIAL EFFUSION There is no evidence of significant pericardial effusion. Critical Notification Critical Value: No <Conclusion> The left ventricular systolic function is normal. The Ejection Fraction is 55-60%. Transmitral Doppler flow pattern is Grade I-abnormal relaxation pattern. Mild aortic regurgitation. Mild mitral regurgitation. Trace tricuspid regurgitation. The PA pressure was estimated at 22 mmHg. There is no evidence of significant pericardial effusion. Signed by : Marcio Ramirez, Electronically Approved : 05/22/2019 14:47:02
[2019-05-22 15:00] VITALS: BP 107/71
--- NOTE | 2019-05-22 15:03 | RAD ---
MR#: [id number] Date of Study: 05/22/2019 Ordering Physician: ADILENE NEWSOME, Referring Physician: ADILENE NEWSOME, Tech: Nakul Bonner MBA, RDMS, RVT, RDCS, RTR APPROVED REPORT Patient Location: IN-PATIENT Indications Numbness/Tingling weak pulse lt arm Waveforms Right Left Prox Mid Distal Prox Mid Distal Subcl. Subcl. Rslx-jqemlrQhgc-nkpvsmNiny-phasic Axillary Axillary [place]-phasic Brachial Brachial Bccy-aptyvhGzaz-paksheKebg-phasic Radial Radial Oswi-lykypnEwei-ephrixHike-phasic Ulnar Ulnar Asyi-kjfmjvIprl-caeujlRegf-phasic Velocities Right Left Prox Mid Distal Prox Mid Distal Subcl. Subcl. 378.0cm/s52.0cm/s39.0cm/s Axillary Axillary 58.0cm/s Brachial Brachial 59.0cm/s91.0cm/s80.0cm/s Radial Radial 37.0cm/s41.0cm/s Ulnar Ulnar 59.0cm/s39.0cm/s Findings Decker scale images demonstrate moderate calcific plaque through the LUE arterial vessels. There is sev ere calcific plaque in the left proximal subclavian artery. Spectral waveforms are monophasic with severely elevated peak systolic velocities suggestive of > 75% stenosis in the proximal to mid left subclavian artery. No focal high grade stenosis noted in the le ft axillary, brachial, radial or ulnar vessels. Monophasic waveforms with adequate velocities are not ed distal to the left subclavian. Critical Notification Critical Value: No <Conclusion> 1. Greater than 75% stenosis involving the left subclavian artery with adeqaute perfusion to the fore arm. Signed by : Arthur Hood, Electronically Approved : 05/22/2019 15:02:33
[2019-05-22 15:34] LABS: CHOLESTEROL/HDL RATIO 4.2
--- NOTE | 2019-05-22 16:28 | PDOC2 ---
CONSULT Date of Consult Date of Consult DATE: 05/22/19 TIME: 16:23 Reason for Consult Reason for Consult: Concern for mesenteric vascular occlusive disease History of Present Illness Reason for Visit: This a very pleasant 58-year-old female who has had significant problem with abdominal pain intermittently over the last year. She had a cholecystectomy and this did not resolve her symptoms. She recently had an upper endoscopy which showed gastritis. She has occasional postprandial abdominal pain radiating to the mid epigastrium and also to the left lower quadrant. The pain can also occur unassociated with meals. She has not noticed a pattern regarding types of food in her symptoms. Again she does not have to be eating to have these abdominal pain symptoms. I was asked to see her for evaluation of mesenteric occlusive disease based on ultrasound that was obtained upon admission. She really gives no positive findings for chronic mesenteric ischemia. He is a smoker and does smoke 2-3 cigarettes per day and is actively trying to quit. Past Medical History Cardiovascular: Hyperlipidemia, Other Pulmonary: No pertinent hx CENTRAL NERVOUS SYSTEM: Periperal neuropathy GI: GERD, Irritable bowel disease Heme/Onc: Cancer Hepatobiliary: Other Psych: Anxiety, Bipolar, Depression Musculoskeletal: Osteoarthritis Rheumatologic: No pertinent hx Infectious disease: No pertinent hx Renal/: No pertinent hx Endocrine: Diabetes Past Surgical History Past Surgical History: Cholecystectomy, , Hysterectomy, Other Family History Family History: Heart Disease, Hypertension, Other Social History <1 pack per day ALCOHOL: occassional Drugs: Marijuana Lives: Alone Current Medications Current Medications Current Medications Sodium Chloride 1,000 ml @ 100 mls/hr Q10H IV Last administered on 05/21/19at 04:40; Start 05/20/19 at 17:15; Stop 05/21/19 at 09:43; Status DC Aspirin (Ecotrin) 81 mg DAILY PO ; Start 05/21/19 at 09:00 Acetaminophen/ Aspirin/Caffeine (Excedrin Migraine) 1 tab PRN BID PRN PO MIGRAINE PAIN; Start 05/20/19 at 17:30 Acetaminophen/ Hydrocodone Bitart (Lortab 10/325) 1 tab PRN Q6HRS PRN PO MODERATE PAIN Last administered on 05/21/19at 02:47; Start 05/20/19 at 17:30; Stop 05/21/19 at 07:54; Status DC Raloxifene HCl (Evista) 60 mg DAILY PO Last administered on 05/22/19 08:52; Start 05/21/19 at 09:00 Aripiprazole (Abilify) 10 mg QHS PO Last administered on 05/21/19 21:08; Start 05/20/19 at 21:00 Celecoxib (CeleBREX) 200 mg DAILY PO Last administered on 05/22/19 08:53; Start 05/21/19 at 09:00 Duloxetine HCl (Cymbalta) 120 mg DAILY PO Last administered on 05/22/19 08:53; Start 05/21/19 at 09:00 Lamotrigine (LaMICtal) 300 mg QHS PO Last administered on 05/21/19 21:08; Start 05/20/19 at 21:00 Pantoprazole Sodium (Protonix) 40 mg DAILYAC PO Last administered on 05/22/19 07:42; Start 05/21/19 at 07:30 Atorvastatin Calcium (Lipitor) 40 mg QHS PO Last administered on 05/21/19 21:08; Start 05/20/19 at 21:00 Pseudoephedrine HCl (Sudafed 12-Hour) 120 mg BID PO ; Start 05/20/19 at 21:00; Stop 05/20/19 at 19:32; Status DC Cetirizine HCl (ZyrTEC) 5 mg BID PO ; Start 05/20/19 at 21:00; Stop 05/20/19 at 19:32; Status DC Cetirizine HCl (ZyrTEC) 5 mg PRN BID PRN PO ALLERGIES; Start 05/20/19 at 19:30 Pseudoephedrine HCl (Sudafed 12-Hour) 120 mg PRN BID PRN PO CONGESTION; Start 05/20/19 at 19:30 Acetaminophen/ Hydrocodone Bitart (Lortab 10/325) 1 tab PRN Q4HRS PRN PO MODERATE PAIN Last administered on 05/22/19 13:20; Start 05/21/19 at 08:00 Potassium Chloride/Sodium Chloride 1,000 ml @ 100 mls/hr Q10H IV Last administered on 05/22/19 04:50; Start 05/21/19 at 08:00 Clonidine HCl (Catapres) 0.1 mg PRN Q6HRS PRN PO HYPERTENSION Last administered on 11/19/19at 10:23; Start 05/21/19 at 10:45 Ferrous Sulfate (Feosol) 325 mg BID PO ; Start 05/22/19 at 10:00 Polyethylene Glycol (miraLAX PACKET) 17 gm PRN DAILY PRN PO CONSTIPATION Last administered on 05/22/19at 10:25; Start 05/22/19 at 10:00 Hydralazine HCl (Apresoline) 25 mg TID PO ; Start 05/22/19 at 14:00 Iohexol (Omnipaque 350 Mg/ml) 100 ml 1X ONCE IV Last administered on at 14:51; Start 05/22/19 at 14:30; Stop 05/22/19 at 14:31; Status DC Info (CONTRAST GIVEN -- Rx MONITORING) 1 each PRN DAILY PRN MC SEE COMMENTS; Start 05/22/19 at 14:30; Stop 05/24/19 at 14:29 Active Scripts Active Reported Celebrex (Celecoxib) 200 Mg Capsule 1 Cap PO DAILY Nancy-D 12 Hour Tablet (Fexofenadine/Pseudoephedrine) 1 Each Tab.er.12h 1 Tab PO PRN BID PRN 10 Days Excedrin Extra Strength Caplet (Aspirin/Acetaminophen/Caffeine) 1 Each Tablet 1 Each PO PRN BID PRN Evista (Raloxifene Hcl) 60 Mg Tablet 1 Tab PO DAILY Cymbalta (Duloxetine Hcl) 60 Mg Capsule.dr 120 Mg PO DAILY Lamotrigine 150 Mg Tablet 300 Mg PO HS Hydrocodone-Apap 10-325 (Hydrocodone Bit/Acetaminophen) 1 Tab Tablet 1 Tab PO PRN Q6HRS PRN Crestor (Rosuvastatin Calcium) 10 Mg Tablet 10 Mg PO HS Aciphex (Rabeprazole Sodium) 20 Mg Tablet. 1 Tab PO BID Aspir 81 (Aspirin) 81 Mg Tablet.dr 1 Tab PO DAILY Abilify (Aripiprazole) 10 Mg Tablet 10 Mg PO HS Allergies Allergies: Coded Allergies: Sulfa (Sulfonamide Antibiotics) (Verified Allergy, Intermediate, Hives, 05/04/19) adhesive (Verified Allergy, Intermediate, itch, 05/04/19) morphine (Verified Allergy, Mild, RASH, 05/04/19) ROS Gastrointestinal: Yes Abdominal Pain Physical Exam General: Alert, Oriented X3, Cooperative, No acute distress HEENT: Atraumatic, Mucous membr. moist/pink Lungs: Clear to auscultation, Normal air movement Heart: Regular rate, Normal S1, Normal S2 Abdomen: Normal bowel sounds, Soft, No tenderness, No masses Extremities: No clubbing, No cyanosis, No edema, Normal pulses Skin: No rashes, No breakdown, No significant lesion Neuro: Normal speech, Strength at 5/5 X4 ext, Sensation intact, Cranial nerves 3-12 NL Psych/Mental Status: Mental status NL, Mood NL MUSCULOSKELETAL: No deformity, No swelling, No muscular tenderness noted, Full range of motion without pain Vitals VITALS Vital Signs Date Time Temp Pulse Resp B/P (MAP) Pulse Ox O2 Delivery O2 Flow Rate FiO2 05/22/19 15:00 97.8 77 18 107/71 (83) 97 Room Air 97.8 Labs Labs Laboratory Tests Test 05/20/19 19:05 05/22/19 10:50 White Blood Count 12.0 x10^3/uL (4.0-11.0) 10.3 x10^3/uL (4.0-11.0) Red Blood Count 4.49 x10^6/uL (3.50-5.40) 4.54 x10^6/uL (3.50-5.40) Hemoglobin 10.1 g/dL (12.0-15.5) 10.3 g/dL (12.0-15.5) Hematocrit 33.0 % (36.0-47.0) 33.7 % (36.0-47.0) Mean Corpuscular Volume 73 fL (79-100) 74 fL (79-100) Mean Corpuscular Hemoglobin 23 pg (25-35) 23 pg (25-35) Mean Corpuscular Hemoglobin Concent 31 g/dL (31-37) 31 g/dL (31-37) Red Cell Distribution Width 26.4 % (11.5-14.5) 26.3 % (11.5-14.5) Platelet Count 589 x10^3/uL (140-400) 562 x10^3/uL (140-400) Neutrophils (%) (Auto) 64 % (31-73) Lymphocytes (%) (Auto) 21 % (24-48) Monocytes (%) (Auto) 13 % (0-9) Eosinophils (%) (Auto) 1 % (0-3) Basophils (%) (Auto) 1 % (0-3) Neutrophils # (Auto) 7.7 x10^3/uL (1.8-7.7) Lymphocytes # (Auto) 2.6 x10^3/uL (1.0-4.8) Monocytes # (Auto) 1.6 x10^3/uL (0.0-1.1) Eosinophils # (Auto) 0.1 x10^3/uL (0.0-0.7) Basophils # (Auto) 0.1 x10^3/uL (0.0-0.2) Platelet Estimate Increased (ADEQUATE) Polychromasia Slight Hypochromasia Mod Anisocytosis Marked Microcytosis Slight Ovalocytes Occ Sodium Level 136 mmol/L (136-145) 138 mmol/L (136-145) Potassium Level 3.1 mmol/L (3.5-5.1) 4.2 mmol/L (3.5-5.1) Chloride Level 100 mmol/L (98-107) 103 mmol/L (98-107) Carbon Dioxide Level 25 mmol/L (21-32) 26 mmol/L (21-32) Anion Gap 11 (6-14) 9 (6-14) Blood Urea Nitrogen 26 mg/dL (7-20) 6 mg/dL (7-20) Creatinine 1.2 mg/dL (0.6-1.0) 0.7 mg/dL (0.6-1.0) Estimated GFR (Cockcroft-Gault) 45.8 85.4 BUN/Creatinine Ratio 22 (6-20) Glucose Level 132 mg/dL (70-99) 134 mg/dL (70-99) Calcium Level 9.4 mg/dL (8.5-10.1) 9.6 mg/dL (8.5-10.1) Total Bilirubin 0.3 mg/dL (0.2-1.0) Aspartate Amino Transf (AST/SGOT) 19 U/L (15-37) Alanine Aminotransferase (ALT/SGPT) 15 U/L (14-59) Alkaline Phosphatase 110 U/L (46-116) Total Protein 7.0 g/dL (6.4-8.2) Albumin 3.4 g/dL (3.4-5.0) Albumin/Globulin Ratio 0.9 (1.0-1.7) Magnesium Level 1.8 mg/dL (1.8-2.4) Triglycerides Level 160 mg/dL (0-150) Cholesterol Level 152 mg/dL (0-200) LDL Cholesterol, Calculated 84 mg/dL (0-100) VLDL Cholesterol, Calculated 32 mg/dL (0-40) Non-HDL Cholesterol Calculated 116 mg/dL (0-129) HDL Cholesterol 36 mg/dL (40-60) Cholesterol/HDL Ratio 4.2 Thyroid Stimulating Hormone (TSH) 0.706 uIU/mL (0.358-3.74) Laboratory Tests Test 05/22/19 10:50 White Blood Count 10.3 x10^3/uL (4.0-11.0) Red Blood Count 4.54 x10^6/uL (3.50-5.40) Hemoglobin 10.3 g/dL (12.0-15.5) Hematocrit 33.7 % (36.0-47.0) Mean Corpuscular Volume 74 fL (79-100) Mean Corpuscular Hemoglobin 23 pg (25-35) Mean Corpuscular Hemoglobin Concent 31 g/dL (31-37) Red Cell Distribution Width 26.3 % (11.5-14.5) Platelet Count 562 x10^3/uL (140-400) Sodium Level 138 mmol/L (136-145) Potassium Level 4.2 mmol/L (3.5-5.1) Chloride Level 103 mmol/L (98-107) Carbon Dioxide Level 26 mmol/L (21-32) Anion Gap 9 (6-14) Blood Urea Nitrogen 6 mg/dL (7-20) Creatinine 0.7 mg/dL (0.6-1.0) Estimated GFR (Cockcroft-Gault) 85.4 Glucose Level 134 mg/dL (70-99) Calcium Level 9.6 mg/dL (8.5-10.1) Magnesium Level 1.8 mg/dL (1.8-2.4) Triglycerides Level 160 mg/dL (0-150) Cholesterol Level 152 mg/dL (0-200) LDL Cholesterol, Calculated 84 mg/dL (0-100) VLDL Cholesterol, Calculated 32 mg/dL (0-40) Non-HDL Cholesterol Calculated 116 mg/dL (0-129) HDL Cholesterol 36 mg/dL (40-60) Cholesterol/HDL Ratio 4.2 Thyroid Stimulating Hormone (TSH) 0.706 uIU/mL (0.358-3.74) Assessment/Plan Assessment/Plan Abdominal pain--I did review the patient's CT angiogram study which does not reveal any evidence of stenosis in the mesenteric vessels. The superior me senteric artery, celiac artery, and inferior mesenteric artery is widely patent. Symptoms are inconsistent with chronic mesenteric ischemia. I will defer to gastroenterology's recommendation for management of her symptoms. No vascular surgical intervention is necessary. All questions were answered to patient's satisfaction. [facility] surgery will sign off at this time. Caitie Alcala DO, CAITIE CHACKO DO May 22, 2019 16:27
--- NOTE | 2019-05-22 18:05 | PDOC ---
GENERAL General: see discharge summary. VITAL SIGNS/I&O Vital Signs/I&O: Vital Signs Date Time Temp Pulse Resp B/P (MAP) Pulse Ox O2 Delivery O2 Flow Rate FiO2 05/22/19 17:54 Room Air 05/22/19 15:00 97.8 77 18 107/71 (83) 97 97.8 I & O 05/21/19 05/21/19 05/22/19 15:00 23:00 07:00 Intake Total 320 ml 1000 ml Output Total 0 ml Balance 320 ml 1000 ml 0 ml ALLERGIES Allergies: Allergies Coded Allergies Type Severity Reaction Last Updated Verified Sulfa (Sulfonamide Antibiotics) Allergy Intermediate Hives 05/04/19 Yes adhesive Allergy Intermediate itch 05/04/19 Yes morphine Allergy Mild RASH 05/04/19 Yes MEDS Medications: Current Medications Medications (Trade) Dose Ordered Sig/Julieta Route PRN Reason Start Time Stop Time Status Last Admin Dose Admin Polyethylene Glycol (miraLAX PACKET) 17 gm PRN DAILY PRN PO CONSTIPATION 05/22/19 10:00 05/22/19 10:25 Iohexol (Omnipaque 350 Mg/ml) 100 ml 1X ONCE IV 05/22/19 14:30 05/22/19 14:31 DC 05/22/19 14:51 LAB Lab: Laboratory Tests Test 05/22/19 10:50 White Blood Count 10.3 x10^3/uL (4.0-11.0) Red Blood Count 4.54 x10^6/uL (3.50-5.40) Hemoglobin 10.3 g/dL (12.0-15.5) L Hematocrit 33.7 % (36.0-47.0) L Mean Corpuscular Volume 74 fL (79-100) L Mean Corpuscular Hemoglobin 23 pg (25-35) L Mean Corpuscular Hemoglobin Concent 31 g/dL (31-37) Red Cell Distribution Width 26.3 % (11.5-14.5) H Platelet Count 562 x10^3/uL (140-400) H Sodium Level 138 mmol/L (136-145) Potassium Level 4.2 mmol/L (3.5-5.1) Chloride Level 103 mmol/L (98-107) Carbon Dioxide Level 26 mmol/L (21-32) Anion Gap 9 (6-14) Blood Urea Nitrogen 6 mg/dL (7-20) L Creatinine 0.7 mg/dL (0.6-1.0) Estimated GFR (Cockcroft-Gault) 85.4 Glucose Level 134 mg/dL (70-99) H Calcium Level 9.6 mg/dL (8.5-10.1) Magnesium Level 1.8 mg/dL (1.8-2.4) Triglycerides Level 160 mg/dL (0-150) H Cholesterol Level 152 mg/dL (0-200) LDL Cholesterol, Calculated 84 mg/dL (0-100) VLDL Cholesterol, Calculated 32 mg/dL (0-40) Non-HDL Cholesterol Calculated 116 mg/dL (0-129) HDL Cholesterol 36 mg/dL (40-60) L Cholesterol/HDL Ratio 4.2 Thyroid Stimulating Hormone (TSH) 0.706 uIU/mL (0.358-3.74) Laboratory Tests 05/22/19 10:50 Laboratory Tests 05/22/19 10:50 RUTH NOVA MD May 22, 2019 18:05
--- NOTE | 2019-05-22 18:33 | NUR ---
Discharge Note: LEYLA GONSALES Discharge instructions and discharge home medications reviewed with Patient and a copy given. All questions have been answered and understanding verbalized. The following instructions and handouts were given: discharge instructions and follow up recommendations. Discontinued lines and drains: Peripheral IV discontinued intact. Patient discharged to Home or Self Care with Spouse via Ambulated off unit by [facility].
--- NOTE | 2019-05-22 19:44 | DS ---
DATE OF DISCHARGE: 05/22/2019 PRIMARY DIAGNOSES: 1. Abdominal pain, undelineated. 2. Associated anemia related to abdominal pain undelineated. 3. Sonographic suggestion of mesenteric vascular occlusive disease with CTA apparently not showing concern for vascular surgery for the same. 4. Weakness, short of breath likely due to the anemia. 5. Diet-controlled diabetes. CHIEF COMPLAINT AND HISTORY OF PRESENT ILLNESS: This 58-year-old white female, who is well known to me from followup in the office, was admitted from the office on the day of admission with recurrence of shortness of breath and weakness. Her hemoglobin checked a couple of weeks ago was in 11 range. She was back at 8.4 a week prior to this admission. She had been admitted last month with a hemoglobin of 6, received transfusions. It was never really elucidated where this was coming from for sure. She did have an EGD showing nonerosive gastritis. She had been in bed for 2 days, had no appetite and she was admitted for the same. SUMMARY OF STAY: The patient was admitted. Cardiology was asked to see her and felt apparently there was anemia. She did have an echocardiogram done during the stay and that was essentially within normal limits. They felt this was noncardiac in nature. GI saw her. Abdominal ultrasound showed some elevated peak systolic velocities within the proximal superior mesenteric artery and celiac axis suggesting a clinically significant stenosis. Abdomen and pelvis CTA did not confirm this. Vascular Surgery felt this was not part of the problem either. 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 She did improve during her stay symptomatically, but has done this before and only did get worse, so it was felt at this point, however, she could be dismissed with plan on followup in the office within the week with a small bowel capsule to ensue as an outpatient. DISPOSITION: The patient is discharged to home. DIET: As tolerated. ACTIVITY: As tolerated. FOLLOWUP: In office within 1 week. DISCHARGE MEDICATIONS: Include her regular home medications and are listed on the med rec and have been addressed. RUTH NOVA MD DR: DENG/kely JOB#: [id number] / [id number]
--- NOTE | 2019-05-23 08:37 | RAD ---
EXAM: CT ANGIOGRAPHY OF THE ABDOMEN AND PELVIS WITH AND WITHOUT CONTRAST. HISTORY: Mesenteric ischemia. Postprandial abdominal pain. TECHNIQUE: Computed tomographic angiography of the abdomen and pelvis was performed before and after the intravenous administration of iodinated contrast. 3-D maximum intensity projections were also performed. COMPARISON: 08/18/2018, 07/18/2018. FINDINGS: There is no abdominal aortic aneurysm. There are mild atherosclerotic calcifications. The iliac systems there demonstrate mild to moderate atherosclerotic calcifications without significant stenosis. There is a short segment dissection within the proximal common hepatic artery. 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 There is moderate stenosis of the true lumen at this site. The celiac axis has an early bifurcation. The superior mesenteric and inferior mesenteric arteries are patent. Both renal arteries are patent. Images of the lung bases reveal at least mild centrilobular emphysema. Bone windows reveal no suspicious lesions. Stool throughout the colon is consistent with constipation. There is no evidence of appendicitis. The uterus is surgically absent. There is no small bowel obstruction. The stomach is decompressed, but there is diffuse gastric wall thickening. The liver, spleen, adrenal glands and pancreas are unremarkable. There is a small cyst in the right kidney. The gallbladder is surgically absent. The common duct is mildly dilated at 8 mm and tapers normally distally. IMPRESSION: 1. 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 2. No other mesenteric arterial stenosis. 3. Diffuse gastric wall thickening suggests gastritis. 4. Correlate for constipation. *One or more of the following individualized dose reduction techniques were utilized for this examination: 1. Automated exposure control. 2. Adjustment of the mA and/or kV according to patient size. 3. Use of iterative reconstruction technique. Electronically signed by: Giancarlo Baig MD (05/23/2019 8:33 AM) [facility]
== END 2019-05-22 18:39 | disposition home or self-care (01) | DRG 812 ==
LOC: 5 SOUTH 15:50
PROVIDERS: ADMIT Family Medicine; ATTEND Family Medicine
DX: D50.9 Iron deficiency anemia, unspecified (principal); N17.9 Acute kidney failure, unspecified; I42.9 Cardiomyopathy, unspecified; K21.9 Gastro-esophageal reflux disease without esophagitis; M79.7 Fibromyalgia; M19.90 Unspecified osteoarthritis, unspecified site; F41.9 Anxiety disorder, unspecified; K58.9 Irritable bowel syndrome, unspecified; F17.210 Nicotine dependence, cigarettes, uncomplicated; G89.29 Other chronic pain; G47.33 Obstructive sleep apnea (adult) (pediatric); C50.919 Malignant neoplasm of unspecified site of unspecified female breast; F12.90 Cannabis use, unspecified, uncomplicated; J44.9 Chronic obstructive pulmonary disease, unspecified; E78.5 Hyperlipidemia, unspecified; I44.7 Left bundle-branch block, unspecified; E11.42 Type 2 diabetes mellitus with diabetic polyneuropathy; D47.3 Essential (hemorrhagic) thrombocythemia; E87.6 Hypokalemia; I10 Essential (primary) hypertension; E11.51 Type 2 diabetes mellitus with diabetic peripheral angiopathy without gangrene; I99.8 Other disorder of circulatory system; F31.9 Bipolar disorder, unspecified; Z90.49 Acquired absence of other specified parts of digestive tract; Z90.710 Acquired absence of both cervix and uterus; Z90.12 Acquired absence of left breast and nipple; Z83.3 Family history of diabetes mellitus; Z82.49 Family history of ischemic heart disease and other diseases of the circulatory system; Z80.3 Family history of malignant neoplasm of breast; Z88.5 Allergy status to narcotic agent; Z88.2 Allergy status to sulfonamides; Z88.8 Allergy status to other drugs, medicaments and biological substances
CPT/HCPCS: 36415; 74022; 74174; 80048; 80053; 80061; 83735; 84443; 85025; 85027; 93005; 93306; 93931; 93976; J3480; J7030; Q9967; G0378

== ENCOUNTER → 2020-01-25 | Outpatient (CLI) | payer MEDICARE, BC ==
--- NOTE | 2020-01-25 15:22 | KCIC ---
FOOT LEFT 3V DATE: 01/25/2020 12:00 AM INDICATION: LEFT HEEL AND LATERAL FOOT PAIN FOR MONTHS, NO KNOWN INJURY / Spl. COMPARISON: None. FINDINGS: Bones: There is no evidence of acute fracture or dislocation. Small plantar calcaneal enthesophyte. Joints: Moderate degenerative changes of the first MTP joint. Miscellaneous: None. IMPRESSION: No acute osseous abnormality. Electronically signed by: Shaheed Black MD (01/25/2020 3:19 PM) [id number]
== END | disposition home or self-care (01) ==
LOC: KCIC 12:38
PROVIDERS: ATTEND Family Medicine
DX: M19.072 Primary osteoarthritis, left ankle and foot (principal); M77.32 Calcaneal spur, left foot
CPT/HCPCS: 73630

== ENCOUNTER 2020-02-06 15:14 | Inpatient (IN) | payer MEDICARE, BC ==
[~2020-02-06] VITALS: Ht 170.2 cm; Wt 82.0 kg
[2020-02-06 15:46] VITALS: BP 111/59
[2020-02-06] MEDS ORDERED: FLUT9.9S NS (18:34)
[2020-02-06] MEDS ORDERED: ASA/APAP/CAFFEINE 250/250/65MG TABLET. PO PRN (18:45)
[2020-02-06] MEDS ORDERED: ALBUTEROL SULFATE 2.5 MG/3 ML NEBU. NEB PRN (18:45)
[2020-02-06] MEDS ORDERED: CETIRIZINE HCL 10 MG TABLET. PO PRN (19:30)
[2020-02-06 19:32] VITALS: BP 103/52
[2020-02-06] MEDS: lamoTRIgine 100 MG TABLET. PO SCH (20:20)
[2020-02-06] MEDS: HYDROcodone/APAP 10/325 1 TAB TABLET PO PRN (20:20)
[2020-02-06] MEDS: ARIPiprazole 5 MG TABLET PO SCH (20:21)
[2020-02-06] MEDS: IV NORMAL SALINE 1000ML BAG 1,000 ML IV SCH (20:23)
[2020-02-06] MEDS: ATORVASTATIN CALCIUM 40 MG TABLET. PO SCH (20:24)
[2020-02-06 20:36] LABS: BILIRUBIN,URINE NEGATIVE (NEG); CLARITY,URINE CLEAR; COLOR,URINE YELLOW; NITRITE,URINE NEGATIVE (NEG); PH,URINE 6.5 (<5.0-8.0); PROTEIN,URINE NEGATIVE (NEG-TRACE)
[2020-02-06 20:37] LABS: BACTERIA,URINE MANY /HPF (0-FEW); RBC,URINE RARE /HPF (0-2); SQUAMOUS EPITHELIAL CELL,UR MANY /LPF; WBC,URINE RARE /HPF (0-4)
[2020-02-06 20:50] LABS: BASO # 0.1 x10^3/uL (0.0-0.2); BASO % 1 % (0-3); EOS # 0.3 x10^3/uL (0.0-0.7); EOS % 2 % (0-3); HEMOGLOBIN 13.2 g/dL (12.0-15.5); LYMPH # 3.2 x10^3/uL (1.0-4.8); LYMPH % 25 % (24-48); MEAN CORPUSCULAR HEMOGLOBIN 23 pg (25-35); MEAN CORPUSCULAR HGB CONC 32 g/dL (31-37); MEAN CORPUSCULAR VOLUME 74 fL (79-100); MONO # 2.1 x10^3/uL (0.0-1.1); MONO % 17 % (0-9); NEUT # 7.2 x10^3/uL (1.8-7.7); NEUT % 56 % (31-73); PLATELET COUNT 326 x10^3/uL (140-400); RED BLOOD COUNT 5.67 x10^6/uL (3.50-5.40); WHITE BLOOD COUNT 12.9 x10^3/uL (4.0-11.0)
[2020-02-06 21:00] LABS: CALCIUM 9.9 mg/dL (8.5-10.1); CREATININE 0.8 mg/dL (0.6-1.0); GFR 72.9; POTASSIUM 3.6 mmol/L (3.5-5.1)
[2020-02-06] MEDS ORDERED: PSEUDOEPHEDRINE ER 120 MG TABLET.ER. PO PRN (21:00)
[2020-02-06 21:13] LABS: % EOS 3 % (0-5); % LYMPHS 26 % (24-48); % MONOS 17 % (0-10); % SEGS 54 % (35-66); ANISOCYTOSIS MOD; HYPOCHROMIA SLIGHT; MICROCYTOSIS SLIGHT; PLT ESTIMATE ADEQUATE (ADEQUATE)
[2020-02-06 23:56] VITALS: BP 93/52
[2020-02-07 03:36] VITALS: BP 98/60
[2020-02-07] MEDS: HYDROcodone/APAP 10/325 1 TAB TABLET PO PRN ×2 (04:29→11:09)
[2020-02-07] MEDS: IV NORMAL SALINE 1000ML BAG 1,000 ML IV SCH ×3 (04:30→18:30)
[2020-02-07 07:00] VITALS: BP 103/58
[2020-02-07] MEDS: PANTOPRAZOLE 40 MG TABLET.DR. PO SCH (07:30)
[2020-02-07] MEDS ORDERED: CONTRAST GIVEN. MC PRN (07:45)
[2020-02-07] MEDS ORDERED: IOHEXOL 240 MG/ML 50ML VIAL. PO ONE (07:45)
[2020-02-07] MEDS ORDERED: IOHEXOL 300 MG/ML 100ML VIAL. IV ONE (07:45)
--- NOTE | 2020-02-07 08:07 | PDOC ---
DATE OF SERVICE: DATE: 02/07/20 TIME: 08:04 GENERAL General: vss and afebrile. awake and alert. abdominal pain some improved overnight. still with marked epigastric tenderness. chest clear, heart regular. wbc 12.9 K and elevated RDW with otherwise normal labs. await GI opinion and ct abdomen with plans to follow. patient has had multiple episodes of pain like this with primary finding being liver hematoma at onset that was never explained. VITAL SIGNS/I&O Vital Signs/I&O: Vital Signs Date Time Temp Pulse Resp B/P (MAP) Pulse Ox O2 Delivery O2 Flow Rate FiO2 02/07/20 05:29 Room Air 02/07/20 03:36 99.3 80 16 98/60 (73) 92 99.3 I & O 02/06/20 02/06/20 02/07/20 15:00 23:00 07:00 Intake Total 300 ml 200 ml Balance 300 ml 200 ml ALLERGIES Allergies: Allergies Coded Allergies Type Severity Reaction Last Updated Verified Sulfa (Sulfonamide Antibiotics) Allergy Intermediate Hives 05/04/19 Yes adhesive Allergy Intermediate itch 05/04/19 Yes morphine Allergy Mild RASH 05/04/19 Yes MEDS Medications: Current Medications Medications (Trade) Dose Ordered Sig/Julieta Route PRN Reason Start Time Stop Time Status Last Admin Dose Admin Sodium Chloride 1,000 ml @ 125 mls/hr Q8H IV 02/06/20 18:30 02/07/20 04:30 Acetaminophen/ Hydrocodone Bitart (Lortab 10/325) 1 tab PRN Q6HRS PRN PO MODERATE PAIN 02/06/20 18:45 02/07/20 04:29 Aripiprazole (Abilify) 10 mg QHS PO 02/06/20 21:00 02/06/20 20:21 Lamotrigine (LaMICtal) 300 mg QHS PO 02/06/20 21:00 02/06/20 20:20 Atorvastatin Calcium (Lipitor) 40 mg QHS PO 02/06/20 21:00 02/06/20 20:24 Albuterol Sulfate (Ventolin Neb Soln) 2.5 mg PRN Q4HRS PRN NEB SHORTNESS OF BREATH 02/06/20 18:45 02/06/20 22:06 LAB Lab: Laboratory Tests Test 02/06/20 19:07 02/06/20 20:40 Urine Collection Type Unknown Urine Color Yellow Urine Clarity Clear Urine pH 6.5 (<5.0-8.0) Urine Specific [place] 1.020 (1.000-1.030) Urine Protein Negative mg/dL (NEG-TRACE) Urine Glucose (UA) 100 mg/dL (NEG) Urine Ketones (Stick) Negative mg/dL (NEG) Urine Blood Negative (NEG) Urine Nitrite Negative (NEG) Urine Bilirubin Negative (NEG) Urine Urobilinogen Dipstick 1.0 mg/dL (0.2 mg/dL) Urine Leukocyte Esterase Negative (NEG) Urine RBC Rare /HPF (0-2) Urine WBC Rare /HPF (0-4) Urine Squamous Epithelial Cells Many /LPF Urine Bacteria Many /HPF (0-FEW) White Blood Count 12.9 x10^3/uL (4.0-11.0) H Red Blood Count 5.67 x10^6/uL (3.50-5.40) H Hemoglobin 13.2 g/dL (12.0-15.5) Hematocrit 42.0 % (36.0-47.0) Mean Corpuscular Volume 74 fL (79-100) L Mean Corpuscular Hemoglobin 23 pg (25-35) L Mean Corpuscular Hemoglobin Concent 32 g/dL (31-37) Red Cell Distribution Width 25.0 % (11.5-14.5) H Platelet Count 326 x10^3/uL (140-400) Neutrophils (%) (Auto) 56 % (31-73) Lymphocytes (%) (Auto) 25 % (24-48) Monocytes (%) (Auto) 17 % (0-9) H Eosinophils (%) (Auto) 2 % (0-3) Basophils (%) (Auto) 1 % (0-3) Neutrophils # (Auto) 7.2 x10^3/uL (1.8-7.7) Lymphocytes # (Auto) 3.2 x10^3/uL (1.0-4.8) Monocytes # (Auto) 2.1 x10^3/uL (0.0-1.1) H Eosinophils # (Auto) 0.3 x10^3/uL (0.0-0.7) Basophils # (Auto) 0.1 x10^3/uL (0.0-0.2) Segmented Neutrophils % 54 % (35-66) Lymphocytes % 26 % (24-48) Monocytes % 17 % (0-10) H Eosinophils % 3 % (0-5) Platelet Estimate Adequate (ADEQUATE) Hypochromasia Slight Anisocytosis Mod Microcytosis Slight Sodium Level 132 mmol/L (136-145) L Potassium Level 3.6 mmol/L (3.5-5.1) Chloride Level 98 mmol/L (98-107) Carbon Dioxide Level 29 mmol/L (21-32) Anion Gap 5 (6-14) L Blood Urea Nitrogen 19 mg/dL (7-20) Creatinine 0.8 mg/dL (0.6-1.0) Estimated GFR (Cockcroft-Gault) 72.9 Glucose Level 96 mg/dL (70-99) Calcium Level 9.9 mg/dL (8.5-10.1) Amylase Level 45 U/L (25-115) Lipase 130 U/L (73-393) Laboratory Tests 02/06/20 20:40 Laboratory Tests 02/06/20 20:40 Justicifation of Admission Dx: Justifications for Admission: Justification of Admission Dx: Yes RUTH NOVA MD Feb 07, 2020 08:07
--- NOTE | 2020-02-07 08:58 | HP ---
ADMIT DATE: CHIEF COMPLAINT AND HISTORY OF PRESENT ILLNESS: This 59-year-old white female is well known to me from followup in the office. The patient was admitted on the day of admission with recurrent abdominal pain. She has had episodes of this once or twice a year over the last 3 years or so. It was initially associated with some unexplained liver hematoma at the beginning. She has had an exhaustive workup. She has been hurting now for 4 days prior to admission, unable to eat or drink much with the same. She takes PPI, namely AcipHex on a regular basis. She was admitted for hydration as well as further GI evaluation to try to find an etiology. This has been associated with anemia at times, hence CBC will be checked on admission in addition. PAST MEDICAL HISTORY: Remarkable for history of obstructive sleep apnea, left breast cancer many years ago, prior C-sections, some mild COPD. She has a history of type 1 bipolar disorder. MEDICATIONS: Brought with the patient, listed on the computer and have been addressed. ALLERGIES: SHE IS ALLERGIC TO MORPHINE, ADHESIVE, SULFA. SOCIAL HISTORY: She is a smoker, does not abuse alcohol, smokes cannabis on a regular basis. FAMILY HISTORY: Remarkable for cancer. REVIEW OF SYSTEMS: As mentioned above. She denies also in addition as review of systems any hematemesis, melena, hematochezia, dysuria, frequency, urgency with urination. PHYSICAL EXAMINATION: GENERAL: She is well-developed, well-nourished white female who appears uncomfortable. VITAL SIGNS: Stable. She is afebrile. HEAD, EYES, EARS, NOSE AND THROAT: Unremarkable. No icterus present. NECK: Supple, without adenopathy or thyromegaly. CHEST: Clear to auscultation and percussion. HEART: Regular rate and rhythm without S3, S4 or murmur. ABDOMEN: Reveals exquisite epigastric tenderness on exam. She has normoactive bowel sounds and no hepatosplenomegaly or masses appreciated. EXTREMITIES: Without cyanosis, clubbing or edema. NEUROLOGIC: She is intact. IMPRESSION: 1. Recurrent abdominal pain, severe as discussed above. 2. Other problems listed above. PLAN: The patient has been admitted. GI will be consulted. Labs will be checked. Hydration will be undertaken and the patient will be monitored, managed and treated appropriately. RUTH NOVA MD DR: Rosie JOB#: [id number] / [id number]
[2020-02-07] MEDS: CELECOXIB 100 MG CAPSULE. PO SCH (09:00)
[2020-02-07] MEDS: ASPIRIN ENTERIC COATED 81 MG TABLET.DR. PO SCH (09:00)
[2020-02-07] MEDS: RALOXIFENE 60 MG TABLET. PO SCH (09:00)
[2020-02-07] MEDS: DULoxetine HCL 30 MG CAPSULE.DR PO SCH (09:00)
--- NOTE | 2020-02-07 09:36 | NUR ---
SW following. Discussed with RN, pt from home, independent, room air, regular diet. CT scan pending for today. RN advised no SW needs at this time. SW will continue to follow.
--- NOTE | 2020-02-07 10:10 | PDOC2 ---
GI CONSULT Date of Service: DATE: 02/07/20 TIME: 10:09 Reason For Consult: abd pain HPI: HPI: 59 y/o female who we've seen several times. Directly admitted by Dr. Gordon last night. She reports epigastric pain began Tuesday night after her grandchild's birthday democrat. Fairly constant aching, no radiation, worse after eating. Avoided eating for 3 days but ate without issue last night. Now NPO for CT. Some nausea at first but resolved. Less frequent stooling w/ avoidance of food, last stool "little owl pellets" yesterday. Denies reflux, dysphagia, vomiting, diarrhea, hematochezia, melena, and weight loss. Additional past workup for MELISSA w/o obvious bleeding (negative Hemoccult, normal B12), recurrent abdominal pain, and n/v includes normal GES, negative Meckel's scan, SBS w/ prolonged transit time (no obstruction). S/p cholecystectomy. No celiac or SMA stenosis on CTA in 2017. Concern for SMA stenosis on abd Doppl er in 2019. 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 Had vascular eval - symptoms inconsistent w/ chronic mesenteric ischemic. Also past cardiology workup. EGD by Dr. Rahman on 05/04/19 w/ non-erosive gastritis. Says she had outpt colonoscopy and SBCE with "blood vessel on the surface." EGD and colonoscopy by Dr. Eduardo in 07/2016: mild reflux (confirmed w/ path), mild gastritis (no H. pylori), normal duodenum (no sprue), internal hemorrhoids, excessive looping in descending colon. Also has h/o RUQ hematoma (von Willebrand factor checked - report unavailable, bone marrow biopsy considered). Second opinion w/ [facility] has been suggested in the past. H/o GERD on Aciphex (thinks BID). H/o constipation on stool softener PRN. Chronic hip, shoulder, back, and knee pain on Excedrin PRN - sometimes 8-12 urban y. Also takes Celebrex and hydrocodone. Also takes iron QD. PMH: PMH: breast cancer s/p rad/chemo and left mastectomy, GERD, DM, fibromyalgia, neuropathy, depression, HLD, ANNE-MARIE, OA, bipolar hysterectomy, , cholecystectomy FH: Family History: Cancer (breast, colon), DM, Hypertension Social History: Smoke: <1 pack per day ALCOHOL: rare Drugs: Marijuana (1-2 times daily) ROS: GEN: Denies fevers, chills, sweats HEENT: Denies blurred vision, sore throat CV: Denies chest pain RESP: Denies shortness of air, cough GI: Per HPI : Denies hematuria, dysuria ENDO: Denies weight changes NEURO: Denies confusion, dizziness MSK: +chronic pain SKIN: Denies jaundice, pruritus Vitals: Vitals: Vital Signs Date Time Temp Pulse Resp B/P (MAP) Pulse Ox O2 Delivery O2 Flow Rate FiO2 02/07/20 07:00 98.9 75 18 103/58 (73) 96 Room Air 98.9 Labs: Labs: Laboratory Tests Test 02/06/20 19:07 02/06/20 20:40 Urine Collection Type Unknown Urine Color Yellow Urine Clarity Clear Urine pH 6.5 (<5.0-8.0) Urine Specific [place] 1.020 (1.000-1.030) Urine Protein Negative mg/dL (NEG-TRACE) Urine Glucose (UA) 100 mg/dL (NEG) Urine Ketones (Stick) Negative mg/dL (NEG) Urine Blood Negative (NEG) Urine Nitrite Negative (NEG) Urine Bilirubin Negative (NEG) Urine Urobilinogen Dipstick 1.0 mg/dL (0.2 mg/dL) Urine Leukocyte Esterase Negative (NEG) Urine RBC Rare /HPF (0-2) Urine WBC Rare /HPF (0-4) Urine Squamous Epithelial Cells Many /LPF Urine Bacteria Many /HPF (0-FEW) White Blood Count 12.9 x10^3/uL (4.0-11.0) Red Blood Count 5.67 x10^6/uL (3.50-5.40) Hemoglobin 13.2 g/dL (12.0-15.5) Hematocrit 42.0 % (36.0-47.0) Mean Corpuscular Volume 74 fL (79-100) Mean Corpuscular Hemoglobin 23 pg (25-35) Mean Corpuscular Hemoglobin Concent 32 g/dL (31-37) Red Cell Distribution Width 25.0 % (11.5-14.5) Platelet Count 326 x10^3/uL (140-400) Neutrophils (%) (Auto) 56 % (31-73) Lymphocytes (%) (Auto) 25 % (24-48) Monocytes (%) (Auto) 17 % (0-9) Eosinophils (%) (Auto) 2 % (0-3) Basophils (%) (Auto) 1 % (0-3) Neutrophils # (Auto) 7.2 x10^3/uL (1.8-7.7) Lymphocytes # (Auto) 3.2 x10^3/uL (1.0-4.8) Monocytes # (Auto) 2.1 x10^3/uL (0.0-1.1) Eosinophils # (Auto) 0.3 x10^3/uL (0.0-0.7) Basophils # (Auto) 0.1 x10^3/uL (0.0-0.2) Segmented Neutrophils % 54 % (35-66) Lymphocytes % 26 % (24-48) Monocytes % 17 % (0-10) Eosinophils % 3 % (0-5) Platelet Estimate Adequate (ADEQUATE) Hypochromasia Slight Anisocytosis Mod Microcytosis Slight Sodium Level 132 mmol/L (136-145) Potassium Level 3.6 mmol/L (3.5-5.1) Chloride Level 98 mmol/L (98-107) Carbon Dioxide Level 29 mmol/L (21-32) Anion Gap 5 (6-14) Blood Urea Nitrogen 19 mg/dL (7-20) Creatinine 0.8 mg/dL (0.6-1.0) Estimated GFR (Cockcroft-Gault) 72.9 Glucose Level 96 mg/dL (70-99) Calcium Level 9.9 mg/dL (8.5-10.1) Amylase Level 45 U/L (25-115) Lipase 130 U/L (73-393) Allergies: Coded Allergies: Sulfa (Sulfonamide Antibiotics) (Verified Allergy, Intermediate, Hives, 05/04/19) adhesive (Verified Allergy, Intermediate, itch, 05/04/19) morphine (Verified Allergy, Mild, RASH, 05/04/19) Medications: Current Medications Medications (Trade) Dose Ordered Sig/Julieta Route PRN Reason Start Time Stop Time Status Last Admin Dose Admin Sodium Chloride 1,000 ml @ 125 mls/hr Q8H IV 02/06/20 18:30 02/07/20 04:30 Acetaminophen/ Hydrocodone Bitart (Lortab 10/325) 1 tab PRN Q6HRS PRN PO MODERATE PAIN 02/06/20 18:45 02/07/20 04:29 Aripiprazole (Abilify) 10 mg QHS PO 02/06/20 21:00 02/06/20 20:21 Lamotrigine (LaMICtal) 300 mg QHS PO 02/06/20 21:00 02/06/20 20:20 Atorvastatin Calcium (Lipitor) 40 mg QHS PO 02/06/20 21:00 02/06/20 20:24 Albuterol Sulfate (Ventolin Neb Soln) 2.5 mg PRN Q4HRS PRN NEB SHORTNESS OF BREATH 02/06/20 18:45 02/06/20 22:06 Imaging: Imaging: - PE: GEN: NAD HEENT: Atraumatic, PERRL LUNGS: diminished anteriorly HEART: RRR ABD: quiet BS, S/ND, epigastric discomfort EXTREMITY: No edema SKIN: No rashes, no jaundice NEURO/PSYCH: A & O 3 A/P: A/P: Epigastric pain, nausea - better H/o MELISSA - on iron, normal Hgb GERD - on PPI CRC screen - UTD S/p cholecystectomy H/o RUQ hematoma Chronic pain on Excedrin (excessive use at times as reported in the past), Celebrex, and hydrocodone -- Extensive past workup as above. Continue PPI, iron, and her preferred constipation treatment. Await CT. Have asked office for recent SBCE and colonoscopy results. AYAKA NOGUEIRA Feb 07, 2020 10:10
[2020-02-07 11:00] VITALS: BP 190/98
[2020-02-07] MEDS: fentaNYL PF VIAL 100 MCG/2 ML VIAL IVP PRN ×5 (14:14→23:08)
[2020-02-07 15:00] VITALS: BP 195/108
--- NOTE | 2020-02-07 16:20 | RAD ---
CT abdomen pelvis with contrast dated 02/07/2020. No comparison available. Clinical data indication:... Pain. TECHNIQUE: Contiguous axial imaging the abdomen pelvis performed after the administration of 75 cc Omnipaque 300. One or more of the following individualized dose reduction techniques were utilized for this examination: 1. Automated exposure control 2. Adjustment of the mA and/or kV according to patient size 3. Use of iterative reconstruction technique. FINDINGS: Limited images of lung bases show linear bands of increased density in the dependent lower lobes, likely scar or atelectasis. Heart size within normal limits. No pleural or pericardial effusion. Liver, spleen, pancreas, adrenal glands and kidneys are unremarkable. No hydronephrosis. There is a well-circumscribed low-density focus at the midpole right kidney most consistent with cyst. The gallbladder surgically absent. Partially opacified GI tract normal in caliber and contour. No focal bowel wall thickening. No inflammatory stranding in the mesentery. Appendix is not clearly identified. No inflammatory changes in the right lower quadrant. No ascites or lymphadenopathy. Abdominal aorta normal in caliber. Images of pelvis show mildly distended urinary bladder. The uterus is surgically absent. No free fluid or lymphadenopathy. Bone windows show no acute findings. Mild multilevel spondylosis. IMPRESSION: 1. No acute abnormality of abdomen or pelvis. 2. Dependent opacity at both lung bases, likely atelectasis. 3. Status post cholecystectomy and hysterectomy. Electronically signed by: Otis Benites MD (02/07/2020 4:17 PM) [facility]
[2020-02-07 19:00] VITALS: BP 213/102
[2020-02-07] MEDS: lamoTRIgine 100 MG TABLET. PO SCH (21:00)
[2020-02-07] MEDS: ATORVASTATIN CALCIUM 40 MG TABLET. PO SCH (21:00)
[2020-02-07] MEDS: ARIPiprazole 5 MG TABLET PO SCH (21:00)
[2020-02-07 23:00] VITALS: BP 135/85
[2020-02-08] MEDS: fentaNYL PF VIAL 100 MCG/2 ML VIAL IVP PRN ×3 (01:25→06:33)
[2020-02-08] MEDS: IV NORMAL SALINE 1000ML BAG 1,000 ML IV SCH ×2 (01:30→08:28)
[2020-02-08 03:00] VITALS: BP 170/80
[2020-02-08 07:00] VITALS: BP 142/81
[2020-02-08] MEDS: PANTOPRAZOLE 40 MG TABLET.DR. PO SCH (07:30)
[2020-02-08] MEDS: DULoxetine HCL 30 MG CAPSULE.DR PO SCH (07:37)
[2020-02-08] MEDS: CELECOXIB 100 MG CAPSULE. PO SCH (07:37)
[2020-02-08] MEDS: RALOXIFENE 60 MG TABLET. PO SCH (07:37)
[2020-02-08] MEDS: ASPIRIN ENTERIC COATED 81 MG TABLET.DR. PO SCH (07:37)
--- NOTE | 2020-02-08 10:20 | PDOC ---
Date of Service: DATE: 02/08/20 TIME: 10:16 Subjective: Subjective: Feels so-so. Pain isn't worse. Would like to try eating soft diet. Objective: Vital Signs: Vital Signs Date Time Temp Pulse Resp B/P (MAP) Pulse Ox O2 Delivery O2 Flow Rate FiO2 02/08/20 07:38 Room Air 02/08/20 07:00 98.7 78 18 142/81 (101) 96 98.7 Labs: URINE CULTURE Final Final 30,000 CFU/ML Normal genitourinary scotty, not indicative of infection on 02/08/20 at 1007 Imaging: CT A/P 02/06 IMPRESSION: 1. No acute abnormality of abdomen or pelvis. 2. Dependent opacity at both lung bases, likely atelectasis. 3. Status post cholecystectomy and hysterectomy. PE: GEN: NAD - was asleep LUNGS: CTAB HEART: RRR ABD: soft, epigastrium uncomfortable NEURO/PSYCH: A & O 3 A/P: Epigastric pain - recurrent H/o MELISSA, GERD, SB AVMs - on iron and PPI, scopes UTD Chronic pain on Excedrin, Celebrex, and hydrocodone - defer to primary +marijuana -- Try diet - d/w nurse. If tolerates, consider DC from GI standpoint. As discussed yesterday, consider surgery eval for recurrent pain/recurrent admission - ?adhesions contributing w/ many past surgeries. Justicifation of Admission Dx: Justifications for Admission: Justification of Admission Dx: Yes AYAKA NOGUEIRA Feb 08, 2020 10:19
[2020-02-08 11:00] VITALS: BP 138/76
--- NOTE | 2020-02-08 13:04 | NUR ---
Discharge Note: LEYLA GONSALES Discharge instructions and discharge home medications reviewed with Patient and a copy given. All questions have been answered and understanding verbalized. The following instructions and handouts were given: information about medications, follow up appointments, etc. Discontinued lines and drains: IV line in right thumb and right hand removed, catheter tip intact. Patient discharged to home with self care, wheelchair used for mobility to discharge vehicle.
--- NOTE | 2020-02-08 14:32 | DS ---
DATE OF DISCHARGE: 02/08/2020 PRIMARY DIAGNOSIS: Abdominal pain. ADDITIONAL DIAGNOSES: Obstructive sleep apnea, status post breast cancer, chronic obstructive pulmonary disease, type 1 bipolar disorder. CHIEF COMPLAINT AND HISTORY OF PRESENT ILLNESS: This 59-year-old white female was admitted with intractable abdominal pain on the day of admission and had been going on for 4 days prior to admission. She has been unable to eat or drink much with the same. She takes a PPI on a regular basis, namely Aciphex. She was admitted for hydration, pain control, GI evaluation. The patient has had several episodes of this, had been ill-defined, one is included hematoma in her liver area, which was never explained. GI was consulted. She was not anemic during the stay. They felt this was probably related to adhesions from prior surgery and would not do anything at this point in time as she was progressively got better during the stay. CT scanning was negative during the stay. She received hydration, IV pain medicine and was better by the day of discharge and tolerating a soft diet and it was felt she could be dismissed. DISPOSITION: The patient is discharged to home. DIET: Regular diet. ACTIVITY: As tolerated. FOLLOWUP: Office in 1 week. DISCHARGE MEDICATIONS: Listed on the med rec and have been addressed. RUTH NOVA MD DR: DENG/kely JOB#: [id number] / [id number]
== END 2020-02-08 13:04 | disposition home or self-care (01) | DRG 394 ==
LOC: 4 NORTH 15:14
PROVIDERS: ADMIT Family Medicine; ATTEND Family Medicine
DX: K66.0 Peritoneal adhesions (postprocedural) (postinfection) (principal); E87.1 Hypo-osmolality and hyponatremia; K21.9 Gastro-esophageal reflux disease without esophagitis; C50.919 Malignant neoplasm of unspecified site of unspecified female breast; E11.40 Type 2 diabetes mellitus with diabetic neuropathy, unspecified; E78.5 Hyperlipidemia, unspecified; F17.210 Nicotine dependence, cigarettes, uncomplicated; F31.9 Bipolar disorder, unspecified; G47.33 Obstructive sleep apnea (adult) (pediatric); G89.29 Other chronic pain; J44.9 Chronic obstructive pulmonary disease, unspecified; M79.7 Fibromyalgia; Z80.3 Family history of malignant neoplasm of breast; Z82.49 Family history of ischemic heart disease and other diseases of the circulatory system; Z83.3 Family history of diabetes mellitus; Z85.3 Personal history of malignant neoplasm of breast; Z90.12 Acquired absence of left breast and nipple; Z90.49 Acquired absence of other specified parts of digestive tract; Z90.710 Acquired absence of both cervix and uterus; K59.00 Constipation, unspecified; Z88.2 Allergy status to sulfonamides; Z88.8 Allergy status to other drugs, medicaments and biological substances; Z91.048 Other nonmedicinal substance allergy status
CPT/HCPCS: 36415; 74177; 80048; 81001; 82150; 83690; 85007; 85025; 87086; 94640; J3010; J7030; Q9966; Q9967; G0378; J7613

== ENCOUNTER → 2020-03-03 | Outpatient (CLI) | payer BC, MEDICARE ==
[2020-02-08 11:00] VITALS: BP 138/76
[~2020-03-03] MED LIST changes: +FLUT9.9S NS
--- NOTE | 2020-03-03 12:00 | CARD ---
MR#: [id number] Date of Study: 03/03/2020 Ordering Physician: IRIS BHAT, Referring Physician: IRIS BHAT Tech: Rosalina Nelson RDCS APPROVED REPORT EXAM: Two-dimensional and M-mode echocardiogram with Doppler and color Doppler. Other Information Quality : Good INDICATION Hypertension/HCVD 2D DIMENSIONS Left Atrium(2D)3.9 (1.6-4.0cm)IVSd1.2 (0.7-1.1cm) Aortic Root(2D)3.0 (2.0-3.7cm)LVDd3.6 (3.9-5.9cm) LVOT Diameter2.1 (1.8-2.4cm)PWd1.2 (0.7-1.1cm) LVDs2.6 (2.5-4.0cm)FS (%) 27.0 % SV8.7 ml Aortic Valve AoV Peak Misael.174.9cm/sAoV VTI29.9cm AO Peak GR.12.2mmHgLVOT Peak Misael.174.5cm/s AO Mean GR.7mmHgAVA (VMAX)3.36cm2 DIVINE (VTI)3.10xd9OS P 1/2 Euid246ws Mitral Valve MV E Vtjvahkh27.2cm/sMV DECEL [id number] MV A Nbirljay65.8cm/sE/A Ratio0.6 Tricuspid Valve TR P. Crztenzt414ui/sRAP HVBAYICI2uuFe TR Peak Gr.82prWdHCXH21ojIi Pulmonary Vein S1 Humrqhij30.9cm/sD2 Lsbhuctq85.3cm/s LEFT VENTRICLE The left ventricle is normal size. There is mild concentric left ventricular hypertrophy. The left ve ntricular systolic function is normal and the ejection fraction is within normal range. LV ejection f raction is 50-55%. There is normal LV segmental wall motion. Transmitral Doppler flow pattern is Grad e I-abnormal relaxation pattern. RIGHT VENTRICLE The right ventricle is normal size. The right ventricular systolic function is normal. ATRIA The left atrium size is normal. The right atrium size is normal. The interatrial septum is intact wit h no evidence for an atrial septal defect or patent foramen ovale as noted on 2-D or Doppler imaging. AORTIC VALVE The aortic valve is calcified but opens well. Doppler and Color Flow revealed trace to mild aortic re gurgitation. There is no significant aortic valvular stenosis. MITRAL VALVE The mitral valve is normal in structure and function. Mitral annular calcification is mild. There is no evidence of mitral valve prolapse. There is no mitral valve stenosis. Doppler and Color-flow revea led trace mitral regurgitation. TRICUSPID VALVE The tricuspid valve is normal in structure and function. Doppler and Color Flow revealed trace tricus pid regurgitation. The PA pressure was estimated at 28 mmHg. There is no tricuspid valve stenosis. PULMONIC VALVE The pulmonary valve is normal in structure and function. Doppler and Color Flow revealed trace pulmon ic valvular regurgitation. There is no pulmonic valvular stenosis. GREAT VESSELS The aortic root is normal in size. The ascending aorta is mildly dilated 3.7 cm. The IVC is normal in size and collapses >50% with inspiration. PERICARDIAL EFFUSION There is no evidence of significant pericardial effusion. Critical Notification Critical Value: No <Conclusion> The left ventricle is normal size. The left ventricular systolic function is normal and the ejection fraction is within normal range. LV ejection fraction is 50-55%. There is mild concentric left ventricular hypertrophy. Doppler and Color Flow revealed trace to mild aortic regurgitation. There is no significant aortic valvular stenosis. Doppler and Color-flow revealed trace mitral regurgitation. Doppler and Color Flow revealed trace tricuspid regurgitation. The PA pressure was estimated at 28 mmHg. The ascending aorta is mildly dilated 3.7 cm. Signed by : Mathew Dugan MD Electronically Approved : 03/03/2020 12:00:08
== END | disposition home or self-care (01) ==
LOC: ECHO 10:44
PROVIDERS: ATTEND Internal Medicine Cardiovascular Disease
DX: I08.0 Rheumatic disorders of both mitral and aortic valves (principal); I11.9 Hypertensive heart disease without heart failure
CPT/HCPCS: 93306

== ENCOUNTER → 2020-03-18 | Outpatient (CLI) | payer BC, MEDICARE ==
--- NOTE | 2020-03-18 11:43 | RAD ---
MR#: [id number] Date of Study: 03/18/2020 Ordering Physician: IRIS BHAT, Referring Physician: IRIS BHAT, Tech: Nakul Bonner MBA, RDMS, RVT, RDCS, RTR APPROVED REPORT Patient Location : OUT-PATIENT Indications VENOUS INSUFFICIENCY Findings Bilateral greater and lesser saphenous veins were imaged for reflux. Bilateral saphenofemoral juncti ons did not reveal any evidence of thrombus. The right great saphenous vein measures 3.2 mm and the left great saphenous vein measures 3 mm. Bilateral lesser and greater saphenous veins did not show a ny evidence of reflux. Critical Notification Critical Value: No <Conclusion> 1. Negative for reflux in the bilateral greater and lesser saphenous veins. Signed by : Arthur Hood, Electronically Approved : 03/18/2020 11:42:27
== END | disposition home or self-care (01) ==
LOC: US 08:43
PROVIDERS: ATTEND Internal Medicine Cardiovascular Disease
DX: I87.2 Venous insufficiency (chronic) (peripheral) (principal)
CPT/HCPCS: 93970

== ENCOUNTER → 2020-08-27 | Outpatient (CLI) | payer MEDICARE, BC ==
--- NOTE | 2020-08-27 15:55 | RAD ---
Left upper extremity arterial duplex ultrasound study compared to similar exam dated May 22 9 for left arm numbness. TECHNIQUE AND FINDINGS: Real-time grayscale and color and spectral Doppler evaluation of the arteries of the left upper extremity is performed. All arteries are patent. There is monophasic flow within a ll arterial distributions, with parvus tardus waveforms in the axillary, brachial, radial, and ulnar arteries. Velocities in the proximal left subclavian artery are elevated at 215 cm/s. There is antegr kandis flow in the vertebral artery. IMPRESSION: 1. Abnormal arterial duplex ultrasound study indicative of hemodynamically significant proximal subcl jason artery stenosis. CTA could better characterize this abnormality and allow for treatment octavia santana Electronically signed by: Hardeep Lr MD (08/27/2020 3:52 PM) [id number]
== END ==
LOC: US 11:12
PROVIDERS: ATTEND Family Medicine
DX: I70.202 Unspecified atherosclerosis of native arteries of extremities, left leg (principal); R20.0 Anesthesia of skin
CPT/HCPCS: 93931

== ENCOUNTER → 2020-09-17 | Outpatient (CLI) | payer MEDICARE, BC ==
[~2020-09-17] MED LIST changes: +CONTRAST GIVEN. MC PRN; +IOHEXOL 350 MG/ML 100 ML VIAL. IV ONE
--- NOTE | 2020-09-17 11:44 | RAD ---
CTA of the left upper extremity without comparison for left subclavian artery stenosis. TECHNIQUE: Contiguous axial CT images are obtained with the crpis-na-xcag extending from the neck to the left elbow, following administration of IV contrast in the arterial phase. Sagittal and coronal M IPS are evaluated as are 3-D volume rendered images of the vasculature. Nonvascular findings: Visualized upper abdominal organs are grossly unremarkable. A few small mediast inal lymph nodes are noted. No suspicious mediastinal or hilar or axillary lymphadenopathy is identif ied. No suspicious osteoblastic or osteolytic bone lesions are identified. Bulky dystrophic calcifica tion anterior to the left pectoralis muscle is likely benign. There are emphysematous changes at the lung apices. Most most of the right lung is not included on exam. In the left lung apex, anteriorly, there is a pleural-based spiculated soft tissue mass measuring 2.3 x 2.2 cm grossly unchanged from th e CT scan dated August 18, 2018. Benign apical pleural scarring is suggested, however given its spi cular appearance and underlying COPD, close continued surveillance is encouraged. No new lung parench ymal abnormalities. Vascular findings: Coronary artery calcifications are seen in multiple distributions. Mild mixed soft atherosclerotic plaque within the bilateral common carotid arteries. There is a short segment chroni c occlusion of the left subclavian artery distal to the thyrocervical trunk. There is bulky calcified moderate to severe stenosis of proximal left vertebral artery. Lower cervical right vertebral artery appears widely patent. The distal left subclavian artery is rapidly reconstituted and provides in-li ne flow to widely patent left axillary and brachial arteries. 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 IMPRESSION: 1. Short segment occlusion of the subclavian artery distal to the thyrocervical trunk. No abnormaliti es of the distal subclavian, axilla, or brachial arteries. 2. Moderate to severe ostial stenosis of the left vertebral artery. 3. 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 4. Stable spiculated 2.3 cm left apical pleural parenchymal scar. Benignity is favored based on stabi lity over time, however given the presence of spiculations and high risk clinic background, annual CT surveillance is recommended. PQRS Compliance Statement: One or more of the following individualized dose reduction techniques were utilized for this examinat ion: 1. Automated exposure control 2. Adjustment of the mA and/or kV according to patient size 3. Use of iterative reconstruction technique Electronically signed by: Hardeep Lr MD (09/17/2020 11:41 AM) [id number]
== END ==
LOC: CT 08:30
PROVIDERS: ATTEND Family Medicine
DX: I65.02 Occlusion and stenosis of left vertebral artery (principal); I77.1 Stricture of artery
CPT/HCPCS: 73206; Q9967

== ENCOUNTER 2020-10-25 15:39 | Emergency (ER) | payer MEDICARE, BC ==
[~2020-10-25] VITALS: Ht 170.2 cm; Wt 84.0 kg
[~2020-10-25 15:39] MED LIST changes: +ALBU2.5V8 IH; -CONTRAST GIVEN. MC PRN; -IOHEXOL 350 MG/ML 100 ML VIAL. IV ONE; +MULT-658 PO; +PRAM0.12 PO
[2020-10-25] MEDS ORDERED: IV NORMAL SALINE 1000ML BAG 1,000 ML IV SCH (16:00)
[2020-10-25 16:52] LABS: BILIRUBIN,URINE NEGATIVE (NEG); CLARITY,URINE CLOUDY; COLOR,URINE YELLOW; NITRITE,URINE NEGATIVE (NEG); PROTEIN,URINE 100 mg/dL (NEG-TRACE); UROBILINOGEN,URINE 0.2 mg/dL (0.2 mg/dL)
--- NOTE | 2020-10-25 17:03 | PHYS DOC ---
Past Medical History Past Medical History: Cancer, Diabetes-Type II, Other Additional Past Medical Histor: left breast ca,CHRONIC ABDOMINAL PAIN Past Surgical History: Cancer Surgery, Cholecystectomy, Hysterectomy, Other Additional Past Surgical Histo: L mastectomy Smoking Status: Current Every Day Smoker Alcohol Use: Occasionally Drug Use: Marijuana Adult General Chief Complaint Chief Complaint: ABDOMINAL PAIN HPI HPI Patient is a 60 year old female known psychiatric history as well as what appears to be chronic abdominal pain presenting emergency department complaining of abdominal pain. Patient notes that she was admitted and discharged for similar complaints. I did review the results and the patient did have a GI work-up which was negative for any significant acute pathology. Patient states she is having the same intractable midepigastric abdominal pain with nausea without vomiting or diarrhea. Denies any fever, chills, chest pain or shortness of breath. Review of Systems Review of Systems Constitutional: Denies fever or chills [] Eyes: Denies change in visual acuity, redness, or eye pain [] HENT: Denies nasal congestion or sore throat [] Respiratory: Denies cough or shortness of breath [] Cardiovascular: No additional information not addressed in HPI [] GI: Denies abdominal pain, nausea, vomiting, bloody stools or diarrhea [] : Denies dysuria or hematuria [] Musculoskeletal: Denies back pain or joint pain [] Integument: Denies rash or skin lesions [] Neurologic: Denies headache, focal weakness or sensory changes [] Endocrine: Denies polyuria or polydipsia [] All other systems were reviewed and found to be within normal limits, except as documented in this note. Current Medications Current Medications Current Medications Medications (Trade) Dose Ordered Sig/Julieta Start Time Stop Time Status Last Admin Dose Admin Hydromorphone HCl (Dilaudid) 1 mg 1X ONCE 10/25/20 18:45 10/25/20 18:46 DC 10/25/20 18:46 1 MG Sodium Chloride 1,000 ml @ 1,000 mls/hr Q1H 10/25/20 16:00 10/25/20 16:59 DC 10/25/20 16:25 1,000 MLS/HR Allergies Allergies Allergies Coded Allergies Type Severity Reaction Last Updated Verified Sulfa (Sulfonamide Antibiotics) Allergy Intermediate Hives 05/04/19 Yes adhesive Allergy Intermediate itch 05/04/19 Yes morphine Allergy Intermediate RASH 10/21/20 Yes latex Allergy Mild 10/23/20 Yes Physical Exam Physical Exam Constitutional: Well developed, well nourished, no acute distress, non-toxic appearance. [] HENT: Normocephalic, atraumatic, bilateral external ears normal, oropharynx moist, no oral exudates, nose normal. [] Eyes: PERRLA, EOMI, conjunctiva normal, no discharge. [] Neck: Normal range of motion, no tenderness, supple, no stridor. [] Cardiovascular:Heart rate regular rhythm, no murmur [] Lungs & Thorax: Bilateral breath sounds clear to auscultation [] Abdomen: Bowel sounds normal, soft, no tenderness, no masses, no pulsatile masses. [] Skin: Warm, dry, no erythema, no rash. [] Back: No tenderness, no CVA tenderness. [] Extremities: No tenderness, no cyanosis, no clubbing, ROM intact, no edema. [] Neurologic: Alert and oriented X 3, normal motor function, normal sensory function, no focal deficits noted. [] Psychologic: Affect normal, judgement normal, mood normal. [] Current Patient Data Vital Signs Vital Signs Date Time Temp Pulse Resp B/P (MAP) Pulse Ox O2 Delivery O2 Flow Rate FiO2 10/25/20 18:46 18 97 Room Air 10/25/20 17:34 106 197/99 (131) 10/25/20 16:00 99.0 99.0 Lab Values Laboratory Tests Test 10/25/20 16:15 10/25/20 18:00 Urine Collection Type Unknown Urine Color Yellow Urine Clarity Cloudy Urine pH 6.0 (<5.0-8.0) Urine Specific [place] 1.025 (1.000-1.030) Urine Protein 100 mg/dL (NEG-TRACE) Urine Glucose (UA) 100 mg/dL (NEG) Urine Ketones (Stick) 15 mg/dL (NEG) Urine Blood Negative (NEG) Urine Nitrite Negative (NEG) Urine Bilirubin Negative (NEG) Urine Urobilinogen Dipstick 0.2 mg/dL (0.2 mg/dL) Urine Leukocyte Esterase Negative (NEG) Urine RBC Rare /HPF (0-2) Urine WBC 1-4 /HPF (0-4) Urine Squamous Epithelial Cells Many /LPF Urine Bacteria Mod /HPF (0-FEW) White Blood Count 13.6 x10^3/uL (4.0-11.0) H Red Blood Count 5.83 x10^6/uL (3.50-5.40) H Hemoglobin 13.8 g/dL (12.0-15.5) Hematocrit 43.7 % (36.0-47.0) Mean Corpuscular Volume 75 fL (79-100) L Mean Corpuscular Hemoglobin 24 pg (25-35) L Mean Corpuscular Hemoglobin Concent 32 g/dL (31-37) Red Cell Distribution Width 18.3 % (11.5-14.5) H Platelet Count 308 x10^3/uL (140-400) Neutrophils (%) (Auto) 72 % (31-73) Lymphocytes (%) (Auto) 16 % (24-48) L Monocytes (%) (Auto) 10 % (0-9) H Eosinophils (%) (Auto) 1 % (0-3) Basophils (%) (Auto) 1 % (0-3) Neutrophils # (Auto) 9.8 x10^3/uL (1.8-7.7) H Lymphocytes # (Auto) 2.2 x10^3/uL (1.0-4.8) Monocytes # (Auto) 1.4 x10^3/uL (0.0-1.1) H Eosinophils # (Auto) 0.1 x10^3/uL (0.0-0.7) Basophils # (Auto) 0.1 x10^3/uL (0.0-0.2) Sodium Level 135 mmol/L (136-145) L Potassium Level 3.2 mmol/L (3.5-5.1) L Chloride Level 99 mmol/L (98-107) Carbon Dioxide Level 26 mmol/L (21-32) Anion Gap 10 (6-14) Blood Urea Nitrogen 13 mg/dL (7-20) Creatinine 0.7 mg/dL (0.6-1.0) Estimated GFR (Cockcroft-Gault) 84.8 BUN/Creatinine Ratio 19 (6-20) Glucose Level 134 mg/dL (70-99) H Calcium Level 9.3 mg/dL (8.5-10.1) Total Bilirubin 0.3 mg/dL (0.2-1.0) Aspartate Amino Transferase (AST) 25 U/L (15-37) Alanine Aminotransferase (ALT) 28 U/L (14-59) Alkaline Phosphatase 103 U/L (46-116) Creatine Kinase 66 U/L (26-192) Total Protein 6.9 g/dL (6.4-8.2) Albumin 3.9 g/dL (3.4-5.0) Albumin/Globulin Ratio 1.3 (1.0-1.7) Lipase 70 U/L (73-393) L Laboratory Tests 10/25/20 18:00 Laboratory Tests 10/25/20 18:00 EKG EKG [] Radiology/Procedures Radiology/Procedures EXAM: ABDOMEN ONE VIEW. HISTORY: Abdominal pain. COMPARISON: 05/21/2019, 06/23/2018. FINDINGS: A frontal view of the abdomen is obtained. A dense object projecting over the right iliac wing is new since the prior study and may overlie the patient. Cholecystectomy clips are noted. There are no distended small bowel loops. There is gas distally. IMPRESSION: 1. No evidence of obstruction. Electronically signed by: Giancarlo Baig MD (10/25/2020 5:42 PM) [facility] Course & Med Decision Making Course & Med Decision Making Pertinent Labs and Imaging studies reviewed. (See chart for details) 60F returns emergency department following midepigastric abdominal pain which appears to be the same as last time. Patient did have distractible exam and therefore there is some concern that this is psychogenic in origin and there is no other acute finding. Will obtain labs to make sure there is nothing acute. 18:36 - labs and imaging reviewed without any acute abnormality at this time. Discussed with the patient she agrees at this time will plan for discharge home with her to follow-up with her primary care physician Claritza Disclaimer Claritza Disclaimer This electronic medical record was generated, in whole or in part, using a voice recognition dictation system. Departure Departure Impression: Primary Impression: Intractable abdominal pain Disposition: HOME / SELF CARE / HOMELESS Condition: GOOD Referrals: RUTH NOVA MD (PCP) Patient Instructions: Abdominal Pain Additional Instructions: EMERGENCY DEPARTMENT GENERAL DISCHARGE INSTRUCTIONS Thank you for coming to [facility] Emergency Department (ED) to day and trusting us with you care. We trust that you had a positive experience in our Emergency Department. If you wish to speak to the department management, you may call the Director at [phone]. YOUR FOLLOW UP INSTRUCTIONS ARE FOLLOWS: 1. Do you have a private Doctor? If you do not have a private doctor, please ask for a resource list of physicians or clinics that may be able to assist you with follow up care. 2. The Emergency Physicain has interpreted your x-rays. The X-Ray specialist will also review them. If there is a change in the findings, you will be notified in 48 hours when at all possible. 3. A lab test or culture has been done, your results will be reviewed and you will be notified if you need a change in treatment. ADDITIONAL INSTRUCTIONS AND INFORMATION: 1. Your care today has been supervised by a physician who is specially trained in emergency care. Many problems require more than one evaluation for a complete diagnosis and treatment. We recommend that you schedule your follow up appointment as recommended to ensure complete treatment of you illness or injury. If you are unable to obtain follow up care and continue to have a problem, or if your condition worsens, we recommend that you return to the ED. 2. We are not able to safely determine your condition over the phone nor are we able to give sound medical advice over the phone. For these safety reasons, if you call for medical advice we will ask you to come to the ED for further evaluation. 3. If you have any questions regarding these discharge instructions please call the ED at [phone]. SAFETY INFORMATION: In the interest of safety, wellness, and injury prevention; we encourage you to wear your sealbelt, if you smoke; quite smoking, and we encourage family to use a protective helmet for bicycling and other sporting events that present an increased risk for head injury. IF YOUR SYMPTOMS WORSEN OR NEW SYMPTOMS DEVELOP, OR YOU HAVE CONCERNS ABOUT YOUR CONDITION; OR IF YOUR CONDITION WORSENS WHILE YOU ARE WAITING FOR YOUR FOLLOW UP APPOINT MENT; EITHER CONTACT YOUR PRIMARY CARE DOCTOR, THE PHYSICIAN WHOSE NAME AND NUMBER YOU WERE GIVEN, OR RETURN TO THE ED IMMEDIATELY. Scripts Prochlorperazine Maleate (Compazine) 5 Mg Tablet 5 MG PO Q8HRS PRN for NAUSEA for 30 Days, #90 TAB Prov: VIN CUNHA MD 10/25/20 VIN CUNHA MD Oct 25, 2020 17:03
--- NOTE | 2020-10-25 17:04 | EKG ---
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
[2020-10-25 17:13] LABS: BACTERIA,URINE MOD /HPF (0-FEW)
[2020-10-25 17:14] LABS: RBC,URINE RARE /HPF (0-2)
--- NOTE | 2020-10-25 17:45 | RAD ---
EXAM: ABDOMEN ONE VIEW. HISTORY: Abdominal pain. COMPARISON: 05/21/2019, 06/23/2018. FINDINGS: A frontal view of the abdomen is obtained. A dense object projecting over the right iliac w ing is new since the prior study and may overlie the patient. Cholecystectomy clips are noted. There are no distended small bowel loops. There is gas distally. IMPRESSION: 1. No evidence of obstruction. Electronically signed by: Giancarlo Baig MD (10/25/2020 5:42 PM) [facility]
[2020-10-25 18:11] LABS: BASO # 0.1 x10^3/uL (0.0-0.2); BASO % 1 % (0-3); EOS # 0.1 x10^3/uL (0.0-0.7); EOS % 1 % (0-3); HEMATOCRIT 43.7 % (36.0-47.0); HEMOGLOBIN 13.8 g/dL (12.0-15.5); LYMPH # 2.2 x10^3/uL (1.0-4.8); LYMPH % 16 % (24-48); MEAN CORPUSCULAR HEMOGLOBIN 24 pg (25-35); MEAN CORPUSCULAR HGB CONC 32 g/dL (31-37); MEAN CORPUSCULAR VOLUME 75 fL (79-100); MONO # 1.4 x10^3/uL (0.0-1.1); MONO % 10 % (0-9); NEUT # 9.8 x10^3/uL (1.8-7.7); NEUT % 72 % (31-73); PLATELET COUNT 308 x10^3/uL (140-400); RED BLOOD COUNT 5.83 x10^6/uL (3.50-5.40); RED CELL DISTRIBUTION WIDTH 18.3 % (11.5-14.5); WHITE BLOOD COUNT 13.6 x10^3/uL (4.0-11.0)
[2020-10-25 18:21] LABS: CALCIUM 9.3 mg/dL (8.5-10.1); CREATININE 0.7 mg/dL (0.6-1.0); GFR 84.8; POTASSIUM 3.2 mmol/L (3.5-5.1)
[2020-10-25 18:28] LABS: ALBUMIN 3.9 g/dL (3.4-5.0); ALBUMIN/GLOBULIN RATIO 1.3 (1.0-1.7); TOTAL BILIRUBIN 0.3 mg/dL (0.2-1.0); TOTAL PROTEIN 6.9 g/dL (6.4-8.2)
[2020-10-25] MEDS ORDERED: HYDROmorphone 2 MG/ML VIAL IVP ONE (18:45)
[2020-10-25] MEDS ORDERED: PROC5TAB34 PO (18:55)
[2020-10-25 19:19] VITALS: BP 192/95
== END 2020-10-25 19:20 | disposition home or self-care (01) ==
LOC: ER 15:39
DX: G89.29 Other chronic pain (principal); R10.13 Epigastric pain; R11.0 Nausea; E11.9 Type 2 diabetes mellitus without complications; F17.200 Nicotine dependence, unspecified, uncomplicated; F12.90 Cannabis use, unspecified, uncomplicated; Z90.710 Acquired absence of both cervix and uterus; Z90.49 Acquired absence of other specified parts of digestive tract; Z98.890 Other specified postprocedural states; Z85.9 Personal history of malignant neoplasm, unspecified; Z88.2 Allergy status to sulfonamides; Z88.6 Allergy status to analgesic agent; Z91.040 Latex allergy status; Z88.8 Allergy status to other drugs, medicaments and biological substances
CPT/HCPCS: 36415; 74018; 80053; 81001; 82550; 83690; 85025; 93005; 96361; 96374; 99285; J1170; J7030

== ENCOUNTER → 2020-12-24 | Outpatient (CLI) | payer MEDICARE, BC ==
[~2020-12-24] MED LIST changes: -ARIP20TA10 PO; +ARIP20TA21 PO; -OMEP40CA45 PO; +OMEP40CA7 PO; +PROC5TAB34 PO
--- NOTE | 2020-12-24 10:25 | RAD ---
EXAMINATION: US HEPATIC LIVER DOPPLER INDICATION: 60 years, Female, abdominal pain. COMPARISON: 10/20/2020 TECHNIQUE: Grayscale, color and spectral doppler evaluation of the aorta and mesenteric vessels and l iver was performed. FINDINGS: Peak Systolic/Diastolic Velocities in cm/s: Proximal Abdominal Aorta measures 2.3 cm in diameter. PSV: 71 cm/second Mid abdominal aorta measures 1.3 cm in diameter. PSV: 98 cm/second. Distal abdominal aorta measures 1.2 cm in diameter. PSV: 88 cm/second. Proximal Celiac Trunk: 207/37 cm/s. Celiac trunk distally at bifurcation measures 1.5 cm in diameter Superior Mesenteric Artery Origin: 224/41 Superior Mesenteric Artery Proximal: 178/23 Superior Mesenteric Artery Distal: 154/35 Inferior Mesenteric Artery: Not visualized. The liver measures 20 cm in length, demonstrates increased parenchymal echogenicity with mild heterog eneous echotexture. No discrete focal hepatic lesion. Portal vein is patent with normal hepatopedal f low. Partially imaged right kidney measures 11.5 cm in length, demonstrates normal corticomedullary a ssociation with no shadowing calculus or discrete mass. No hydronephrosis. IMPRESSION: 1. Borderline increased velocity at the proximal celiac trunk, suggesting of approximately 50 % lumin al stenosis. 2. 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 However, this finding is not seen on recent CT exam. There was a mild dilatio n of the proximal common hepatic artery with atherosclerotic disease seen on earlier CT exam, measure s approximately 1.0 cm in diameter. 3. Mild hepatomegaly with moderate diffuse steatosis. Electronically signed by: Waldemar Sauceda MD (12/24/2020 10:22 AM) [facility]
== END ==
LOC: US 06:33
PROVIDERS: ATTEND Family Medicine
DX: K76.0 Fatty (change of) liver, not elsewhere classified (principal); I70.8 Atherosclerosis of other arteries; R16.0 Hepatomegaly, not elsewhere classified; I10 Essential (primary) hypertension
CPT/HCPCS: 93975

== ENCOUNTER 2021-08-26 06:58 | Day surgery (SDC) | payer MEDICARE, BC ==
[~2021-08-26] VITALS: Ht 170.2 cm; Wt 87.5 kg
[~2021-08-26 06:58] MED LIST changes: +CLOP75TA PO; +DICY20TA PO; -DICY20TA3 PO; -DULO60CA6 PO; +DULO60CA7 PO; +MELO15TA23 PO
--- NOTE | 2021-08-26 07:32 | PDOC1 ---
History and Physical Date of Service: DOS: DATE: 08/26/21 TIME: 07:29 Chief Complaint: Chief Complain: left foot pain History of Present Illness: HPI: Patient is a 61yo F here today for hammer toe surgery of the left foot. Hx anemia, breast cancer, stroke this year with minimal residual effects, active smoker. Patient denies to me any heart problems, kidney problems, hx renal disease. Past Medical/Surgical History: PMH/PSH: Anemia, breast cancer, stroke Allergies: Allergies: Coded Allergies: Sulfa (Sulfonamide Antibiotics) (Verified Allergy, Intermediate, Hives, 08/25/21) adhesive (Verified Allergy, Intermediate, itch, 08/25/21) morphine (Verified Allergy, Intermediate, RASH, 08/25/21) Family History: Family History: HTN Social History: Social History: Daily cigarette smoker, denies alcohol drug use Current Medications: Current Medications Current Medications Cefazolin Sodium/ Dextrose 50 ml @ 100 mls/hr 1X PREOP PRN IV PRIOR TO PROCEDURE; Start 08/26/21 at 06:00; Stop 08/26/21 at 18:00 Active Scripts Active Compazine (Prochlorperazine Maleate) 5 Mg Tablet 5 Mg PO Q8HRS PRN 30 Days Reported Excedrin Extra Strength Caplet (Aspirin/Acetaminophen/Caffeine) 1 Each Tablet 4 Each PO BID Clopidogrel (Clopidogrel Bisulfate) 75 Mg Tablet 1 Tab PO HS Meloxicam 15 Mg Tablet 1 Tab PO DAILY 30 Days Centrum Silver Tablet (Multivits-Min/Fa/Lycopene/Lut) 1 Each Tablet 1 Each PO DAILY Proair Hfa Inhaler (Albuterol Sulfate) 8.5 Gm Hfa.aer.ad 2 Puff IH PRN Q4-6HRS PRN 21 Days Lamotrigine 200 Mg Tablet 350 Tab PO DAILY Pramipexole Dihydrochloride (Pramipexole Di-Hcl) 0.125 Mg Tablet 0.125 Tab PO BID Flonase Allergy Relief (Fluticasone Propionate) 9.9 Ml Fraser.susp 2 Sprays NS DAILY Celebrex (Celecoxib) 200 Mg Capsule 1 Cap PO DAILY Evista (Raloxifene Hcl) 60 Mg Tablet 1 Tab PO DAILY Cymbalta (Duloxetine Hcl) 60 Mg Capsule.dr 120 Mg PO DAILY Hydrocodone-Apap 10-325 (Hydrocodone Bit/Acetaminophen) 1 Tab Tablet 1 Tab PO PRN Q6HRS PRN Crestor (Rosuvastatin Calcium) 10 Mg Tablet 10 Mg PO HS Aciphex (Rabeprazole Sodium) 20 Mg Tablet. 1 Tab PO BID Abilify (Aripiprazole) 10 Mg Tablet 10 Mg PO HS ROS: Review of Systems Review of System REVIEW OF SYSTEMS: GENERAL: Denies weakness SKIN: No bruising, hair changes or rashes. EYES: No blurred, double or loss of vision. NOSE AND THROAT: No history of nosebleeds, hoarseness or sore throat. HEART: No history of palpitations, chest pain or shortness of breath on exertion. LUNGS: Denies cough, hemoptysis, wheezing or shortness of breath. GASTROINTESTINAL: Denies changes in appetite, nausea, vomiting, diarrhea or constipation. GENITOURINARY: No history of frequency, urgency, hesitancy or nocturia. NEUROLOGIC: Denies history of numbness, tingling, or tremor. PSYCHIATRIC: No history of panic, anxiety or depression. ENDOCRINE: No history of heat or cold intolerance, polyuria or polydipsia. EXTREMITIES: Denies joint pain, pain on walking or stiffness. Physical Exam: Physcial Exam: GEN: No apparent distress. Alert and oriented HEENT: Normal cephalic, atraumatic, external auditory canals are patent EYES: Extraocular muscles are intact, pupil are equally round and reactive to light and accommodation MUSCULOSKELETAL: Well developed , well nourished, good range of motion ENDOCRINE: No thyromegaly was palpated LYMPHATICS: No cervical chain or axillary nodes were noted HEMATOPOIETIC: No bruising NECK: Supple, no JVD, no thyromegaly was noted LUNGS: Clear to auscultation in all lung [place] without rhonchi or wheezing HEART: RRR, S!, S2 present. Peripheral pulses intact, no obvious murmurs noted ABDOMEN: Soft, nontender. Positive bowel sounds, no organomegaly, normal bowel sounds EXTREMITIES: Without clubbing, cyanosis, or edema. Pedal pulses intact. Negative Homans sign NEUROLOGIC: Normal speech and tone. A&O x 3, moves all extremities, no obvious focal deficits PSYCHIATRIC: Normal affect, normal mood. Stable SKIN: No ulcerations or rashes, good skin turgor, no jaundice VASCULAR: Good capillary refill, neurovascular bundle appears to be intact Assessment/Plan Assessment/Plan Left foot hammer toe Patient here for surgical intervention on left hammer toes. Ok to proceed from IM perspective. Bowers of 1. Justifications for Admission Other Justification DERECK DAVE MD Aug 26, 2021 07:32
[2021-08-26] MEDS ORDERED: AMIT50TA PO (07:59)
[2021-08-26] MEDS ORDERED: IV RINGERS,LACTATED 1000ML 1,000 ML IV SCH (08:00)
[2021-08-26] MEDS ORDERED: DEXAMETHASONE SOD PHOS 4 MG/ML VIAL ONE ×2 (08:11→08:27)
[2021-08-26] MEDS ORDERED: PROPOFOL 10 MG/ML (20ML) VIAL. IV ONE (08:11)
[2021-08-26] MEDS ORDERED: LIDOCAINE 2% PF 5 ML VIAL. ONE (08:11)
[2021-08-26] MEDS ORDERED: ONDANSETRON PF 4 MG/2 ML VIAL. ONE (08:11)
[2021-08-26] MEDS ORDERED: fentaNYL PF VIAL 100 MCG/2 ML VIAL ONE (08:11)
[2021-08-26] MEDS ORDERED: BUPIVACAINE MPF 0.5% 30 ML VIAL. ONE ×2 (08:27→10:01)
[2021-08-26] MEDS ORDERED: LIDOCAINE 1% PF 30 ML VIAL. ONE (08:27)
[2021-08-26] MEDS ORDERED: ePHEDrine PF IN SALINE 50 MG/10 ML SYRINGE. IV ONE (09:11)
[2021-08-26] MEDS ORDERED: PHENYLEPHRINE in 0.9% NACL PF 1 MG/10 ML SYRINGE. IV ONE ×2 (09:15→09:26)
[2021-08-26] MEDS ORDERED: PHENYLEPHRINE 10 MG/ML VIAL. ONE (09:16)
[2021-08-26] MEDS ORDERED: SEVOFLURANE 31 TO 60 MINUTES. IH ONE (09:51)
--- NOTE | 2021-08-26 10:23 | PDOC4 ---
OPERATIVE NOTE Date: Date: Aug 26, 2021 Pre-Op Diagnosis: Left semirigid second hammertoe contracture, mild adductovarus deformity to the fourth digit with flexible hammertoe contracture Tobacco abuse with PAD Post-Op Diagnosis: Same as above Procedure Performed: Left second PIPJ arthrodesis, second MTPJ capsulotomy, fourth PIPJ arthroplasty, fourth flexor tenotomy at the level of the PIPJ plantarly Surgeon: Ramona Barajas DPM Anesthesia Type: General Blood Loss: 2 cc Specimans Obtained: None Findings: Semirigid left second hammertoe contracture Flexible left fourth hammertoe contracture Attenuated digital perfusion preoperatively in the setting of chronic tobacco abuse. After tourniquet was deflated, the left second toe took 5 minutes to perfuse. Eventually, the digit was pink and blanchable. Complications: None Operative Note: Under mild sedation, patient was brought into the operating room and placed on operating table in a supine position. A formal timeout confirming patient's identity, procedure, procedure site was carried out. 12 cc of one-to-one mixture of 1% lidocaine plain and 0.25% Marcaine plain was infiltrated into the procedure site and a digital block fashion. Following IV prophylactic antibiotics, general anesthesia, a well-padded calf tourniquet was placed on the left lower extremity. The left lower extremity was then scrubbed, prepped and draped using aseptic techniques. The left lower extremity was exsanguinated and then the tourniquet was inflated to 250 mill mercury. Then the attention was directed to the dorsal second PIPJ. A central linear full-thickness incision was made over the second PIPJ. The incision was carried deep with a pair of Metzenbaum's scissors with care to protect and retract all the neurovascular bundles. At this time, the dorsal EDL was encountered and incised at the level of the PIPJ. The extensor tendon was elevated off the bone and capsule. A transverse capsulotomy and collateral ligament release were performed over the PIPJ to expose the head of the proximal second phalanx and the base of the middle second phalanx. A sagittal saw was used to resect out the head of the second proximal phalanx at the level of the distal metaphysis and the base of the second phalanx. Then forefoot loading and passive second MTPJ range of motion noted mild dorsal contracture at the second MTPJ. Then the decision was made to release the dorsal second MTPJ capsule with a Wells blade percutaneously. Afterwards, adequate mobilization and less retrograde buckling was noted at the second MTPJ. The surgical site was irrigated with copious saline solution. Then a 0.062 inch K wire was used to stabilize the PIPJ in a retrograde fashion traversing the MTPJ. Adequate second PIPJ apposition, hardware position, purchase and alignment were confirmed with intraoperative x- ray. The exposed K wire was cut, bent and capped. Then the attention was directed to the dorsal fourth PIPJ. Two semielliptical full-thickness excisions were made over the fourth PIPJ. The incision was carried deep with a pair of Metzenbaum's scissors with care to protect and retract all the neurovascular bundles. At this time, the dorsal EDL was encountered and incised at the level of the PIPJ. The extensor tendon was elevated off the bone and capsule. A transverse capsulotomy and collateral ligament release were performed over the PIPJ to expose the head of the proximal second phalanx. A sagittal saw was used to resect out the head of the second proximal phalanx at the level of the distal metaphysis. Then forefoot loading and passive second MTPJ range of motion noted mild adductovarus deformity in the setting of mild pes planus. Then the decision was made to release the FDL at the level of the fourth PIPJ with a Wells blade. Afterwards, adequate force digit alignment was noted. The surgical site was irrigated with copious saline solution. Then a 0.062 inch K wire was used to stabilize the PIPJ in a retrograde fashion traversing the MTPJ. Adequate hardware position, purchase and alignment were confirmed with intraoperative x-ray. The exposed K wire was cut, bent and capped. Then the EDLs were repaired with 3-0 Vicryl. Then the skin incision was repaired in layers with 4 Monocryl and 4-0 nylon. At this time, tourniquet was deflated to allow adequate digital perfusion. The second digit took 5 minutes to perfuse and become blanchable. The procedure site was dressed with Xeroform, gauze, Kerlix, Coban and Daniel under minimal compression. Patient tolerated the procedure and anesthesia well and was transferred to PACU for continuous recovery. Pending surgical foot 3 view x-ray in PACU. RAMONA BARAJAS DPChapito Aug 26, 2021 10:23
[2021-08-26] MEDS ORDERED: GABAPENTIN 100 MG CAPSULE. PO ONE (10:30)
[2021-08-26] MEDS ORDERED: oxyCODONE/APAP 5/325 1 TAB TABLET PO ONE (10:30)
[2021-08-26] MEDS ORDERED: ACETAMINOPHEN 325 MG TABLET. PO ONE (10:30)
[2021-08-26] MEDS ORDERED: DEXTROSE 50% 25 GM / 50ML DISP.SYRIN. IV PRN (10:30)
[2021-08-26] MEDS ORDERED: IPRATRPIUM/ALBUTEROL 0.5/2.5MG 3 ML NEBU. NEB ONE (11:15)
[2021-08-26 11:49] VITALS: BP 118/70
--- NOTE | 2021-08-26 16:34 | RAD ---
EXAM: XR FOOT_LEFT 3 VIEWS 08/26/2021 10:31 AM CLINICAL INDICATION: Postop left foot COMPARISON: Left foot radiograph 08/13/2021 TECHNIQUE: AP, oblique, and lateral views of the left foot FINDINGS: There are retrograde pins traversing the second and fourth toes. No acute fracture. Alignm ent is normal. Joint spaces are maintained. There are tiny osteophyte at the great toe MTP joint. The re is a bandage around the foot. Soft tissue is normal. IMPRESSION: New surgical of hammertoe correction of the second and fourth toes. No acute abnormality . Electronically signed by: Carolina Lieberman MD (08/26/2021 4:32 PM) [id number]
== END 2021-08-26 12:24 | disposition home or self-care (01) ==
LOC: SURG 06:58
PROVIDERS: ATTEND Podiatrist
DX: M20.42 Other hammer toe(s) (acquired), left foot (principal); I73.9 Peripheral vascular disease, unspecified; D64.9 Anemia, unspecified; I10 Essential (primary) hypertension; E78.00 Pure hypercholesterolemia, unspecified; J44.9 Chronic obstructive pulmonary disease, unspecified; G47.30 Sleep apnea, unspecified; K21.9 Gastro-esophageal reflux disease without esophagitis; E11.9 Type 2 diabetes mellitus without complications; F41.9 Anxiety disorder, unspecified; F32.9 Major depressive disorder, single episode, unspecified; Z90.710 Acquired absence of both cervix and uterus; Z98.51 Tubal ligation status; Z98.890 Other specified postprocedural states; Z85.3 Personal history of malignant neoplasm of breast; Z86.73 Personal history of transient ischemic attack (TIA), and cerebral infarction without residual deficits; Z82.49 Family history of ischemic heart disease and other diseases of the circulatory system
CPT/HCPCS: 28232; 28285; 73630; 94640; A4209; A4930; A6402; J0690; J1100; J2370; J2405; J2704; J3010; J3490; A4222; A4223; A4657; A6443; A6454

== ENCOUNTER → 2021-09-24 | Outpatient (CLI) | payer MEDICARE, BC ==
[2021-08-26 11:49] VITALS: BP 118/70
[~2021-09-24] MED LIST changes: +AMIT50TA PO; +BARIUM SULFATE 340 GM SUSPENSION. PO ONE; +BARIUM SULFATE 60% 355 ML SUSP PO ONE; +BARIUM SULFATE 700 MG TABLET PO ONE; +SIMETHICONE/SOD BICARB/CITRIC ACID PACKET. PO ONE
--- NOTE | 2021-09-24 09:28 | RAD ---
DG BARIUM SWALLOW History:Reason: dysphagia, 3.1 min fluoro time / Spl. Instructions: / History: Comparison studies: None. Technique: Esophagram was performed utilizing double contrast upright examination, single contrast pr one examination, and cine evaluation of cervical esophageal swallow function. Findings: Barium swallow was performed without difficulty. Moderate to severe esophageal dysmotility with large proximal escape and tertiary contractions. Mild prominence of the cricopharyngeus muscle. Small volume penetration with thin consistency to the level of the cords. No aspiration. Gastroesopha geal reflux noted on prone imaging. No esophageal diverticulum. Barium tablet was retained at the gastroesophageal junction. There is no abrupt shouldering within th is region. Fluoroscopic time: 2.1 minutes. Fluoroscopic images: 14 IMPRESSION: 1. Barium tablet retained at the gastroesophageal junction, indicating stricture. 2. Deep penetration with thin consistency. No aspiration. Recommend further clinical evaluation and potential speech pathology evaluation. 3. Moderate to advanced esophageal dysmotility. 4. Mild cricopharyngeal bar. 5. Gastroesophageal reflux. Electronically signed by: Cheikh Fajardo DO (09/24/2021 9:25 AM) [id number]
== END ==
LOC: RAD 08:11
PROVIDERS: ATTEND Family Medicine
DX: K21.9 Gastro-esophageal reflux disease without esophagitis (principal); K22.4 Dyskinesia of esophagus
CPT/HCPCS: 74220